=== PATIENT | female | born 1945 | race Caucasian/White ===

== ENCOUNTER 2021-08-07 09:48 | Outpatient (REF) | payer MEDICARE, OTHER, SELFPAY ==
--- NOTE | ~2021-08-07 | US_ITS ---
EXAMINATION: US EXTRACRANIAL CAROTID DUPLEX, BILATERAL CLINICAL INFORMATION: CVA. COMPARISON: None TECHNIQUE: Real-time ultrasound and Doppler techniques (integrating B-mode 2-D vascular images, Doppler spectral analysis and color-flow Doppler imaging) were utilized to interrogate the extracranial carotid arteries, the vertebral arteries and proximal subclavian arteries bilaterally. The degree of stenosis is determined by criteria similar to NASCET. FINDINGS: Right Side: 1. There is mild calcific atherosclerotic plaque seen in the bifurcation/proximal ICA region. 2. The common carotid artery PSV proximally is 93 cm/s and distally 70 cm/s. 3. The proximal internal carotid artery velocities are 46 cm/s systolic and 15 cm/s diastolic. 4. The proximal external carotid artery PSV is 99 cm/s. 5. The vertebral artery shows antegrade flow. 6. The subclavian artery waveforms are normal. Left Side: 1. There is mild calcific atherosclerotic plaque seen in the bifurcation/proximal ICA region. 2. The common carotid artery PSV proximally is 90 cm/s and distally 79 cm/s. 3. The proximal internal carotid artery velocities are 65 cm/s systolic and 19 cm/s diastolic. 4. The proximal external carotid artery PSV is 86 cm/s. 5. The vertebral artery shows antegrade flow. 6. The subclavian artery waveforms are normal. US/US carotid duplex BI IMPRESSION: 1. RIGHT: Minimal, non-hemodynamically significant stenosis of the proximal right internal carotid artery corresponding to a 0-49% stenosis by velocity criteria. 2. LEFT: Minimal, non-hemodynamically significant stenosis of the proximal left internal carotid artery corresponding to a 0-49% stenosis by velocity criteria.
== END 2021-08-07 09:49 | disposition home or self-care (01) ==
LOC: HO.US 09:48
PROVIDERS: Visit Provider Psychiatry & Neurology Neurology
DX: Z86.73 Personal history of transient ischemic attack (TIA), and cerebral infarction without residual deficits (principal)
CPT/HCPCS: 93880

== ENCOUNTER 2022-08-26 14:59 | Outpatient (REF) | payer MEDICARE, OTHER, SELFPAY ==
--- NOTE | ~2022-08-26 | XR_ITS ---
EXAMINATION: XR CHEST CLINICAL INFORMATION: Acute bronchitis COMPARISON: None TECHNIQUE: 2 views of the chest were obtained. FINDINGS: Cardiac silhouette is normal in size. The lungs are mildly hypoinflated. There is no lobar consolidation. No pleural effusion or pneumothorax. No acute osseous abnormality. XR/XR chest 2V IMPRESSION: No acute pulmonary pathology.
[2022-08-26 15:44] LABS: Binax Internal Control QC Valid; Binax Now Covid-19 Ag Positive (Negative)
== END 2022-08-26 15:00 | disposition home or self-care (01) ==
LOC: HO.HMGCX 14:59
PROVIDERS: PCP Internal Medicine; Visit Provider Internal Medicine
DX: Z20.822 Contact with and (suspected) exposure to COVID-19 (principal); J02.9 Acute pharyngitis, unspecified; J06.9 Acute upper respiratory infection, unspecified
CPT/HCPCS: 71046; 87811; C9803

== ENCOUNTER 2023-06-04 12:56 | Outpatient (AMB) | payer MEDICARE, OTHER, SELFPAY ==
--- NOTE | 2023-06-04 14:06 | MHC.OFFWIV ---
Intake Vital Signs 06/04/23 14:09 Height 5 ft 2 in BP 120/78 Blood Pressure Location Rt brachial Position Sitting Pulse 68 Pulse Source Pulse Oximeter Temp 97.9 F Pulse Oximetry (%) 98 Oxygen Delivery Method Room Air Intake Visit Reasons: EST/rash under arms Intake Note: pt is here for rash under arms for a few days Patient Tobacco Use Status: Never used Tobacco Allergies z pack Adverse Reaction (Mild, Uncoded 06/04/23 14:08) Nausea and Vomiting Do you need a note to return to daycare/school/sports/work: No HPI HPI Comments History of Present Illness Details This is a 77-year-old female who presents to the office today for sick visit. Patient states she developed a rash of her right axillary region yesterday. She denies any pruritus but states that the rash is ?burning?. She denies any purulent drainage. She states she applied some mupirocin ointment to the area last night and the rash did slightly improve. She then applied some baby powder this morning and the rash seems to be improved. Patient states she occasionally develops similar rash underneath her abdominal fold in her inguinal folds bilaterally. She denies any fevers or chills. She denies exposure to any new creams, soaps, lotions, detergents, etc. PFS Social History Patient Tobacco Use Status: Never used Tobacco Review of Systems Const All systems reviewed & are unremarkable except as noted in HPI and below Denies body aches and Denies fever(s) Eyes Reports no additional complaints ENT Reports no additional complaints Card Reports no additional complaints Resp Reports no additional complaints GI Reports no additional complaints Reports no additional complaints Musc Reports no additional complaints Skin/Breast Reports rash Neuro Reports no additional complaints Psych Reports no additional complaints Endo Reports no additional complaints Physical Exam Vital Signs: Last Vital Signs Temp 97.9 F 06/04/23 14:09 Pulse 68 06/04/23 14:09 BP 120/78 06/04/23 14:09 Pulse Ox 98 06/04/23 14:09 Oxygen Delivery Method Room Air 06/04/23 14:09 Const General: cooperative, healthy appearing and no acute distress Orientation/consciousness: patient oriented x3 HEENT Head: Yes normal to inspection Ears: hearing grossly normal bilaterally General nose exam: Normal external nose present Face and sinus: Yes normal facial exam Eyes General: appearance normal, both eyes and all related structures Resp Effort & Inspection: normal respiratory effort Auscultation: clear to auscultation bilaterally Cardio Rate: regular rate Rhythm: regular rhythm Heart sounds: no gallops, no murmurs and no rubs Skin Other: Circular area of beefy erythema in the right axillary region. Neuro General: patient oriented x3 Cranial nerves: Yes CN's II-XII intact bilaterally Cognition (Neuro): normal cognition Gait exam (Neuro): Normal gait present Motor exam (neuro): 5/5 motor strength present throughout Assessment & Plan Assessment & Plan (1) Intertriginous candidiasis: Code(s): B37.2 - Candidiasis of skin and nail Plan This is a 77-year-old female who presents to the office today for a rash of her right axillary region. History and physical most consistent with intertriginous candidiasis. Rash not consistent with cellulitis. Start nystatin powder twice daily. Patient advised to keep the area clean and dry. Patient advised to avoid rubbing the area. Patient advised to follow-up here with the emergency room for worsening/persistent symptoms. Patient verbalizes her understanding and she is agreeable with the plan. Medications: New nystatin 1 appl topical BID 15 grams 0RF Coding Level of Care Code Est Pt Level 3 (35364) Diagnoses Intertriginous candidiasis B37.2
[2023-06-04 14:09] VITALS: BP 120/78; PULSE 68; TEMP 36.6; O2SAT 98
== END 2023-06-04 14:32 | disposition home or self-care (01) ==
PROVIDERS: PCP Internal Medicine; Visit Provider Physician Assistant Medical
DX: B37.2 Candidiasis of skin and nail (principal)
CPT/HCPCS: 99213

== ENCOUNTER 2023-08-31 10:39 | Outpatient (AMB) | payer MEDICARE, OTHER, SELFPAY ==
--- NOTE | 2023-08-31 13:16 | MHC.OFFWIV ---
Intake Vital Signs 08/31/23 13:21 Height 5 ft 2 in Weight 178 lb BMI 32.6 BP 120/62 Blood Pressure Location Lt brachial Position Sitting Pulse 63 Pulse Source Pulse Oximeter Temp 97.9 F Temp Source Temporal Artery Scan Pulse Oximetry (%) 97 Intake Visit Reasons: EP, body itchiness Intake Note: pt is here for c/o body itchiness Patient Tobacco Use Status: Never used Tobacco Allergies z pack Adverse Reaction (Mild, Uncoded 08/31/23 13:23) Nausea and Vomiting Do you need a note to return to daycare/school/sports/work: Yes HPI HPI Comments History of Present Illness Details 70-year-old female presents for itching. Patient states that she had similar symptoms a few weeks ago developed itching after eating a strawberry. She saw her rn home health and thought she might have an allergy. Yesterday she a plum and a tomato from the guardian and develops further symptoms. Denies any fevers chills recent was exposure. has no symptoms of itching. [facility] Social History Patient Tobacco Use Status: Never used Tobacco Review of Systems Skin/Breast Reports pruritus, Reports lesions and Reports rash Physical Exam Vital Signs: Last Vital Signs Temp 97.9 F 08/31/23 13:21 Pulse 63 08/31/23 13:21 BP 120/62 08/31/23 13:21 Pulse Ox 97 08/31/23 13:21 BMI result Body Mass Index 32.6 Const General: healthy appearing, comfortable, no acute distress and alert Orientation/consciousness: patient oriented x3 Limitations: no limitations HEENT Head: Yes normal to inspection Ears: hearing grossly normal bilaterally Resp Effort & Inspection: normal respiratory effort and able to speak in complete sentences Cardio Rate: regular rate Skin Other: small lesions erythematous nonraised scaly the arms chest back head. Neuro General: patient oriented x3 Extrem General: Yes normal to inspection Assessment & Plan Assessment & Plan (1) Urticaria: Code(s): L50.9 - Urticaria, unspecified Plan: VSS. Exam patient's alert and oriented no acute distress. exam notable for urticaria on the arms and chest back unclear etiology likely for trich in nature. Recommend trialing cetirizine up to 40 mg daily will send note to primary care to refer for allergy testing Discharge instructions, follow up and treatment are discussed with patient in my usual fashion. Alternatives in treatment are also discussed. The patient will return for worsening symptoms or as needed. Advised that any labs/imaging ordered will be followed up on and contact made if further treatment needed. Counseled that patient's condition may require further evaluation and/or treatment. Symptoms of concern for worsening disorder discussed in detail in my customary manner. Patient does verbalize understanding of the plan, there are no apparent barriers to communication. The patient is given the opportunity to ask questions and have them answered to his/her satisfaction Medications: New cetirizine start with 10mg daily may increase to 40 mg daily 10 mg PO DAILY 30 tabs 0RF Coding Level of Care Code Est Pt Level 3 (00525) Diagnoses Urticaria L50.9
[2023-08-31 13:21] VITALS: BP 120/62; PULSE 63; TEMP 36.6; O2SAT 97; BMI 32.6
== END 2023-08-31 13:47 | disposition home or self-care (01) ==
PROVIDERS: PCP Internal Medicine; Visit Provider Physician Assistant
DX: L50.9 Urticaria, unspecified (principal)
CPT/HCPCS: 99213

== ENCOUNTER 2024-05-26 15:22 | Outpatient (AMB) | payer MEDICARE, OTHER, SELFPAY ==
[2024-05-26 15:24] VITALS: BP 120/80; PULSE 70; TEMP 36.7; O2SAT 94; BMI 31.3
--- NOTE | 2024-05-26 15:24 | AM.OFFWIN_ITS ---
Intake Vital Signs 3 05/26/24 15:24 Height 5 ft 2 in Weight 171 lb 2 oz BMI 31.3 BP 120/80 Blood Pressure Location Rt brachial Pulse 70 Pulse Source Pulse Oximeter Temp 98.0 F Temp Source Temporal Artery Scan Pulse Oximetry (%) 94 Oxygen Delivery Method Room Air Intake Visit Reasons: EP fell hurt lft side Intake Note: pt is here for left side pain due to fall Patient Tobacco Use Status: Never used Tobacco Allergies z pack Adverse Reaction (Mild, Uncoded 05/26/24 15:24) Nausea and Vomiting Do you need a note to return to daycare/school/sports/work: No HPI HPI Comments 2 History of Present Illness0 Details 78 y/o female patient who presents to [facility] in clinic with c/o left big toe infection. She believed injured her toe yesterday and now it's infected. She cleaned it and applied a bandage. She also c/o left sided Flank pain since yesterday, she was reaching at something and believes she might have pulled a muscle. PFSH Social History Patient Tobacco Use Status: Never used Tobacco Review of Systems Const All systems reviewed & are unremarkable except as noted in HPI and below Physical Exam Vital Signs: Last Vital Signs Temp 98.0 F 05/26/24 15:24 Pulse 70 05/26/24 15:24 BP 120/80 05/26/24 15:24 Pulse Ox 94 05/26/24 15:24 Oxygen Delivery Method Room Air 05/26/24 15:24 BMI result Body Mass Index 31.3 Const General: comfortable and no acute distress Nutritional Appearance: obese Orientation/consciousness: patient oriented x3 Chest Other: Tenderness with palpation Chest palpation & inspection: tenderness pectoral muscle and costochondral junction Resp Effort & Inspection: normal respiratory effort and able to speak in complete sentences Auscultation: clear to auscultation bilaterally, no crackles, no rales, no rhonchi and no wheezes Cardio Rate: regular rate Rhythm: regular rhythm Neuro General: patient oriented x3, gait normal and moves all extremities Extrem Ankle/foot/toe images: 2 1. Redness under nail, yellow drainage and tenderness Psych Speech and movement: Normal speech and movement present Assessment & Plan Assessment & Plan (1) Flank pain, acute: Code(s): R10.9 - Unspecified abdominal pain Plan: Wrapped with Jeremy bandage for compression Acetaminophen for pain relief (2) Infected nail bed of toe: Code(s): L03.039 - Cellulitis of unspecified toe Qualifiers: Laterality: left Qualified Code(s): L03.032 - Cellulitis of left toe Plan: Prescribed Abx for 7 days. Keep the skin clean and dry. Medications: New 2 cephalexin 250 mg PO BID PRN 14 caps 0RF infection 7 days L03.032 - Cellulitis of left toe Coding Level of Care Code Est Pt Level 3 (48677) Diagnoses Flank pain, acute R10.9 Infection of nail bed of toe of left foot L03.032 Laterality: left Time Spent (min) 15
== END 2024-05-26 16:18 | disposition home or self-care (01) ==
PROVIDERS: PCP Internal Medicine; Visit Provider Nurse Practitioner Family
DX: R10.9 Unspecified abdominal pain (principal); L03.032 Cellulitis of left toe
CPT/HCPCS: 99213

== ENCOUNTER 2024-08-07 14:00 | Emergency (ER) | payer MEDICARE, OTHER, SELFPAY ==
--- NOTE | ~2024-08-07 | CT_ITS ---
EXAMINATION: CT SOFT TISSUE NECK WITH CONTRAST CLINICAL INFORMATION: Lower jaw swelling. Parotitis. Dental abscess. COMPARISON: None available. TECHNIQUE: Multidetector helical imaging was performed in the axial plane following the administration of 60 mL of Omnipaque 350 intravenous contrast. Multiple axial reformats and coronal/sagittal reconstructions were created the technologist workstation for review. This CT examination was performed using dose optimization techniques as appropriate, variously including the following: *Automated exposure control. *Adjustment of mA and/or kV according to patient size (this includes techniques or standardized protocols for targeted exams where dose is matched to indication/reason for exam; i.e. extremities or head). *Use of iterative reconstruction technique. DLP: 473 mGy-cm FINDINGS: Moderate hyperemic enlargement of the right parotid gland. No demonstrated focal soft tissue mass or collection. No demonstrated sialoliths or salivary ductal dilatation. Moderate fat stranding surrounding the right parotid gland extending into the right anterior neck and smooth thickening of the right aspect of the platysma muscle. No significant cutaneous thickening. No discrete fluid collection within the deep tissues of the neck. Mild fat stranding within the right parapharyngeal adipose tissue. The premaxillary, retromaxillary, pterygopalatine fossa, orbital apical, left parapharyngeal, and prelaryngeal adipose tissue is maintained. Normal appearance of the left-sided parotid gland. Normal appearance of the submandibular and thyroid glands. Scattered subcentimeter lymph nodes bilaterally, none of which are pathologically enlarged or abnormally enhancing. No demonstrated focal lesion or abnormal enhancement within the intrinsic tissues of the tongue or floor of mouth Normal mucosal contours of the pharynx and larynx without abnormal enhancement. Normal appearance of the hyoid bone, thyroid cartilage, or cartilaginous trachea. The airways remains widely patent. No radiopaque foreign bodies. The atlantooccipital and atlantoaxial articulations remain well aligned. Straightening of the normal cervical lordosis. No evidence of acute fracture or subluxation of the cervical spine. The vertebral body heights are maintained. Advanced degenerative disc disease from C4-T1 and at T2-T3. Facet and uncovertebral joint arthropathy leads to osseous encroachment on the neural foramina from C3-C6. No evidence of epidural collection. There is no prevertebral soft tissue swelling. Normal opacification of the cervical arterial and venous structures. The visualized portion of the skull base is without significant abnormalities. The visualized paranasal sinuses are clear. The mastoid air cells and middle ear cavities are clear. Moderate left-sided and mild right-sided degenerative arthropathy of the temporomandibular joints. Multiple odontogenic enamel erosions, most notably involving the right-sided maxillary teeth. Bilateral lens extractions. CT Upper Chest: The visualized lung apices and upper mediastinum are within normal limits. CT/CT soft tissue neck w IV con IMPRESSION: 1. Moderate hyperemic enlargement of the right parotid gland with moderate surrounding fat stranding suggestive of nonspecific parotiditis. No demonstrated focal soft tissue mass, collection, or sialoliths or salivary ductal dilatation. 2. Moderate odontogenic disease. 3. No additional focal lesion, collection, lymphadenopathy, or abnormal enhancement within the soft tissues of the neck. Electronically signed by: Luis Fernando Pulliam DO 08/07/2024 08:16 PM EDT
[2024-08-07 14:04] VITALS: BP 151/83; PULSE 62; RESP 20; TEMP 37; O2SAT 100; BMI 31.0
--- NOTE | 2024-08-07 14:13 | ED_ITS ---
HPI - General Adult General Chief complaint: General Medical Stated complaint: Allergic Rx L Side of Face and Neck Time Seen by Provider: 08/07/24 16:09 Source: patient Mode of arrival: ambulatory Limitations: no limitations History of Present Illness ED Provider: Jaziel Echavarria PA-C HPI narrative: [age] year female history of AFib, bronchial asthma, high cholesterol, GERD, gout, and shadow on lung presents to the ED for intermittent episodes of right lower face jaw swelling with redness that has been crying since last night after eating grapes. Patient never had any itchiness from the redness. Patient denies any itchy sensation in throat, trouble breathing, chest pain, fever, or chills. Patient denies any recent dental work. Patient states face no longer red but feels like right lower side of face neck is swollen. Patient denies any ear pain or any recent trauma Related Data Home Medications ?Medication ?Instructions ?Recorded ?Confirmed acitretin 10 mg capsule 10 mg PO QAM 08/26/22 allopurinol 100 mg tablet 200 mg PO DAILY 08/26/22 montelukast 10 mg tablet 10 mg PO BEDTIME 08/26/22 omeprazole 20 mg capsule,delayed 20 mg PO DAILY 08/26/22 release potassium chloride 20 mEq oral 20 meq PO BID 08/26/22 packet apixaban 5 mg tablet (Eliquis) 5 mg PO BID 06/04/23 atorvastatin 80 mg tablet 80 mg PO DAILY 06/04/23 clopidogrel 75 mg tablet 75 mg PO DAILY 06/04/23 loratadine 10 mg tablet 10 mg PO DAILY 06/04/23 sacubitril 24 mg-valsartan 26 mg 1 tab PO BID 06/04/23 tablet (Entresto) albuterol sulfate 90 mcg/actuation inhalation 05/26/24 aerosol inhaler amiodarone 200 mg tablet 100 mg PO DAILY 05/26/24 carvedilol 3.125 mg tablet 3.125 mg PO BID 05/26/24 dicyclomine 10 mg capsule 10 mg PO BID PRN 05/26/24 furosemide 20 mg tablet 20 mg PO DAILY 05/26/24 mupirocin 2 % topical ointment 1 appl topical BID-TID 05/26/24 Previous Rx's ?Medication ?Instructions ?Recorded nystatin 100,000 unit/gram topical 1 appl topical BID #15 grams 06/04/23 powder cetirizine 10 mg tablet 10 mg PO DAILY #30 tabs 08/31/23 cephalexin 250 mg capsule 250 mg PO BID PRN infection 7 days 05/26/24 #14 caps amoxicillin 875 mg-potassium 1 tab PO Q12H 10 days #20 tabs 08/07/24 clavulanate 125 mg tablet Allergies Allergy/AdvReac Type Severity Reaction Status Date / Time z pack AdvReac Mild Nausea and Uncoded 08/07/24 14:08 Vomiting Review of Systems 2 Review of Systems: Right side of lower face swelling with intermittent redness Yes all other systems are reviewed and are negative [facility] Social History Social History Patient Tobacco Use Status: Never used Tobacco Advance Directives: No Advance Directives Information Provided: No Do you have a plan to hurt others: No Plan Physical Exam ED Vital Signs: Vital Signs - 24 hr 08/07/24 14:04 08/07/24 16:00 08/07/24 18:00 Temperature 98.6 F 97.8 F 98.1 F Pulse Rate 62 58 53 Respiratory Rate 20 18 16 Blood Pressure 151/83 H 146/81 H 161/77 H Pulse Oximetry 100 100 99 Oxygen Delivery Method Room Air Room Air Room Air 08/07/24 21:45 08/07/24 22:37 Temperature 97.0 F 97.0 F Pulse Rate 56 56 Respiratory Rate 16 16 Blood Pressure 157/69 H 157/69 H Pulse Oximetry 98 98 Oxygen Delivery Method Room Air Room Air BMI result Body Mass Index 31.0 Const General: cooperative, healthy appearing, comfortable, no acute distress, well developed, alert and awake Orientation/consciousness: patient oriented x3 [facility] Head: Yes normal to inspection, Yes No palpable skull fracture present, Yes normocephalic and Yes atraumatic Head images: 2 1. positive for mass/swelling sensation on palpation that is slightly tenderness. Negative for any erythema or fluctuance. Negative for pustules, shingles, uticaria, ecchymosis, or deformity. Oral exam ED for signs of obvious dental abscess. Negative for trismus. Tongue floor not not swollen. 2. positive for mass/swelling sensation on palpation that is slightly tenderness. Negative for any erythema or fluctuance. Negative for pustules, shingles, uticaria, ecchymosis, or deformity. Oral exam ED for signs of obvious dental abscess. Negative for trismus. Tongue floor not not swollen. Ears: hearing grossly normal bilaterally, external ears normal, TM's normal bilaterally, TM normal on the right, TM normal on the left, EAC's normal, mastoids normal and no periauricular adenopathy Teeth and gingiva: caries (Diffuse dental caries and poor dental hygiene) Throat: Yes posterior oropharynx normal, Yes tonsils normal and Yes uvula midline Eyes General: appearance normal, both eyes and all related structures Neck Neck: Yes normal visual inspection, Yes full ROM, Yes no lymphadenopathy, Yes no meningeal signs, Yes trachea midline, Yes supple, No anterior neck swelling and No tender Chest Chest palpation & inspection: normal inspection of the chest and normal palpation of entire chest wall Resp Effort & Inspection: normal respiratory effort and able to speak in complete sentences Auscultation: clear to auscultation bilaterally Cardio Jugular venous distension: no JVD Heart sounds: S1 normal heart sound present and S2 normal heart sound present GI Inspection: Yes normal to inspection Palpation (GI): Soft to palpation, not firm, nontender, no guarding and not rigid General: No CVA tenderness and Yes no CVA tenderness Back/Spine/Pelvis Back: no CVA tenderness, No CVA tenderness and No back tenderness Skin General skin exam: no rashes or lesions noted, elasticity normal and turgor normal Neuro General: patient oriented x3, gait normal, tone normal, moves all extremities, Normal light touch and pain sensation, no meningeal signs, no focal motor deficits, CN's II-XI intact bilaterally and normal sensation to monofilament Extrem General: Yes normal to inspection, Yes full ROM and Yes capillary refill normal Psych Appearance: grossly normal, well kempt and not disheveled Course Course Course Narrative: This is a Rapid Medical Examination (RME) performed by Shauna Atkinson PA-C in triage. Full HPI, ROS, assessment and treatment plan per primary provider in the Main ED. 79 yo female hx of skin cancer here for eval of right facial pain/ swelling since last night. reports pain every time she has eaten something since last night (grapes, corn beef). admits she has to have a tooth pulled to her right upper teeth. currently on amoxicillin for shadow on lung . + ttp of right lower jaw with noted swelling. multiple dental caries. air way patent. speaking in full complete sentences. no rashes. Plan: labs, will defer any imaging to primary provider Medications Administered Discontinued Medications Generic Name Dose Route Start Last Admin Trade Name [place] PRN Reason Stop Dose Admin Iohexol 100 ml 08/07/24 17:47 08/07/24 17:47 Iohexol 350 Mg/Ml 100 Ml Infus..Btl IV 08/07/24 17:48 60 ml ONCE ONE Administration Medical Decision Making Medical Decision Making MDM Narrative: 79-year-old female with right lower jaw facial swelling since last night without any trauma. Patient not in distress. Patient is speaking in clear sentences. Negative for drooling or change in voice. Labs are pending. We will send for soft tissue neck CT scan check for any dental abscesses, parotitis, or any other etiology. 9:38pm: Patient CT scan shows power tinnitus without any abscess, mass, or stone. Patient is sleeping comfortably in bed. Negative for any drooling or change in voice. Case discussed with Dr. Grubbs who recommends Augmentin. Patient already on augmenting and infomred to continue taking augmentin. Patient is educated on massaging right side of face. Patient informed to follow-up primary care provider. Patient explained worrisome signs. Patient given copy imaging for follow up. Not suspecting retropharyngeal abscess, peritonsillar abscess, abscess, or trismus Differential Diagnosis Differential Diagnoses: The differential diagnosis associated with the presentation includes (Retropharyngeal abscess, dental abscess, parotitis) Admission/Observation Consideration of admission/observation: Escalation of care including admission/observation considered Lab Data [facility] Lab Attestation statement: I reviewed the patient's lab results. 08/07/24 15:55 08/07/24 15:55 Labs: Lab Results 08/07/24 Range/Units 15:55 WBC 7.1 (4.8-10.8) X10*3/uL RBC 3.68 L (4.20-5.50) X10*6/uL Hgb 12.9 (12.0-16.0) g/dl Hct 38.0 (37.0-47.0) % MCV 103.3 H (80.0-98.0) fL MCH 35.1 H (27.0-33.0) pg MCHC 33.9 (31.0-35.0) g/dl RDW 13.4 (11.0-16.0) % Plt Count 159 L (160-400) X10*3/uL MPV 10.8 (9.4-12.3) fL Immature Gran % (Auto) 0.3 (0.0-0.4) % Neut % (Auto) 62.0 (45-73) % Lymph % (Auto) 28.1 (20-40) % [place] % (Auto) 8.6 (2-11) % Eos % (Auto) 0.4 (0-4) % Baso % (Auto) 0.6 (0-2) % Lymph # (Auto) 2.0 (1.2-4.9) X10*3/uL [place] # (Auto) 0.6 (0.1-1.2) X10*3/uL Eos # (Auto) 0.0 (0.0-0.4) X10*3/uL Baso # (Auto) 0.0 (0.0-0.2) X10*3/uL Abs Immat Gran (auto) 0.02 (0.00-0.03) X10*3/uL Absolute Neuts (auto) 4.4 (2.0-8.3) x10*3/uL Absolute Nucleated RBC 0.000 (0.0-0.012) X10*3/uL Nucleated RBC % (auto) 0.0 (0.0-0.2) /100WBC Sodium 142 (135-145) mmol/L Potassium 5.0 (3.3-5.1) mmol/L Chloride 114 H (96-108) mmol/L Carbon Dioxide 21 L (22-29) mmol/L Anion Gap 12 (12-20) BUN 13 (9-16) mg/dL Creatinine 0.96 (0.5-1.4) mg/dL Estim Creat Clear Calc 47.3 Estimated GFR 56 Random Glucose 81 (60-115) mg/dL Calcium 9.3 (8.4-10.2) mg/dL Magnesium 1.7 (1.6-2.6) mg/dL Total Bilirubin 0.5 (0.0-1.0) mg/dL AST 18 (5-31) U/L ALT 12 (0-31) U/L Alkaline Phosphatase 92 (39-117) U/L Total Protein 6.2 L (6.5-8.0) g/dL Albumin 3.7 (3.5-5.0) g/dL Independent Interpretation I performed an independent interpretation of an: CT Scan Radiology Impression Discussion of test interpretation with radiology: I have reviewed the radiologist's reading. Independent Historian Clinical information obtained from an independent historian. History obtained from or confirmed by: Other (Patient) External Record Review External record reviewed: Other (Prior visit) Discharge Plan Discharge Clinical Impression: Acute parotitis Patient Disposition: Home, Self-Care Instructions: Sialoadenitis (ED) Additional Instructions: CT scan shows peritonitis. Negative for signs of abscess, mass, or stone. . Continue taking the augentin you were prescribed.. Recommend massaging right side of face of these 4 times a day for 15 minutes. Return to the ED immediately for increased swelling, facial pain, fever, chills, chest pain, shortness of breath, drooling, or any other concerning symptoms. CT/CT soft tissue neck w IV con IMPRESSION: 1. Moderate hyperemic enlargement of the right parotid gland with moderate surrounding fat stranding suggestive of nonspecific parotiditis. No demonstrated focal soft tissue mass, collection, or sialoliths or salivary ductal dilatation. 2. Moderate odontogenic disease. 3. No additional focal lesion, collection, lymphadenopathy, or abnormal enhancement within the soft tissues of the neck. Electronically signed by: Luis Fernando Pulliam DO 08/07/2024 08:16 PM EDT Prescriptions: New amoxicillin-pot clavulanate 875-125 mg tablet 1 tab PO Q12H 10 Days Qty: 20 0RF No Action Eliquis 5 mg tablet 5 mg PO BID clopidogrel 75 mg tablet 75 mg PO DAILY loratadine 10 mg tablet 10 mg PO DAILY Entresto 24-26 mg tablet 1 tab PO BID atorvastatin 80 mg tablet 80 mg PO DAILY nystatin 100,000 unit/gram powder 1 appl topical BID Qty: 15 0RF amiodarone 200 mg tablet 100 mg PO DAILY dicyclomine 10 mg capsule 10 mg PO BID PRN mupirocin 2 % ointment 1 appl topical BID-TID carvedilol 3.125 mg tablet 3.125 mg PO BID furosemide 20 mg tablet 20 mg PO DAILY albuterol sulfate 90 mcg/actuation HFA aerosol inhaler inhalation cephalexin 250 mg capsule 250 mg PO BID PRN (Reason: infection) 7 Days Qty: 14 0RF montelukast 10 mg tablet 10 mg PO BEDTIME omeprazole 20 mg capsule,delayed release(DR/EC) 20 mg PO DAILY acitretin 10 mg capsule 10 mg PO QAM potassium chloride 20 mEq packet 20 meq PO BID allopurinol 100 mg tablet 200 mg PO DAILY cetirizine 10 mg tablet 10 mg PO DAILY Qty: 30 0RF Rx Instructions: start with 10mg daily may increase to 40 mg daily Interventions: ED Discharge Assessment Last Done: 08/07/24 22:37 Discharge Date/Time: 08/07/24 21:53 Print Language: Greek
[2024-08-07 16:00] VITALS: BP 146/81; PULSE 58; RESP 18; TEMP 36.6; O2SAT 100
[2024-08-07 16:03] LABS: MANUAL DIFF FLAG NO
[2024-08-07 16:13] LABS: Basophils Percent Auto 0.6 % (0-2); Eosinophils Percent Auto 0.4 % (0-4); Hemoglobin 12.9 g/dl (12.0-16.0); Imm Gran Abs Auto 0.02 X10*3/uL (0.00-0.03); Imm Gran Pct Auto 0.3 % (0.0-0.4); Lymphocytes Percent Auto 28.1 % (20-40); Mean Corpuscular HGB Conc 33.9 g/dl (31.0-35.0); Mean Corpuscular Hemoglobin 35.1 pg (27.0-33.0); Mean Corpuscular Volume 103.3 fL (80.0-98.0); Mean Platelet Volume 10.8 fL (9.4-12.3); Monocytes Absolute Auto 0.6 X10*3/uL (0.1-1.2); Monocytes Percent Auto 8.6 % (2-11); Neutrophils Absolute Auto 4.4 x10*3/uL (2.0-8.3); Platelet Count 159 X10*3/uL (160-400); Red Blood Count 3.68 X10*6/uL (4.20-5.50); Red Cell Distribution Width 13.4 % (11.0-16.0); White Blood Count 7.1 X10*3/uL (4.8-10.8)
[2024-08-07 16:23] LABS: Alanine Aminotransferase 12 U/L (0-31); Albumin Level 3.7 g/dL (3.5-5.0); Alkaline Phosphatase 92 U/L (39-117); Anion Gap 12 (12-20); Aspartate Amino Transferase 18 U/L (5-31); Bilirubin Total 0.5 mg/dL (0.0-1.0); Blood Urea Nitrogen 13 mg/dL (9-16); Calcium 9.3 mg/dL (8.4-10.2); Carbon Dioxide 21 mmol/L (22-29); Chloride 114 mmol/L (96-108); Creatinine Clr Calc Pharmacy 47.3; Estimated Glomerular Filt Rate 56; Glucose Random 81 mg/dL (60-115); Magnesium 1.7 mg/dL (1.6-2.6); Sodium 142 mmol/L (135-145); Total Protein 6.2 g/dL (6.5-8.0)
[2024-08-07] MEDS: iohexoL 350 MG/ML 100 ML INFUS..BTL IV (17:47)
[2024-08-07 18:00] VITALS: BP 161/77; PULSE 53; RESP 16; TEMP 36.7; O2SAT 99
[2024-08-07 21:45] VITALS: BP 157/69; PULSE 56; RESP 16; TEMP 36.1; O2SAT 98
[2024-08-07 22:37] VITALS: BP 157/69; PULSE 56; RESP 16; TEMP 36.1; O2SAT 98
== END 2024-08-07 21:53 | disposition home or self-care (01) ==
PROVIDERS: Physician Assistant Medical; Emergency Provider Internal Medicine; PCP Internal Medicine
DX: K11.21 Acute sialoadenitis (principal); R22.1 Localized swelling, mass and lump, neck; Z79.899 Other long term (current) drug therapy
CPT/HCPCS: 36415; 70491; 80053; 83735; 85025; 99283; Q9967

== ENCOUNTER → 2024-10-11 15:21 | Outpatient (BNVA) | payer MEDICARE, OTHER, SELFPAY | PROVIDERS: PCP Internal Medicine; Visit Provider Registered Nurse | DX: R10.11 Right upper quadrant pain (principal) | CPT/HCPCS: 99212 ==

== ENCOUNTER 2024-10-16 09:47 | Outpatient (AMB) | payer MEDICARE, OTHER, SELFPAY ==
[2024-10-16 10:14] VITALS: BP 110/68; PULSE 55; O2SAT 100; BMI 31.6
--- NOTE | 2024-10-16 10:14 | A.OFFVIS_ITS ---
Vital Signs 10/16/24 10:14 Height 5 ft 3 in Weight 178 lb 9.191 oz BMI 31.6 BP 110/68 Blood Pressure Location Lt brachial Position Sitting Pulse 55 Pulse Source Pulse Oximeter Pulse Oximetry (%) 100 Oxygen Delivery Method Room Air Intake Visit Reasons: dyspnea Allergies z pack Adverse Reaction (Mild, Uncoded 10/16/24 10:18) Nausea and Vomiting HPI HPI dyspnea: Details: Jessica is a pleasant 79 year old female, never smoker, with underlying asthma, severe GERMAN on CPAP, HTN, GERD, Atrial fibrillation/DVT on eliquis, STEMI s/p stent LAD 2021, diastolic dysfunction and h/o basal cell carcinoma/melanoma. She was referred by PCP for pulmonary evaluation for ongoing dyspnea. She reports dyspnea has been more noticeable over the last few years with occasional wheezing and dry cough. She denies orthopnea, reports occasional BLE edema. She was diagnosed with asthma as an adult, never requiring intubation. She reports mild seasonal allergies. She denies any occupational exposures. She uses an albuterol MDI infrequently. PFT performed 02/2024 Normal spirometry with no response to bronchodilators except in small to medium airways, increase lung volumes suggestive of air trapping and decreased DLCO 57%, suggestive of underlying parenchymal condition. She denies recent chest CT. She is under the care of [facility] for significant cardiac history, maintained on amiodarone, eliquis and entresto. She reports prior question of DVT, denies PE. She reports ongoing history of melanoma and basal cell skin cancers under the care of [place] [facility]. She also notes h/o severe GERMAN, in need of a new machine as hers is >5 years old. [employer] is her DME. She continues to report paroxsymal nocturnal dyspnea, daytime fatigue and nonrestorative sleep. [facility] Social History Patient Tobacco Use Status: Never used Tobacco Review of Systems Const Denies chills, Denies excessive sweating, Denies fever(s), Denies headache(s) and Denies night sweats Eyes Denies dry eyes, Denies irritation and Denies itchy eyes ENT Reports Normal hearing present, Denies headache(s), Denies nasal congestion, Denies nasal discharge, Denies post nasal drip and Denies sore throat Card Denies chest pain, Denies chest pain at rest, Denies chest pain with activity, Denies claudication, Denies leg edema and Denies orthopnea Resp Denies chest congestion, Denies excessive phlegm production, Denies pain on inspiration, Denies pain with cough and Denies stridor Musc Denies myalgias Neuro Reports Normal hearing present and Denies headache(s) Endo Denies excessive sweating Prashant/Lymph Denies lymphadenopathy Aller/Immun Denies itchy eyes and Denies seasonal rhinorrhea Physical Exam Vital Signs: Last Vital Signs Pulse 55 10/16/24 10:14 BP 110/68 10/16/24 10:14 Pulse Ox 100 10/16/24 10:14 Oxygen Delivery Method Room Air 10/16/24 10:14 BMI result Body Mass Index 31.6 Const General: cooperative, healthy appearing, comfortable, no acute distress, well developed and alert Nutritional Appearance: obese Orientation/consciousness: patient oriented x3 Limitations: no limitations HEENT Head: Yes normal to inspection, Yes normocephalic and Yes atraumatic Ears: hearing grossly normal bilaterally and external ears normal Eyes General: appearance normal, both eyes and all related structures Eyelids: Yes eyelids normal Sclerae: sclerae normal EOM: EOMs intact bilaterally Neck Neck: Yes normal visual inspection and Yes no lymphadenopathy Lymphatic: no lymphadenopathy noted Chest Chest palpation & inspection: normal inspection of the chest Resp Effort & Inspection: normal respiratory effort, able to speak in complete sentences, no audible wheezes, no cough, no stridor, not tachypneic, no tripod positioning and no use of accessory muscles Auscultation: clear to auscultation bilaterally Cardio Jugular venous distension: no JVD Rate: regular rate Rhythm: regular rhythm Skin Other: warm, dry General skin exam: no rashes or lesions noted Neuro General: patient oriented x3 Cranial nerves: Yes Normal hearing present Cognition (Neuro): normal cognition Gait exam (Neuro): Normal gait present Extrem General: Yes normal to inspection, Yes capillary refill normal, Yes no clubbing, cyanosis or edema and Yes no pedal edema Psych Appearance: grossly normal and well kempt Speech and movement: Normal speech and movement present and Clear speech present Affect: normal affect Attitude: cooperative Thought process: Normal thought process present Thought content: Normal thought content present Insight: Good insight present (Psych) Judgement: Good judgement present (Psych) Results Reviewed Results Reviewed: [facility] [address] [place], [place] [address] XRay Report Signed Patient: Jessica Tran MR#: [id number] : 1945 Acct:[id number] Age/Sex: 77 / F ADM Date: 08/26/22 Loc: HO.[email or web address] Attending Dr: Jamie House MD Ordering Physician: Jamie House MD Date of Service: 08/26/22 Procedure(s): XR chest 2V Accession Number(s): [id number] cc: Jamie House MD~ EXAMINATION: XR CHEST CLINICAL INFORMATION: Acute bronchitis COMPARISON: None TECHNIQUE: 2 views of the chest were obtained. FINDINGS: Cardiac silhouette is normal in size. The lungs are mildly hypoinflated. There is no lobar consolidation. No pleural effusion or pneumothorax. No acute osseous abnormality. XR/XR chest 2V IMPRESSION: No acute pulmonary pathology. 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 Will empirically trial Breo. Discussed importance of good oral hygiene to prevent thrush. PFT revealed normal spirometry, increased lung volumes suggestive of air trapping and moderately decreased DLCO suggestive of underlying parenchymal condition. Will send for chest CT to evaluate. She reports h/o severe GERMAN in need of new machine as her current is >5 years and malfunctioning. She continues with symptoms suggestive of GERMAN, will send for inlab PSG. All questions were answered and patient is in agreement of plan. Will follow up in 6-8 weeks or sooner if needed. Orders: Orders CT chest wo IV con Today R05.9 - Cough, unspecified, R94.2 - Abnormal results of pulmonary function studies RT PSG in-lab sleep study Today G47.33 - Obstructive sleep apnea (adult) (pediatric), R06.00 - Dyspnea, unspecified Medications: New fluticasone furoate-vilanterol 100-25 mcg/dose (Breo Ellipta) 1 inh inhalation DAILY 60 ea 6RF Coding Level of Care Code New Pt Level 4 (79406) Diagnoses Asthma J45.909 Decreased diffusion capacity R94.2 Paroxysmal nocturnal dyspnea R06.00 Severe obstructive sleep apnea G47.33 Cough R05.9
== END 2024-10-16 10:51 | disposition home or self-care (01) ==
PROVIDERS: PCP Internal Medicine; Visit Provider Nurse Practitioner Family
DX: J45.909 Unspecified asthma, uncomplicated (principal); R94.2 Abnormal results of pulmonary function studies; R06.00 Dyspnea, unspecified; G47.33 Obstructive sleep apnea (adult) (pediatric); R05.9 Cough, unspecified
CPT/HCPCS: 99204

== ENCOUNTER → 2024-10-16 09:47 | Outpatient (BNVA) | payer MEDICARE, OTHER, SELFPAY | PROVIDERS: PCP Internal Medicine; Visit Provider Nurse Practitioner Family | DX: J45.909 Unspecified asthma, uncomplicated (principal); R06.00 Dyspnea, unspecified; R05.9 Cough, unspecified; R94.2 Abnormal results of pulmonary function studies; G47.33 Obstructive sleep apnea (adult) (pediatric); Z99.89 Dependence on other enabling machines and devices | CPT/HCPCS: 99202 ==

== ENCOUNTER 2024-11-27 09:23 | Outpatient (AMB) | payer MEDICARE, OTHER, SELFPAY ==
--- NOTE | 2024-11-27 08:33 | A.OFFVIS_ITS ---
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 Required: No Retail Training Manager: Retail Training Manager offered & declined Accompanied by: Self / Same As Patient Allergies z pack Adverse Reaction (Mild, Uncoded 11/27/24 09:36) Nausea and Vomiting Medication List - Last Reconciled 11/27/24 by Haritha Baltazar LPN acitretin 10 mg PO QAM albuterol sulfate 90 mcg/actuation inhalation allopurinol 200 mg PO DAILY amiodarone 100 mg PO DAILY apixaban (Eliquis) 5 mg PO BID atorvastatin 80 mg PO DAILY carvedilol 3.125 mg PO BID cetirizine 10 mg PO DAILY cholecalciferol (vitamin D3) 50 mcg PO DAILY clopidogrel 75 mg PO DAILY dicyclomine 10 mg PO BID PRN fluticasone furoate-vilanterol 100-25 mcg/dose (Breo Ellipta) 1 inh inhalation DAILY furosemide 20 mg PO DAILY loratadine 10 mg PO DAILY montelukast 10 mg PO BEDTIME mupirocin 2% 1 appl topical BID-TID nystatin 1 appl topical BID omeprazole 20 mg PO DAILY potassium chloride 20 mEq PO BID sacubitril-valsartan 24-26 mg (Entresto) 1 tab PO BID HPI HPI Dyspnea: Details: Jessica is a pleasant 79 year old female, never smoker, with underlying asthma, severe GERMAN on CPAP, HTN, GERD, Atrial fibrillation/DVT on eliquis, STEMI s/p stent LAD 2021, diastolic dysfunction and h/o basal cell carcinoma/melanoma. She was initially referred by PCP for pulmonary evaluation for ongoing dyspnea with associated wheezing and dry cough. At the last visit, she was started on Breo however unable to assess effectiveness as she has developed a sinus infection three weeks ago, currently being treated by PCP. She believes she is on Augmentin, previously prescribed another abx and prednisone. She denies any chest congestion or changes in respiratory symptoms since developing sinus sx. Her PCP did refer her to ENT for further evaluation. PFT performed 02/2024 Normal spirometry with no response to bronchodilators except in small to medium air ways, increase lung volumes suggestive of air trapping and decreased DLCO 57%, suggestive of underlying parenchymal condition. She has chest CT scheduled later this week. She also noted h/o severe GERMAN, in need of a new machine as hers is >5 years old. [employer] is her DME. She continues to report paroxsymal nocturnal dyspnea, daytime fatigue and nonrestorative sleep. She was sent for in lab sleep study unfortunately had to reschedule. ON LICENSE OF [facility] Social History Patient Tobacco Use Status: Never used Tobacco Review of Systems Const Denies chills, Denies excessive sweating, Denies fever(s), Denies headache(s) and Denies night sweats Eyes Denies dry eyes, Denies irritation and Denies itchy eyes ENT Reports Normal hearing present, Denies headache(s), Reports nasal congestion, Reports post nasal drip and Denies sore throat Card Denies chest pain, Denies chest pain at rest, Denies chest pain with activity, Denies claudication, Denies leg edema, Reports dyspnea on exertion and Denies orthopnea Resp Denies chest congestion, Reports cough, Denies excessive phlegm production, Denies pain on inspiration, Denies pain with cough, Reports dyspnea on exertion, Denies stridor and Denies wheezing Musc Denies myalgias Neuro Reports Normal hearing present and Denies headache(s) Endo Denies excessive sweating Prashant/Lymph Denies lymphadenopathy Aller/Immun Denies itchy eyes, Denies seasonal rhinorrhea and Denies wheezing Physical Exam Vital Signs: Last Vital Signs Pulse 62 11/27/24 09:31 BP 118/64 11/27/24 09:31 Pulse Ox 100 11/27/24 09:31 Oxygen Delivery Method Room Air 11/27/24 09:31 BMI result Body Mass Index 31.6 Const General: cooperative, healthy appearing, comfortable, no acute distress, well developed and alert Nutritional Appearance: obese Orientation/consciousness: patient oriented x3 Limitations: no limitations HEENT Head: Yes normal to inspection, Yes normocephalic and Yes atraumatic Ears: hearing grossly normal bilaterally and external ears normal Eyes General: appearance normal, both eyes and all related structures Eyelids: Yes eyelids normal Sclerae: sclerae normal EOM: EOMs intact bilaterally Neck Neck: Yes normal visual inspection and Yes no lymphadenopathy Lymphatic: no lymphadenopathy noted Chest Chest palpation & inspection: normal inspection of the chest Resp Effort & Inspection: normal respiratory effort, able to speak in complete sentences, no audible wheezes, no cough, no stridor, not tachypneic, no tripod positioning and no use of accessory muscles Auscultation: clear to auscultation bilaterally Cardio Jugular venous distension: no JVD Rate: regular rate Rhythm: regular rhythm Skin Other: warm, dry General skin exam: no rashes or lesions noted Neuro General: patient oriented x3 Cranial nerves: Yes Normal hearing present Cognition (Neuro): normal cognition Gait exam (Neuro): Normal gait present Extrem General: Yes normal to inspection, Yes capillary refill normal, Yes no clubbing, cyanosis or edema and Yes no pedal edema Psych Appearance: grossly normal and well kempt Speech and movement: Normal speech and movement present and Clear speech present Affect: normal affect Attitude: cooperative Thought process: Normal thought process present Thought content: Normal thought content present Insight: Good insight present (Psych) Judgement: Good judgement present (Psych) Assessment & Plan Assessment & Plan (1) Asthma: Code(s): J45.909 - Unspecified asthma, uncomplicated Category: Medical (2) Decreased diffusion capacity: Code(s): R94.2 - Abnormal results of pulmonary function studies Category: Medical (3) Paroxysmal nocturnal dyspnea: Code(s): R06.00 - Dyspnea, unspecified Category: Medical (4) Severe obstructive sleep apnea: Code(s): G47.33 - Obstructive sleep apnea (adult) (pediatric) Category: Medical (5) Cough: Code(s): R05.9 - Cough, unspecified Category: Medical Plan At the last visit, Jessica was started on Breo however unable to assess effectiveness due to current sinus infection. She is aware if chest congestion or productive cough occur to call office for sooner appt. Advised to continue and will reassess at next visit. Will also send in ipratropium nasal spray for continued post nasal drip. Awaiting chest CT to assess for underlying parenchymal condition, as prior PFT revealed decreased DLCO. An order was placed at the last visit for in lab PSG and she was given the information to call to reschedule. All questions were answered and patient is in agreement of plan. Will follow up in 4-6 weeks to review results or sooner if needed. Medications: New ipratropium bromide administer into each nostril 2 sprays intranasal BID 30 mL 0RF Coding Level of Care Code Est Pt Level 4 (90296) Diagnoses Asthma J45.909 Decreased diffusion capacity R94.2 Paroxysmal nocturnal dyspnea R06.00 Severe obstructive sleep apnea G47.33 Cough R05.9
[2024-11-27 09:31] VITALS: BP 118/64; PULSE 62; O2SAT 100; BMI 31.6
--- OUTSIDE RECORDS SUMMARY | 2024-11-27 09:50 | XMS_ITS | Clinical Summary ---
Author Organization Unknown Care Team Providers Care Historical Site Guide Name Role Phone MORIS MARAVILLA, BRIJESH Unavailable Unavailable MAURIZIO CHART READER, LILIAN Unavailable Unavailable LYLA RN, MAUREEN Unavailable Unavailable VON COLE CHART READER, HAWA Unavailable Unavail able KALETINA CHART READER, AREN Unavailable Unavailab le Payers Payer Name Policy Type Policy Number Effective Date Expira tion Date MEDICARE - [facility] [facility] [id number] Problems Condition Name Condition Details Condition Category Status Onset Date Resolution Date Last Treatment Date Treating Clinician Comments ST ELEVATION (STEMI) MYOCARDIAL INFARCTION OF UNSP SITE Active 2021-11 00:00: 00 COVID-19 Active 2021-11 00:00: 00 ESSENTIAL (PRIMARY) HYPERTENSION Active 2021-11 00:00: 00 UNSPECIFIED ATRIAL FIBRILLATION Active 2021-11 00:00: 00 ATHSCL HEART DISEASE OF [place] CORONARY ARTERY W/O ANG PCTRS Active 2021-11 00:00: 00 UNSPECIFIED ASTHMA, UNCOMPLICATE D Active 2021-11 00:00: 00 UNSPECIFIED OSTEOARTHRIT IS, UNSPECIFIED SITE Active 2021-11 00:00: 00 OBSTRUCTIVE SLEEP APNEA (ADULT) (PEDIATRIC) Active 2021-11 00:00: 00 HYPOKALEMIA Active 2021-11 00:00: 00 PHLEBITIS AND THROMBOPHLEB ITIS OF UNSPECIFIED SITE Active 2021-11 00:00: 00 PSORIASIS, UNSPECIFIED Active 2021-11 00:00: 00 OBESITY, UNSPECIFIED Active 2021-11 00:00: 00 HYPERLIPIDEM IA, UNSPECIFIED Active 2021-11 00:00: 00 PRESENCE OF CORONARY ANGIOPLASTY IMPLANT AND GRAFT Active 2021-11 00:00: 00 [facility] (CURRENT) USE OF ANTICOAGULAN TS Active 2021-11 00:00: 00 [facility] (CURRENT) USE OF ANTITHROMBOT ICS/ANTIPLAT ELETS Active 2021-11 00:00: 00 Allergies, Adverse Reactions, Alerts Allergy Name Allergy Type Status Severity Reaction(s) Onset Date Inactive Date Treating Clinician Comments AZITHROMYCIN Propensity to adverse reactions Active 2021-11 17:21: 14 Medications Ordered Medication Name Filled Medication Name Start Date Stop Date Current Medication? Ordering Clinician Indication Dosage Frequency Signature (SIG) Comments Components allopurinol 100 mg tablet 2021-11 00:00: 00 Yes [id number] 2 tablet DAILY 2 tablet DAILY (route: oral) Med Classific ation: Gout and Hyperuric emia Therapy allopurinol 100 mg tablet 2021-11 00:00: 00 09-01 00:00 :00 No [id number] Per instruc tions Per instructio ns (route: oral) Med Classific ation: Gout and Hyperuric emia Therapy atorvastati n 80 mg tablet 2021-11 00:00: 00 Yes [id number] 1 tablet BEDTIME 1 tablet BEDTIME (route: oral) Med Classific ation: Cardiovas cular Therapy Agents atorvastati n 80 mg tablet 2021-11 00:00: 00 09-01 00:00 :00 No [id number] Per instruc tions Per instructio ns (route: oral) Med Classific ation: Cardiovas cular Therapy Agents clopidogrel 75 mg tablet 2021-11 00:00: 00 Yes [id number] 1 tablet DAILY 1 tablet DAILY (route: oral) Med Classific ation: Hematolog ical Agents clopidogrel 75 mg tablet 2021-11 00:00: 00 09-01 00:00 :00 No [id number] Per instruc tions Per instructio ns (route: oral) Med Classific ation: Hematolog ical Agents Eliquis 5 mg tablet 2021-11 00:00: 00 Yes [id number] 1 tablet 2 TIMES DAILY 1 tablet 2 TIMES DAILY (route: oral) Med Classific ation: Hematolog ical Agents Eliquis 5 mg tablet 2021-11 00:00: 09-01 00:00 :00 No [id number] Per instruc tions Per instructio ns (route: oral) Med Classific ation: Hematolog ical Agents lisinopril 5 mg tablet 2021-11 00:00: 00 09-01 00:00 :00 No [id number] Per instruc tions Per instructio ns (route: oral) Med Classific ation: Cardiovas cular Therapy Agents lisinopril 5 mg tablet 2021-11 00:00: 00 Yes [id number] 2.5 mg DAILY 2.5 mg DAILY (route: oral) Med Classific ation: Cardiovas cular Therapy Agents metoprolol succinate ER 50 mg tablet,exte nded release 24 hr 2021-11 00:00: 00 Yes [id number] 1 tablet DAILY 1 tablet DAILY (route: oral) Med Classific ation: Cardiovas cular Therapy Agents metoprolol succinate ER 50 mg tablet,exte nded release 24 hr 2021-11 00:00: 00 09-01 00:00 :00 No [id number] Per instruc tions Per instructio ns (route: oral) Med Classific ation: Cardiovas cular Therapy Agents azithromyci n 250 mg tablet 2021-11 00:00: 00 09-01 00:00 :00 No [id number] Per instruc tions DAILY FOR 4 DAYS Per instructio ns DAILY FOR 4 DAYS (route: oral) Med Classific ation: Anti-Infe ctive Agents montelukast 10 mg tablet 08-21 00:00: 00 Yes [id number] Per instruc tions AT BEDTIME Per instructio ns AT BEDTIME (route: oral) Med Classific ation: Respirato ry Therapy Agents mupirocin 2 % topical ointment 08-04 00:00: 00 09-01 00:00 :00 No [id number] Per instruc tions LOWER LEG TWICE A DAY Per instructio ns LOWER LEG TWICE A DAY (route: topical) Med Classific ation: Dermatolo gical Immunizations Ordered Immunization Name Filled Immunization Name Date Status Comments Refusal Reason INFLUENZA, TIV (INACTIVATED) 2021-08-26 00:00:00 Vital Signs Vital Name Observation Time Observation Value Commen ts Temperature 2022-09-15 15:08:00.000 97.5 [degF] Temperature 2022-09-14 09:35:00.000 96.9 [degF] Temperature 2022-09-12 13:05:00.000 97 [degF] Temperature 2022-09-09 10:37:00.000 98.2 [degF] Temperature 2022-09-08 11:18:00.000 97 [degF] Temperature 2022-09-04 11:14:00.000 97.1 [degF] Temperature 2022-09-04 11:07:00.000 97.1 [degF] Temperature 2022-09-01 17:19:00.000 97.2 [degF] BMI (%) 2022-09-01 17:19:00.000 0 kg/m2 Height 2022-09-01 17:19:00.000 60 [in_us] Pulse 2022-09-15 15:08:00.000 68 /min Pulse 2022-09-14 09:35:00.000 62 /min Pulse 2022-09-12 13:05:00.000 65 /min Pulse 2022-09-09 10:37:00.000 74 /min Pulse 2022-09-08 11:18:00.000 60 /min Pulse 2022-09-04 11:14:00.000 79 /min Pulse 2022-09-04 11:07:00.000 79 /min Pulse 2022-09-02 18:20:00.000 70 /min Pulse 2022-09-01 17:19:00.000 76 /min O2 Saturation (%) 2022-09-15 15:08:00.000 97 % O2 Saturation (%) 2022-09-14 09:35:00.000 99 % O2 Saturation (%) 2022-09-12 13:05:00.000 98 % O2 Saturation (%) 2022-09-09 10:37:00.000 99 % O2 Saturation (%) 2022-09-08 11:18:00.000 98 % O2 Saturation (%) 2022-09-04 11:14:00.000 99 % O2 Saturation (%) 2022-09-04 11:07:00.000 99 % O2 Saturation (%) 2022-09-02 18:20:00.000 96 % O2 Saturation (%) 2022-09-01 17:19:00.000 97 % Respirations 2022-09-15 15:08:00.000 18 /min Respirations 2022-09-14 09:35:00.000 18 /min Respirations 2022-09-12 13:05:00.000 18 /min Respirations 2022-09-09 10:37:00.000 18 /min Respirations 2022-09-08 11:18:00.000 18 /min Respirations 2022-09-04 11:14:00.000 18 /min Respirations 2022-09-04 11:07:00.000 18 /min Respirations 2022-09-01 17:19:00.000 18 /min Weight (lbs) 2022-09-01 17:19:00.000 0 [lb_av] Systolic Blood Pressure 2022-09-15 15:08:00.000 134 mm [Hg] Systolic Blood Pressure 2022-09-14 09:35:00.000 112 mm [Hg] Systolic Blood Pressure 2022-09-12 13:05:00.000 122 mm [Hg] Systolic Blood Pressure 2022-09-09 10:37:00.000 114 mm [Hg] Systolic Blood Pressure 2022-09-08 11:18:00.000 120 mm [Hg] Systolic Blood Pressure 2022-09-04 11:14:00.000 122 mm [Hg] Systolic Blood Pressure 2022-09-04 11:07:00.000 122 mm [Hg] Systolic Blood Pressure 2022-09-02 18:20:00.000 138 mm [Hg] Systolic Blood Pressure 2022-09-01 17:19:00.000 122 mm [Hg] Diastolic Blood Pressure 2022-09-15 15:08:00.000 74 mm [Hg] Diastolic Blood Pressure 2022-09-14 09:35:00.000 62 mm [Hg] Diastolic Blood Pressure 2022-09-12 13:05:00.000 62 mm [Hg] Diastolic Blood Pressure 2022-09-09 10:37:00.000 70 mm [Hg] Diastolic Blood Pressure 2022-09-08 11:18:00.000 68 mm [Hg] Diastolic Blood Pressure 2022-09-04 11:14:00.000 64 mm [Hg] Diastolic Blood Pressure 2022-09-04 11:07:00.000 64 mm [Hg] Diastolic Blood Pressure 2022-09-02 18:20:00.000 88 mm [Hg] Diastolic Blood Pressure 2022-09-01 17:19:00.000 76 mm [Hg] Plan of Treatment Planned Activity Planned Date Details Comments Future Scheduled Test SKILLED NU RSE TO EVALUATE PATIENT, IDENTIFY PRIMARY AND CO-MORBID CONDITIONS CODED PER CODING GUIDELINES, AND DEVELOP PATIENT SPECIFIC PLAN OF CARE THAT INCLUDES PATIENT GOAL FOR HOME HEALTH. CLINICAL SUMMARY (SOC) THE PATIENT IS RECEIVING HOMECARE DUE TO STEMI RECENT HOSPITALIZATION/INPATIENT ADMISSION RELATED TO: SOB STEMI NEW OR CHANGED MEDICATIONS: PLAVIX, ELIQUIS, METOPROLOL ATORVASTATIN PATIENT LIVING SITUATION/CAREGIVER STATUS: W SHE IS HIS PCG DAUGHTER NEXT DOOR RECENT FALLS: N SUMMARIZE SKILLED NEED: CARDIAC ASSESSMENT ADDITIONAL DISCIPLINES NEEDED OR DECLINED ORDERED SERVICES: PT OT TREE TRIMMING LINE TECHNICIAN [code = SKILLED NURSE TO EVALUATE PATIENT, IDENTIFY PRIMARY AND CO-MORBID CONDITIONS CODED PER CODING GUIDELINES, AND DEVELOP PATIENT SPECIFIC PLAN OF CARE THAT INCLUDES PATIENT GOAL FOR HOME HEALTH. CLINICAL SUMMARY (SOC) THE PATIENT IS RECEIVING HOMECARE DUE TO STEMI RECENT HOSPITALIZATION/INPATIENT ADMISSION RELATED TO: SOB STEMI NEW OR CHANGED MEDICATIONS: PLAVIX, ELIQUIS, METOPROLOL ATORVASTATIN PATIENT LIVING SITUATION/CAREGIVER STATUS: W SHE IS HIS PCG DAUGHTER NEXT DOOR RECENT FALLS: N SUMMARIZE SKILLED NEED: CARDIAC ASSESSMENT ADDITIONAL DISCIPLINES NEEDED OR DECLINED ORDERED SERVICES: PT OT TREE TRIMMING LINE TECHNICIAN] Future Scheduled Test SKILLED NU RSE TO REVIEW PATIENT MEDICATIONS. INSTRUCT PATIENT/CAREGIVER ON MONITORING OF EFFECTIVENESS, ADVERSE DRUG REACTIONS, SIDE EFFECTS OF ALL MEDICATIONS (PRESCRIPTION/-OTC), AND HOW AND WHEN TO REPORT PROBLEMS. [code = SKILLED NURSE TO REVIEW PATIENT MEDICATIONS. INSTRUCT PATIENT/CAREGIVER ON MONITORING OF EFFECTIVENESS, ADVERSE DRUG REACTIONS, SIDE EFFECTS OF ALL MEDICATIONS (PRESCRIPTION/-OTC), AND HOW AND WHEN TO REPORT PROBLEMS.] Future Scheduled Test SKILLED NU RSE TO PERFORM HOME SAFETY AND FALL ASSESSMENT AND PROVIDE INSTRUCTION TO IMPLEMENT HOME SAFETY AND FALL PREVENTION STRATEGIES. [code = SKILLED NURSE TO PERFORM HOME SAFETY AND FALL ASSESSMENT AND PROVIDE INSTRUCTION TO IMPLEMENT HOME SAFETY AND FALL PREVENTION STRATEGIES.] Future Scheduled Test SKILLED NU RSE TO OBTAIN PULSE OXIMETRY MEASUREMENT PRN FOR SIGNS AND SYMPTOMS OF SHORTNESS OF BREATH, ACTIVITY INTOLERANCE AND WHEN OXYGEN IS ORDERED. [code = SKILLED NURSE TO OBTAIN PULSE OXIMETRY MEASUREMENT PRN FOR SIGNS AND SYMPTOMS OF SHORTNESS OF BREATH, ACTIVITY INTOLERANCE AND WHEN OXYGEN IS ORDERED.] Future Scheduled Test PATIENT SANTIAGO S A RISK OF REHOSPITALIZATION. SKILLED NURSE TO ESTABLISH SUPPORT MEASURES TO MINIMIZE RISK OF REHOSPITALIZATION, AND INSTRUCT PATIENT/CAREGIVER ON METHODS TO REDUCE AVOIDABLE HOSPITALIZATION. [code = PATIENT HAS A RISK OF REHOSPITALIZATION. SKILLED NURSE TO ESTABLISH SUPPORT MEASURES TO MINIMIZE RISK OF REHOSPITALIZATION, AND INSTRUCT PATIENT/CAREGIVER ON METHODS TO REDUCE AVOIDABLE HOSPITALIZATION.] Future Scheduled Test SKILLED NU RSE TO PROVIDE INSTRUCTION TO PATIENT/CAREGIVER RELATED TO DISCHARGE PLANNING. [code = SKILLED NURSE TO PROVIDE INSTRUCTION TO PATIENT/CAREGIVER RELATED TO DISCHARGE PLANNING.] Future Scheduled Test SKILLED NU RSE FOR O/A, TEACHING, AND MANAGEMENT OF STEMI, ASHD, CABG [code = SKILLED NURSE FOR O/A, TEACHING, AND MANAGEMENT OF STEMI, ASHD, CABG] Future Scheduled Test SKILLED NU RSE FOR OBSERVATION AND ASSESSMENT OF PATIENTS PAIN LEVEL AND EFFECTIVENESS OF PAIN MANAGEMENT REGIMEN. SKILLED NURSE TO INSTRUCT PATIENT/CAREGIVER REGARDING PHARMACOLOGIC AND NON-PHARMACOLOGIC PAIN CONTROL MEASURES. SKILLED NURSE TO REPORT TO PHYSICIAN IF PAIN IS UNCONTROLLED WITH CURRENT PAIN MANAGEMENT REGIMEN. [code = SKILLED NURSE FOR OBSERVATION AND ASSESSMENT OF PATIENTS PAIN LEVEL AND EFFECTIVENESS OF PAIN MANAGEMENT REGIMEN. SKILLED NURSE TO INSTRUCT PATIENT/CAREGIVER REGARDING PHARMACOLOGIC AND NON-PHARMACOLOGIC PAIN CONTROL MEASURES. SKILLED NURSE TO REPORT TO PHYSICIAN IF PAIN IS UNCONTROLLED WITH CURRENT PAIN MANAGEMENT REGIMEN.] Future Scheduled Test OCCUPATION AL THERAPIST TO EVALUATE PATIENT FOR IADLS [code = OCCUPATIONAL THERAPIST TO EVALUATE PATIENT FOR IADLS ] Future Scheduled Test MEDICAL SO CIAL WORKER TO EVALUATE PATIENT FOR COMMUNITY RESOURCES YOUTH ADVOCATE [code = PROGRAM CLINICIAN TO EVALUATE PATIENT FOR COMMUNITY RESOURCES YOUTH ADVOCATE] Future Scheduled Test SKILLED NU RSE TO ASSESS PATIENT'S SKIN INTEGRITY AND INSTRUCT PATIENT/CAREGIVER ON MEASURES TO PREVENT PRESSURE ULCERS [code = SKILLED NURSE TO ASSESS PATIENT'S SKIN INTEGRITY AND INSTRUCT PATIENT/CAREGIVER ON MEASURES TO PREVENT PRESSURE ULCERS] Future Scheduled Test PHYSICAL T HERAPIST TO EVALUATE PATIENT FOR GAIT STABILITY AND STRENGTH [code = PHYSICAL THERAPIST TO EVALUATE PATIENT FOR GAIT STABILITY AND STRENGTH ] Future Scheduled Test INSTRUCTED PATIENT/CAREGIVER ON SIGNS AND SYMPTOMS, RISK FACTORS, COMPLICATIONS, AND MANAGEMENT OF ATRIAL FIBRILLATION. [code = INSTRUCTED PATIENT/CAREGIVER ON SIGNS AND SYMPTOMS, RISK FACTORS, COMPLICATIONS, AND MANAGEMENT OF ATRIAL FIBRILLATION.] Future Scheduled Test SKILLED NU RSE TO PROVIDE TEACHING ON SIGNS AND SYMPTOMS AND MANAGEMENT OF HYPERTENSION. [code = SKILLED NURSE TO PROVIDE TEACHING ON SIGNS AND SYMPTOMS AND MANAGEMENT OF HYPERTENSION.] Future Scheduled Test VIRTUAL SIT FREQUENCY: 1-5 PER WEEK X 4 WEEKS, AND 5 PRN VIRTUAL VISITS MAY BE PERFORMED UTILIZING TELECOMMUNICATIONS SYSTEM TO OPTIMIZE SKILLED SERVICES FURNISHED ON THE PLAN OF CARE. SKILLED NURSE TO ESTABLISH SUPPORT MEASURES TO MINIMIZE RISK OF REHOSPITALIZATION, AND INSTRUCT PATIENT/CAREGIVER ON METHODS TO REDUCE AVOIDABLE HOSPITALIZATION. [code = VIRTUAL VISIT FREQUENCY: 1-5 PER WEEK X 4 WEEKS, AND 5 PRN VIRTUAL VISITS MAY BE PERFORMED UTILIZING TELECOMMUNICATIONS SYSTEM TO OPTIMIZE SKILLED SERVICES FURNISHED ON THE PLAN OF CARE. SKILLED NURSE TO ESTABLISH SUPPORT MEASURES TO MINIMIZE RISK OF REHOSPITALIZATION, AND INSTRUCT PATIENT/CAREGIVER ON METHODS TO REDUCE AVOIDABLE HOSPITALIZATION.] Future Scheduled Test OCCUPATION AL THERAPY TO EVALUATE AND TREAT. OCCUPATIONAL THERAPY EVALUATION COMPLETED. NO ADDITIONAL VISITS RECOMMENDED AT THIS TIME. [code = OCCUPATIONAL THERAPY TO EVALUATE AND TREAT. OCCUPATIONAL THERAPY EVALUATION COMPLETED. NO ADDITIONAL VISITS RECOMMENDED AT THIS TIME.] Future Scheduled Test SKILLED NU RSE FOR O/A RELATED TO SIGNS AND SYMPTOMS OF INFECTION AND TO PROVIDE TEACHING REGARDING INFECTION CONTROL MEASURES DUE TO RECENT COVID INFECTION. [code = SKILLED NURSE FOR O/A RELATED TO SIGNS AND SYMPTOMS OF INFECTION AND TO PROVIDE TEACHING REGARDING INFECTION CONTROL MEASURES DUE TO RECENT COVID INFECTION.] Future Scheduled Test SKILLED NU RSE FOR O/A OF RESPIRATORY SYSTEM TO IDENTIFY CHANGES ASSOCIATED WITH EXACERBATION AND TO PROVIDE SKILLED TEACHING ON MANAGEMENT OF ASTHMA DISEASE PROCESS. [code = SKILLED NURSE FOR O/A OF RESPIRATORY SYSTEM TO IDENTIFY CHANGES ASSOCIATED WITH EXACERBATION AND TO PROVIDE SKILLED TEACHING ON MANAGEMENT OF ASTHMA DISEASE PROCESS.] Future Scheduled Test PHYSICAL T HERAPIST TO EVALUATE PATIENT SECONDARY TO FUNCTIONAL DEFICITS/SAFETY CONCERNS. PHYSICAL THERAPIST TO ASSESS BEST PRACTICE INTERVENTIONS TO ASSIST PATIENTS TO IMPROVE OR STABILIZE MEDICAL STATUS AND PREVENT RE-HOSPITALIZATION. MEASURES INCLUDING REVIEW AND IDENTIFICATION OF CONCERNS FOR THE FOLLOWING AREAS: DRUG REGIMEN, ENVIRONMENTAL SAFETY ISSUES AND FALLS, PRESSURE ULCERS, PAIN, AND DISEASE MANAGEMENT. PHYSICAL THERAPY TO ESTABLISH /UPGRADE/DOWNGRADE THERAPEUTIC EXERCISE PROGRAM AND INSTRUCT PATIENT/CAREGIVER ON EXERCISE PRECAUTIONS WITH WRITTEN HOME PROGRAM. MAY INCLUDE PROM, AAROM, AROM, RROM APPROPRIATE TO IMPROVE FUNCTIONAL STRENGTH AND RANGE OF MOTION. PHYSICAL THERAPY TO INSTRUCT PATIENT/CAREGIVER ON GAIT TRAINING TECHNIQUES USING APPROPRIATE ASSISTIVE DEVICE, PROPER BODY MECHANICS TO IMPROVE MOBILITY, AND PREVENT INJURY OF PATIENT AND/OR CAREGIVER. PHYSICAL THERAPY TO ASSESS AND RECOMMEND HOME SAFETY ADAPTATIONS AND EDUCATE PATIENT /CAREGIVER ON FALL PREVENTION STRATEGIES. PHYSICAL THERAPY TO OBTAIN O2 SATS PRN VIA PULSE OXIMETER INDICATED FOR SHORTNESS OF BREATH, FATIGUE, WEAKNESS, ACTIVITY INTOLERANCE, AND/OR BASELINE MEASUREMENT FOR THERAPY TREATMENT. PHYSICAL THERAPY TO INSTRUCT PATIENT/CAREGIVER ON BALANCE AND BALANCE STRATEGIES TO IMPROVE SAFE MOBILITY AND REDUCE RISK FOR FALL AND INJURY INCLUDING PARTICIPATION IN [facility] BALANCE SPECIALTY PROGRAM SUMMARY OF THERAPY EVAL/ASSESSMENT FINDINGS AND REASON(S) SKILLS OF A THERAPIST ARE INDICATED: PHYSICAL THERAPY EVALUATION 09/04/22 PATIENT IS A 77-YEAR-OLD FEMALE REFERRED FOR PHYSICAL THERAPY EVALUATION S/P HOSPITALIZATION SECONDARY TO GENERAL WEAKNESS FOLLOWING STEMI, DX COVID-19+ 08/17/22. PATIENT WAS EXPERIENCING SHORTNESS OF BREATH AND HER SON-IN-LAW CALLED EMS WITH PATIENT TRANSPORTED TO [facility]. PATIENT DIAGNOSED WITH STEMI UPON ED ARRIVAL AND WAS IMMEDIATELY BROUGHT TO CARDIAC CATHERTIZATION WITH STENT PLACEMENT. FOLLOWING STABILIZATION AT [facility], PATIENT DISCHARGED HOME ON 08/31/2022. PRIOR MEDICAL HISTORY SIGNIFICANT FOR: HYPERTENSION, HYPERLIPIDEMIA, PSORIASIS, OBESITY, PHLEBITIS. PATIENT REPORTS RIGHT FOOT SURGERY 3 MONTHS AGO (MD LEWIS). PLOF: PATIENT LIVES WITH SHAREE, ALSO ON HOME CARE SERVICES, IN A DUPLEX ON THE FIRST FLOOR, 1 STEP WITHOUT RAIL, 1 THRESHOLD STEP TO NEGOTIATE. SHAREE HAS DEMENTIA WITH PATIENT ASSISTED HIM WITH ADLS/IADLS, PATIENT DROVE AND WAS ACTIVE OUTSIDE HOME. FALL HISTORY: PATIENT REPORTS NO RECENT FALLS. CLOF: PATIENT REPORTED RECEIVING ASSISTANCE FROM DAUGHTER, WHO LIVES NEXT DOOR, WITH IADLS WELL FRIENDS WHO LIVE NEARBY AND ASSIST WHEN NEEDED. SAFETY RECOMMENDATIONS: NIGHT LIGHT FOR BEDROOM ACQUISITION, INSTALLATION OF ELEVATED TOILET SEAT WITH ARM SUPPORTS. JARROD REPORTS HAS SPOKEN WITH VA, VA TO PROVIDE DME AND RENOVATE BATHROOM, PROVIDE WALK IN SHOWER. BILAT ROM WFL, BILAT LE STRENGTH 3+ TO 4/5. TO INCREASE BILAT LE STRENGTH AND ENDURANCE, INSTRUCTED PATIENT IN BILATERAL LOWER EXTREMITIES THER EXER X 10 WITH VERBAL CUES FOR FORM: PLANTAR/DORSI FLEX, HIP FLEX, KNEE EXT. DISPENSED HEP SHEETS. PATIENT INDEP SIT-->STAND TRANSFERS, SUPERVISION OFF LOW HEIGHT TOILET. PATIENT AMB 30' IN HOME WITH ROLLATOR MOD I, AFTER AMB SPO2=95%. PATIENT DEMO SOB AFTER AMB WITH PATIENT EDUCATED ON THE BENEFITS AND USE OF PURSED LIP BREATHING AND VISUAL DEMO OF THIS BREATHING TECHNIQUE PROVIDED. TINETTI = 18/28, FALL RISK. ASSESSMENT/POC: PATIENT PRESENTS WITH THE FOLLOWING DEFICITS: DECREASED ENDURANCE, BILAT LE WEAKNESS, RESULTING IN DIFFICULTIES WITH AMBULATION AND STEP NEGOTIATION. SKILLED HOME CARE PHYSICAL THERAPY WITH FREQUENCY OF 1X1WK, 2X1WK, 1X2WKS TO ADDRESS DEFICITS, MAX SAFETY AND FUNCTIONAL LEVEL WITH THER EXER, ESTABLISH HEP, GAIT TRAINING, STEP NEGOTIATION, BALANCE ACTIVITIES. PATIENT INFORMED ABOUT PLAN OF CARE, INCLUDING FREQUENCY, VERBALIZED ACCEPTANCE. DISCUSSED BENEFIT OF CARDIAC REHAB RECOMMENDED BY CARDIAC MD WITH PATIENT INTERESTED IN PARTICIPATING ONCE NOT HOMEBOUND. MD NOTIFIED ABOUT PATIENT STATUS AND POC. [code = PHYSICAL THERAPIST TO EVALUATE PATIENT SECONDARY TO FUNCTIONAL DEFICITS/SAFETY CONCERNS. PHYSICAL THERAPIST TO ASSESS BEST PRACTICE INTERVENTIONS TO ASSIST PATIENTS TO IMPROVE OR STABILIZE MEDICAL STATUS AND PREVENT RE-HOSPITALIZATION. MEASURES INCLUDING REVIEW AND IDENTIFICATION OF CONCERNS FOR THE FOLLOWING AREAS: DRUG REGIMEN, ENVIRONMENTAL SAFETY ISSUES AND FALLS, PRESSURE ULCERS, PAIN, AND DISEASE MANAGEMENT. PHYSICAL THERAPY TO ESTABLISH /UPGRADE/DOWNGRADE THERAPEUTIC EXERCISE PROGRAM AND INSTRUCT PATIENT/CAREGIVER ON EXERCISE PRECAUTIONS WITH WRITTEN HOME PROGRAM. MAY INCLUDE PROM, AAROM, AROM, RROM APPROPRIATE TO IMPROVE FUNCTIONAL STRENGTH AND RANGE OF MOTION. PHYSICAL THERAPY TO INSTRUCT PATIENT/CAREGIVER ON GAIT TRAINING TECHNIQUES USING APPROPRIATE ASSISTIVE DEVICE, PROPER BODY MECHANICS TO IMPROVE MOBILITY, AND PREVENT INJURY OF PATIENT AND/OR CAREGIVER. PHYSICAL THERAPY TO ASSESS AND RECOMMEND HOME SAFETY ADAPTATIONS AND EDUCATE PATIENT /CAREGIVER ON FALL PREVENTION STRATEGIES. PHYSICAL THERAPY TO OBTAIN O2 SATS PRN VIA PULSE OXIMETER INDICATED FOR SHORTNESS OF BREATH, FATIGUE, WEAKNESS, ACTIVITY INTOLERANCE, AND/OR BASELINE MEASUREMENT FOR THERAPY TREATMENT. PHYSICAL THERAPY TO INSTRUCT PATIENT/CAREGIVER ON BALANCE AND BALANCE STRATEGIES TO IMPROVE SAFE MOBILITY AND REDUCE RISK FOR FALL AND INJURY INCLUDING PARTICIPATION IN [facility] BALANCE SPECIALTY PROGRAM SUMMARY OF THERAPY EVAL/ASSESSMENT FINDINGS AND REASON(S) SKILLS OF A THERAPIST ARE INDICATED: PHYSICAL THERAPY EVALUATION 09/04/22 PATIENT IS A 77-YEAR-OLD FEMALE REFERRED FOR PHYSICAL THERAPY EVALUATION S/P HOSPITALIZATION SECONDARY TO GENERAL WEAKNESS FOLLOWING STEMI, DX COVID-19+ 08/17/22. PATIENT WAS EXPERIENCING SHORTNESS OF BREATH AND HER SON-IN-LAW CALLED EMS WITH PATIENT TRANSPORTED TO [facility]. PATIENT DIAGNOSED WITH STEMI UPON ED ARRIVAL AND WAS IMMEDIATELY BROUGHT TO CARDIAC CATHERTIZATION WITH STENT PLACEMENT. FOLLOWING STABILIZATION AT [facility], PATIENT DISCHARGED HOME ON 08/31/2022. PRIOR MEDICAL HISTORY SIGNIFICANT FOR: HYPERTENSION, HYPERLIPIDEMIA, PSORIASIS, OBESITY, PHLEBITIS. PATIENT REPORTS RIGHT FOOT SURGERY 3 MONTHS AGO (MD LEWIS). PLOF: PATIENT LIVES WITH SHAREE, ALSO ON HOME CARE SERVICES, IN A DUPLEX ON THE FIRST FLOOR, 1 STEP WITHOUT RAIL, 1 THRESHOLD STEP TO NEGOTIATE. SHAREE HAS DEMENTIA WITH PATIENT ASSISTED HIM WITH ADLS/IADLS, PATIENT DROVE AND WAS ACTIVE OUTSIDE HOME. FALL HISTORY: PATIENT REPORTS NO RECENT FALLS. CLOF: PATIENT REPORTED RECEIVING ASSISTANCE FROM DAUGHTER, WHO LIVES NEXT DOOR, WITH IADLS WELL FRIENDS WHO LIVE NEARBY AND ASSIST WHEN NEEDED. SAFETY RECOMMENDATIONS: NIGHT LIGHT FOR BEDROOM ACQUISITION, INSTALLATION OF ELEVATED TOILET SEAT WITH ARM SUPPORTS. JARROD REPORTS HAS SPOKEN WITH VA, VA TO PROVIDE DME AND RENOVATE BATHROOM, PROVIDE WALK IN SHOWER. BILAT ROM WFL, BILAT LE STRENGTH 3+ TO 4/5. TO INCREASE BILAT LE STRENGTH AND ENDURANCE, INSTRUCTED PATIENT IN BILATERAL LOWER EXTREMITIES THER EXER X 10 WITH VERBAL CUES FOR FORM: PLANTAR/DORSI FLEX, HIP FLEX, KNEE EXT. DISPENSED HEP SHEETS. PATIENT INDEP SIT-->STAND TRANSFERS, SUPERVISION OFF LOW HEIGHT TOILET. PATIENT AMB 30' IN HOME WITH ROLLATOR MOD I, AFTER AMB SPO2=95%. PATIENT DEMO SOB AFTER AMB WITH PATIENT EDUCATED ON THE BENEFITS AND USE OF PURSED LIP BREATHING AND VISUAL DEMO OF THIS BREATHING TECHNIQUE PROVIDED. TINETTI = 18/28, FALL RISK. ASSESSMENT/POC: PATIENT PRESENTS WITH THE FOLLOWING DEFICITS: DECREASED ENDURANCE, BILAT LE WEAKNESS, RESULTING IN DIFFICULTIES WITH AMBULATION AND STEP NEGOTIATION. SKILLED HOME CARE PHYSICAL THERAPY WITH FREQUENCY OF 1X1WK, 2X1WK, 1X2WKS TO ADDRESS DEFICITS, MAX SAFETY AND FUNCTIONAL LEVEL WITH THER EXER, ESTABLISH HEP, GAIT TRAINING, STEP NEGOTIATION, BALANCE ACTIVITIES. PATIENT INFORMED ABOUT PLAN OF CARE, INCLUDING FREQUENCY, VERBALIZED ACCEPTANCE. DISCUSSED BENEFIT OF CARDIAC REHAB RECOMMENDED BY CARDIAC MD WITH PATIENT INTERESTED IN PARTICIPATING ONCE NOT HOMEBOUND. MD NOTIFIED ABOUT PATIENT STATUS AND POC.] Goal 2022-09-15 Patient Goal - GET STRONGER Goal Provider Goal - A PLAN OF CARE WILL BE ESTABLISHED THAT MEETS PATIENT'S NURSING HOME NEEDS AND INCLUDES PATIENT GOAL FOR HOME HEALTH. Goal Provider Goal - PATIENT/CAREGIVER WILL VERBALIZE UNDERSTANDING OF EDUCATION PROVIDED ON MEDICATIONS BY THE END OF THE CERTIFICATION PERIOD. Goal Provider Goal - PATIENT/CAREGIVER WILL VERBALIZE/DEMONSTRATE EFFECTIVE HOME SAFETY AND FALL PREVENTION STRATEGIES THROUGHOUT CERTIFICATION PERIOD. Goal Provider Goal - PULSE OXIMETER RESULTS OBTAINED NEEDED FOR RESPIRATORY COMPLICATIONS THROUGHOUT THE CERTIFICATION PERIOD. Goal Provider Goal - PATIENT WILL HAVE SUPPORT MEASURES ESTABLISHED TO PREVENT REHOSPITALIZATION AND PATIENT/CAREGIVER WILL VERBALIZE/DEMONSTRATE METHODS TO REDUCE AVOIDABLE HOSPITALIZATION BY END OF CERTIFICATION Goal Provider Goal - PATIENT/CAREGIVER WILL VERBALIZE UNDERSTANDING OF DISCHARGE PLANNING INSTRUCTIONS BY DATE OF DISCHARGE. Goal Provider Goal - PATIENT/CAREGIVER WILL VERBALIZE/DEMONSTRATE MANAGEMENT OF STEMI AND EXACERBATIONS WILL BE IDENTIFIED AND PROMPTLY REPORTED THROUGHOUT THE CERTIFICATION PERIOD. Goal Provider Goal - PATIENT/CAREGIVER WILL DEMONSTRATE UNDERSTANDING OF PHARMACOLOGIC AND NONPHARMACOLOGIC PAIN CONTROL MEASURES AND PATIENT WILL HAVE IMPROVEMENT IN PAIN INTERFERING WITH ACTIVITY EVIDENCED BY PAIN CONTROLLED AT LEVEL OF 7 OR LESS BY END OF CERTIFICATION PERIOD. Goal Provider Goal - OCCUPATIONAL THERAPY EVALUATION TO BE COMPLETED WITH RECOMMENDATIONS AND WRITTEN PLAN OF TREATMENT ESTABLISHED FOR THE PHYSICIANS SIGNATURE. Goal Provider Goal - PROGRAM CLINICIAN TO COMPLETE EVALUATION TO ADDRESS THE PATIENTS SOCIAL AND EMOTIONAL FACTORS AND/OR WRITTEN PLAN OF TREATMENT ESTABLISHED FOR THE PHYSICIAN'S SIGNATURE. Goal Provider Goal - PATIENT/CAREGIVER WILL VERBALIZE UNDERSTANDING OF PRESSURE ULCER PREVENTION BY END OF EPISODE Goal Provider Goal - A PHYSICAL THERAPY EVALUATION TO BE COMPLETED WITH RECOMMENDATIONS AND/OR WRITTEN PLAN OF TREATMENT ESTABLISHED FOR PHYSICIANS SIGNATURE. Goal Provider Goal - PATIENT/CAREGIVER WILL VERBALIZE UNDERSTANDING OF SIGNS AND SYMPTOMS, COMPLICATIONS, AND MANAGEMENT OF ATRIAL FIBRILLATION Goal Provider Goal - PATIENT/CAREGIVER WILL VERBALIZE SIGNS AND SYMPTOMS OF HYPERTENSION AND WILL BE ABLE TO DEMONSTRATE ABILITY TO MANAGE EXACERBATION BY END OF EPISODE Goal Provider Goal - PATIENT/CAREGIVER WILL UTILIZE VIRTUAL VISITS TO ACHIEVE GOALS OUTLINED ON THE PLAN OF CARE. PATIENT WILL HAVE SUPPORT MEASURES ESTABLISHED TO PREVENT REHOSPITALIZATION AND PATIENT/CAREGIVER WILL VERBALIZE/DEMONSTRATE METHODS TO REDUCE AVOIDABLE HOSPITALIZATION. Goal Provider Goal - OCCUPATIONAL THERAPY EVALUATION PATIENT IS A 77-YEAR-OLD FEMALE REFERRED FOR AN OCCUPATIONAL THERAPY EVALUATION SECONDARY TO GENERAL WEAKNESS FOLLOWING STEMI. PATIENT REPORTS GOGO COVID-19 ON 08/17/22. DURING THIS TIME, PATIENT WAS EXPERIENCING SHORTNESS OF BREATHE AND HER SON-IN-LAW CALLED EMS AND SHE WAS BROUGHT TO [facility]. PATIENT DIAGNOSED WITH STEMI UPON ED ARRIVAL AND WAS IMMEDIATELY BROUGHT TO CARDIAC CATHERTIZATION WITH STENT PLACEMENT. FOLLOWING STABILIZATION AT [facility], PATIENT DISCHARGED HOME ON 08/31/2022. PER PATIENT REPORT AND MEDICAL RECORD, PRIOR MEDICAL HISTORY SIGNIFICANT FOR: HYPERTENSION, HYPERLIPIDEMIA, PSORIASIS, OBESITY, PHLEBITIS, AND COVID-19. PATIENT REPORTS NO RECENT FALLS. PRIOR LEVEL OF FUNCTION: PATIENT REPORTS INDEPENDENT IN ALL I/ADLS INCLUDING DRIVING PRIOR TO COVID-19 AND STEMI. PATIENT EXPRESSED SHE LIVED AN ACTIVE LIFESTYLE PRIOR TO HOSPITALIZATION. CURRENT LEVEL OF FUNCTION: PATIENT LIVES IN A DUPLEX ON THE FIRST FLOOR WITH HER . PATIENT ALERT AND ORIENTEDX3 AND WAS COOPERATIVE AND ENGAGED DURING EVAL. HOME HAS NARROW ACCESS POINTS IN KITCHEN, BEDROOM, AND BATHROOM AREA. PATIENT EDUCATED TO ENHANCE LIGHTING IN BEDROOM AREA (NIGHT LIGHT) TO PREVENT FALLS AT NIGHT WHEN FUNCTIONALLY AMBULATING TO THE BATHROOM. PATIENT NOT RECEPTIVE AND REPORTED THERE WAS A NIGHTLIGHT IN THE KITCHEN THAT RADIATED INTO THE BEDROOM AND BATHROOM AREA THAT WAS SUFFICIENT ENOUGH. PATIENT REPORTED SHE RECEIVES ASSISTANCE FROM HER DAUGHTER WHO LIVES NEXT DOOR WELL FRIENDS WHO LIVE NEARBY. HER DAUGHTER HAS BEEN ASSISTING WITH LAUNDRY (LOCATED IN THE BASEMENT), SHOPPING, CLEANING, AND OCCASSIONALLY MEAL PREP. PATIENT REPORTED FEELING SHORT OF BREATHE DURING FUNCTIONAL MOBILITY TASKS AND WAS OBSERVED UTILIZING A ROLLATOR DURING EVAL. PATIENT EXPRESSED SHE WAS PLANNING ON ENGAGING IN MEAL PREP TASKS THIS EVENING. PATIENT INDEPENDENT IN SIT>STAND TRANSFERS WITH INCREASED TIME TO COMPLETE. PATIENT SUPERVISION IN TOILET TRANSFERS, TOILET IS LOW. PATIENT REPORTS NO DIFFICULY WITH TOILET TRANSFERS. TUB THRESHOLD IS SIGNIFICANTLY HIGH RESULTING IN PATIENT HAVING DIFFICULTY WITH TUB TRANSFER (CGA). PATIENT WOULD BENEFIT FROM TWO GRAB BARS IN TUB AREA AND REPORTS SHE IS PLANNING TO REMODEL THE SHOWER TO A WALK-IN. RECOMMENDATION FOR TWO GRAB BARS AND EDUCATION ON PROPER PLACEMENT WAS PROVIDED. HOWEVER, PATIENT REPORTED [facility]. RECOMMENDED ELEVATED TOILET SEAT WITH HANDRAILS TO ASSIST WITH TOILET TRANSFERS; HOWEVER, PATIENT REPORTED SHE WAS PLANNING ON OBTAINING A NEW TOILET AND DID NOT WANT THE ELEVATED TOILET SEAT TO BE ORDERED. PATIENT REPORTS NO DIFFICULTY WITH UB/LB DRESSING AT THIS TIME AND DEMONSTRATED INDEPENDENCE WITH USE OF ADAPTIVE TECHNIQUES AND INCREASED TIME TO COMPLETE. PATIENT HAS AN OLDER MODEL OF A TUB TRANSFER BENCH BUT REPORTS THAT IT WAS PASSED DOWN TO HER FROM A FAMILY MEMBER AND HAS NOT BEEN USED. PATIENT NOT RECEPTIVE TO SHOWER SAFETY RECOMMENDATIONS AT THIS TIME AND CONTINUED TO REPORT SHE WOULD BE REMODELING THE SHOWER WHEN RECOMMENDATIONS WERE MADE. PATIENT DOES HAVE A LONG HANDLED SPONGE, LONG HANDLED SHOE HORN, AND BOBBIN DUMPER IN HER HOME. PATIENT'S BILATERAL UE AROM AND STRENGTH ARE WFL. BILATEARL FM AND GM COORDINATION ALSO WFL. ASSESSMENT/POC: OCCUPATIONAL THERAPY EVALUATION COMPLETED THIS DATE WITH FURTHER SKILLED OT SERVICES RECOMMENDED TO MAXIMIZE STANDING ACTIVITY TOLERANCE AND TO PROVIDE EDUCATION ON ENERGY CONSERVATION TECHNIQUES WELL HOW TO COORDINATE BREATHE WITH MOVEMENT DURING ACTIVITIES; HOWEVER, PATIENT NOT INTERESTED AT THIS TIME IN ADDITIONAL EDUCATION AND STRATEGIES ([id number]). PATIENT WAS EDUCATED ON THE BENEFITS AND USE OF PURSED LIP BREATHING DURING EVAL AND VISUAL DEMO OF THIS BREATHING TECHNIQUE PROVIDED. RECOMMENDATIONS ON HOW TO MAINTAIN UB STRENGTH AT HOME WITH HOUSEHOLD MATERIALS ALSO PROVIDED. PATIENT VERBALIZED UNDERSTANDING OF EDUCATION PROVIDED. MD AWARE OF OT EVAL. Goal Provider Goal - PATIENT/CAREGIVER WILL VERBALIZE/DEMONSTRATE INFECTION CONTROL MEASURES. SIGNS AND SYMPTOMS OF INFECTION WILL BE IDENTIFIED AND PHYSICIAN NOTIFIED FOR PROMPT INTERVENTION. Goal Provider Goal - CHANGES IN RESPIRATORY STATUS WILL BE IDENTIFIED AND REPORTED TO PHYSICIAN FOR PROMPT INTERVENTION TO MINIMIZE ASSOCIATED RISKS THROUGHOUT THE CERTIFICATION PERIOD. Goal Provider Goal - PHYSICAL THERAPY EVALUATION TO BE COMPLETED WITH RECOMMENDATIONS AND/OR WRITTEN TREATMENT PLAN OF CARE ESTABLISHED FOR THE PHYSICIANS SIGNATURE PATIENT/CAREGIVER VERBALIZES UNDERSTANDING OF THE INITIAL BEST PRACTICE RECOMMENDATIONS. PHYSICIAN TO BE NOTIFIED APPROPRIATE FOR ANY CHANGES OR COMPLICATIONS. PATIENT/CAREGIVER WILL PERFORM THERAPEUTIC EXERCISE/S AND DEMONSTRATE PARTICIPATION IN A HOME PROGRAM WITH BILAT LE STRENGTH IMPROVED TO 4 TO 4+/5 TO IMPROVE FUNCTION OF AMBULATION. PATIENT/CAREGIVER WILL DEMONSTRATE IMPROVED GAIT TECHNIQUES TO MINIMIZE RISK OF INJURY AND DEMO ABILITY TO NEGOTIATE STEPS TO LEAVE HOME INDEP AND ABLE TO AMB 150' MOD I WITH LEAST RESTRICTIVE AD TO INCREASE FUNCTION OF ACCESSING COMMUNITY. PATIENT/CAREGIVER WILL DEMONSTRATE/VERBALIZE UNDERSTANDING OF RECOMMENDATIONS TO INCREASE SAFETY IN THE HOME AND FALL PREVENTION TO IMPROVE FUNCTION OF AMBULATION. PATIENT O2 SATURATION LEVEL WILL REMAIN WITHIN PARAMETERS TO IMPROVE FUNCTION OF AMBULATION. PATIENT/CAREGIVER WILL DEMONSTRATE IMPROVED BALANCE AND REDUCE THE RISK OF FALLS AND INJURY WITH TINETTI IMPROVED >=21/28 TO IMPROVE FUNCTION OF IADLS. Reason for Visit INDEPENDENT IN THE COMMUNITY Encounters Start Date/Time End Date/Time Encounter Type Admission Type Attending [facility] Care Facility Care Department Encounter ID Discharge Date Discharge Status Discharge Condition Discharge Reason Percent Goals Met 2022-09-01 00:00:00 2022-09-15 00:00:00 Outpatient NEW ADMISSION NATHANAEL [facility] [id number] 00:00:00 DISCHARGE TO HOME OR SELF CARE INDEPENDEN T IN THE COMMUNITY GOALS MET ( ONLY) 91.18
== END 2024-11-27 10:01 | disposition home or self-care (01) ==
PROVIDERS: PCP Internal Medicine; Visit Provider Nurse Practitioner Family
DX: J45.909 Unspecified asthma, uncomplicated (principal); R94.2 Abnormal results of pulmonary function studies; R06.00 Dyspnea, unspecified; G47.33 Obstructive sleep apnea (adult) (pediatric); R05.9 Cough, unspecified
CPT/HCPCS: 99214

== ENCOUNTER → 2024-11-27 09:23 | Outpatient (BNVA) | payer MEDICARE, OTHER, SELFPAY | PROVIDERS: PCP Internal Medicine; Visit Provider Nurse Practitioner Family | DX: J45.909 Unspecified asthma, uncomplicated (principal); R94.2 Abnormal results of pulmonary function studies; R06.00 Dyspnea, unspecified; R05.9 Cough, unspecified; G47.33 Obstructive sleep apnea (adult) (pediatric) | CPT/HCPCS: 99212 ==

== ENCOUNTER 2024-12-01 14:54 | Outpatient (REF) | payer MEDICARE, OTHER, SELFPAY ==
--- NOTE | ~2024-12-01 | CT_ITS ---
CLINICAL HISTORY: R94.2 - Abnormal results of pulmonary function studies CT chest without contrast Comparison: None Findings: The heart is normal size. Severe Atherosclerosis calcification of the coronary artery. The visualized thyroid and mediastinum are unremarkable. Small hiatal hernia. No consolidation or effusion. Mild emphysema. 2 mm pulmonary nodule of the left lower lobe series 4, image 17. 3.5 mm nodule of the left lower lobe image 33. The visualized upper abdomen is unremarkable. No acute fractures. IMPRESSION: Mild emphysema. Up to 3.5 mm small pulmonary nodules. CT chest follow-up in 1 year if the patient is high risk. This document has been electronically signed by: Mark Ladd MD on 12/04/2024 15:18:42
--- OUTSIDE RECORDS SUMMARY | 2024-12-01 14:58 | XMS_ITS | Clinical Summary ---
Author Organization Unknown Care Team Providers Care Buggyman Name Role Phone MORIS MARAVILLA, BRIJESH Unavailable Unavailable MAURIZIO MANAGER MARKETING COMMUNICATIONS, LILIAN Unavailable Unavailable LYLA RN, MAUREEN Unavailable Unavailable VON COLE MANAGER MARKETING COMMUNICATIONS, HAWA Unavailable Unavail able KALETINA MANAGER MARKETING COMMUNICATIONS, AREN Unavailable Unavailab le Payers Payer Name Policy Type Policy Number Effective Date Expira tion Date MEDICARE - [facility] [id number] Problems Condition Name Condition Details Condition Category Status Onset Date Resolution Date Last Treatment Date Treating Clinician Comments ST ELEVATION (STEMI) MYOCARDIAL INFARCTION OF UNSP SITE Active 2021-11 00:00: 00 COVID-19 Active 2021-11 00:00: 00 ESSENTIAL (PRIMARY) HYPERTENSION Active 2021-11 00:00: 00 UNSPECIFIED ATRIAL FIBRILLATION Active 2021-11 00:00: 00 ATHSCL HEART DISEASE OF [place] CORONARY ARTERY W/O ANG PCTRS Active 2021-11 [...] IMPLANT AND GRAFT Active 2021-11 00:00: 00 PENITENTIARY (CURRENT) USE OF ANTICOAGULAN TS Active 2021-11 00:00: 00 PLUMBER AND TINNER (CURRENT) USE OF ANTITHROMBOT ICS/ANTIPLAT ELETS Active [...] 100 mg tablet 2021-11 00:00: 00 Yes [id number] 2 tablet DAILY 2 tablet DAILY (route: oral) Med Classific ation: Gout and Hyperuric emia Therapy allopurinol 100 mg tablet 2021-11 00:00: 00 09-01 00:00 :00 No [id number] Per instruc tions Per instructio ns (route: oral) Med Classific ation: Gout and Hyperuric emia Therapy atorvastati n 80 mg tablet 2021-11 00:00: 00 Yes [id number] 1 tablet BEDTIME 1 tablet BEDTIME (route: oral) Med Classific ation: Cardiovas cular Therapy Agents atorvastati n 80 mg tablet 2021-11 00:00: 00 09-01 00:00 :00 No [id number] Per instruc tions Per instructio ns (route: oral) Med Classific ation: Cardiovas cular Therapy Agents clopidogrel 75 mg tablet 2021-11 00:00: 00 Yes [id number] 1 tablet DAILY 1 tablet DAILY (route: oral) Med Classific ation: Hematolog ical Agents clopidogrel 75 mg tablet 2021-11 00:00: 00 09-01 00:00 :00 No [id number] Per instruc tions Per instructio ns (route: oral) Med Classific ation: Hematolog ical Agents Eliquis 5 mg tablet 2021-11 00:00: 00 Yes [id number] 1 tablet 2 TIMES DAILY 1 tablet 2 TIMES DAILY (route: oral) Med Classific ation: Hematolog ical Agents Eliquis 5 mg tablet 2021-11 00:00: 09-01 00:00 :00 No [id number] Per instruc tions Per instructio ns (route: oral) Med Classific ation: Hematolog ical Agents lisinopril 5 mg tablet 2021-11 00:00: 00 09-01 00:00 :00 No [id number] Per instruc tions Per instructio ns (route: oral) Med Classific ation: Cardiovas cular Therapy Agents lisinopril 5 mg tablet 2021-11 00:00: 00 Yes [id number] 2.5 mg DAILY 2.5 mg DAILY (route: oral) Med Classific ation: Cardiovas cular Therapy Agents metoprolol succinate ER 50 mg tablet,exte nded release 24 hr 2021-11 00:00: 00 Yes [id number] 1 tablet DAILY 1 tablet DAILY (route: oral) Med Classific ation: Cardiovas cular Therapy Agents metoprolol succinate ER 50 mg tablet,exte nded release 24 hr 2021-11 00:00: 00 09-01 00:00 :00 No [id number] Per instruc tions Per instructio ns (route: oral) Med Classific ation: Cardiovas cular Therapy Agents azithromyci n 250 mg tablet 2021-11 00:00: 00 09-01 00:00 :00 No [id number] Per instruc tions DAILY FOR 4 DAYS Per instructio ns DAILY FOR 4 DAYS (route: oral) Med Classific ation: Anti-Infe ctive Agents montelukast 10 mg tablet 08-21 00:00: 00 Yes [id number] Per instruc tions AT BEDTIME Per instructio ns AT BEDTIME (route: oral) Med Classific ation: Respirato ry Therapy Agents mupirocin 2 % topical ointment 08-04 00:00: 00 09-01 00:00 :00 No [id number] Per instruc tions LOWER LEG TWICE A [...] NEEDED OR DECLINED ORDERED SERVICES: PT OT ORACLE DISTRIBUTION CONSULTANT [code = SKILLED NURSE TO EVALUATE PATIENT, [...] NEEDED OR DECLINED ORDERED SERVICES: PT OT ORACLE DISTRIBUTION CONSULTANT] Future Scheduled Test SKILLED NU RSE TO [...] WORKER TO EVALUATE PATIENT FOR COMMUNITY RESOURCES SHEET METAL SUPERVISOR [code = TRIAGE ASSISTANT TO EVALUATE PATIENT FOR COMMUNITY RESOURCES SHEET METAL SUPERVISOR] Future Scheduled Test SKILLED NU RSE TO [...] FOR FALL AND INJURY INCLUDING PARTICIPATION IN [facility] BALANCE SPECIALTY PROGRAM SUMMARY OF THERAPY EVAL/ASSESSMENT FINDINGS AND REASON(S) SKILLS OF A THERAPIST ARE INDICATED: PHYSICAL THERAPY EVALUATION 09/04/22 PATIENT IS A 77-YEAR-OLD FEMALE REFERRED FOR PHYSICAL THERAPY EVALUATION S/P HOSPITALIZATION SECONDARY TO GENERAL WEAKNESS FOLLOWING STEMI, DX COVID-19+ 08/17/22. PATIENT WAS EXPERIENCING SHORTNESS OF BREATH AND HER SON-IN-LAW CALLED EMS WITH PATIENT TRANSPORTED TO [facility]. PATIENT DIAGNOSED WITH STEMI UPON ED ARRIVAL AND WAS IMMEDIATELY BROUGHT TO CARDIAC CATHERTIZATION WITH STENT PLACEMENT. FOLLOWING STABILIZATION AT [facility], PATIENT DISCHARGED HOME ON 08/31/2022. PRIOR MEDICAL [...] FOR FALL AND INJURY INCLUDING PARTICIPATION IN [facility] BALANCE SPECIALTY PROGRAM SUMMARY OF THERAPY EVAL/ASSESSMENT FINDINGS AND REASON(S) SKILLS OF A THERAPIST ARE INDICATED: PHYSICAL THERAPY EVALUATION 09/04/22 PATIENT IS A 77-YEAR-OLD FEMALE REFERRED FOR PHYSICAL THERAPY EVALUATION S/P HOSPITALIZATION SECONDARY TO GENERAL WEAKNESS FOLLOWING STEMI, DX COVID-19+ 08/17/22. PATIENT WAS EXPERIENCING SHORTNESS OF BREATH AND HER SON-IN-LAW CALLED EMS WITH PATIENT TRANSPORTED TO [facility]. PATIENT DIAGNOSED WITH STEMI UPON ED ARRIVAL AND WAS IMMEDIATELY BROUGHT TO CARDIAC CATHERTIZATION WITH STENT PLACEMENT. FOLLOWING STABILIZATION AT [facility], PATIENT DISCHARGED HOME ON 08/31/2022. PRIOR MEDICAL [...] CARE WILL BE ESTABLISHED THAT MEETS PATIENT'S SHELTER NEEDS AND INCLUDES PATIENT GOAL FOR HOME [...] THE PHYSICIANS SIGNATURE. Goal Provider Goal - TRIAGE ASSISTANT TO COMPLETE EVALUATION TO ADDRESS THE PATIENTS [...] CALLED EMS AND SHE WAS BROUGHT TO [facility]. PATIENT DIAGNOSED WITH STEMI UPON ED ARRIVAL AND WAS IMMEDIATELY BROUGHT TO CARDIAC CATHERTIZATION WITH STENT PLACEMENT. FOLLOWING STABILIZATION AT [facility], PATIENT DISCHARGED HOME ON 08/31/2022. 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 PATIENT'S BILATERAL UE AROM [...] THIS TIME IN ADDITIONAL EDUCATION AND STRATEGIES ([id number]). PATIENT WAS EDUCATED ON THE BENEFITS AND [...] End Date/Time Encounter Type Admission Type Attending [facility] Care Facility Care Department Encounter ID Discharge Date Discharge Status Discharge Condition Discharge Reason Percent Goals Met 2022-09-01 00:00:00 2022-09-15 00:00:00 Outpatient NEW ADMISSION NATHANAEL [facility] [id number] 00:00:00 DISCHARGE TO HOME OR SELF CARE INDEPENDEN T IN THE COMMUNITY GOALS MET ( ONLY) 91.18
--- OUTSIDE RECORDS SUMMARY | 2024-12-01 14:58 | XMS_ITS | Clinical Summary ---
Author Organization Unknown Care Team Providers Care Fnps Name Role Phone MORIS MARAVILLA, BRIJESH Unavailable Unavailable MAURIZIO RN TELEPHONIC, LILIAN Unavailable Unavailable LYLA RN, MAUREEN Unavailable Unavailable VON COLE RN TELEPHONIC, HAWA Unavailable Unavail able KALETINA RN TELEPHONIC, AREN Unavailable Unavailab le Payers Payer Name Policy Type Policy Number Effective Date Expira tion Date MEDICARE - [facility] [id number] Problems Condition Name Condition Details Condition Category Status Onset Date Resolution Date Last Treatment Date Treating Clinician Comments ST ELEVATION (STEMI) MYOCARDIAL INFARCTION OF UNSP SITE Active 2021-11 00:00: 00 COVID-19 Active 2021-11 00:00: 00 ESSENTIAL (PRIMARY) HYPERTENSION Active 2021-11 00:00: 00 UNSPECIFIED ATRIAL FIBRILLATION Active 2021-11 00:00: 00 ATHSCL HEART DISEASE OF [place] CORONARY ARTERY W/O ANG PCTRS Active 2021-11 [...] IMPLANT AND GRAFT Active 2021-11 00:00: 00 INTERMEDIATE (CURRENT) USE OF ANTICOAGULAN TS Active 2021-11 00:00: 00 HEAD GRINDER (CURRENT) USE OF ANTITHROMBOT ICS/ANTIPLAT ELETS Active [...] 100 mg tablet 2021-11 00:00: 00 Yes [id number] 2 tablet DAILY 2 tablet DAILY (route: oral) Med Classific ation: Gout and Hyperuric emia Therapy allopurinol 100 mg tablet 2021-11 00:00: 00 09-01 00:00 :00 No [id number] Per instruc tions Per instructio ns (route: oral) Med Classific ation: Gout and Hyperuric emia Therapy atorvastati n 80 mg tablet 2021-11 00:00: 00 Yes [id number] 1 tablet BEDTIME 1 tablet BEDTIME (route: oral) Med Classific ation: Cardiovas cular Therapy Agents atorvastati n 80 mg tablet 2021-11 00:00: 00 09-01 00:00 :00 No [id number] Per instruc tions Per instructio ns (route: oral) Med Classific ation: Cardiovas cular Therapy Agents clopidogrel 75 mg tablet 2021-11 00:00: 00 Yes [id number] 1 tablet DAILY 1 tablet DAILY (route: oral) Med Classific ation: Hematolog ical Agents clopidogrel 75 mg tablet 2021-11 00:00: 00 09-01 00:00 :00 No [id number] Per instruc tions Per instructio ns (route: oral) Med Classific ation: Hematolog ical Agents Eliquis 5 mg tablet 2021-11 00:00: 00 Yes [id number] 1 tablet 2 TIMES DAILY 1 tablet 2 TIMES DAILY (route: oral) Med Classific ation: Hematolog ical Agents Eliquis 5 mg tablet 2021-11 00:00: 09-01 00:00 :00 No [id number] Per instruc tions Per instructio ns (route: oral) Med Classific ation: Hematolog ical Agents lisinopril 5 mg tablet 2021-11 00:00: 00 09-01 00:00 :00 No [id number] Per instruc tions Per instructio ns (route: oral) Med Classific ation: Cardiovas cular Therapy Agents lisinopril 5 mg tablet 2021-11 00:00: 00 Yes [id number] 2.5 mg DAILY 2.5 mg DAILY (route: oral) Med Classific ation: Cardiovas cular Therapy Agents metoprolol succinate ER 50 mg tablet,exte nded release 24 hr 2021-11 00:00: 00 Yes [id number] 1 tablet DAILY 1 tablet DAILY (route: oral) Med Classific ation: Cardiovas cular Therapy Agents metoprolol succinate ER 50 mg tablet,exte nded release 24 hr 2021-11 00:00: 00 09-01 00:00 :00 No [id number] Per instruc tions Per instructio ns (route: oral) Med Classific ation: Cardiovas cular Therapy Agents azithromyci n 250 mg tablet 2021-11 00:00: 00 09-01 00:00 :00 No [id number] Per instruc tions DAILY FOR 4 DAYS Per instructio ns DAILY FOR 4 DAYS (route: oral) Med Classific ation: Anti-Infe ctive Agents montelukast 10 mg tablet 08-21 00:00: 00 Yes [id number] Per instruc tions AT BEDTIME Per instructio ns AT BEDTIME (route: oral) Med Classific ation: Respirato ry Therapy Agents mupirocin 2 % topical ointment 08-04 00:00: 00 09-01 00:00 :00 No [id number] Per instruc tions LOWER LEG TWICE A [...] NEEDED OR DECLINED ORDERED SERVICES: PT OT SUPERVISOR YARD [code = SKILLED NURSE TO EVALUATE PATIENT, [...] NEEDED OR DECLINED ORDERED SERVICES: PT OT SUPERVISOR YARD] Future Scheduled Test SKILLED NU RSE TO [...] WORKER TO EVALUATE PATIENT FOR COMMUNITY RESOURCES OVERHEAD CLEANER MAINTAINER [code = BARGEMAN TO EVALUATE PATIENT FOR COMMUNITY RESOURCES OVERHEAD CLEANER MAINTAINER] Future Scheduled Test SKILLED NU RSE TO [...] FOR FALL AND INJURY INCLUDING PARTICIPATION IN [facility] BALANCE SPECIALTY PROGRAM SUMMARY OF THERAPY EVAL/ASSESSMENT FINDINGS AND REASON(S) SKILLS OF A THERAPIST ARE INDICATED: PHYSICAL THERAPY EVALUATION 09/04/22 PATIENT IS A 77-YEAR-OLD FEMALE REFERRED FOR PHYSICAL THERAPY EVALUATION S/P HOSPITALIZATION SECONDARY TO GENERAL WEAKNESS FOLLOWING STEMI, DX COVID-19+ 08/17/22. PATIENT WAS EXPERIENCING SHORTNESS OF BREATH AND HER SON-IN-LAW CALLED EMS WITH PATIENT TRANSPORTED TO [facility]. PATIENT DIAGNOSED WITH STEMI UPON ED ARRIVAL AND WAS IMMEDIATELY BROUGHT TO CARDIAC CATHERTIZATION WITH STENT PLACEMENT. FOLLOWING STABILIZATION AT [facility], PATIENT DISCHARGED HOME ON 08/31/2022. PRIOR [...] FOR FALL AND INJURY INCLUDING PARTICIPATION IN [facility] BALANCE SPECIALTY PROGRAM SUMMARY OF THERAPY EVAL/ASSESSMENT FINDINGS AND REASON(S) SKILLS OF A THERAPIST ARE INDICATED: PHYSICAL THERAPY EVALUATION 09/04/22 PATIENT IS A 77-YEAR-OLD FEMALE REFERRED FOR PHYSICAL THERAPY EVALUATION S/P HOSPITALIZATION SECONDARY TO GENERAL WEAKNESS FOLLOWING STEMI, DX COVID-19+ 08/17/22. PATIENT WAS EXPERIENCING SHORTNESS OF BREATH AND HER SON-IN-LAW CALLED EMS WITH PATIENT TRANSPORTED TO [facility]. PATIENT DIAGNOSED WITH STEMI UPON ED ARRIVAL AND WAS IMMEDIATELY BROUGHT TO CARDIAC CATHERTIZATION WITH STENT PLACEMENT. FOLLOWING STABILIZATION AT [facility], PATIENT DISCHARGED HOME ON 08/31/2022. PRIOR [...] CARE WILL BE ESTABLISHED THAT MEETS PATIENT'S LONGTERM NEEDS AND INCLUDES PATIENT GOAL FOR HOME [...] THE PHYSICIANS SIGNATURE. Goal Provider Goal - BARGEMAN TO COMPLETE EVALUATION TO ADDRESS THE PATIENTS [...] CALLED EMS AND SHE WAS BROUGHT TO [facility]. PATIENT DIAGNOSED WITH STEMI UPON ED ARRIVAL AND WAS IMMEDIATELY BROUGHT TO CARDIAC CATHERTIZATION WITH STENT PLACEMENT. FOLLOWING STABILIZATION AT [facility], PATIENT DISCHARGED HOME ON 08/31/2022. 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 PATIENT'S BILATERAL UE AROM [...] THIS TIME IN ADDITIONAL EDUCATION AND STRATEGIES ([id number]). PATIENT WAS EDUCATED ON THE BENEFITS AND [...] End Date/Time Encounter Type Admission Type Attending [facility] Care Facility Care Department Encounter ID Discharge Date Discharge Status Discharge Condition Discharge Reason Percent Goals Met 2022-09-01 00:00:00 2022-09-15 00:00:00 Outpatient NEW ADMISSION NATHANAEL [facility] [id number] 00:00:00 DISCHARGE TO HOME OR SELF CARE INDEPENDEN T IN THE COMMUNITY GOALS MET ( ONLY) 91.18
== END 2024-12-01 14:55 | disposition home or self-care (01) ==
LOC: HO.CT 14:54
PROVIDERS: PCP Internal Medicine; Visit Provider Nurse Practitioner Family
DX: R94.2 Abnormal results of pulmonary function studies (principal); R05.9 Cough, unspecified
CPT/HCPCS: 71250

== ENCOUNTER → 2024-12-01 14:56 | Outpatient (BNV) | payer MEDICARE, OTHER, SELFPAY | PROVIDERS: PCP Internal Medicine; Visit Provider Nuclear Medicine | DX: R94.2 Abnormal results of pulmonary function studies (principal) | CPT/HCPCS: 71250 ==

== ENCOUNTER → 2024-12-14 21:30 | Outpatient (REF) | payer MEDICARE, OTHER, SELFPAY | LOC: HO.SL 21:30 | PROVIDERS: PCP Internal Medicine; Visit Provider Nurse Practitioner Family | DX: G47.33 Obstructive sleep apnea (adult) (pediatric) (principal); R06.00 Dyspnea, unspecified | CPT/HCPCS: 95810 ==

== ENCOUNTER → 2024-12-14 21:36 | Outpatient (BNV) | payer MEDICARE, OTHER, SELFPAY | PROVIDERS: PCP Internal Medicine; Visit Provider Internal Medicine | DX: G47.33 Obstructive sleep apnea (adult) (pediatric) (principal) | CPT/HCPCS: 95810 ==

== ENCOUNTER 2025-02-05 13:04 | Outpatient (AMB) | payer MEDICARE, OTHER, SELFPAY ==
--- NOTE | 2025-02-05 12:47 | A.OFFVIS_ITS ---
Vital Signs 02/05/25 13:14 Height 5 ft 3 in Weight 180 lb 12.465 oz BMI 32.0 BP 110/70 Blood Pressure Location Lt brachial Position Sitting Pulse 67 Pulse Source Pulse Oximeter Pulse Oximetry (%) 97 Oxygen Delivery Method Room Air Intake Visit Reasons: Dyspnea Informatics Physician Liaison Required: No Mechanic Welder Truck Driver: Mechanic Welder Truck Driver offered & declined Accompanied by: Self / Same As Patient Allergies z pack Adverse Reaction (Mild, Uncoded 02/05/25 13:21) Nausea and Vomiting Medication List - Last Reconciled 02/05/25 by Haritha Baltazar LPN acitretin 10 mg PO QAM albuterol sulfate 90 mcg/actuation inhalation allopurinol 200 mg PO DAILY amiodarone 100 mg PO DAILY apixaban (Eliquis) 5 mg PO BID atorvastatin 80 mg PO DAILY carvedilol 3.125 mg PO BID cetirizine 10 mg PO DAILY cholecalciferol (vitamin D3) 50 mcg PO DAILY clopidogrel 75 mg PO DAILY dicyclomine 10 mg PO BID PRN fluticasone furoate-vilanterol 100-25 mcg/dose (Breo Ellipta) 1 inh inhalation DAILY furosemide 20 mg PO DAILY ipratropium bromide 2 sprays intranasal BID 90 days loratadine 10 mg PO DAILY montelukast 10 mg PO BEDTIME mupirocin 2% 1 appl topical BID-TID nystatin 1 appl topical BID omeprazole 20 mg PO DAILY potassium chloride 20 mEq PO BID sacubitril-valsartan 24-26 mg (Entresto) 1 tab PO BID tiotropium bromide 1.25 mcg/actuation (Spiriva Respimat) 2 puffs inhalation DAILY HPI HPI Dyspnea: Details: Jessica is a pleasant 79 year old female, never smoker, with underlying asthma, severe GERMAN on CPAP, HTN, GERD, Atrial fibrillation on amiodarone, h/o DVT on eliquis, STEMI s/p stent LAD 2021, diastolic dysfunction and h/o basal cell carcinoma/melanoma. She continues to report suboptimal effect with Breo 100 mcg, Spiriva and albuterol MDI. She notes improvements in cough however persistent dyspnea with moderate exertion and occasional wheezing. She also noted h/o severe GERMAN, in need of a new machine as hers is >5 years old and beyond repair. [employer] is her DME however she is interested in switching to a local company. Today she presents to review in lab sleep study and chest CT. She denies any visits to urgent care or hospitalizations related to respiratory distress since the last visit. [facility] Social History Patient Tobacco Use Status: Never used Tobacco Review of Systems Const Denies chills, Denies excessive sweating, Denies fever(s), Denies headache(s) and Denies night sweats Eyes Denies dry eyes, Denies irritation and Denies itchy eyes ENT Reports Normal hearing present, Denies headache(s), Reports nasal congestion, Reports post nasal drip and Denies sore throat Card Denies chest pain, Denies chest pain at rest, Denies chest pain with activity, Denies claudication, Denies leg edema, Reports dyspnea on exertion and Denies orthopnea Resp Denies chest congestion, Reports cough, Denies excessive phlegm production, Denies pain on inspiration, Denies pain with cough, Reports dyspnea on exertion, Denies stridor and Reports wheezing Musc Denies myalgias Neuro Reports Normal hearing present and Denies headache(s) Endo Denies excessive sweating Prashant/Lymph Denies lymphadenopathy Aller/Immun Denies itchy eyes, Denies seasonal rhinorrhea and Reports wheezing Physical Exam Vital Signs: Last Vital Signs Pulse 67 02/05/25 13:14 BP 110/70 02/05/25 13:14 Pulse Ox 97 02/05/25 13:14 Oxygen Delivery Method Room Air 02/05/25 13:14 BMI result Body Mass Index 32.0 Const General: cooperative, healthy appearing, comfortable, no acute distress, well developed and alert Nutritional Appearance: obese Orientation/consciousness: patient oriented x3 Limitations: no limitations HEENT Head: Yes normal to inspection, Yes normocephalic and Yes atraumatic Ears: hearing grossly normal bilaterally and external ears normal Eyes General: appearance normal, both eyes and all related structures Eyelids: Yes eyelids normal Sclerae: sclerae normal EOM: EOMs intact bilaterally Neck Neck: Yes normal visual inspection and Yes no lymphadenopathy Lymphatic: no lymphadenopathy noted Chest Chest palpation & inspection: normal inspection of the chest Resp Effort & Inspection: normal respiratory effort, able to speak in complete sentences, no audible wheezes, no cough, no stridor, not tachypneic, no tripod positioning and no use of accessory muscles Auscultation: clear to auscultation bilaterally Cardio Jugular venous distension: no JVD Rate: regular rate Rhythm: regular rhythm Skin Other: warm, dry General skin exam: no rashes or lesions noted Neuro General: patient oriented x3 Cranial nerves: Yes Normal hearing present Cognition (Neuro): normal cognition Gait exam (Neuro): Normal gait present Extrem General: Yes normal to inspection, Yes capillary refill normal, Yes no clubbing, cyanosis or edema and Yes no pedal edema Psych Appearance: grossly normal and well kempt Speech and movement: Normal speech and movement present and Clear speech present Affect: normal affect Attitude: cooperative Thought process: Normal thought process present Thought content: Normal thought content present Insight: Good insight present (Psych) Judgement: Good judgement present (Psych) Results Reviewed Results Reviewed: [address] [address] [address] Scan Report Signed Patient: Jessica Tran MR#: [id number] : 1945 Acct:[id number] Age/Sex: 79 / F ADM Date: 12/01/24 Loc: HO.CT Attending Dr: Giselle Brambila NP Ordering Physician: Giselle Brambila NP Date of Service: 12/01/24 Procedure(s): CT chest wo IV con Accession Number(s): [id number] cc: Eulalio Raines III, MD; Giselle Brambila NP~ Report Number: [id number]: Total DLP = 145.00 mGy-cm CLINICAL HISTORY: R94.2 - Abnormal results of pulmonary function studies CT chest without contrast Comparison: None Findings: The heart is normal size. Severe Atherosclerosis calcification of the coronary artery. The visualized thyroid and mediastinum are unremarkable. Small hiatal hernia. No consolidation or effusion. Mild emphysema. 2 mm pulmonary nodule of the left lower lobe series 4, image 17. 3.5 mm nodule of the left lower lobe image 33. The visualized upper abdomen is unremarkable. No acute fractures. IMPRESSION: Mild emphysema. Up to 3.5 mm small pulmonary nodules. CT chest follow-up in 1 year if the patient is high risk. This document has been electronically signed by: Mark Ladd MD on 12/04/2024 15:18:42 Dictated By: Mark Ladd MD Signed By: <Electronically signed by Mark Ladd MD in OV> 12/04/241518 DD/ 17 TD/TT: 12/04/241517 Cannery Tender Engineer: Assessment & Plan Assessment & Plan (1) Asthma: Code(s): J45.909 - Unspecified asthma, uncomplicated Category: Medical (2) Decreased diffusion capacity: Code(s): R94.2 - Abnormal results of pulmonary function studies Category: Medical (3) Paroxysmal nocturnal dyspnea: Code(s): R06.00 - Dyspnea, unspecified Category: Medical (4) Cough: Code(s): R05.9 - Cough, unspecified Category: Medical Plan Jessica reports suboptimal effect with Breo 100 mcg, will increase to 200 mcg, in addition to Spiriva and albuterol MDI. Reviewed in lab study which revealed mild GERMAN however likely underestimated due to poor sleep efficiency. Patient is interested in resuming CPAP therapy, with another DME as [facility] is no longer local. Will send prescription for CPAP therapy, APAP mode with pressures 6-20 cmH2O with close monitoring for compliance and benefits. Sleep hygiene education reviewed. She is aware if there are any issues with the mask or CPAP machine, she will call the DME company or office. Reviewed chest CT results which revealed emphysematous changes as well as scattered pulmonary nodules <3.5mm. Will repeat in one year to assess stability. There was also note of severe atherosclerosis calcification of the coronary artery noted on chest CT. Will forward to cardiology which she is under the care of and has an upcoming appt at [facility]. All questions were answered and patient is in agreement of plan. Will follow up in 6- 8 weeks or sooner if needed. Orders: Orders CT chest wo IV con 10 Months R91.8 - Other nonspecific abnormal finding of lung field Medications: New fluticasone furoate-vilanterol 200-25 mcg/dose (Breo Ellipta) 1 inh inhalation DAILY 60 ea 6RF Discontinued fluticasone furoate-vilanterol 100-25 mcg/dose (Breo Ellipta) Discontinued Reason: Patient Completed Course 1 inh inhalation DAILY 60 ea 6RF Coding Level of Care Code Est Pt Level 4 (82904) Diagnoses Asthma J45.909 Decreased diffusion capacity R94.2 Paroxysmal nocturnal dyspnea R06.00 Cough R05.9
[2025-02-05 13:14] VITALS: BP 110/70; PULSE 67; O2SAT 97; BMI 32.0
--- OUTSIDE RECORDS SUMMARY | 2025-02-05 15:12 | XMS_ITS | Encounter Summary ---
Author Organization [facility] Address [address] [place] [address] Care Team Providers Care Grey Tender Name Role Phone Eulalio Raines MD Primary Care Provider [phone] Adam Kern MD Unavailable Kat Koch CLIN APPLICATION SPECIALIST Unavailable Unavailab Roopa Quiñones PA-C Unavailable [phone] Elaine Anderson CLIN APPLICATION SPECIALIST Unavailable [phone] Reason for Visit * Reason Onset Date Comments Prior Authorization 10/21/2022 Encounter Details Date Type Department Care Team Description 10/21/2022 Telephone Adult Medicine [address] [phone] Eulalio Raines MD [address] [place] [address] [phone] Prior Authorization Social History Tobacco Use Types Packs/Day Years Used Date Smoking Tobacco: Never Smokeless Tobacco: Never Alcohol Use Standard Drinks/Week Comments Yes 0 (1 standard drink = 0.6 oz pur e alcohol) rare Sex Assigned at Date Recorded Not on file Job Start Date Occupation Industry Not on file Not on file Not on file COVID-19 Exposure Response Date Recorded In the last 10 days, have yo u been in contact with someone who was confirmed or suspected to have Coronavirus/COVID-19? No / Unsure 10/20/2022 9:26 AM EST documented as of this encounter Miscellaneous Notes * Telephone Encounter - Amy Kinsey M.A. - 10/22/2022 2:52 PM EST Auth approved and faxed to pharm Exp 10/22/23 [email or web address] * Telephone Encounter - Amy Kisney M.A. - 10/22/2022 9:01 AM EST AUTH SENT TODAY WITH COVER MY MEDS DX:L57.0 [email or web address] * Telephone Encounter - Alba Singleton - 10/21/2022 3:59 PM EST Prior Authorization for Medication-do not complete and send this encounter unless you have the fax from the pharmacy. Is this a Cover My Meds request: Yes -- Bailey Code [id number] Name of Medication acitretin (SORIATANE) Dose of Medication 10 MG capsule What is the RX # from the faxed refill? How does patient take this med? Route: Take 1 Capsule by mouth every morning (before breakfast). - Oral What Pharmacy did the fax come from: [facility] Pharmacy fax #: [phone] [employer] Information from fax: What Prescription Plan does the patient have? BIN/PCN if applicable: Cardholder ID: Person Code: Relationship Code: Help desk phone: documented in this encounter Plan of Treatment Not on file documented as of this encounter Visit Diagnoses Not on filedocumented in this encounter Care Teams Grey Tender Relationship Specialty Start Date End Date Eulalio Raines MD [address] [place] [address] PCP - General Internal Medicine 06/25/20 Adam Kern MD [address] [place] [address] Water Maintenance Supervisor Cardiovascular Disease 08/01/21 Kat Koch NP [address] [place] [address] Specialist Cardiology 09/05/21 05/25/23 Roopa Harris PA-C [address] [place] [address] Specialist Cardiology 05/26/23 Elaine Anderson NP [address] [place] [address] Cardiology 05/03/24 documented as of this encounter
--- OUTSIDE RECORDS SUMMARY | 2025-02-05 15:12 | XMS_ITS | Encounter Summary ---
Author Organization [facility] Address [address] [place] [address] Care Team Providers Care Concrete Bucket Hooker Name Role Phone Ren Bourne MD Primary Care Provider Unavail able Eulalio Raines MD Primary Care Provider [phone] Adam Kern MD Unavailable Kat Koch PRODUCT MARKETING DIRECTOR Unavailable Unavailab Roopa Quiñones PA-C Unavailable [phone] Elaine Anderson PRODUCT MARKETING DIRECTOR Unavailable [phone] Reason for Visit * Reason Comments E-prescribe Rx Request Encounter Details Date Type Department Care Team Description 03/04/2020 Refill Adult Medicine [address] [phone] Ren Bourne MD E-prescribe Rx Request Social History Tobacco Use Types Packs/Day Years Used Date Smoking Tobacco: Never Smokeless Tobacco: Never Alcohol Use Standard Drinks/Week Comments Yes 0 (1 standard drink = 0.6 oz pur e alcohol) rare Sex Assigned at Date Recorded Not on file Job Start Date Occupation Industry Not on file Not on file Not on file documented as of this encounter Miscellaneous Notes * Telephone Encounter - Shasha Butler - 03/04/2020 1:09 PM EDT Lab Results Component Value Date NA 143 12/20/2019 K 3.5 12/20/2019 CO2 26 12/20/2019 CL 109 12/20/2019 BUN 25 12/20/2019 CREAT 0.99 12/20/2019 GLU 98 12/20/2019 CA 9.3 12/20/2019 GFR 55 12/20/2019 * Telephone Encounter - Sekou Roldan - 03/04/2020 9:48 AM EDT Patient would like script to be: E-PRESCRIBED/FAXED TO PHARMACY WHEN WAS THE PATIENT'S LAST APPOINTMENT IN ADULT MEDICINE? 01/16/2020 WHEN WAS THE LAST TIME THE PATIENT SAW THEIR PCP? 02/17/19 Does patient have an upcoming appointment? (THE MEDICATION REQUESTED IS ON THE MED LIST ABOVE) All of the medications requested were on the CURRENT MEDS list Did you check the Pharmacy information above?: YES Patient wants: 90 -day supply Is this a mail order prescription request ? NO If the refill is from a FAXED refill request what is the RX # listed on the fax? N/A Patients current insurance carrier is: [place] / [place] / Product Type: MEDICARE [id number] documented in this encounter Plan of Treatment Not on file documented as of this encounter Visit Diagnoses Not on filedocumented in this encounter Care Teams Concrete Bucket Hooker Relationship Specialty Start Date End Date Ren Bourne MD PCP - General 07/18/04 06/24/20 Eulalio Raines MD [address] [place] [address] PCP - General Internal Medicine 06/25/20 Adam Kern MD [address] [place] [address] Axle Bearing Polisher Cardiovascular Disease 08/01/21 Kat Koch NP [address] [place] [address] Specialist Cardiology 09/05/21 05/25/23 Roopa Harris PA-C [address] [place] [address] Specialist Cardiology 05/26/23 Elaine Anderson NP [address] [place] [address] Cardiology 05/03/24 documented as of this encounter
--- OUTSIDE RECORDS SUMMARY | 2025-02-05 15:13 | XMS_ITS | Encounter Summary ---
Author Organization [facility] Address [address] [place] [address] Care Team Providers Care Guest Services Coordinator Name Role Phone Ren Bourne MD Primary Care Provider Unavail able Eulalio Raines MD Primary Care Provider [phone] Adam Kern MD Unavailable Kat Koch COMMUNICATIONS EXECUTIVE Unavailable Unavailab Roopa Quiñones PA-C Unavailable [phone] Elaine Anderson COMMUNICATIONS EXECUTIVE Unavailable [phone] Encounter Details Date Type Department Care Team Description 01/19/2012 Leg Man Report Medical Records [address] [place] [address] Heena Darden MD Social History Tobacco Use Types Packs/Day Years Used Date Smoking Tobacco: Never Smokeless Tobacco: Never Alcohol Use Standard Drinks/Week Comments Yes 0 (1 standard drink = 0.6 oz pur e alcohol) rare Sex Assigned at Date Recorded Not on file Job Start Date Occupation Industry Not on file Not on file Not on file documented as of this encounter Plan of Treatment Not on file documented as of this encounter Visit Diagnoses Not on filedocumented in this encounter Care Teams Guest Services Coordinator Relationship Specialty Start Date End Date Ren Bourne MD PCP - General 07/18/04 06/24/20 Eulalio Raines MD [address] [place] [address] PCP - General Internal Medicine 06/25/20 Adam Kern MD [address] [place] [address] Hand Heel Seat Fitter Cardiovascular Disease 08/01/21 Kat Koch NP [address] [place] [address] Specialist Cardiology 09/05/21 05/25/23 Roopa Harris PA-C [address] [place] [address] Specialist Cardiology 05/26/23 Elaine Anderson NP [address] [place] [address] Cardiology 05/03/24 documented as of this encounter
--- OUTSIDE RECORDS SUMMARY | 2025-02-05 15:13 | XMS_ITS | Encounter Summary ---
Author Organization [facility] Address [address] [place] [address] Care Team Providers Care Pelletizer Operator Name Role Phone Ren Bourne MD Primary Care Provider Unavail able Eulalio Raines MD Primary Care Provider [phone] Adam Kern MD Unavailable Kat Koch MARKETING DATABASE ANALYST Unavailable Unavailab Roopa Quiñones PA-C Unavailable [phone] Elaine Anderson MARKETING DATABASE ANALYST Unavailable [phone] Reason for Visit * Reason Comments E-prescribe Rx Request Encounter Details Date Type Department Care Team Description 11/26/2017 Refill Rheumatology - [address] [address] Ren Bourne MD E-prescribe Rx Request Social [...] encounter Miscellaneous Notes * Telephone Encounter - Lian Pinon M.A. - 11/26/2017 3:01 PM EST rx faxed * Telephone Encounter - Yola Reyes C.M.A. - 11/26/2017 3:01 PM EST Rx sent to pharmacy * Telephone Encounter - Lian Pinon M.A. - 11/26/2017 12:09 PM EST Lab Results Component Value Date NA 141 01/08/2017 K 4.0 01/29/2017 CO2 24.9 01/08/2017 CL 103 01/08/2017 BUN 22 01/08/2017 CREAT 1.1 07/27/2017 GLU 94 01/08/2017 CA 9.5 01/08/2017 GFR 52 07/27/2017 Pending appt with Ya 12/16/17 * Telephone Encounter - Kimberley Toney - 11/26/2017 10:17 AM EST .Patient would like script to be: E-PRESCRIBED/FAXED TO PHARMACY WHEN WAS THE PATIENT'S LAST APPOINTMENT IN ADULT MEDICINE? 11.11.17 WHEN WAS THE LAST TIME THE PATIENT SAW THEIR PCP? Same as above Does patient have an upcoming appointment? Yes 18 (THE MEDICATION REQUESTED IS ON THE MED LIST ABOVE) All of the medications requested were on the CURRENT MEDS list Did you check the Pharmacy information above?: NO Patient wants: 90 -day supply Is this a mail order prescription request ? 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 documented in this encounter Care Teams Pelletizer Operator Relationship Specialty Start Date End Date Ren Bourne MD PCP - General 07/18/04 06/24/20 Eulalio Raines MD [address] [place] [address] PCP - General Internal Medicine 06/25/20 Adam Kern MD [address] [place] [address] Mold Repairer Cardiovascular Disease 08/01/21 Kat Koch NP [address] [place], [place] [phone] Specialist Cardiology 09/05/21 05/25/23 Ropoa Harris PA-C [address] [place] [address] Specialist Cardiology 05/26/23 Elaine Anderson NP [address] [place] [address] Cardiology 05/03/24 documented as of this encounter
--- OUTSIDE RECORDS SUMMARY | 2025-02-05 15:13 | XMS_ITS | Encounter Summary ---
Author Organization [facility] Address [address] [place] [address] Care Team Providers Care Steel Wheel Engraver Name Role Phone Ren Bourne MD Primary Care Provider Unavail able Eulalio Raines MD Primary Care Provider [phone] Adam Kern MD Unavailable Kat Koch VACUUM DRUM DRIER OPERATOR Unavailable Unavailab Roopa Quiñones PA-C Unavailable [phone] Elaine Anderson VACUUM DRUM DRIER OPERATOR Unavailable [phone] Encounter Details Date Type Department Care Team Description 12/01/2012 Social Media Coordinator Report Medical Records [address] [place] [address] Siobhan Khan PA-C Social History Tobacco Use Types Packs/Day Years [...] on filedocumented in this encounter Care Teams Steel Wheel Engraver Relationship Specialty Start Date End Date Ren Bourne MD PCP - General 07/18/04 06/24/20 Eulalio Raines MD [address] [place] [address] [phone] PCP - General Internal Medicine 06/25/20 Adam Kern MD [address] [place] [address] Warehouse Clerk Cardiovascular Disease 08/01/21 Kat Koch NP [address] [place] [address] Specialist Cardiology 09/05/21 05/25/23 Roopa Harris PA-C [address] [place] [address] Specialist Cardiology 05/26/23 Elaine Anderson NP [address] [place] [address] Cardiology 05/03/24 documented as of this encounter
--- OUTSIDE RECORDS SUMMARY | 2025-02-05 15:13 | XMS_ITS | Data Portability ---
Author Organization [place] - [facility], Allergy Address [address] [address] Care Team Providers Care Materials Management Supervisor Name Role Phone BRAD ARENAS Referring Provider Assessment Encounter Date Assessment Date Assessment LastModified by Organization Details LastModified Time 12/27/2024 12/27/2024 Patient describes dysphagia likely related to her history of esophageal dysmotility. Occasionally in the evening if she has a snack before bed she will appreciate it in her throat with a sensation of choking. Recommend staying upright after her meal to allow gravity to help her swallow it down. Small bites with frequent sips of water is another strategy that may be helpful for her. 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 No specific intervention as she is able to easily communicate. [email or web address] Not available 12/27/2024 15:39:33 Plan of Treatment Reminders Order Date Submit Date Provider Last Modified By Organization Details Last Modified Time Details Appointments None record ed. Lab None record ed. Referral None record ed. Procedures None record ed. Surgeries None record ed. Imaging None record ed. Medication Orders None record ed. Patient TargetsNo targets recorded. Patient InstructionsNo instructions recorded. Reason for Referral None Reported. Problems Name Problem SNOMED Code Status Onset Date Resolution Date Notes Provider Name and Address Organization Details Recorded Time Sensorine ural hearing loss of bilateral ears 335919199 Active 2019 Sensorine ural hearing loss, bilateral ; Note: Date Diagnosed : 03/06/2020 9:48 AM (H90.3) Not Available [facility] 4 02:57:24 Bilateral tinnitus 52550431594 02 Active 2020 Tinnitus, bilateral ; Note: Date Diagnosed : 04/22/2021 10:19 AM (H93.13) Not Available [facility] 4 02:57:22 Dysphagia 96779620 Active 2024 KOFI KELLOGG MD 100 [facility],[place] [address], [place], [address] , [facility] 15:37:44 Chronic hoarsenes s 51941549858 05 Active 2024 KOFI KELLOGG MD 100 [facility],[place] [address], [place], [address] , [facility] 15:37:50 Problem Notes None recorded. Procedures Surgical History Date Name Laterality Status Provider Name and Address Organization Details Recorded Time 12/27/2024 FOL_DP completed KOFI KELLOGG MD 100 [facility],[place] [address], [place], [address], [facility] 12/27/2024 15:37:34 Imaging Results None recorded. Procedure Notes None recorded. Medical Equipment None Reported. Allergies Allergen ID Allergen Name Allergen Category Reaction Reaction Severity Criticality Documentation Date Start Date Code Code System Note Provider Name and Address Organization Details Recorded Time [id number] Zithromax medicatio n other Not available Not available 04/04/2024 4 RxNorm React ion: unkno wn, unspe cifie d;; Not Available [facility] 4 01:09:30 Medications Name Sig Start Date Stop Date Status Note LastModified by Organization Details LastModified Time atorvasta tin 80 mg tablet TAKE 1 TABLET BY MOUTH EVERY DAY AT BEDTIME active Not Available Not Available No t Available prednison e 10 mg tablet TAKE 3 TABS FOR 3 DAYS, TAKE 2 TABS FOR 3 DAYS, TAKE 1 TAB FOR 3 DAYS 12/27 completed Not Available Not Available Not Available acitretin 10 mg capsule TAKE 1 CAPSULE BY MOUTH EVERY DAY IN THE MORNING BEFORE BREAKFAS T active Not Available Not Available No t Available loperamid e 2 mg capsule TAKE 1 CAPSULE BY MOUTH 4 TIMES DAILY NEEDED FOR DIARRHEA . 12/27 completed Not Available Not Available Not Available cetirizin e 10 mg tablet TAKE 1 TABLET BY MOUTH EVERY DAY active Not Available Not Available No t Available amiodaron e 200 mg tablet TAKE 1/2 TABLET BY MOUTH DAILY FOR 180 DAYS active Not Available Not Available No t Available cephalexi n 250 mg capsule TAKE 1 CAP ORALLY 2 TIMES A DAY NEEDED FOR INFECTIO N FOR 7 DAYS 12/27 completed Not Available Not Available Not Available prednison e 20 mg tablet TAKE 3 TABS DAILY X 3 DAYS, THEN 2 TABS A DAY X 3 DAYS, THEN 1 TAB DAILY X 3 DAYS WITH FOOD 12/27 completed Not Available Not Available Not Available clopidogr el 75 mg tablet TAKE 1 TABLET DAILY active Not Available Not Available No t Available allopurin ol 100 mg tablet active Not Available Not Available Not Available carvedilo l 3.125 mg tablet TAKE 1 TABLET TWICE A DAY WITH MEALS FOR 180 DAYS active Not Available Not Available No t Available terbinafi ne HCl 250 mg tablet 12/27 completed Medicati on ID: [id number] D uration Value: 30 Brand Name: terbinaf ine HCl Send Method: E-Prescr ibed Sub s Allowed: subs OK Medic ationGen ericName : terbinaf ine HCl Not Available Not Available Not Available potassium chloride 20 mEq oral packet MIX 1 PACKET IN LIQUID AND DRINK DAILY active Not Available Not Available No t Available benzonata te 100 mg capsule TAKE 1 CAPSULE BY MOUTH 3 TIMES DAILY NEEDED FOR COUGH FOR UP TO 7 DAYS. 12/27 completed Not Available Not Available Not Available cephalexi n 500 mg capsule TAKE 1 CAPSULE BY MOUTH THREE TIMES A DAY FOR 10 DAYS 12/27 completed Not Available Not Available Not Available erythromy harpreet 5 mg/gram (0.5 %) eye ointment APPLY APPLICAT IONS APPLY TO TO LIDS AT BEDTIME 12/27 completed Not Available Not Available Not Available losartan 25 mg tablet 12/27 completed Medicati on ID: [id number] D uration Value: 90 Brand Name: losartan Send Method: E-Prescr ibed Sub s Allowed: subs OK Speci al Instruct ion: TAKE 1 TABLET BY MOUTH EVERY DAY Medi cationGe nericNam e: losartan Not Available Not Available Not Available hydrochlo rothiazid e 12.5 mg capsule 12/27 completed Medicati on ID: [id number] D uration Value: 90 Brand Name: hydrochl orothiaz denny Send Method: E-Prescr ibed Sub s Allowed: subs OK Speci al Instruct ion: TAKE 1 CAPSULE BY MOUTH EVERY DAY Medi cationGe nericNam e: hydrochl orothiaz denny Not Available Not Available Not Available Glucosami ne 500 mg tablet 12/27 completed Medicati on ID: [id number] B rand Name: Glucosam ine Send Method: E-Prescr ibed Sub s Allowed: subs OK Medic ationGen ericName : Glucosam ine Not Available Not Available Not Available omeprazol e 20 mg capsule,d elayed release TAKE 1 CAPSULE DAILY active Not Available Not Available No t Available monteluka st 10 mg tablet TAKE 1 TABLET AT BEDTIME active Not Available Not Available No t Available codeine 10 mg-guaife nesin 100 mg/5 mL oral liquid TAKE 5 ML BY MOUTH EVERY 6 HOURS NEEDED FOR COUGH FOR UP TO 5 DAYS. MAX DAILY AMOUNT: 20 ML 12/27 completed Not Available Not Available Not Available mupirocin 2 % topical ointment APPLY TO AFFECTED AREA TWICE A DAY FOR 10 DAYS 12/27 completed Not Available Not Available Not Available furosemid e 20 mg tablet TAKE 1 TABLET BY MOUTH EVERY DAY 12/27 completed Not Available Not Available Not Available nystatin 100,000 unit/gram topical powder APPLY TO AFFECTED AREA TWICE A DAY 12/27 completed Not Available Not Available Not Available albuterol sulfate HFA 90 mcg/actua tion aerosol inhaler INHALE 2 PUFFS BY MOUTH EVERY 4 (FOUR) HOURS IF NEEDED FOR WHEEZING . active Not Available Not Available No t Available dicyclomi ne 10 mg capsule TAKE 1 CAPSULE BY MOUTH 2 TIMES A DAY. active Not Available Not Available No t Available ipratropi um bromide 21 mcg (0.03 %) nasal spray 2 SPRAY INTRANAS ALLY 2 TIMES A DAY ADMINIST ER INTO EACH NOSTRIL 12/27 completed Not Available Not Available Not Available amoxicill in 875 mg-potass ium clavulana te 125 mg tablet TAKE 1 TABLET BY MOUTH TWICE A DAY FOR 10 DAYS 12/27 completed Not Available Not Available Not Available cholecalc iferol (vitamin D3) 50 mcg (2,000 unit) tablet TAKE 1 TABLET BY MOUTH ONCE DAILY active Not Available Not Available No t Available Fish Oil 360 mg-1,200 mg capsule 12/27 completed Medicati on ID: [id number] B rand Name: Fish Oil Send Method: E-Prescr ibed Sub s Allowed: subs OK Medic ationGen ericName : Fish Oil Not Available Not Available Not Available Calcium 600 + D(3) 600 mg-5 mcg (200 unit) capsule 2019 active Medicati on ID: [id number] B rand Name: Calcium 600 + D(3) Sen d Method: E-Prescr ibed Sub s Allowed: subs OK Medic ationGen ericName : Calcium 600 + D(3) Not Available Not Available Not Available Eliquis 5 mg tablet TAKE 1 TABLET BY MOUTH TWICE A DAY active Not Available Not Available No t Available melatonin 10 mg capsule 12/27 completed Medicati on ID: [id number] B rand Name: melatoni n Send Method: E-Prescr ibed Sub s Allowed: subs OK Medic ationGen ericName : melatoni n Not Available Not Available Not Available Breo Ellipta 100 mcg-25 mcg/dose powder for inhalatio n INHALE 1 PUFF DAILY active Not Available Not Available No t Available Entresto 49 mg-51 mg tablet TAKE 1 TABLET EVERY 12 HOURS active Not Available Not Available No t Available Spiriva Respimat 1.25 mcg/actua tion solution for inhalatio n INHALE TWO PUFFS ONCE DAILY BY MOUTH active Not Available Not Available No t Available turmeric 450 mg-turmer ic root extract 50 mg capsule 12/27 completed Medicati on ID: [id number] B rand Name: turmeric -turmeri c root extract Send Method: E-Prescr ibed Sub s Allowed: subs OK Medic ationGen ericName : turmeric -turmeri c root extract Not Available Not Available Not Available Vitals Date Recorded Body height Body mass index (BMI) Body weight Provider Name and Address Organization Details Last Updated DateTime 12/27/2024 160.02 cm 30.1 kg/m2 58549.7 g Niesha Mcgowan [facility] 12/27/2024 15:15:32 Social History None recorded. Functional Status None recorded. Mental Status None recorded. Family History Nothing Reported. Medical History No medical history recorded. Gynecological HistoryNo gynecological history recorded. Obstetrics History GPAL:G 0 P 0 0 0 0 Past Encounters Encounter ID Performer Location Encounter Start Date Encounter Closed Date Diagnosis/Indication Diagnosis SNOMED-CT Code Diagnosis ICD10 Code Diagnosis Note [id number] KOFI KELLOGG MD [facility] [address] [place] [address] 12/27/2024 15:00:07 12/27/2024 15:38:59 Dysphagia 94953527 R13.10 Chronic hoarseness 06023 56820 105 R49.0 Health Concerns Section Related Observation LastModified by Organization Detai ls LastModified Time None Recorded Concern Status LastModified by Organization Details LastModified Time None Recorded Advance Directives Directive None Recorded Payers Encounter Date Sequence Insurance Name Policy Number Policy Harper Covered Member ID Harper Member ID Guarantor Name 12/27/2024 2 [facility] - [employer] PLAN F (MEDICARE SUPPLEMENT) [id number] Jessica Tran [id number] Jessica Tran 12/27/2024 1 MEDICARE B-[place]: [facility] Jessica Tran [id number] Jessica Tran Notes Date Note Type Note Provider Name and Address Organization Details Recorded Time 12/27/2024 text/html throat clearing x 6 monthshoarse voicerx augmentin, flonase, prednisone - no reliefpulm consult dx bronchial asthmaomeprazole x 10 yrshx of ba swallow with esophageal dysmotility years ago PV 04/22/21 [facility] KOFI KELLOGG MD [address] [place] [address], [address], [place] - [facility] 12/27/2024 15:39:58 OBGyn Episode No OBEpisode recorded.
--- OUTSIDE RECORDS SUMMARY | 2025-02-05 15:13 | XMS_ITS | Encounter Summary ---
Author Organization [facility] Address [address] [place] [address] Care Team Providers Care Laborer Livestock Name Role Phone Ren Bourne MD Primary Care Provider Unavail able Eulalio Raines MD Primary Care Provider [phone] Adam Kern MD Unavailable Kat Koch LEGAL INVESTIGATOR Unavailable Unavailab Roopa QuiñonesC Unavailable [phone] Elaine Anderson LEGAL INVESTIGATOR Unavailable [phone] Encounter Details Date Type Department Care Team Description 03/20/2014 Orders Only Radiology - [address] [address] Ren Bourne MD HTN (hypertension) (Primary Dx) Social History Tobacco Use Types Packs/Day Years Used Date Smoking Tobacco: Never Smokeless Tobacco: Never Alcohol Use Standard Drinks/Week Comments Yes 0 (1 standard drink = 0.6 oz pur e alcohol) rare Sex Assigned at Date Recorded Not on file Job Start Date Occupation Industry Not on file Not on file Not on file documented as of this encounter Plan of Treatment Scheduled Orders Name Type Priority Associated Diagnoses Orde r Schedule CREATININE, BLOOD ASSAY Lab Routine HTN (hypertension) Expected: 03/20/2014, Expires: 03/20/2015 documented as of this encounter Visit Diagnoses Diagnosis HTN (hypertension)- Primary Unspecified essential hypertension documented in this encounter Care Teams Laborer Livestock Relationship Specialty Start Date End Date Ren Bourne MD PCP - General 07/18/04 06/24/20 Eulalio Raines MD [address] [place] [address] PCP - General Internal Medicine 06/25/20 Adam Kern MD [address] [place] [address] Bit Setter Cardiovascular Disease 08/01/21 Kat Koch NP [address] [place] [address] Specialist Cardiology 09/05/21 05/25/23 Roopa Harris PA-C [address] [place] [address] Specialist Cardiology 05/26/23 Elaine Anderson NP [address] [place] [address] Cardiology 05/03/24 documented as of this encounter
--- OUTSIDE RECORDS SUMMARY | 2025-02-05 15:13 | XMS_ITS | Encounter Summary ---
Author Organization [facility] Address [address] [place] [address] Care Team Providers Care Tray Casting Machine Operator Name Role Phone Eulalio Raines MD Primary Care Provider [phone] Adam Kern MD Unavailable Kat Koch BODY STRAIGHTENER Unavailable Unavailab Roopa Quiñones PA-C Unavailable [phone] Elaine Anderson BODY STRAIGHTENER Unavailable [phone] Reason for Visit * Reason Onset Date Comments Echocardiogram 12/16/2022 results Encounter Details Date Type Department Care Team Description 12/16/2022 Telephone Cardio PV[facility] Diag Testing [address] [facility] [address] [place] [address] [id number] Adam Kern MD [address] [place] [address] [phone] Echocardiogram (results) Social History Tobacco Use Types Packs/Day Years [...] suspected to have Coronavirus/COVID-19? No / Unsure 12/08/2022 9:46 AM EST documented as of this encounter Miscellaneous Notes * Telephone Encounter - Roopa Harris PA-C - 12/22/2022 10:11 AM EST Ok great. Thanks for the update * Telephone Encounter - Chelsea Orlando - 12/22/2022 9:05 AM EST Spoke w/ pt and she will stop the lisinopril starting tomorrow because she took it this morning andon Wednesday she will start the Entresto and go get her BMP done the following Wednesday. * Telephone Encounter - Roopa Harris PA-C - 12/21/2022 8:31 AM EST Ok thanks for checking. Have her call us or send a portal message to let us know she'll be startingit so her med list remains up to date and she will need a BMP done one week after starting the Entresto. I've placed the order. Thanks * Telephone Encounter - Chelsea Orlando - 12/21/2022 8:14 AM EST Spoke w/ pt and she stated No, she has notg picked up the Entresto from the pharmacy due to her ending up in the hospital. She has an appointment this morning and will be going to [facility] pharmacy to pick it up today and she is aware to stop her Lisinopril 36-48hrs before her first dose of the Entresto. Currently she has been continuing to take the Lisinopril until she has the Entresto at hand. * Telephone Encounter - Roopa Harris PA-C - 12/21/2022 7:49 AM EST Chelsea- can you please check in with patient to get a status update on her Entresto prescription I sent last week? Was she able to pick it up or does the pharmacy require a prior auth. She should still be on her lisinopril although I discontinued it in her chart. I just want to be sure she lets us know when she has the Entresto in hand and then she knows to stop the lisinopril for 36-48 hours before first dose of Entresto. Thanks * Telephone Encounter - Roopa Harris PA-C - 12/17/2022 12:30 PM EST Diagnostic testing- please schedule echo in 6 months. thanks * Telephone Encounter - Roopa Harris PA-C - 12/17/2022 12:19 PM EST Called patient and reviewed echo and that we would like to transition her from lisinopril to Entresto. She is agreeable. I told her we will send Entresto rx to pharmacy. When it is filled and knowingwhether or not a prior auth will be needed we will give her instructions on 36 hour washout of lisinopril before starting Entresto and will arrange for BMP to be done in 1 week. Also discussed repeating an echo in 6 months time which I will order * Telephone Encounter - Gladys Ovalle R.N. - 12/16/2022 3:22 PM EST Pt is returning your call. * Telephone Encounter - Elton Monroe - 12/16/2022 3:04 PM EST Patient spoke with access and wanted results of recent echo, access made patient aware of turn around time, patinet still wanting to speak to someone. documented in this encounter Plan of Treatment Not on file documented as of this encounter Results * IA ECHO TTHRC R-T 2D W/WOM-MODE COMPL SPEC&COLR D (06/07/2023) Roopa Harris PA-C CARDIOLOGY [facility] * (ABNORMAL) CHG BASIC METABOLIC PANEL CALCIUM TOTAL (03/16/2023 9:21 AM EDT) GLUCOSE 104(H) 70 - 100 mg/dL 03/16/2023 3:05 PM EDT [facility] Comment:Reference range appl icable to fasting specimens only Blood Urea Nitrogen 19 5 - 25 mg/dL 03/16/2023 3:05 PM EDT [facility] CREAT 1.07 0.5 - 1.1 mg/dL 03/16/2023 3:05 PM EDT [facility] GLOMERULAR FILTRATION RATE 54(L) >60 03/16/2023 3:05 PM EDT [facility] Comment: This eGFR result was calculated using the CKD-EPI 2020 Creatinine Equation NA 140 135 - 145 mEq/L 03/16/2023 3:05 PM EDT [facility] K 3.9 3.5 - 5.5 mmol/L 03/16/2023 3:05 PM EDT [facility] CL 113(H) 96 - 110 mmol/L 03/16/2023 3:05 PM EDT [facility] CARBON DIOXIDE (CO2) 21 21 - 32 mmol/L 03/16/2023 3:05 PM EDT [facility] ANION GAP 6 3 - 11 03/16/2023 3:05 PM EDT [facility] CALCIUM 9.1 8.5 - 10.5 mg/dL 03/16/2023 3:05 PM EDT [facility] 03/16/2023 9:21 AM EDT 03/16/2023 9:21 AM EDT Narrative [facility] - 03/16/2023 3:05 PM EDT Release to patient->Immediate Roopa Harris PA-C LAB [facility] documented in this encounter Visit Diagnoses Diagnosis STEMI involving left anterior descending coronary artery (HCC)- Primary Ischemic cardiomyopathy Other specified forms of chronic ischemic heart disease Ischemic cardiomyopathy Other specified forms of chronic ischemic heart disease Essential hypertension Unspecified essential hypertension JANA (acute kidney injury) (HCC) Acute kidney failure, unspecified documented in this encounter Care Teams Tray Casting Machine Operator Relationship Specialty Start Date End Date Eulaloi Raines MD [address] [place] [address] PCP - General Internal Medicine 06/25/20 Adam Kern MD [address] [place] [address] Scanning Supervisor Cardiovascular Disease 08/01/21 Kat Koch NP [address] [place], [place] [phone] Specialist Cardiology 09/05/21 05/25/23 Roopa Harris PA-C [address] [place] [address] Specialist Cardiology 05/26/23 Elaine Anderson NP [address] [place] [address] Cardiology 05/03/24 documented as of this encounter
--- OUTSIDE RECORDS SUMMARY | 2025-02-05 15:13 | XMS_ITS | Encounter Summary ---
Author Organization [facility] Address [address] [place] [address] Care Team Providers Care Back Line Cook Name Role Phone Eulalio Raines MD Primary Care Provider Adam Kern MD Unavailable Kat Koch DOOR OPENER Unavailable Unavailab Roopa Quiñones PA-C Unavailable Elaine Anderson DOOR OPENER Unavailable [phone] Reason for Visit * Reason Onset Date Comments Provider Call Back 05/14/2023 Encounter Details Date Type Department Care Team Description 05/14/2023 Telephone Gastroenterology - [place] [address] [address] Jimenez Reyes PA-C [address] [id number] Provider Call Back Social History Tobacco Use Types Packs/Day Years [...] suspected to have Coronavirus/COVID-19? No / Unsure 05/14/2023 10:15 AM EDT documented as of this encounter Miscellaneous Notes * Telephone Encounter - Lin Bee - 05/18/2023 11:36 AM EDT Spoke to patient and advised. She will got to the [facility] in [place] today. * Telephone Encounter - Lyla Bhatia - 05/18/2023 11:13 AM EDT Patient returning call, please call back. * Telephone Encounter - Lin Bee - 05/18/2023 10:08 AM EDT Left a vm for the patient to call our office back. * Telephone Encounter - Jimenez Reyes PA-C - 05/18/2023 8:05 AM EDT If patient is having constant diarrhea, it is not feasible for her to wait until September. She alsoneeds to have her stool tested regarding the diarrhea. Please let her know that I would like to order labs and stool studies before I order any other medications to help with the diarrhea * Telephone Encounter - Niesha Madrigal - 05/14/2023 2:00 PM EDT Patient has a scheduled appointment, 10/19/2023, constant diarrhea, pcp has her on dicyclomine (BENTYL) 10 MG capsule, taking 4 capsules daily, please advise documented in this encounter Plan of Treatment Not on file documented as of this encounter Visit Diagnoses Not on filedocumented in this encounter Care Teams Back Line Cook Relationship Specialty Start Date End Date Eulalio Raines MD [address] [phone] PCP - General Internal Medicine 06/25/20 Adam Kern MD [address] [place] [address] Sushi Chef Cardiovascular Disease 08/01/21 Kat Koch NP [address] [place] [address] Specialist Cardiology 09/05/21 05/25/23 Roopa Harris PA-C [address] [place] [address] Specialist Cardiology 05/26/23 Elaine Anderson NP [address] [place] [address] Cardiology 05/03/24 documented as of this encounter
--- OUTSIDE RECORDS SUMMARY | 2025-02-05 15:13 | XMS_ITS | Encounter Summary ---
Author Organization Formerly [facility] Address [address] [place] [address] Care Team Providers Care Music Adapter Name Role Phone Ren Bourne MD Primary Care Provider Unavail able Eulalio Raines MD Primary Care Provider [phone] Adam Kern MD Unavailable Kat Koch PHOTOVOLTAIC TESTING TECHNICIAN Unavailable Unavailab Roopa Quiñones PA-C Unavailable [phone] Elaine Anderson PHOTOVOLTAIC TESTING TECHNICIAN Unavailable [phone] Reason for Visit * Reason Onset Date Comments injection 05/11/2018 Provider Call Back 05/11/2018 Encounter Details Date Type Department Care Team Description 05/11/2018 Telephone Physiatry - [address] [id number] William Greene DO injection; Provider Call Back Social History Tobacco Use [...] encounter Miscellaneous Notes * Telephone Encounter - Jackie Layne L.P.N. - 05/11/2018 2:44 PM EDT Spoke to patient and she states that This am when the nurse called her to check on her she felt fine After doing errands and doing some work around the house she has noticed that her face is flushed no fever no swelling No SOB She is drinking plenty of fluids Explained that this can be from the steroid injection that she had yesterday. ,she can use cool compresses to her face for comfort The flushing should go away with time She can also use benadryl if she needs to If any SOB , difficulty with Breathing she will need to go to the er to be seen Today take it easy today and call to let us know how she is feeling tomorrow am She does understand this Message to Dr Greene for FYI * Telephone Encounter - Jacquelynjose Luis - 05/11/2018 2:01 PM EDT Patient had an injection on 05/10/2018. Called asking to talk with the nurse regarding an injection.Please advise. documented in this encounter Plan of Treatment Not on file documented as of this encounter Visit Diagnoses Not on filedocumented in this encounter Care Teams Music Adapter Relationship Specialty Start Date End Date Ren Bourne MD PCP - General 07/18/04 06/24/20 Eulalio Raines MD [address] [place] [address] PCP - General Internal Medicine 06/25/20 Adam Kern MD [address] [place] [address] Hog Killer Cardiovascular Disease 08/01/21 Kat Koch NP [address] [place] [address] Specialist Cardiology 09/05/21 05/25/23 Roopa Harris PA-C [address] [place] [address] Specialist Cardiology 05/26/23 Elaine Anderson NP [address] [place] [address] Cardiology 05/03/24 documented as of this encounter
--- OUTSIDE RECORDS SUMMARY | 2025-02-05 15:13 | XMS_ITS | Encounter Summary ---
Author Organization [facility] Address [address] [place] [address] Care Team Providers Care Embroidery Assistant Name Role Phone Ren Bourne MD Primary Care Provider Unavail able Eulalio Raines MD Primary Care Provider [phone] Adam Kern MD Unavailable Kat Koch PREASSEMBLER AND INSPECTOR Unavailable Unavailab Roopa Quiñones PA-C Unavailable [phone] Elaine Anderson PREASSEMBLER AND INSPECTOR Unavailable [phone] Reason for Visit * Reason Onset Date Comments Prior Authorization 03/09/2017 Encounter Details Date Type Department Care Team Description 03/09/2017 Telephone Podiatry - [address] [address] Elaine Ceja DPM Prior Authorization Social History Tobacco Use Types [...] encounter Miscellaneous Notes * Telephone Encounter - Jessica Moreno C.M.A. - 03/09/2017 10:07 AM EDT Form completed and faxed to Insurance company. Awaiting response. * Telephone Encounter - Nohemy Garza - 03/09/2017 10:05 AM EDT Pre Authorization for Medication Does the patient already have this medication?NO Name of Medication Diclofenac Sodium Dose of Medication 1% gel How does patient take this med? Place 1 gram topically on the skin twice a day as needed for pain from gout flare. What Pharmacy does the patient use? [facility], [address] [place] [address], [place] [address], phone [phone], fax [phone] Payor: MEDICARE-Video Passports / Plan: MEDICARE-Video Passports / Product Type: MEDICARE [id number] documented in this encounter Plan of Treatment Not on file documented as of this encounter Visit Diagnoses Not on filedocumented in this encounter Care Teams Embroidery Assistant Relationship Specialty Start Date End Date Ren Bourne MD PCP - General 07/18/04 06/24/20 Eulalio Raines MD [address] [place] [address] PCP - General Internal Medicine 06/25/20 Adam Kern MD [address] [place] [address] Shoe Stock Associate Cardiovascular Disease 08/01/21 Kat Koch NP [address] [place] [address] Specialist Cardiology 09/05/21 05/25/23 Roopa Harris PA-C [address] [place] [address] Specialist Cardiology 05/26/23 Elaine Anderson NP [address] [place] [address] Cardiology 05/03/24 documented as of this encounter
--- OUTSIDE RECORDS SUMMARY | 2025-02-05 15:13 | XMS_ITS | Encounter Summary ---
Author Organization [facility] Address [address] [place] [address] Care Team Providers Care Financial Services Representative Name Role Phone Eulalio Raines MD Primary Care Provider [phone] Adam Kern MD Unavailable Kat Koch GRAPE PRUNER Unavailable Unavailab Roopa Quiñones PA-C Unavailable [phone] Elaine Anderson GRAPE PRUNER Unavailable [phone] Encounter Details Date Type Department Care Team Description 01/01/2023 [facility] Medical Records [address] [place] [address] Social History Tobacco Use Types Packs/Day Years [...] Recorded In the last 10 days, have calire u been in contact with someone who was confirmed or suspected to have Coronavirus/COVID-19? No / Unsure 12/21/2022 9:54 AM EST documented as of this encounter Plan of Treatment Not on file documented as of this encounter Procedures Procedure Name Priority Date/Time Associated Diagnosis Comments OUTSIDE EKG Routine 01/01/2023 OUTSIDE LAB Routine 01/01/2023 OUTSIDE PLAIN FILM Routine 12/31/2022 documented in this encounter Results * OUTSIDE LAB (01/01/2023) Provider Abstract LAB * OUTSIDE EKG (01/01/2023) Provider Abstract CARDIOLOGY * OUTSIDE PLAIN FILM (12/31/2022) Provider Abstract RADIOLOGY documented in this encounter Visit Diagnoses Not on filedocumented in this encounter Care Teams Financial Services Representative Relationship Specialty Start Date End Date Eulalio Raines MD [address] [place] [address] PCP - General Internal Medicine 06/25/20 Adam Kern MD [address] [place] [address] Social Security Benefits Interviewer Cardiovascular Disease 08/01/21 Kat Koch NP [address] [place] [address] Specialist Cardiology 09/05/21 05/25/23 Roopa Harris PA-C [address] [place] [address] Specialist Cardiology 05/26/23 Elaine Anderson NP [address] [place] [address] Cardiology 05/03/24 documented as of this encounter
--- OUTSIDE RECORDS SUMMARY | 2025-02-05 15:13 | XMS_ITS | Encounter Summary ---
Author Organization [facility] Address [address] [place] [address] Care Team Providers Care Mortgage Loan Assistant Name Role Phone Ren Bourne MD Primary Care Provider Unavail able Eulalio Raines MD Primary Care Provider [phone] Adam Kern MD Unavailable Kat Koch MANAGER DATABASE ADMINISTRATION Unavailable Unavailab Roopa Quiñones PA-C Unavailable [phone] Elaine Anderson MANAGER DATABASE ADMINISTRATION Unavailable [phone] Encounter Details Date Type Department Care Team Description 01/02/2014 [facility] Medical Records [address] [place] [address] Abstract, Provider Social History Tobacco Use Types Packs/Day Years [...] on filedocumented in this encounter Care Teams Mortgage Loan Assistant Relationship Specialty Start Date End Date Ren Bourne MD PCP - General 07/18/04 06/24/20 Eulalio Raines MD [address] [place] [address] [id number] PCP - General Internal Medicine 06/25/20 Adam Kern MD [address] [place] [address] Hr Receptionist Cardiovascular Disease 08/01/21 Kat Koch NP [address] [place] [address] Specialist Cardiology 09/05/21 05/25/23 Roopa Harris PA-C [address] [place] [address] Specialist Cardiology 05/26/23 Elaine Anderson NP [address] [place] [address] Cardiology 05/03/24 documented as of this encounter
--- OUTSIDE RECORDS SUMMARY | 2025-02-05 15:13 | XMS_ITS | Encounter Summary ---
Author Organization [facility] Address [address] [place] [address] Care Team Providers Care Director Of Extension Work Name Role Phone Eulalio Raines MD Primary Care Provider [phone] Adam Kern MD Unavailable Kat Koch DISPLAY CARVER Unavailable Unavailab Roopa Quiñones PA-C Unavailable [phone] Elaine Anderson DISPLAY CARVER Unavailable [phone] Encounter Details Date Type Department Care Team Description 12/25/2020 [facility] Medical Records [address] [place] [address] Abstract, Provider Social History Tobacco Use Types [...] on filedocumented in this encounter Care Teams Director Of Extension Work Relationship Specialty Start Date End Date Eulalio Raines MD [address] [place] [address] PCP - General Internal Medicine 06/25/20 Adam Kern MD [address] [place] [address] Slip Cover Operator Cardiovascular Disease 08/01/21 Kat Koch, LOUISE [address] [place] [address] Specialist Cardiology 09/05/21 05/25/23 Roopa Harris PA-C [address] [place] [address] Specialist Cardiology 05/26/23 Elaine Anderson NP [address] [place] [address] Cardiology 05/03/24 documented as of this encounter
--- OUTSIDE RECORDS SUMMARY | 2025-02-05 15:13 | XMS_ITS | Encounter Summary ---
Author Organization [facility] Address [address] [place] [address] Care Team Providers Care Cat Scanner Operator Name Role Phone Ren Bourne MD Primary Care Provider Unavail able Eulalio Raines MD Primary Care Provider [phone] Adam Kern MD Unavailable Kat Koch KENO WRITER / RUNNER Unavailable Unavailab Roopa Quiñones PA-C Unavailable [phone] Elaine Anderson KENO WRITER / RUNNER Unavailable [phone] Encounter Details Date Type Department Care Team Description 01/07/2018 [facility] Medical Records [address] [place] [address] Abstract, Provider Social History Tobacco Use Types [...] on filedocumented in this encounter Care Teams Cat Scanner Operator Relationship Specialty Start Date End Date Ren Bourne MD PCP - General 07/18/04 06/24/20 Eulalio Raines MD [address] [place] [address] [id number] PCP - General Internal Medicine 06/25/20 Adam Kern MD [address] [place] [address] Client Administrator Cardiovascular Disease 08/01/21 Kat Koch NP [address] [place] [address] Specialist Cardiology 09/05/21 05/25/23 Roopa Harris PA-C [address] [place] [address] Specialist Cardiology 05/26/23 Elaine Anderson NP [address] [place] [address] Cardiology 05/03/24 documented as of this encounter
--- OUTSIDE RECORDS SUMMARY | 2025-02-05 15:13 | XMS_ITS | Encounter Summary ---
Author Organization [facility] Address [address] [place] [address] Care Team Providers Care Auto Accessories Installer Name Role Phone Ren Bourne MD Primary Care Provider Unavail able Eulalio Raines MD Primary Care Provider [phone] Adam Kern MD Unavailable Kat Koch PHARMACY STOCK CLERK Unavailable Unavailab Roopa Quiñones PA-C Unavailable [phone] Elaine Anderson PHARMACY STOCK CLERK Unavailable [phone] Encounter Details Date Type Department Care Team Description 04/21/2017 Orders Only Medical Records [address] [place] [address] Abdias Laguerre MD Social History Tobacco Use Types Packs/Day [...] Name Priority Date/Time Associated Diagnosis Comments OUTSIDE MRI/MRA Routine 04/13/2017 documented in this encounter Results * OUTSIDE MRI/MRA (04/13/2017) Abdias Laguerre MD RADIOLOGY documented in this encounter Visit Diagnoses Not on filedocumented in this encounter Care Teams Auto Accessories Installer Relationship Specialty Start Date End Date Ren Bourne MD PCP - General 07/18/04 06/24/20 Eulalio Raines MD [address] [place] [address] PCP - General Internal Medicine 06/25/20 Adam Kern MD [address] [place] [address] Structural Biologist Cardiovascular Disease 08/01/21 Kat Koch NP [address] [place] [address] Specialist Cardiology 09/05/21 05/25/23 Roopa Harris PA-C [address] [place] [address] Specialist Cardiology 05/26/23 Elaine Anderson NP [address] [place] [address] Cardiology 05/03/24 documented as of this encounter
--- OUTSIDE RECORDS SUMMARY | 2025-02-05 15:13 | XMS_ITS | Encounter Summary ---
Author Organization [facility] [employer] [facility] Address [address] [place] [address] Care Team Providers Care Epic Specialist Name Role Phone Eulalio Raines MD Primary Care Provider [phone] Adam Kern MD Unavailable Kat Koch LOW ALTITUDE AIR DEFENSE OFFICER Unavailable Unavailab Roopa Quiñones PA-C Unavailable [phone] Elaine Anderson LOW ALTITUDE AIR DEFENSE OFFICER Unavailable [phone] Encounter Details Date Type Department Care Team Description 03/11/2023 Wiener Packer Report Medical Records [address] [place] [address] William Greene DO Social History Tobacco Use Types Packs/Day Years [...] suspected to have Coronavirus/COVID-19? No / Unsure 02/25/2023 1:21 PM EDT documented as of this encounter Plan of Treatment Not on file documented as of this encounter Visit Diagnoses Not on filedocumented in this encounter Care Teams Epic Specialist Relationship Specialty Start Date End Date Eulalio Raines MD [address] [place] [address] PCP - General Internal Medicine 06/25/20 Adam Kern MD [address] [place] [address] Principal Accounts Clerk Cardiovascular Disease 08/01/21 Kat Koch NP [address] [place] [address] Specialist Cardiology 09/05/21 05/25/23 Roopa Harris PA-C [address] [place] [address] Specialist Cardiology 05/26/23 Elaine Anderson NP [address] [place] [address] Cardiology 05/03/24 documented as of this encounter
--- OUTSIDE RECORDS SUMMARY | 2025-02-05 15:13 | XMS_ITS | Encounter Summary ---
Author Organization [facility] Address [address] [place] [address] Care Team Providers Care Histology Assistant Name Role Phone Ren Bourne MD Primary Care Provider Unavail able Eulalio Raines MD Primary Care Provider [phone] Adam Kern MD Unavailable Kat Koch PATIENT SERVICE COORDINATOR Unavailable Unavailab Roopa Quiñones PA-C Unavailable [phone] Elaine Anderson PATIENT SERVICE COORDINATOR Unavailable [phone] Encounter Details Date Type Department Care Team Description 03/15/2018 Business Doc Medical Records [address] [place] [address] Abstract, Provider Social History Tobacco Use Types [...] on filedocumented in this encounter Care Teams Histology Assistant Relationship Specialty Start Date End Date Ren Bourne MD PCP - General 07/18/04 06/24/20 Eulalio Raines MD [address] [place] [address] [id number] PCP - General Internal Medicine 06/25/20 Adam Kern MD [address] [place] [address] Traffic Maintenance Officer Cardiovascular Disease 08/01/21 Kat Koch NP [address] [place] [address] Specialist Cardiology 09/05/21 05/25/23 Roopa Harris PA-C [address] [place] [address] Specialist Cardiology 05/26/23 Elaine Anderson NP [address] [place] [address] Cardiology 05/03/24 documented as of this encounter
--- OUTSIDE RECORDS SUMMARY | 2025-02-05 15:13 | XMS_ITS | Encounter Summary ---
Author Organization [facility] Address [address] [place] [address] Care Team Providers Care Refrigeration Systems Installer Name Role Phone Ren Bourne MD Primary Care Provider Unavail able Eulalio Raines MD Primary Care Provider Adam Kern MD Unavailable Kat Koch CHEESE BLENDER Unavailable Unavailab Roopa Quiñones PA-C Unavailable [phone] Elaine Anderson CHEESE BLENDER Unavailable [phone] Reason for Visit * Reason Onset Date Comments refill request 06/27/2018 needs to pickler helper today please put in ppu Encounter Details Date Type Department Care Team Description 06/27/2018 Refill Adult Medicine [address] [address] Ren Bourne MD refill request (needs to pickler helper today please put in ppu) Social History Tobacco Use Types Packs/Day Years [...] encounter Miscellaneous Notes * Telephone Encounter - Polly oJyce C.M.A. - 06/27/2018 4:51 PM EDT Pt called, and RX placed in [facility] * Telephone Encounter - Dunia Castrejon - 06/27/2018 3:54 PM EDT Pt is leaving [place] today * Telephone Encounter - Bridgette Luna C.M.A. - 06/27/2018 1:58 PM EDT TO BE PLACED IN [facility] * Telephone Encounter - Dunia Castrejon - 06/27/2018 12:56 PM EDT Patient would like script to be: PLACED IN PATIENT CERTIFIED HYPERBARIC TECHNICIAN TO BE PICKED UP BY pt needs to pickler helper script today please put in ppu she is going on a flight tom and needs her inhalers in boxes withscripts on them WHEN WAS THE PATIENT'S LAST APPOINTMENT IN ADULT MEDICINE? 05/31/2018 WHEN WAS THE LAST TIME THE PATIENT SAW THEIR PCP? 06/15/2017 Does patient have an upcoming appointment? Yes 07/16/2018 (THE MEDICATION REQUESTED IS ON THE MED LIST ABOVE) All of the medications requested were on the CURRENT MEDS list Did you check the Pharmacy information above?: YES Patient wants: 30 -day supply Is this a mail order prescription request ? NO If the refill is from a FAXED refill request what is the RX # listed on the fax? Patients current insurance carrier is: [place] / [place] / Product Type: MEDICARE [id number] documented in this encounter Plan of Treatment Not on file documented as of this encounter Visit Diagnoses Diagnosis Asthmatic bronchitis without complication, unspecified asthma severity, unspecified whether persistent documented in this encounter Care Teams Refrigeration Systems Installer Relationship Specialty Start Date End Date Ren Bourne MD PCP - General 07/18/04 06/24/20 Eulalio Raines MD [address] [place] [address] PCP - General Internal Medicine 06/25/20 Adam Kern MD [address] [place] [address] Instrument Lens Generator Cardiovascular Disease 08/01/21 Kat Koch NP [address] [place] [id number] Specialist Cardiology 09/05/21 05/25/23 Roopa Harris PA-C [address] [place] [address] Specialist Cardiology 05/26/23 Elaine Anderson NP [address] [place] [address] Cardiology 05/03/24 documented as of this encounter
--- OUTSIDE RECORDS SUMMARY | 2025-02-05 15:13 | XMS_ITS | Encounter Summary ---
Author Organization [facility] Address [address] [place] [address] Care Team Providers Care Pharmacy Clerk Name Role Phone Ren Bourne MD Primary Care Provider Unavail able Eulalio Raines MD Primary Care Provider [phone] Adam Kern MD Unavailable Kat Koch ECDIS N NAVIGATION OPERATOR Unavailable Unavailab Roopa Quiñones PA-C Unavailable [phone] Elaine Anderson ECDIS N NAVIGATION OPERATOR Unavailable [phone] Encounter Details Date Type Department Care Team Description 12/14/2011 Auto Brake Technician Report Medical Records [address] [place] [address] Siobhan Khan PA-C Social History Tobacco Use [...] on filedocumented in this encounter Care Teams Pharmacy Clerk Relationship Specialty Start Date End Date Ren Bourne MD PCP - General 07/18/04 06/24/20 Eulalio Raines MD [address] [place] [address] PCP - General Internal Medicine 06/25/20 Adam Kern MD [address] [place] [address] Exceptional Children'S Teacher Cardiovascular Disease 08/01/21 Kat Koch NP [address] [place] [address] Specialist Cardiology 09/05/21 05/25/23 Roopa Harris PA-C [address] [place] [address] Specialist Cardiology 05/26/23 Elaine Anderson NP [address] [place] [address] Cardiology 05/03/24 documented as of this encounter
--- OUTSIDE RECORDS SUMMARY | 2025-02-05 15:13 | XMS_ITS | Encounter Summary ---
Author Organization [facility] Address [address] [place] [address] Care Team Providers Care Quality Assurance Clerk Name Role Phone Ren Bourne MD Primary Care Provider Unavail able Eulalio Raines MD Primary Care Provider [phone] Adam Kern MD Unavailable Kat Koch SHOER Unavailable Unavailab Roopa Quiñones PA-C Unavailable [phone] Elaine Anderson SHOER Unavailable [phone] Reason for Visit * Reason Comments E-prescribe Rx Request Encounter Details Date Type Department Care Team Description 07/09/2018 Refill Dermatology - [address] [phone] Siobhan Khan PA-C E-prescribe Rx Request Social History Tobacco Use [...] encounter Miscellaneous Notes * Telephone Encounter - Stefania Chin MA - 07/11/2018 8:25 AM EDT AYESHA 07/06 f/u 10/06 last refilled 06/11 documented in this encounter Plan of Treatment Not on file documented as of this encounter Visit Diagnoses Not on filedocumented in this encounter Care Teams Quality Assurance Clerk Relationship Specialty Start Date End Date Ren Bourne MD PCP - General 07/18/04 06/24/20 Eulalio Raines MD [address] [place] [address] PCP - General Internal Medicine 06/25/20 Adam Kern MD [address] [place] [address] Quality Assurance Clerk Cardiovascular Disease 08/01/21 Kat Koch NP [address] [place] [address] Specialist Cardiology 09/05/21 05/25/23 Roopa Harris PA-C [address] [place] [address] Specialist Cardiology 05/26/23 Elaine Anderson NP [address] [place] [address] Cardiology 05/03/24 documented as of this encounter
--- OUTSIDE RECORDS SUMMARY | 2025-02-05 15:14 | XMS_ITS | Encounter Summary ---
Author Organization [facility] Address [address] [place] [address] Care Team Providers Care Falafel Cart Cook Name Role Phone Ren Bourne MD Primary Care Provider Unavail able Eulalio Raines MD Primary Care Provider [phone] Adam Kern MD Unavailable Kat Koch PUBLIC HEALTH SPECIALIST Unavailable Unavailab Roopa Quiñones PA-C Unavailable Elaine Anderson PUBLIC HEALTH SPECIALIST Unavailable [phone] Reason for Visit * Reason Comments E-prescribe Rx Request Encounter Details Date Type Department Care Team Description 03/09/2019 Refill Rheumatology - [address] [address] Ren Bourne MD E-prescribe Rx Request Social [...] encounter Miscellaneous Notes * Telephone Encounter - Mica Peck - 03/09/2019 8:39 AM EDT Patient would like script to be: E-PRESCRIBED/FAXED TO PHARMACY WHEN WAS THE PATIENT'S LAST APPOINTMENT IN ADULT MEDICINE? 03/06/19 WHEN WAS THE LAST TIME THE PATIENT SAW THEIR PCP? 02/17/19 Does patient have an upcoming appointment? 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
--- OUTSIDE RECORDS SUMMARY | 2025-02-05 15:14 | XMS_ITS | Encounter Summary ---
Author Organization [facility] Address [address] [place] [address] Care Team Providers Care Rn Hematology Name Role Phone Ren Bourne MD Primary Care Provider Unavail able Eulalio Raines MD Primary Care Provider [phone] Adam Kern MD Unavailable Kat Koch QUARTZ MINER BLASTING Unavailable Unavailab Roopa Quiñones PA-C Unavailable [phone] Elaine Anderson QUARTZ MINER BLASTING Unavailable [phone] Encounter Details Date Type Department Care Team Description 04/06/2019 Business Doc Medical Records [address] [place] [id number] Abstract, Provider Social History Tobacco Use Types [...] on filedocumented in this encounter Care Teams Rn Hematology Relationship Specialty Start Date End Date Ren Bourne MD PCP - General 07/18/04 06/24/20 Eulalio Raines MD [address] [place] [address] [id number] PCP - General Internal Medicine 06/25/20 Adam Kern MD [address] [place] [address] Turkey Boner Cardiovascular Disease 08/01/21 Kat Koch NP [address] [place] [address] Specialist Cardiology 09/05/21 05/25/23 Roopa Harris PA-C [address] [place] [address] Specialist Cardiology 05/26/23 Elaine Anderson NP [address] [place] [address] Cardiology 05/03/24 documented as of this encounter
--- OUTSIDE RECORDS SUMMARY | 2025-02-05 15:14 | XMS_ITS | Encounter Summary ---
Author Organization [facility] Address [address] [place] [address] Care Team Providers Care Manager Inventory Control Name Role Phone Ren Bourne MD Primary Care Provider Unavail able Eulalio Raines MD Primary Care Provider [phone] Adam Kern MD Unavailable Kat Koch PNEUMATIC TUBE REPAIRER Unavailable Unavailab Roopa Quiñones PA-C Unavailable [phone] Elaine Anderson PNEUMATIC TUBE REPAIRER Unavailable [phone] Encounter Details Date Type Department Care Team Description 06/23/2019 Release of Information Medical Records [address] [place] [id number] Abstract, Provider Social History Tobacco Use Types [...] on filedocumented in this encounter Care Teams Manager Inventory Control Relationship Specialty Start Date End Date Ren Bourne MD PCP - General 07/18/04 06/24/20 Eulalio Raines MD [address] [place] [address] PCP - General Internal Medicine 06/25/20 Adam Kern MD [address] [place] [address] Cow Puncher Cardiovascular Disease 08/01/21 Kat Koch NP [address] [place] [address] Specialist Cardiology 09/05/21 05/25/23 Roopa Harris PA-C [address] [place] [address] Specialist Cardiology 05/26/23 Elaine Anderson NP [address] [place] [address] Cardiology 05/03/24 documented as of this encounter
--- OUTSIDE RECORDS SUMMARY | 2025-02-05 15:14 | XMS_ITS | Encounter Summary ---
Author Organization [facility] Address [address] [place] [address] Care Team Providers Care Bearing Press Machine Operator Name Role Phone Ren Bourne MD Primary Care Provider Unavail able Eulalio Raines MD Primary Care Provider [phone] Adam Kern MD Unavailable Kat Koch VERIFICATION SPECIALIST Unavailable Unavailab Roopa Quiñones PA-C Unavailable [phone] Elaine Anderson VERIFICATION SPECIALIST Unavailable [phone] Encounter Details Date Type Department Care Team Description 01/04/2015 Business Doc Medical Records [address] [place] [id number] Abstract, Provider Social History Tobacco Use Types [...] on filedocumented in this encounter Care Teams Bearing Press Machine Operator Relationship Specialty Start Date End Date Ren Bourne MD PCP - General 07/18/04 06/24/20 Eulalio Raines MD [address] [place] [address] [id number] PCP - General Internal Medicine 06/25/20 Adam Kern MD [address] [place] [address] Superintendent Cardiovascular Disease 08/01/21 Kat Koch NP [address] [place] [address] Specialist Cardiology 09/05/21 05/25/23 Roopa Harris PA-C [address] [place] [address] Specialist Cardiology 05/26/23 Elaine Anderson NP [address] [place] [address] Cardiology 05/03/24 documented as of this encounter
--- OUTSIDE RECORDS SUMMARY | 2025-02-05 15:14 | XMS_ITS | Encounter Summary ---
Author Organization [facility] Address [address] [place] [address] Care Team Providers Care Flame Burner Name Role Phone Eulalio Raines MD Primary Care Provider [phone] Adam Kern MD Unavailable Kat Koch AUTOMATIC DIE CUTTING MACHINE OPERATOR Unavailable Unavailab Roopa Quiñones PA-C Unavailable Elaine Anderson AUTOMATIC DIE CUTTING MACHINE OPERATOR Unavailable [phone] Reason for Visit * Reason Onset Date Comments Prior Authorization 09/05/2021 Acitretin 10 mg Capsules Encounter Details Date Type Department Care Team Description 09/05/2021 Telephone Dermatology - [address] [id number] Siobhan Khan PA-C Prior Authorization (Acitretin 10mg Capsules) Social History Tobacco Use Types Packs/Day Years [...] encounter Miscellaneous Notes * Telephone Encounter - Rylie Andrade M.A. - 09/09/2021 1:50 PM EDT Approval for Acitretin 10mg capsules. Approved from 06/11/2021-09/09/2022. [facility] notified by fax. * Telephone Encounter - Rylie Andrade M.A. - 09/08/2021 2:05 PM EDT Called to do an appeal and spoke with Kat. Should have an answer for appeal within 7 days, Case # [id number]. * Telephone Encounter - Siobhan Khan - 09/08/2021 11:50 AM EDT It is used for C - prevention of nonmelanoma skin cancers * Telephone Encounter - Rylie Andrade M.A. - 09/08/2021 9:02 AM EDT Acitretin capsules have been denied by patients insurance. Your plan does not allow coverage of this medication based on your prescriber answering No to the following question(s): Is the requested drug being prescribed for any of the following A) Lichen Planus, B) Keratosis follicularis (Darier Disease), C) prevention on non- menanoma skin cancers in a high risk indiviual? Is the requested drug being prescribed for the treatment of severe psoriasis? Please advise, Rylie Clarke Prior Authorization Dept Ext [phone] Fax [phone] * Telephone Encounter - Rylie Andrade M.A. - 09/05/2021 11:50 AM EDT Dx :Actinic keratosis Prior authorization renewed on CMM to CM for Acitretin 10mg capsules. * Telephone Encounter - Faith Quach - 09/05/2021 8:53 AM EDT Prior Authorization for Medication-do not complete and send this encounter unless you have the fax from the pharmacy. Is this a Cover My Meds request: Yes -- Bailey Code [id number] Name of Medication Acitretin 10mg Capsules Dose of Medication What is the RX # from the faxed refill? How does patient take this med? What Pharmacy did the fax come from: [facility] fax #: [phone] [employer] Democrat Information from fax: What Prescription Plan does the patient have? BIN/PCN if applicable: Cardholder ID: Person Code: Relationship Code: Help desk phone: documented in this encounter Plan of Treatment Not on file documented as of this encounter Visit Diagnoses Not on filedocumented in this encounter Care Teams Flame Burner Relationship Specialty Start Date End Date Eulalio Raines MD [address] [place] [address] PCP - General Internal Medicine 06/25/20 Adam Kern MD [address] [place] [address] Pneumatic Jack Operator Cardiovascular Disease 08/01/21 Kat Koch NP [address] [place] [address] Specialist Cardiology 09/05/21 05/25/23 Roopa Harris PA-C [address] [place] [address] Specialist Cardiology 05/26/23 Elaine Anderson NP [address] [place] [address] Cardiology 05/03/24 documented as of this encounter
--- OUTSIDE RECORDS SUMMARY | 2025-02-05 15:14 | XMS_ITS | Encounter Summary ---
Author Organization [facility] Address [address] [place] [address] Care Team Providers Care Asphalt Distributor Tender Name Role Phone Eulalio Raines MD Primary Care Provider [phone] Adam Kern MD Unavailable Roopa Harris PA-C Unavailable [phone] Elaine Anderson NP Unavailable [phone] Encounter Details Date Type Department Care Team Description 05/16/2024 Orders Only Cardio PVC POC [address] [facility] [address] [place] [address] Default, Provider Social History Tobacco Use Types Packs/Day [...] Date/Time Associated Diagnosis Comments OUTSIDE MRI/MRA Routine 05/05/2024 OUTSIDE PFT Routine 03/14/2024 documented in this encounter Results * OUTSIDE MRI/MRA (05/05/2024) Provider Default RADIOLOGY * OUTSIDE PFT (03/14/2024) Provider Default PULMONOLOGY documented in this encounter Visit Diagnoses Not on filedocumented in this encounter Care Teams Asphalt Distributor Tender Relationship Specialty Start Date End Date Eulalio Raines MD [address] [place] [address] PCP - General Internal Medicine 06/25/20 Adam Kern MD [address] [place] [address] Ladle Pourer Cardiovascular Disease 08/01/21 Roopa Harris PA-C [address] [place] [address] Specialist Cardiology 05/26/23 Elaine Anderson NP [address] [place], [place] [phone] Cardiology 05/03/24 documented as of this encounter
--- OUTSIDE RECORDS SUMMARY | 2025-02-05 15:14 | XMS_ITS | Encounter Summary ---
Author Organization [facility] Address [address] [place] [address] Care Team Providers Care Church Supervisor Name Role Phone Ren Bourne MD Primary Care Provider Unavail able Eulalio Raines MD Primary Care Provider [phone] Adam Kern MD Unavailable Kat Koch CHRONIC DISEASE EPIDEMIOLOGIST Unavailable Unavailab Roopa QuiñonesC Unavailable [phone] Elaine Anderson CHRONIC DISEASE EPIDEMIOLOGIST Unavailable Reason for Visit * Reason Onset Date Comments Urinary Frequency/Urgency/Burning 2016 Encounter Details Date Type Department Care Team Description 2016 Telephone Adult Medicine [address] [phone] Ren Bourne MD Urinary Frequency/Urgency/Burnin g Social History Tobacco Use Types Packs/Day Years [...] encounter Miscellaneous Notes * Telephone Encounter - Mauricio Mcfarlane L.P.N. - 2016 1:56 PM EDT Patient C/O of UTI symptoms Frequency urgency voiding in small amt's with mild burning No strong odor Denies temp Mild bloating No back pain No abd pain No chest pain no SOB Appetite and hydration good VQS Bowels normal Appt today at 3:45 with [place] Patietn will increase fluids Nurse triage protocols By Lamar Lorenzo 5 edition Page :[phone] Triage problem:UTI Reinforced phone consultation and advice Reviewed with the patient S/S to watch for that would require immediate attention If symptoms worsen patient can call the triage nurse immediately or go to the ER if needed can call 911 Patient states he/she is satisfied with information and homecare instructions he is able to verbalize the instructions given * Telephone Encounter - Portillo Lambert - 2016 1:32 PM EDT Symptoms patient is presenting: patient states she has all there symptoms of a UTI, tried cranberryand pomegranates nothing is helping If pain or injury related was it due to an accident at work or from a motor vehicle accident? NO If yes, gather 3rd constitution party insurance information Date of accident/Injury: an/a How long has patient had these symptoms?: couple days PCP: Ren Bourne Payor: MEDICARE-[employer] / Plan[place] / Product Type: MEDICARE [id number] documented in this encounter Plan of Treatment Not on file documented as of this encounter Visit Diagnoses Not on filedocumented in this encounter Care Teams Church Supervisor Relationship Specialty Start Date End Date Ren Bourne MD PCP - General 07/18/04 06/24/20 Eulalio Raines MD [address] [place] [address] PCP - General Internal Medicine 06/25/20 Adam Kern MD [address] [place] [address] Leather Leveler Cardiovascular Disease 08/01/21 Kat Koch NP [address] [place] [address] Specialist Cardiology 09/05/21 05/25/23 Roopa Harris PA-C [address] [place] [address] Specialist Cardiology 05/26/23 Elaine Anderson NP [address] [place] [address] Cardiology 05/03/24 documented as of this encounter
--- OUTSIDE RECORDS SUMMARY | 2025-02-05 15:14 | XMS_ITS | Encounter Summary ---
Author Organization [facility] Address [address] [place] [address] Care Team Providers Care Oracle Application Consultant Name Role Phone Eulalio Raines MD Primary Care Provider Aadm Kern MD Unavailable Kat Koch NP Unavailable Unavailab Roopa Quiñones PA-C Unavailable Elaine Anderson NP Unavailable [phone] Reason for Visit * Reason Onset Date Comments APPOINTMENT 03/04/2022 Encounter Details Date Type Department Care Team Description 03/04/2022 Telephone Cardio PVC POC [address] [facility] [address] [place], [place] [phone] Kat Koch TABLE INSPECTOR APPOINTMENT Social History Tobacco Use Types Packs/Day Years [...] suspected to have Coronavirus/COVID-19? No / Unsure 03/05/2022 1:48 PM EDT documented as of this encounter Miscellaneous Notes * Telephone Encounter - Leslie Moon - 03/04/2022 5:02 PM EDT 03/04/22 - called and LMOM - appt reminder mess - tb documented in this encounter Plan of Treatment Not on file documented as of this encounter Visit Diagnoses Not on filedocumented in this encounter Care Teams Oracle Application Consultant Relationship Specialty Start Date End Date Eulalio Raines MD [address] [place] [address] PCP - General Internal Medicine 06/25/20 Adam Kern MD [address] [place] [address] Field Administrator Cardiovascular Disease 08/01/21 Kat Koch NP [address] [place] [address] Specialist Cardiology 09/05/21 05/25/23 Roopa Harris PA-C [address] [place] [address] Specialist Cardiology 05/26/23 Elaine Anderson NP [address] [place] [address] Cardiology 05/03/24 documented as of this encounter
--- OUTSIDE RECORDS SUMMARY | 2025-02-05 15:14 | XMS_ITS | Clinical Summary ---
Author Organization [facility] [address] [place] [address] [place] [phone] Phone Care Team Providers Care Logistics Lead Name Role Phone Eulalio Raines MD Primary Care Provider [phone] Allergies Active Allergy Reactions Criticality Noted Date Comments Azithromycin Hallucinations,Nausea And Vomiting 11/18/2005 Medications nystatin (MYCOSTATIN) 100,000 unit/gram powder Apply 1 Application topically 2 (two) times a day. APPLY TO AFFECTED AREA Active carvediloL (COREG) 3.125 mg tablet Take 1 tablet (3.125 mg total) by mouth 2 (two) times a day with meals. Active LORazepam (ATIVAN) 0.5 mg tablet Take 1 tablet (0.5 mg total) by mouth every 6 (six) hours if needed. 01/01/20 23 Active Eliquis 5 mg tablet Take 1 tablet (5 mg total) by mouth 2 (two) times a day. Active allopurinoL (ZYLOPRIM) 100 mg tablet Take 2 tablets (200 mg total) by mouth 1 (one) time each day. 08/27/20 22 Active cetirizine (ZyrTEC) 10 mg tablet Take 1 tablet (10 mg total) by mouth 1 (one) time each day. Active clopidogreL (PLAVIX) 75 mg tablet Take 1 tablet (75 mg total) by mouth 1 (one) time each day. Active acitretin (SORIATANE) 10 mg capsule TAKE 1 CAPSULE BY MOUTH EVERY DAY IN THE MORNING BEFORE BREAKFAST 90 capsule 1 10/25/20 24 Active umeclidinium brm/vilantero l tr (ANORO ELLIPTA INHL) Inhale by mouth. Active amiodarone (PACERONE) 100 mg tablet Take 1 tablet (100 mg total) by mouth 1 (one) time each day. Active Breo Ellipta 100-25 mcg/dose inhaler Inhale 1 puff by mouth 1 (one) time each day. 11/12/20 24 Active albuterol HFA (PROAIR HFA ; PROVENTIL HFA ; VENTOLIN HFA) 90 mcg/actuation inhaler Inhale 2 puffs by mouth every 4 (four) hours if needed for wheezing. 18 g 1 11/20/20 24 Active cholecalcifer ol (VITAMIN D-3) 50 mcg (2,000 unit) tablet TAKE 1 TABLET BY MOUTH ONCE DAILY 90 tablet 1 01/04/20 25 Active sacubitriL-va lsartan (Entresto) 49-51 mg per tablet Take 1 tablet by mouth 2 (two) times a day. Active tiotropium (SPIRIVA) 18 mcg per inhalation capsule Place 1 capsule (18 mcg total) into inhaler and inhale 1 (one) time each day. Active potassium chloride (KLOR-CON) 20 mEq packet MIX 1 PACKET IN LIQUID AND DRINK DAILY 90 packet 1 01/24/20 25 Active montelukast (SINGULAIR) 10 mg tablet TAKE 1 TABLET AT BEDTIME 90 tablet 1 01/24/20 25 Active omeprazole (PriLOSEC) [address] capsule TAKE 1 CAPSULE DAILY 90 capsule 1 02/01/20 25 Active atorvastatin (LIPITOR) 80 mg tablet TAKE 1 TABLET AT BEDTIME 90 tablet 1 02/01/20 25 Active atorvastatin (LIPITOR) 80 mg tablet Take 1 tablet (80 mg total) by mouth at bedtime. at bedtime. 025 Discontinued montelukast (SINGULAIR) 10 mg tablet Take 1 tablet (10 mg total) by mouth at bedtime. 08/21/20 22 025 Discontinued potassium chloride (KLOR-CON) 20 mEq packet Take 20 mEq by mouth 1 (one) time each day. 09/21/20 24 025 Discontinued omeprazole (PriLOSEC) [address] capsule Take 1 capsule (20 mg total) by mouth 1 (one) time each day. Do not crush or chew. 025 Discontinued dicyclomine (BENTYL) 10 mg capsule Take 1 capsule (10 mg total) by mouth 2 (two) times a day. 60 capsule 1 10/27/20 24 025 fluticasone (VERAMYST) 27.5 mcg/actuation nasal spray Administer 1-2 sprays into each nostril 1 (one) time each day. 10 g 5 11/20/20 24 025 Discontinued(Di scontinued by another clinician) amiodarone (PACERONE) 200 mg tablet Take 1 tablet (200 mg total) by mouth 1 (one) time each day. 025 Discontinued(Do se adjustment) carvedilol CR (COREG CR) 10 mg 24 hr capsule Take 1 capsule (10 mg total) by mouth 2 (two) times a day. Do not crush or chew. 025 Discontinued(Du plicate order) Active Problems Problem Noted Date Diagnosed Date Phlebitis 09/25/2024 Squamous cell skin cancer 09/25/2024 Overview (09/25/2024): right nose, right distal LE, right dorsal foot, right anterior tibia, left distal tibia, left lateral leg, left nose, left neck - mohs, right lateral foot - ED&C, left distal tibia - ED&C Ascending aorta dilatation 08/29/2024 Overview (09/25/2024): Echo 3.9 cm Diastolic dysfunction 08/14/2024 HFrEF (heart failure with reduced ejection fract ion) 05/04/2024 Assessment & Plan (01/11/2025 8:59 PM EST): Secondary hypercoagulable state 05/04/2024 Assessment & Plan (01/11/2025 8:59 PM EST): Elevated brain natriuretic peptide (BNP) level 0 02/08/2024 ECG abnormal 02/02/2024 Ischemic dilated cardiomyopathy 09/24/2022 Overview (09/25/2024): Last Assessment & Plan: As above, the patient has an ischemic cardiomyopathy with a history of EF as low as 30 to 40%; more recently recovered to 46% on cardiac MRI dated 04/2024. She has also had evidence of diastolic dysfunction with increased left atrial size on echocardiogram most recently from 01/07/2024. This improvement in EF; she no longer necessitates the implantation of an AICD for severely and persistently reduced EF. She appears relatively euvolemic on exam today and does not appear to be in any acute heart failure. She continues to struggle with shortness of breath with exertion as well as fatigue, aggravated by recent COVID infection. She is aware that as she recovers from her COVID infection, should this persist, we will need to reevaluate her cardiac function and she will return to care as indicated. She will continue guideline directed medical therapies for heart failure including beta-blockad and Entresto; most recent metabolic panel from 11/2023 shows stable renal function and electrolytes. GDMT has been somewhat limited by CKD; we will continue to readdress this as needed. I've asked the patient to call if they develop worsening symptoms of heart failure such as increased shortness of breath, new or worsening cough, increased swelling in the legs or ankles, or weight gain of more than 2 pounds in one day or 4 pounds in one week. Assessment & Plan (01/11/2025 8:59 PM EST): The patient has an ischemic cardiomyopathy with a history of EF as low as 30 to 40%; more recently recovered to 46% on cardiac MRI dated 04/2024. She appears euvolemic on exam today and does not appear to be in overt heart failure. She continues to struggle with shortness of breath with exertion as well as fatigue, aggravated by recent viral respiratory infections. She is aware that as she recovers, should this persist, we will need to reevaluate her cardiac function and she will return to care as indicated. She will continue guideline directed medical therapies for heart failure including beta-blockade and Entresto; We will update a metabolic panel today. GDMT has historically been somewhat limited by CKD; we will continue to readdress this as needed. I've asked the patient to call if they develop worsening symptoms of heart failure such as increased shortness of breath, new or worsening cough, increased swelling in the legs or ankles, or weight gain of more than 2 pounds in one day or 4 pounds in one week. CAD (coronary artery disease) 09/23/2022 Overview (09/25/2024): Last Assessment & Plan: The patient has a history of coronary artery disease, having previously reported increase in fatigue and shortness of breath since her infarct in August 2022. Cardiac MRI from 04/2024 reveals an ischemic cardiomyopathy with mildly reduced LV systolic function due to a large nonviable infarct in the LAD territory. Given her recent COVID infection and subsequent apparent pneumonia which she continues to recover from, she continues to fatigue and shortness of breath with exertion. She denies any anginal symptoms reminiscent of those she had with her previous STEMI; as such, we will defer any further ischeic workup at this time. We will not make any changes to her cardioprotective medical therapy; continue beta-blockade, atorvastatin, and Plavix. She is not on daily ASA given that she is on concurrent anticoagulation with Eliquis for cardioembolic prophylaxis related to atrial fibrillation. I have reviewed with the patient the importance of a heart healthy lifestyle which includes eating a low-fat low-salt diet, getting regular exercise, maintaining a healthy weight, not smoking, and following up with routine medical care. Patient advised to seek emergency medical attention by calling 911 if they were to develop severe dyspnea, chest pain that did not resolve with rest, or if they were to faint. Assessment & Plan (01/11/2025 8:59 PM EST): The patient has a history of coronary artery disease, having previously reported increase in fatigue and shortness of breath since her infarct in August 2022. Cardiac MRI from 04/2024 revealed an ischemic cardiomyopathy with mildly reduced LV systolic function due to a large nonviable infarct in the LAD territory. Over the last 3 to 4 months, she has struggled with recurrent viral respiratory infections that have caused her to have increased shortness of breath with exertion that appears to be improving with time as well as ongoing fatigue/lack of energy. Prior to falling ill, she reports that her shortness of breath with this at baseline and she was doing fairly well. She remains active at home on a daily basis and denies any other symptoms to raise concern for underlying ischemia. Should her shortness of breath fail to improve to her previous baseline, we may consider a repeat ischemic workup in the future; however, we discussed this today and she does wish to defer this at the present time. We will not make any changes to her cardioprotective medical therapy; continue carvedilol, atorvastatin, and Plavix. She is not on daily ASA given that she is on concurrent anticoagulation with Eliquis for cardioembolic prophylaxis related to atrial fibrillation. I have reviewed with the patient the importance of a heart healthy lifestyle which includes eating a low-fat low-salt diet, getting regular exercise, maintaining a healthy weight, not smoking, and following up with routine medical care. The patient was advised to seek emergency medical attention by calling 911 if they were to develop severe dyspnea, chest pain that did not resolve with rest, or if they were to faint. Orders: Lipid panel with reflex to direct LDL; Future STEMI involving left anterior descending coronar y artery 09/18/2022 Overview (09/25/2024): Last Assessment & Plan: Jessica is doing well approximately 3 weeks status post anterior STEMI and LAD stenting. She is not describing any anginal type symptoms. There is no evidence of heart failure\volume overload on exam today. There is no evidence of arrhythmia. She is tolerating her current medication regimen. This is including metoprolol succinate, clopidogrel and statin therapy. Aspirin was discontinued as she is also on Eliquis for paroxysmal atrial fibrillation. There is no evidence of bleeding or excessive bruising. Paroxysmal atrial fibrillation 09/18/2022 Overview (09/25/2024): Last Assessment & Plan: Rate is well-controlled on beta-blockade; on amiodarone for rhythm control. The patient's most recent LFTs 04/2024 WNL; TSH due to be rechecked. The patient believes that she had labs completed more recently through her PCP at [facility] and we will attempt obtain these. TSH has been ordered in the event that it was not completed. PFTs last completed in 02/2024 were unchanged from previous and we will readdress this as needed once her COVID symptoms have resolved. She will continue with Eliquis 5 mg twice daily for anticoagulation given her age of less than 80 years, weight greater than 60 kg, and creatinine of less than 1.5. We discussed the risks and benefits of continuing with anticoagulation for cardioembolic prophylaxis and she wishes to continue with the current plan. She is aware to seek emergent medical attention for any uncontrolled bleeding, signs or symptoms of GI or other internal bleeding, or for any head injury. Assessment & Plan (01/11/2025 8:59 PM EST): Rate is well-controlled on beta-blockade; on amiodarone for rhythm control and has not had any recent symptoms to suggest recurrence. Due to significant bradycardia with a heart rate in the 40s, amiodarone was previously decreased to 100 mg daily with subsequent improvement in heart rate. ECG today shows sinus bradycardia with a heart rate in the 50s to 60s. The patient's most recent LFTs 04/2024 WNL; TSH 09/2024 was very slightly elevated. We will update both today. We will update PFTs as outlined below. She will continue with Eliquis 5 mg twice daily for anticoagulation given her age of less than 80 years, weight greater than 60 kg, and creatinine of less than 1.5. We discussed the risks and benefits of continuing with anticoagulation for cardioembolic prophylaxis and she wishes to continue with the current plan. She is aware to seek emergent medical attention for any uncontrolled bleeding, signs or symptoms of GI or other internal bleeding, or for any head injury. Orders: ECG [address] elevation myocardial infarction (S TRINI) 09/01/2022 Assessment & Plan (01/11/2025 8:59 PM EST): COVID-19 08/19/2022 ISLAS (dyspnea on exertion) 08/01/2021 Overview (09/25/2024): Last Assessment & Plan: The patient continues to have shortness of breath that she feels has been stable over the last year. It is unclear if pulmonary function testing ordered 01/2024 has yet been completed; I am unable to find results of this in the computer today and the patient is not sure if she had this done given everything that is going on with her . We will look into this further as these PFTs will be valuable in evaluating possible underlying cause for her dyspnea. Assessment & Plan (01/11/2025 8:59 PM EST): Likely multifactorial at baseline secondary to underlying cardiac disease, pulmonary disease, obesity, and deconditioning however, more recently likely significantly contributed to by recent viral infections. We will continue to readdress this as discussed above. Orders: Pulmonary function testing: Carbon Monoxide Diffusing Capacity, Nitrogen Wash Out, Spirometry with Bronchodilator; Future Complete blood count; Future Peripheral polyneuropathy 01/02/2020 Microscopic hematuria 12/23/2018 Overview (09/25/2024): Last Assessment & Plan: Will perform urine micro today and if still has blood, will refer to Urology. No concerning Hepatology Physician findings and sx have resolved, thus no intervention necessary. Obstructive sleep apnea 08/10/2018 Overview (09/25/2024): [facility] Home Polysomnogram: Date 08/05/2018; AHI 50, Unclassified apneas 54; Obstructive apneas 310; Central apneas 12; Mixed apneas 1; hypopneas 152; average oxygen saturation 94% (lowest 78% without saturations <88% for 5% or more of study) [facility] [place]ysom[place] treatment study. Date 01/09/2019. SE 58 % SM 65 %; spent 25 % of the study in REM. On CPAP @ 11; RDI 2.1 (AHI 0), Central apneas 0; Obstructive apneas 0; Mixed apneas 0; hypopneas 0; RERAs 3; and, average oxygen saturation was 97%. For the entire study, PLMs ~59. - Obstructive Sleep Apnea - severe; mostly obstructive apneas and hypopneas; without sleep related hypoventilation by 2018 home polysomnogram. - 01/09/2019 Pre-study ESS 1. 4/4 RLS symptoms. - CPAP 11 corrective. Last Assessment & Plan: The patient admits that she has not been compliant with her CPAP since her recent OCVID diagnosis; she was strongly encouraged to resume CPAP use and we discussed the connection between untreated GERMAN and atrial fibrillation. She verbalizes understanding of this and plans to start using her CPAP again in the very near future. Assessment & Plan (01/11/2025 8:59 PM EST): Due to issues with her CPAP machine, she has not worn CPAP in almost 1 year; she has had a retitration study done and will continue to follow-up with pulmonology regarding this. Despite having simply suffered from significant respiratory viral illness, we discussed that her fatigue may in part be due to her untreated GERMAN. She is looking forward to obtaining a new CPAP machine and is hopeful that it will be in the very near future. Obesity (BMI 30.0-34.9) 07/09/2017 Overview (09/25/2024): Last Assessment & Plan: Patient is obese. Approaches towards weight loss are discussed, including burning more calories than one takes in by portion control and regular exercise with an emphasis on duration rather than intensity . Assessment & Plan (01/11/2025 8:59 PM EST): The patient is obese. Approaches towards weight loss are discussed, including burning more calories than one takes in by portion control and regular exercise with an emphasis on duration rather than intensity. Subclinical hypothyroidism 01/28/2017 Overview (09/25/2024): Component Value Date TSH 6.40 01/08/2017 TSH 4.41 11/27/2010 Basal cell carcinoma of skin 12/16/2016 Overview (09/25/2024): right yazidi - ulcerated - Mohs; left anterior shoulder; left nasal alar - Mohs; right 3rd metatarsal; right forearm; right upper back - infiltrative; Right forearm - superficial type - ED&C; Right upper back - nodular type - ED&C 11/2019 Right medial knee - ED&C 02/2020 Left medial calf - ED&C Right forehead - Mohs 10/2020 Mixed hyperlipidemia 05/27/2016 Overview (09/25/2024): Last Assessment & Plan: Most recent lipid panel completed 03/16/2023 revealed an LDL of 82; LDL goal is less than 70. Her lipid panel is typically monitored by her PCP and she believes that she had this checked more recently at [facility]; we will attempt to obtain these results. She will continue with high-dose atorvastatin but this may need to be readdressed if her LDL remains elevated above 70 on most recent check. Assessment & Plan (01/11/2025 8:59 PM EST): LDL goal for this patient who has a history of coronary artery disease is less than 70; we will update a lipid panel today and readdress this as needed. Continue atorvastatin 80 mg daily. Orders: Lipid panel with reflex to direct LDL; Future Anxiety disorder 05/08/2015 CKD (chronic kidney disease) stage 3, GFR 30-59 ml/min 03/27/2014 Overview (09/25/2024): GFR 52 on 03/21/14 DVT of lower extremity (deep venous thrombosis) 08/11/2011 Gout 12/09/2010 Overview (09/25/2024): Recurrent atacks; hyperuricemia Degenerative arthritis of lumbar spine 0 Essential hypertension 11/18/2005 Overview (09/25/2024): Last Assessment & Plan: Blood pressure is well-controlled on current medical therapy; continue Entresto and carvedilol. Assessment & Plan (01/11/2025 8:59 PM EST): Blood pressure is well-controlled on current medical therapy; continue Entresto and carvedilol. She will continue to follow with nephrology, Dr. Winter, given her history of CKD. Orders: Comprehensive metabolic panel; Future Complete blood count; Future Irritable bowel syndrome 11/18/2005 Diverticulitis of colon without hemorrhage 11/18 Migraine 11/18/2005 Overview (09/25/2024): IMO update Asthma 11/18/2005 Encounters Date Type Department Care Team Description 02/01/2025 Telephone [facility] [address] [facility] [address] [place] [address] Elaine Anderson NP Appointment (PFT) 01/26/[address] [phone] Eulalio Raines MD Prior Authorization 01/17/2025 Telephone Adult [address] [phone] Eulalio Raines MD Medication Problem 01/11/2025 2:40 PM EST Office Visit [facility] [address] [phone] Elaine Anderson NP Ischemic dilated cardiomyopathy (CMS/HCC) (Primary Dx); Chronic combined systolic and diastolic heart failure (CMS/HCC); Coronary artery disease involving [place] coronary artery of [place] heart without angina pectoris; History of ST elevation myocardial infarction (STEMI); Essential hypertension; Mixed hyperlipidemia; Paroxysmal atrial fibrillation (CMS/HCC); Secondary hypercoagulable state (CMS/HCC); On amiodarone therapy; Obesity (BMI 30.0-34.9); ISLAS (dyspnea on exertion); Obstructive sleep apnea 01/11/2025 Telephone Adult [address] [phone] Elaine Anderson NP Medication 11/27/2024 11:15 AM EST Office Visit Bariatric [address] [phone] Saira Acevedo MD Hx of squamous cell carcinoma of skin (Primary Dx) 11/20/2024 1:15 PM EST Office Visit Adult [address] [phone] Rocky Siddiqui MD Recurrent sinusitis (Primary Dx); Moderate persistent asthma without complication; Hoarseness or changing voice; Chronic cough 11/17/2024 Nurse Triage Adult [address] [phone] Eulalio Raines MD Cough 11/13/2024 11:15 AM EST Office Visit Bariatric Surgery [facility] [address] [phone] Saira Acevedo MD Squamous cell skin cancer (Primary Dx) from Last 3 Months Immunizations Name Administration Dates Next Due Influenza Quadravalent, MDCK , 0.5ml, with preservative (Flucelvax) 6mo and older 11/11/2017 Influenza trivalent, 0.5mL ( Fluad) 65yo and older 09/10/2023 Influenza trivalent, with pr eservative (Fluzone; Afluria) 6mo and older 07/29/2022,09/13/2021,08/29/2020,09/10,01/08/2017,09/07/2015,08/19/2012 ,08/31/2010,09/06/2008,10/07/2006,08/22 Influenza, Unspecified 09/09/2019 Pneumococcal conjugate 13 va lent (Prevnar 13, PCV13) 2mo and older 01/01/2016 Pneumococcal conjugate 20 va lent (Prevnar 20, PCV 20) 2mo and older 09/10/2023 Pneumococcal polysaccharide 23 valent (Pneumovax 23) 2yo and older 12/08/2010 Td Tetanus diptheria (Tdvax) 7yo and older 01/04/2018 Tdap Tetanus diptheria acell ular pertussis (Boostrix; Adacel) 7yo and older 10/18/2007 Zoster Live 11/10/2011 Zoster recombinant (Shingrix ) 19yo and older 10/14/2020,08/13/2020 Surgical History Surgery Date Site/Laterality Comments HYSTERECTOMY 1979 PROCEDURE: HISTORICAL HYSTERECTOMY; COMMENT: [facility] BSO- fibroid uterus and heavy bleeding, in 50's SECTION PROCEDURE: HISTORICAL ESOPHAGOGASTRODUODENOSCOPY 11/26 PROCEDURE: [place] ESOPHAGOGASTRODUODENOSCOPY TRANSORAL DIAGNOSTIC; COMMENT: rx: ppi MAMMOGRAM MARKUS 10/25 PROCEDURE: MAMMOGRAM, SCREENING, BOTH BREASTS; COMMENT: abnormal - lt breast OTHER SURGICAL HISTORY 06/24 PROCEDURE: PAP SMEAR (1 SLIDE) OTHER SURGICAL HISTORY 01/22 PROCEDURE: DXA, BONE DENSITY STUDY, 1+ SITES; VERTEBRAL FX ASSESS OTHER SURGICAL HISTORY 06/08/00 PROCEDURE: [place] NASAL/SINUS NDSC W/TOTAL ETHOIDECTOMY; COMMENT: Dr. Simpson OTHER SURGICAL HISTORY PROCEDURE: HISTORICAL MELANOMA; COMMENT: L FOOT COLONOSCOPY 02/26/1999 PROCEDURE: [place] COLONOSCOPY FLX DX W/COLLJ SPEC WHEN PFRMD; COMMENT: diverticulosis COLONOSCOPY 10/2008 PROCEDURE: [place] COLONOSCOPY FLX DX W/COLLJ SPEC WHEN PFRMD; COMMENT: diverticulosis OTHER SURGICAL HISTORY 11/26 PROCEDURE: FNA INTERPRETATON; COMMENT: benign Medical History Medical History Date Comments Essential hypertension, benign 1998 D X:Essential hypertension, benign Irritable bowel syndrome 1999 DX:Irri table bowel syndrome Diverticulosis of colon (wit hout mention of hemorrhage) 2000 DX:Diverticulosis of colon ( without mention of hemorrhage) Esophageal reflux 1999 DX:Esophageal reflux Intestinal infection due to Clostridium difficile 1999 DX:Intestinal infection due to Clostridium difficile Sprain of lumbar region 2001 DX:Sprai n of lumbar region Unspecified asthma(493.90) 2000 DX:Un specified asthma(493.90) Migraine, unspecified, witho ut mention of intractable migraine without mention of status migrainosus 1998 DX:Migraine, uns pecified, without mention of intractable migraine without mention of status migrainosus Cellulitis and abscess of fo ot, except toes 2001 DX:Cellulitis and abscess of foot, except toes Diverticulitis of colon (wit hout mention of hemorrhage)(562.11) 11/20/2005 DX:Diverticulitis of co judy (without mention of hemorrhage)(562.11) Hemorrhage of gastrointestin al tract, unspecified 11/12/2006 DX:Hemorrhage of gastrointes tinal tract, unspecified; COMMENT: Chronic minor rectal bleeding. Negative colonoscopy 4.7.99. Next colonoscopy indicated 2008. Special screening for malign ant neoplasms, colon 11/12/2006 DX:Special screening for mal ignant neoplasms, colon; COMMENT: average risk factors. Negative colonoscopy 4.7.99. No colon cancer screening necessary until 2009. Historical Medical DX DX:Other a nd unspecified malignant neoplasm of skin of other and unspecified parts of face Diverticulitis 10/10/2008 DX:Diverticuliti s; COMMENT: 2000. Other specified personal his tory presenting hazards to health(V15.89) DX:Other specifie d personal history presenting hazards to health(V15.89); COMMENT: skin ca Squamous cell skin cancer DX:Squ amous cell skin cancer; COMMENT: right nose, right distal LE, right dorsal foot, right anterior tibia, left distal tibia, left lateral leg, left nose Anxiety state DX:Anxiety state Cervical spondylosis without myelopathy DX:Cervical spondylosis with out myelopathy Depressive disorder DX:Depressiv e disorder Hyperlipidemia DX:Hyperlipidemi a Coronary artery disease invo lving [place] coronary artery of [place] heart without angina pectoris 09/23/2022 DX:Coronary artery disea se involving [place] coronary artery of [place] heart without angina pectoris Family History Medical History Relation Name Comments Ovarian cancer Aunt Other: brain tumor Father Diabetes Maternal Grandmother Other: in childbirth Mother Breast cancer Paternal Grandmother ? age Relation Name Status Comments Aunt Father Brain tumor Maternal Grandmother Mother Childbirth Paternal Grandmother ? age Social History Tobacco Use Types Packs/Day Years Used Date Smoking Tobacco: Never Smokeless Tobacco: Never Tobacco Cessation:Counseling Given: Not Answered Alcohol Use Standard Drinks/Week Comments Yes 0 (1 standard drink = 0.6 oz pur e alcohol) Comments No Sex and Gender Information Value Date Recorded Sex Assigned at Not on file Legal Sex Female 8:17 PM EST Gender Identity Not on file Sexual Orientation Not on file Obstetrics History Last Filed Vital Signs Vital Sign Reading Time Taken Comments Blood Pressure 120/78 01/11/2025 2:47 PM EST Pulse 66 01/11/2025 2:47 PM EST Temperature 36.6 ??C (97.8 ??F) 11/27/2024 11:[address] Respiratory Rate 14 11/20/2024 1:38 PM EST Oxygen Saturation 99% 01/11/2025 2:47 PM EST Inhaled Oxygen Concentration - - Weight 81.6 kg (180 lb) 01/11/2025 2:47 PM EST Height 160 cm (5' 3 ) 01/11/2025 2:47 PM EST Body Mass Index 31.89 01/11/2025 2:47 PM EST Plan of Treatment Upcoming Encounters Date Type Department Care Team (Late st Contact Info) Description 02/07/2025 10:00 AM EDT Office Visit Adult Medicine [address] [phone] Eulalio Raines MD [address] [place] [address] 02/26/2025 11:[address] [facility] [address] [place] [phone] 08/08/2025 9:50 AM EDT Office Visit [facility] [address] [phone] Adam Montenegro MD [address] [address] 09/13/2025 11:00 AM EDT Appointment Radiology Department - [address] [phone] 09/20/2025 3:30 PM EDT Office Visit Nephrology - [address] [phone] Lenny Winter MD [address] [phone] Health Maintenance Due Date Last Done Comments RSV Immunization Patients 60+ Years Old (1 - 1-dose 75+ series) 2020 Colorectal Cancer Screening: Colonoscopy 10/31/2022 Depression Screening 10/31/2022 Falls Risk Assessment 10/31/2022 Hepatitis C Screening 10/31/2022 Medicare Annual Wellness Visit 10/31/2022 Social Influencers of Health Screening 10/31/2022 COVID-19 Vaccine ( season) 2024 08/16/2021, 01/21/2021, 12/31/2020 Influenza Vaccine (#1) 2024 3, 07/29/2022, 09/13/2021, Additional history exists Hypertension/CHF/CAD Annual BMP Blood Test 01/15/2026 01/15/2025, 09/25/2024, 06/06/2024, Additional history exists DTaP,Tdap,and Td Vaccines (3 - Td or Tdap) 01/04/2028 01/04/2018, 10/18/2007 Cholesterol Screening (Lipid Panel) 01/15/2030 01/15/2025 Osteoporosis Screening (Bone Density Screening) 04/07/2031 04/07/2021, 01/20/2018 Zoster Vaccines Completed 10/14/2020, 07/24, 11/10/2011 Pneumococcal Vaccine: 50+ Years Completed 09/10/2023, 01/01/2016, 12/08/2010 HIB Vaccines Aged Out No longer eligi ble based on patient's age to complete this topic HPV Vaccines Aged Out No longer eligi ble based on patient's age to complete this topic Hepatitis A Vaccines Aged Out No long er eligible based on patient's age to complete this topic Hepatitis B Vaccines Aged Out No long er eligible based on patient's age to complete this topic IPV Vaccines Aged Out No longer eligi ble based on patient's age to complete this topic MMR Vaccines Aged Out No longer eligi ble based on patient's age to complete this topic Meningococcal ACWY Vaccine Aged Out N o longer eligible based on patient's age to complete this topic Meningococcal B Vacine Aged Out No lo nger eligible based on patient's age to complete this topic RSV Immunization Patients Under 20 months Aged Out No longer eligible based on patient's age to complete this topic Varicella Vaccines Aged Out No longer eligible based on patient's age to complete this topic Procedures Procedure Name Priority Date/Time Associated Diagnosis Comments TRIIODOTHYRONINE FREE Routine 01/15/2025 9:46 AM EST On amiodarone therapy FREE THYROXINE WITH REFLEX TO FREE TRIIODOTHYRONINE Routine 01/15/2025 9:46 AM EST On amiodarone therapy COMPREHENSIVE METABOLIC PANEL Routine 01/15/2025 9:46 AM EST Essential hypertension On amiodarone therapy THYROID STIMULATING HORMONE WITH REFLEX TO FREE T4 AND FREE T3 Routine 01/15/2025 9:46 AM EST On amiodarone therapy LIPID PANEL WITH REFLEX TO DIRECT LDL Routine 01/15/2025 9:46 AM EST Coronary artery disease involving [place] ir[place] coronary artery of [place] heart without angina pectoris Mixed hyperlipidemia COMPLETE BLOOD COUNT Routine 01/15/2025 9:46 AM EST Essential hypertension ISLAS (dyspnea on exertion) ECG 12-LEAD Routine 01/11/2025 8:59 PM EST Paroxysmal atrial fibrillation (CMS/HCC) TISSUE EXAM Routine 11/13/2024 12:42 PM EST Squamous cell skin cancer DXA BONE DENSITY STUDY 1+ SITS AXIAL SKEL Routine 04/07/2021 2:59 PM EDT Other specified disorders of bone density and structure, unspecified site from Last 3 Months or Most Recently Relevant to Health Maintenance Results * (ABNORMAL) Thyroid stimulating hormone with reflex to free t4 and free t3 (01/15/2025 9:46 AM EST) Pathologist [facility] TSH 6.16(H) 0.40 - 4.00 mcIU/mL LAB CHEMISTRY METHOD 01/15/2025 12:30 PM EST [facility] Blood Venous blood specimen / Unknown Venipuncture / Unknown 01/15/2025 9:46 AM EST 01/15/2025 9:49 AM EST Elaine Anderson NP LAB BLOOD ORDERABLES Final Result Performing Organization Address [facility]/ZIP Co de Phone Number [facility] [address] [place] [address], * Free thyroxine with reflex to free triiodothyronine (01/15/2025 9:46 AM EST) Pathologist [facility] Free T4 1.30 0.70 - 1.80 ng/dL LAB CHEMISTRY METHOD 01/15/2025 12:56 PM EST [facility] Blood Venous blood specimen / Unknown Venipuncture / Unknown 01/15/2025 9:46 AM EST 01/15/2025 9:49 AM EST Elaine Anderson NP LAB BLOOD ORDERABLES Final Result [facility] [address] [place] [address], * Lipid panel with reflex to direct LDL (01/15/2025 9:46 AM EST) Pathologist [facility] Cholesterol 135 0 - 200 mg/dL LAB CHEMISTRY METHOD 01/15/2025 12:49 PM EST [facility] Triglycerides 109 0 - 150 mg/dL LAB CHEMISTRY METHOD 01/15/2025 12:49 PM EST [facility] HDL 68 >=40 mg/dL LAB CHEMISTRY METHOD 01/15/2025 12:49 PM EST [facility] LDL Calculated 45 0 - 100 mg/dL LAB CHEMISTRY METHOD 01/15/2025 12:49 PM EST [facility] VLDL Cholesterol Christopher 21.8 mg/dL LAB CHEMISTRY METHOD 01/15/2025 12:49 PM EST [facility] Non HDL Chol. (LDL+VLDL) 67 <145 mg/dL LAB CHEMISTRY METHOD 01/15/2025 12:49 PM EST [facility] Chol/HDL Ratio 2.0 0.0 - 4.4 LAB CHEMISTRY METHOD 01/15/2025 12:49 PM [facility] Blood Venous blood specimen / Unknown Venipuncture / Unknown 01/15/2025 9:46 AM EST 01/15/2025 9:49 AM EST Elaine Anderson NP LAB BLOOD ORDERABLES Final Result [facility] [address] [place] [address], [place] [phone] * (ABNORMAL) Complete blood count (01/15/2025 9:46 AM EST) Pathologist [facility] WBC 7.3 4.8 - 10.8 K/mcL LAB HEMETOLOGY METHOD 01/15/2025 2:00 PM EST [facility] RBC 3.80 3.80 - 4.80 M/mcL LAB HEMETOLOGY METHOD 01/15/2025 2:00 PM [facility] Hemoglobin 12.8 11.5 - 16.0 g/dL LAB HEMETOLOGY METHOD 01/15/2025 2:00 PM [facility] Hematocrit 40.7 35.0 - 47.0 % LAB HEMETOLOGY METHOD 01/15/2025 2:00 PM [facility] MCV 107.1(H) 79.0 - 98.0 FL LAB HEMETOLOGY METHOD 01/15/2025 2:00 PM [facility] MCH 33.7(H) 27.0 - 32.0 pcg LAB HEMETOLOGY METHOD 01/15/2025 2:00 PM [facility] MCHC 31.4(L) 32.0 - 37.0 g/dL LAB HEMETOLOGY METHOD 01/15/2025 2:00 PM [facility] RDW 14.3 11.0 - 15.0 % LAB HEMETOLOGY METHOD 01/15/2025 2:00 PM [facility] Platelets 208 130 - 400 K/mcL LAB HEMETOLOGY METHOD 01/15/2025 2:00 PM [facility] MPV 11.8(H) 7.0 - 11.0 FL LAB HEMETOLOGY METHOD 01/15/2025 2:00 PM [facility] NRBC 0.0 <1.0 % LAB HEMETOLOGY METHOD 01/15/2025 2:00 PM [facility] NRBC Absolute 0.00 <0.10 K/mcL LAB HEMETOLOGY METHOD 01/15/2025 2:00 PM [facility] Blood Venous blood specimen / Unknown Venipuncture / Unknown 01/15/2025 9:46 AM EST 01/15/2025 9:49 AM EST Elaine Anderson SEARCH ENGINE OPTIMIZATION SPECIALIST LAB BLOOD ORDERABLES Final Result [facility] [address] [place] [address], [place] [phone] * Triiodothyronine free (01/15/2025 9:46 AM EST) T3, Free 251 230 - 420 pcg/dL LAB CHEMISTRY METHOD 01/15/2025 1:21 PM [facility] Blood Venous blood specimen / Unknown Venipuncture / Unknown 01/15/2025 9:46 AM EST 01/15/2025 9:49 AM EST Elaine Anderson SEARCH ENGINE OPTIMIZATION SPECIALIST LAB BLOOD ORDERABLES Final Result Performing Organization Address City/[facility]/ZIP Co de Phone Number [facility] [address] [place] [address], [place] [phone] * (ABNORMAL) Comprehensive metabolic panel (01/15/2025 9:46 AM EST) Pathologist [facility] Sodium 145 133 - 145 mmol/L LAB CHEMISTRY METHOD 01/15/2025 12:49 PM [facility] Potassium 4.2 3.5 - 5.5 mmol/L LAB CHEMISTRY METHOD 01/15/2025 12:49 PM [facility] Chloride 115(H) 96 - 110 mmol/L LAB CHEMISTRY METHOD 01/15/2025 12:49 PM [facility] CO2 19(L) 21 - 32 mmol/L LAB CHEMISTRY METHOD 01/15/2025 12:49 PM [facility] Anion Gap 11 3 - 11 LAB CHEMISTRY METHOD 01/15/2025 12:49 PM [facility] Glucose 99 70 - 100 mg/dL LAB CHEMISTRY METHOD 01/15/2025 12:49 PM [facility] BUN 21 5 - 25 mg/dL LAB CHEMISTRY METHOD 01/15/2025 12:49 PM [facility] Creatinine 1.06 0.50 - 1.10 mg/dL LAB CHEMISTRY METHOD 01/15/2025 12:49 PM [facility] eGFR 54(L) >=60 mL/min/1. 73m2 LAB CHEMISTRY METHOD 01/15/2025 12:49 PM [facility] Comment:Calculation based on the??Chronic Kidney Disease Epidemiology Collaboration (CKD-EPI) equation refit??without adjustment for race. BUN/Creatinine Ratio 19.8 LAB CHEMISTRY METHOD 01/15/2025 12:49 PM [facility] Calcium 9.2 8.5 - 10.5 mg/dL LAB CHEMISTRY METHOD 01/15/2025 12:49 PM [facility] AST (SGOT) 19 10 - 42 unit/L LAB CHEMISTRY METHOD 01/15/2025 12:49 PM [facility] ALT (SGPT) 20 10 - 60 unit/L LAB CHEMISTRY METHOD 01/15/2025 12:49 PM [facility] Alkaline Phosphatase 106 42 - 121 unit/L LAB CHEMISTRY METHOD 01/15/2025 12:49 PM [facility] Total Protein 6.6 6.0 - 8.0 g/dL LAB CHEMISTRY METHOD 01/15/2025 12:49 PM [facility] Albumin 3.6 3.2 - 5.0 g/dL LAB CHEMISTRY METHOD 01/15/2025 12:49 PM [facility] Total Bilirubin 0.4 0.0 - 1.4 mg/dL LAB CHEMISTRY METHOD 01/15/2025 12:49 PM [facility] Blood Venous blood specimen / Unknown Venipuncture / Unknown 01/15/2025 9:46 AM EST 01/15/2025 9:49 AM EST Elaine Anderson NP LAB BLOOD ORDERABLES Final Result [facility]YANT [place] ([facility]) [facility] [address] [place] [address], * ECG 12 lead (01/11/2025 8:59 PM EST) Ventricular Rate ECG 56 BPM GEMUSE Atrial Rate 56 BPM GEMUSE P-R Interval 186 ms GEMUSE QRS Duration 66 ms GEMUSE Q-T Interval 444 ms GEMUSE QTc 428 ms GEMUSE P Wave [place] 77 degrees GEMUSE R [place] -20 degrees GEMUSE T [place] 67 degrees GEMUSE ECG Interpretation Sinus bradycardia Low voltage QRS Inferior infarct (cited on or before 11-JAN-2025) Cannot rule out Anterior infarct (cited on or before 11-JAN-2025) Abnormal ECG When compared with ECG of 11-JAN-2025 15:08, (unconfirmed) Fusion complexes are no longer Present Premature ventricular complexes are no longer Present voltage decreased Confirmed by Liu MONTENEGRO, ADAM ([id number]) on 01/12/2025 8:54:34 AM GEMUSE 01/11/2025 3:09 PM EST 01/12/2025 8:54 AM EST Elaine Anderson SEARCH ENGINE OPTIMIZATION SPECIALIST ECG ORDERABLES Edite d Result - Final GEMUSE * Tissue Exam (11/13/2024 12:42 PM EST) Final Diagnosis Skin, right proximal dorsal forearm-excision : -SQUAMOUS CELL CARCINOMA, WELL DIFFERENTIATED, INVASIVE -Deep and peripheral margins negative 11/16/2024 11:23 AM EST ZAK BRYANT [place] ([facility]) [facility] Gross Description A. Forearm, Right, Scc right proximal dorsal forearm, Short stitch superior, Long stitch lateral: Labeled forearm U . Received in formalin is a 5.8 x 2.2 x 0.8 cm white skin ellipse [place] subcutis with orienting sutures per the requisition short stitch superior (at one peripheral edge) and long stitch lateral (at one tip) . For ease of orientation the short stitch at one peripheral edges assigned 12 o'clock and the long stitch at one tip is assigned 9 o'clock by the prosector. The epidermis shows a central [place]-red 2.2 x 1.5 cm ovoid in shape ulcer which is 0.1 cm from the nearest peripheral edge (11-12 o'clock) and approximately 1.5 cm from the nearest tip (9 o'clock). The 9-12-3 o'clock aspect is inked blue, the 3-6-9 o'clock aspect is inked black and the epidermis that 3 o'clock is inked green. The specimen is serially sectioned sequentially from 3-9 o'clock. The cut surfaces of the lesion are firm and d[place]-white with a maximal thickness of 0.45 cm, coming to 0.15 cm of the nearest deep margin. Cylinder Press Operator Helper cruciate sections are submitted in seven cassettes. 1-3 and 9 o'clock cruciate tips, with green ink at 3 o'clock, two pieces 2-7 centers specimen, blocked out, in entirety from 3 to 9 o'clock TS 11/16/2024 11:23 AM EST [facility] Disclaimer Unless otherwise specified, all tissue is 10% NB formalin fixed and paraffin embedded. 11/16/2024 11:23 AM EST [facility] Tissue Structure of right forearm / Unknown Non-blood Collection / Unknown 11/13/2024 12:42 PM EST 11/13/2024 12:45 PM EST us Saira Acevedo MD LAB PATHOLOGY ORDERABLE S Final Result [facility]) [facility] [address] [place] [address], * DXA BONE DENSITY STUDY 1+ SITS AXIAL SKEL (04/07/2021 2:59 PM EDT) Anatomical Region Laterality Modality Bone Densitometr y 03/06/2021 11:5 5 AM EDT Narrative 04/07/2021 3:15 PM EDT BONE DENSITY SCAN (DEXA): FINDINGS: Lumbar Spine T-score is -1.8. ?? (SD relative to 20-29 y/o adult) Z-score is 0.7. ??(SD relative to age matched peers) This is considered osteopenia by WHO criteria. Left Hip T-score is -2.4. Z-score is -0.3. This is considered osteopenia by WHO criteria. Comparison exam(s): As recent as 01/20/2018 and as far back as 02/07/2003. ??No statistically significant change in bone mineral density compared with previous and baseline exams. Lateral survey view of the thoracolumbar spine shows no significant compression deformities. IMPRESSION: IMPRESSION: Osteopenia by WHO criteria. This patient has a 15% risk of major osteoporotic fracture and a 4.2% risk of hip fracture over the next 10 years. (World Health Organization Fracture Risk Assessment) The [facility] Department of Internal Medicine recommends using National Osteoporosis Foundation (NOF) guidelines in treatment decisions related to osteoporosis. NOF guidelines suggest considering treatment for postmenopausal women and men aged 50 or older presenting with the following: History of hip or vertebral fracture. T-score = -2.5 (DXA) at the femoral neck, total hip, or spine, after appropriate evaluation to exclude secondary causes. Low bone mass (T-score between -1.0 and -2.5 at the femoral neck or spine) AND a 10-year probability of a hip fracture = 3% OR a 10-year probability of a major osteoporosis-related fracture = 20% based on the [place]-adapted WHO algorithm Please note that all treatment decisions require clinical judgment and consideration of individual patient factors, including patient preferences, co-morbidities, previous drug use, risk factors not captured in the FRAX model (e.g., frailty, falls, vitamin D deficiency, increased bone turnover, interval significant decline in bone density) and possible under- or over-estimation of fracture risk by FRAX. Optional alternative screening schedule based on marly Diaz., [facility] December 10, 2011 for patients with osteopenia (based on hip BMD T-score) is as follows: * ??advanced osteopenia (T scores -2.00 to -2.49), BMD testing every year * ??moderate osteopenia (T scores -1.50 to -1.99), BMD testing every 5 years mild osteopenia or normal BMD (T scores -1.50 and higher), BMD testing every 15 years Procedure Note Jemma Ray MD - 11/10/2022 BONE DENSITY SCAN (DEXA): FINDINGS: Lumbar Spine T-score is -1.8. (SD relative to 20-29 y/o adult) Z-score is 0.7. (SD relative to age matched peers) This is considered osteopenia by WHO criteria. Left Hip T-score is -2.4. Z-score is -0.3. This is considered osteopenia by WHO criteria. Comparison exam(s): As recent as 01/20/2018 and as far back as 02/07/2003.No statistically significant change in bone mineral density compared with previous andbaseline exams. Lateral survey view of the thoracolumbar spine shows no significantcompression deformities. IMPRESSION: IMPRESSION: Osteopenia by WHO criteria. This patient has a 15% risk of majorosteoporotic fracture and a 4.2% risk of hip fracture over the next 10 years. (World HealthOrganization Fracture Risk Assessment) [facility] Department of Internal Medicine recommendsusing National Osteoporosis Foundation (NOF) guidelines in treatment decisions related toosteoporosis. NOF guidelines suggest considering treatment for postmenopausal women and menaged 50 or older presenting with the following: History of hip or vertebral fracture. T-score = -2.5 (DXA) at the femoral neck, total hip, or spine, afterappropriate evaluation to exclude secondary causes. Low bone mass (T-score between -1.0 and -2.5 at the femoral neck or spine)AND a 10-year probability of a hip fracture = 3% OR a 10-year probability of a majorosteoporosis-related fracture = 20% based on the [place]-adapted WHO algorithm Please note that all treatment decisions require clinical judgment andconsideration of individual patient factors, including patient preferences, co- morbidities,previous drug use, risk factors not captured in the FRAX model (e.g., frailty, falls, vitaminD deficiency, increased bone turnover, interval significant decline in bone density) andpossible under- or over-estimation of fracture risk by FRAX. Optional alternative screening schedule based on marly Diaz., NEJMJanuary 2011 for patients with osteopenia (based on hip BMD T-score) is as follows: * advanced osteopenia (T scores -2.00 to -2.49), BMD testing every year * moderate osteopenia (T scores -1.50 to -1.99), BMD testing every 5years mild osteopenia or normal BMD (T scores -1.50 and higher), BMD testingevery 15 years Lillie [facility] IMG DXA PROCEDURES Final Resu lt from Last 3 Months or Most Recently Relevant to Health Maintenance Insurance MEDICARE [facility] Care Teams Logistics Lead Relationship Specialty Start Date End Date Eulalio Raines MD [address] [place] [address] PCP - General Internal Medicine 06/25/20
--- OUTSIDE RECORDS SUMMARY | 2025-02-05 15:14 | XMS_ITS | Encounter Summary ---
Author Organization [employer] [facility] Address [address] [place] [address] Care Team Providers Care Educator Senior Clinical Name Role Phone Ren Bourne MD Primary Care Provider Unavail able Eulalio Raines MD Primary Care Provider Adam Kern MD Unavailable Kat Koch SECURITY SYSTEM SALES CONSULTANT Unavailable Unavailab Roopa Quiñones PA-C Unavailable [phone] Elaine Anderson SECURITY SYSTEM SALES CONSULTANT Unavailable Encounter Details Date Type Department Care Team Description 08/01/2018 Orders Only Adult Medicine [address] [phone] Ren Bourne MD Social History Tobacco Use Types Packs/Day [...] on filedocumented in this encounter Care Teams Educator Senior Clinical Relationship Specialty Start Date End Date Ren Bourne MD PCP - General 07/18/04 06/24/20 Eulalio Raines MD [address] [place] [address] PCP - General Internal Medicine 06/25/20 Adam Kern MD [address] [place] [address] Corporate Securities Research Analyst Cardiovascular Disease 08/01/21 Kat Koch NP [address] [place] [address] Specialist Cardiology 09/05/21 05/25/23 Roopa Harris PA-C [address] [place] [address] Specialist Cardiology 05/26/23 Elaine Anderson NP [address] [place] [address] Cardiology 05/03/24 documented as of this encounter
--- OUTSIDE RECORDS SUMMARY | 2025-02-05 15:14 | XMS_ITS | Encounter Summary ---
Author Organization [employer] [facility] Address [address] [place] [address] Care Team Providers Care Hide And Skin Classer Name Role Phone Ren Bourne MD Primary Care Provider Unavail able Eulalio Raines MD Primary Care Provider [phone] Adam Kern MD Unavailable Kat Koch STOCK PREPARER Unavailable Unavailab Roopa Quiñones PA-C Unavailable [phone] Elaine Anderson STOCK PREPARER Unavailable [phone] Encounter Details Date Type Department Care Team Description 08/10/2018 Orders Only Medical Records [address] [place] [address] Ren Bourne MD Social History Tobacco Use [...] Name Priority Date/Time Associated Diagnosis Comments OUTSIDE SLEEP STUDY Routine 08/05/2018 documented in this encounter Results * OUTSIDE SLEEP STUDY (08/05/2018) Ren Bourne MD PULMONOLOGY documented in this encounter Visit Diagnoses Not on filedocumented in this encounter Care Teams Hide And Skin Classer Relationship Specialty Start Date End Date Ren Bourne MD PCP - General 07/18/04 06/24/20 Eulalio Raines MD [address] [place] [address] PCP - General Internal Medicine 06/25/20 Adam Kern MD [address] [place] [address] Video Game Technician Cardiovascular Disease 08/01/21 Kat Koch NP [address] [place], [place] [phone] Specialist Cardiology 09/05/21 05/25/23 Roopa Harris PA-C [address] [place] [address] Specialist Cardiology 05/26/23 Elaine Anderson NP [address] [place] [address] Cardiology 05/03/24 documented as of this encounter
--- OUTSIDE RECORDS SUMMARY | 2025-02-05 15:14 | XMS_ITS | Encounter Summary ---
Author Organization [facility] Address [address] [place] [address] Care Team Providers Care Stationary Engineer Refrigeration Name Role Phone Ren Bourne MD Primary Care Provider Unavail able Eulalio Raines MD Primary Care Provider [phone] Adam Kern MD Unavailable Kat Koch SOFTWARE SPECIALIST Unavailable Unavailab Roopa Quiñones PA-C Unavailable Elaine Anderson SOFTWARE SPECIALIST Unavailable [phone] Reason for Visit * Reason Onset Date Comments Post ER Outreach 03/14/2019 [facility] ER follow u p 03/13/2019 Encounter Details Date Type Department Care Team Description 03/14/2019 Telephone Adult Medicine [address] [address] Ren Bourne MD Post ER Outreach ([facility] ER follow up 03/13/2019) Social History Tobacco Use Types Packs/Day Years [...] encounter Miscellaneous Notes * Telephone Encounter - Ren Bourne MD - 03/14/2019 1:08 PM EDT I have spoken to the patient, she will take potassium chloride 20 meq twice a day and have repeat labs on 03/19 prior to her visit on 03/20. * Telephone Encounter - Geena Aggarwal M.A. - 03/14/2019 12:[address] Bourne, I spoke with Jessica who mentioned that at the ER she was told her potassium was low and they gave her two tabs of potassium to take. She states you have her taking one packet a day. She doesn't knowif she should increase the Potassium back up to two packets a day? Thank you. Geena Mullen C.M.A. Publicity Expert * Telephone Encounter - Geena Aggarwal M.A. - 03/14/2019 12:31 PM EDT EMERGENCY DEPARTMENT/HOSPITAL DISCHARGE FOLLOW-UP CONTACT: Did they go to the ER? : Yes Which ER did they go to? : [facility] Why did the patient go to the ER? diarrhea Was the patient admitted? : No. ER/Hospital discharge plan reviewed: Yes reviewed with patient How is the patient feeling? : no change in health status Any concerns or information needed? no Disposition? : Patient booked appt with Emy Mcdermott for 03/20/19, she states she feels comfortable waiting. Comments: I spoke with Jessica regarding her ER visit for her diarrhea. 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 She did report diarrhea this morning. She reports she is comfortable to wait [facility] 03/20/19 to see Emy in follow up. I let her know to call with any changes to her condition. Geena Aggarwal M.A. documented in this encounter Plan of Treatment Not on file documented as of this encounter Results * (ABNORMAL) BASIC METABOLIC PANEL (03/17/2019 4:04 PM EDT) GLUCOSE 98 70 - 100 mg/dL 03/17/2019 6:46 PM EDT [facility] Comment:Reference range appl icable to fasting specimens only Blood Urea Nitrogen 12 5 - 25 mg/dL 03/17/2019 6:46 PM EDT [facility] CREAT 0.96 0.5 - 1.1 mg/dL 03/17/2019 6:46 PM EDT [facility] GLOMERULAR FILTRATION RATE 57 03/17/2019 6:46 PM EDT [facility] Comment: If patient is -Djibout[place], multiply result by 1.21 Chronic Kidney Disease: < 60 ml/min/1.73 square meters Kidney Failure: < 15 ml/min/1.73 square meters NA 140 133 - 145 mmol/L 03/17/2019 6:46 PM EDT [facility] K 3.3(L) 3.5 - 5.5 mmol/L 03/17/2019 6:46 PM EDT [facility] CL 108 96 - 110 mmol/L 03/17/2019 6:46 PM EDT [facility] CARBON DIOXIDE (CO2) 26 21 - 32 mmol/L 03/17/2019 6:46 PM EDT [facility] ANION GAP 6 3 - 11 03/17/2019 6:46 PM EDT [facility] CALCIUM 8.8 8.5 - 10.5 mg/dL 03/17/2019 6:46 PM EDT [facility] 03/17/2019 4:04 PM EDT 03/17/2019 4:04 PM EDT Ren Bourne MD LAB [facility] documented in this encounter Visit Diagnoses Diagnosis HYPERTENSION- Primary Essential hypertension, benign documented in this encounter Care Teams Stationary Engineer Refrigeration Relationship Specialty Start Date End Date Ren Bourne MD PCP - General 07/18/04 06/24/20 Eulalio Raines MD [address] [place] [address] PCP - General Internal Medicine 06/25/20 Adam Kern MD [address] [place] [address] Baking Factory Worker Cardiovascular Disease 08/01/21 Kat Koch NP [address] [place] [address] Specialist Cardiology 09/05/21 05/25/23 Roopa Harris PA-C [address] [place] [address] Specialist Cardiology 05/26/23 Elaine Anderson NP [address] [place] [address] Cardiology 05/03/24 documented as of this encounter
--- OUTSIDE RECORDS SUMMARY | 2025-02-05 15:14 | XMS_ITS | Encounter Summary ---
Author Organization [facility] Address [address] [place] [address] Care Team Providers Care Crop Roller Name Role Phone Ren Bourne MD Primary Care Provider Unavail able Eulalio Raines MD Primary Care Provider [phone] Adam Kern MD Unavailable Kat Koch DRIVER GUARD Unavailable Unavailab Roopa Quiñones PA-C Unavailable [phone] Elaine Anderson DRIVER GUARD Unavailable [phone] Encounter Details Date Type Department Care Team Description 06/12/2016 Orders Only Adult Medicine [address] [address] Keely Delgado MD Cystitis (Primary Dx) Social History Tobacco Use Types [...] as of this encounter Visit Diagnoses Diagnosis Cystitis- Primary Cystitis, unspecified documented in this encounter Care Teams Crop Roller Relationship Specialty Start Date End Date Ren Bourne MD PCP - General 07/18/04 06/24/20 Eulalio Raines MD [address] [place] [address] PCP - General Internal Medicine 06/25/20 Adam Kern MD [address] [place] [address] Rag Grader Cardiovascular Disease 08/01/21 Kat Koch NP [address] [place] [address] Specialist Cardiology 09/05/21 05/25/23 Roopa Harris PA-C [address] [place] [address] Specialist Cardiology 05/26/23 Elaine Anderson NP [address] [place] [address] Cardiology 05/03/24 documented as of this encounter
--- OUTSIDE RECORDS SUMMARY | 2025-02-05 15:14 | XMS_ITS | Encounter Summary ---
Author Organization [facility] Address [address] [place] [address] Care Team Providers Care Deep Submergence Vehicle Crewmember Name Role Phone Ren Bourne MD Primary Care Provider Unavail able Eulalio Raines MD Primary Care Provider [phone] Adam Kern MD Unavailable Kat Koch ROTARY SURFACE GRINDER Unavailable Unavailab Roopa Quiñones PA-C Unavailable [phone] Elaine Anderson ROTARY SURFACE GRINDER Unavailable [phone] Reason for Visit * Reason Onset Date Comments Echocardiogram 08/11/2011 Encounter Details Date Type Department Care Team Description 08/11/2011 Telephone Adult Medicine [address] [address] Ren Bourne MD Echocardiogram Social History Tobacco Use Types Packs/Day Years [...] encounter Miscellaneous Notes * Telephone Encounter - Vivi King - 08/11/2011 9:47 AM EDT Due to the type of test you are requesting the order has been faxed to [facility] to be done documented in this encounter Plan of Treatment Not on file documented as of this encounter Visit Diagnoses Not on filedocumented in this encounter Care Teams Deep Submergence Vehicle Crewmember Relationship Specialty Start Date End Date Ren Bourne MD PCP - General 07/18/04 06/24/20 Eulalio Raines MD [address] [place] [address] PCP - General Internal Medicine 06/25/20 Adam Kern MD [address] [place] [address] Drafter Electrical Cardiovascular Disease 08/01/21 Kat Koch NP [address] [place] [id number] Specialist Cardiology 09/05/21 05/25/23 Roopa Harris PA-C [address] [place] [address] Specialist Cardiology 05/26/23 Elaine Anderson NP [address] [place] [address] Cardiology 05/03/24 documented as of this encounter
--- OUTSIDE RECORDS SUMMARY | 2025-02-05 15:14 | XMS_ITS | Encounter Summary ---
Author Organization [facility] Address [address] [place] [address] Care Team Providers Care Supply Requirements Officer Name Role Phone Ren Bourne MD Primary Care Provider Unavail able uElalio Raines MD Primary Care Provider [phone] Adam Kern MD Unavailable Kat Koch GUITAR INSTRUCTOR Unavailable Unavailab Roopa Quiñones PA-C Unavailable [phone] Elaine Anderson GUITAR INSTRUCTOR Unavailable [phone] Encounter Details Date Type Department Care Team Description 11/01/2018 Telephone Dermatology - [address] [phone] Siobhan Khan PA-C Social History Tobacco Use [...] encounter Miscellaneous Notes * Telephone Encounter - Emy Mitchell MA. - 11/01/2018 3:57 PM EST Patient stop by today to have her site check on left thigh documented in this encounter Plan of Treatment Not on file documented as of this encounter Visit Diagnoses Not on filedocumented in this encounter Care Teams Supply Requirements Officer Relationship Specialty Start Date End Date Ren Bourne MD PCP - General 07/18/04 06/24/20 Eulalio Raines MD [address] [place] [address] PCP - General Internal Medicine 06/25/20 Adam Kern MD [address] [place] [address] Cook Enchilada Cardiovascular Disease 08/01/21 Kat Koch NP [address] [place] [address] Specialist Cardiology 09/05/21 05/25/23 Roopa Harris PA-C [address] [place] [address] Specialist Cardiology 05/26/23 Elaine Anderson NP [address] [place] [address] Cardiology 05/03/24 documented as of this encounter
--- OUTSIDE RECORDS SUMMARY | 2025-02-05 15:14 | XMS_ITS | Encounter Summary ---
Author Organization [facility] Address [address] [place] [address] Care Team Providers Care Service Dispatcher Name Role Phone Ren Bourne MD Primary Care Provider Unavail able Eulalio Raines MD Primary Care Provider [phone] Adam Kern MD Unavailable Kat Koch GANG INVESTIGATOR Unavailable Unavailab Roopa Quiñones PA-C Unavailable [phone] Elaine Anderson GANG INVESTIGATOR Unavailable [phone] Reason for Visit * Reason Onset Date Comments TEST RESULTS 10/06/2018 Encounter Details Date Type Department Care Team Description 10/06/2018 Telephone Adult Medicine [address] [id number] Ren Bourne MD TEST RESULTS Social History Tobacco Use Types Packs/Day Years [...] Telephone Encounter - Ren Bourne MD - 10/08/2018 11:00 AM EST This is fine, thank you. * Telephone Encounter - Yola Reyes C.M.A. - 10/07/2018 1:36 PM EST Pt has apt 10/18 with danni, is this ok? * Telephone Encounter - Ren Bourne MD - 10/06/2018 2:00 PM EST Letter received from Dr. Reese. Has branch retinal vein occlusion. Will benefit from checking glucose and lipids. Please schedule in adult medicine [facility] next week. documented in this encounter Plan of Treatment Not on file documented as of this encounter Visit Diagnoses Not on filedocumented in this encounter Care Teams Service Dispatcher Relationship Specialty Start Date End Date Ren Bourne MD PCP - General 07/18/04 06/24/20 Eulalio Raines MD [address] [place] [address] PCP - General Internal Medicine 06/25/20 Adam Kern MD [address] [place] [address] Paleontological Helper Cardiovascular Disease 08/01/21 Kat Koch NP [address] [place] [address] Specialist Cardiology 09/05/21 05/25/23 Roopa Harris PA-C [address] [place] [address] Specialist Cardiology 05/26/23 Elaine Anderson NP [address] [place] [address] Cardiology 05/03/24 documented as of this encounter
--- OUTSIDE RECORDS SUMMARY | 2025-02-05 15:14 | XMS_ITS | Encounter Summary ---
Author Organization [facility] Address [address] [place] [address] Care Team Providers Care Pie Crust Mixer Name Role Phone Eulalio Raines MD Primary Care Provider [phone] Adam Kern MD Unavailable Roopa Harris PA-C Unavailable [phone] Elaine Anderson NP Unavailable [phone] Encounter Details Date Type Department Care Team Description 05/26/2023 Millinery Blocker Report Medical Records [address] [place] [address] William Greene DO Social History Tobacco Use [...] Recorded In the last 10 days, have claire u been in contact with someone who was confirmed or suspected to have Coronavirus/COVID-19? No / Unsure 05/14/2023 10:15 AM EDT documented as of this encounter Plan of Treatment Not on file documented as of this encounter Visit Diagnoses Not on filedocumented in this encounter Care Teams Pie Crust Mixer Relationship Specialty Start Date End Date Eulalio Raines MD [address] [place] [address] PCP - General Internal Medicine 06/25/20 Adam Kern MD [address] [place] [address] Collar Runner Cardiovascular Disease 08/01/21 Roopa Harris PA-C [address] [place] [address] Specialist Cardiology 05/26/23 Elaine Anderson NP [address] [place] [address] Cardiology 05/03/24 documented as of this encounter
--- OUTSIDE RECORDS SUMMARY | 2025-02-05 15:14 | XMS_ITS | Encounter Summary ---
Author Organization [facility] Address [address] [place] [address] Care Team Providers Care Curriculum Coach Name Role Phone Eulalio Raines MD Primary Care Provider [phone] Adam Kern MD Unavailable Kat Koch CRATE MAKER Unavailable Unavailab Roopa Quiñones PA-C Unavailable [phone] Elaine Anderson CRATE MAKER Unavailable [phone] Encounter Details Date Type Department Care Team Description 05/10/2023 [facility] Medical Records [address] [place] [address] William Greene DO Social History Tobacco Use [...] on filedocumented in this encounter Care Teams Curriculum Coach Relationship Specialty Start Date End Date Eulalio Raines MD [address] [place] [address] PCP - General Internal Medicine 06/25/20 Adam Kern MD [address] [place] [address] Chief Service Observer Cardiovascular Disease 08/01/21 Kat Koch, LOUISE [address] [place] [address] Specialist Cardiology 09/05/21 05/25/23 Roopa Harris PA-C [address] [place] [address] Specialist Cardiology 05/26/23 Elaine Anderson NP [address] [place] [address] Cardiology 05/03/24 documented as of this encounter
--- OUTSIDE RECORDS SUMMARY | 2025-02-05 15:14 | XMS_ITS | Encounter Summary ---
Author Organization [facility] Address [address] [place] [address] Care Team Providers Care Quickbooks Bookkeeper Name Role Phone Eulalio Raines MD Primary Care Provider [phone] Adam Kern MD Unavailable Roopa Harris PA-C Unavailable [phone] Elaine Anderson NP Unavailable [phone] Encounter Details Date Type Department Care Team Description 08/31/2023 Walk In Clinic Visit Medical Records [address] [place] [address] Abstract, Provider Social History Tobacco Use Types [...] suspected to have Coronavirus/COVID-19? No / Unsure 08/26/2023 1:01 PM EDT documented as of this encounter Plan of Treatment Not on file documented as of this encounter Visit Diagnoses Not on filedocumented in this encounter Care Teams Quickbooks Bookkeeper Relationship Specialty Start Date End Date Eulalio Raines MD [address] [place] [address] PCP - General Internal Medicine 06/25/20 Adam Kern MD [address] [place] [address] Millinery Worker Cardiovascular Disease 08/01/21 Roopa Harris PA-C [address] [place] [address] Specialist Cardiology 05/26/23 Elaine Anderson NP [address] [place] [address] Cardiology 05/03/24 documented as of this encounter
--- OUTSIDE RECORDS SUMMARY | 2025-02-05 15:14 | XMS_ITS | Encounter Summary ---
Author Organization [facility] Address [address] [place] [address] Care Team Providers Care Labels Molder Name Role Phone Eulalio Raines MD Primary Care Provider Adam Kern MD Unavailable Roopa Harris PA-C Unavailable [phone] Elaine Anderson NP Unavailable [phone] Encounter Details Date Type Department Care Team Description 06/24/2023 [facility] Medical Records [address] [place] [address] Abstract, Provider Social History Tobacco Use Types [...] suspected to have Coronavirus/COVID-19? No / Unsure 06/07/2023 11:24 AM EDT documented as of this encounter Plan of Treatment Not on file documented as of this encounter Procedures Procedure Name Priority Date/Time Associated Diagnosis Comments OUTSIDE PFT Routine 06/24/2023 documented in this encounter Results * OUTSIDE PFT (06/24/2023) Provider Default PULMONOLOGY documented in this encounter Visit Diagnoses Not on filedocumented in this encounter Care Teams Labels Molder Relationship Specialty Start Date End Date Eulalio Raines MD [address] [place] [address] PCP - General Internal Medicine 06/25/20 Adam Kern MD [address] [place] [address] Pig Machine Supervisor Cardiovascular Disease 08/01/21 Roopa Harris PA-C [address] [place] [address] Specialist Cardiology 05/26/23 Elaine Anderson NP [address] [place] [address] Cardiology 05/03/24 documented as of this encounter
--- OUTSIDE RECORDS SUMMARY | 2025-02-05 15:14 | XMS_ITS | Encounter Summary ---
Author Organization [facility] Address [address] [place] [address] Care Team Providers Care Music Publicist Name Role Phone Eulalio Raines MD Primary Care Provider [phone] Reason for Visit * Reason Onset Date Comments Appointment 02/01/2025 PFT Encounter Details Date Type Department Care Team (Late st Contact Info) Description 02/01/2025 Telephone [facility] [address] [facility] 102 [phone] Elaine Anderson, LOUISE [address] [facility] 102 [place], [place] [phone] Appointment (PFT) Social History Tobacco Use Types Packs/Day Years Used Date Smoking Tobacco: Never Smokeless Tobacco: Never Alcohol Use Standard Drinks/Week Comments Yes 0 (1 standard drink = 0.6 oz pur e alcohol) Comments No Sex and Gender Information Value Date Recorded Sex Assigned at Not on file Legal Sex Female 8:17 PM EST Gender Identity Not on file Sexual Orientation Not on file documented as of this encounter Progress Notes * Erika Matthew - 02/01/2025 8:10 AM EDT Pt is scheduled for a PFT on 02/26/25 at 11:00am, @[facility] Pulmonology documented in this encounter Plan of Treatment Upcoming Encounters Date Type Department Care Team (Late st Contact Info) Description 02/07/2025 10:00 AM EDT Office Visit Adult Medicine South - [address] [phone] Eulalio Raines MD [address] [place] [address] 02/26/2025 11:[address] [facility]monary [address] [place] [address] 08/08/2025 9:50 AM EDT Office Visit [facility] [place] [address] [phone] Adam Kern MD [address] [address] 09/13/2025 11:00 AM EDT Appointment Radiology Department - [address] [phone] 09/20/2025 3:30 PM EDT Office Visit Nephrology - [address] [phone] Lenny Winter MD [address] [phone] documented as of this encounter Visit Diagnoses Not on filedocumented in this encounter Care Teams Music Publicist Relationship Specialty Start Date End Date Eulalio Raines MD [address] [place] [address] PCP - General Internal Medicine 06/25/20 documented as of this encounter
--- OUTSIDE RECORDS SUMMARY | 2025-02-05 15:14 | XMS_ITS | Encounter Summary ---
Author Organization [facility] Address [address] [place] [address] Care Team Providers Care Circulation Supervisor Name Role Phone Ren Bourne MD Primary Care Provider Unavail able Eulalio Raines MD Primary Care Provider [phone] Adam Kern MD Unavailable Kat Koch SAND CONDITIONER MACHINE Unavailable Unavailab Roopa Quiñones PA-C Unavailable [phone] Ealine Anderson SAND CONDITIONER MACHINE Unavailable [phone] Encounter Details Date Type Department Care Team Description 01/12/2011 Installer Molding And Trim Report Medical Records [address] [place] [address] Siobhan Khan PA-C Social History Tobacco Use Types Packs/Day Years Used Date Smoking Tobacco: Never Alcohol Use Standard Drinks/Week Comments [...] on filedocumented in this encounter Care Teams Circulation Supervisor Relationship Specialty Start Date End Date Ren Bourne MD PCP - General 07/18/04 06/24/20 Eulalio Raines MD [address] [place] [address] PCP - General Internal Medicine 06/25/20 Adam Kern MD [address] [place] [address] Inspector Coated Fabrics Cardiovascular Disease 08/01/21 Kat Koch NP [address] [place] [address] Specialist Cardiology 09/05/21 05/25/23 Roopa Harris PA-C [address] [place] [address] Specialist Cardiology 05/26/23 Elaine Anderson NP [address] [place] [address] Cardiology 05/03/24 documented as of this encounter
--- OUTSIDE RECORDS SUMMARY | 2025-02-05 15:14 | XMS_ITS | Encounter Summary ---
Author Organization [facility] Address [address] [place] [address] Care Team Providers Care Bridge Ironworker Name Role Phone Ren Bourne MD Primary Care Provider Unavail able Eulalio Raines MD Primary Care Provider [phone] Adam Kern MD Unavailable Kat Koch FUEL MANAGER Unavailable Unavailab Roopa Quiñones PA-C Unavailable [phone] Elaine Anderson FUEL MANAGER Unavailable [phone] Encounter Details Date Type Department Care Team Description 01/03/2016 Business Doc Medical Records [address] [place] [address] Abstract, Provider Social History Tobacco Use Types [...] on filedocumented in this encounter Care Teams Bridge Ironworker Relationship Specialty Start Date End Date Ren Bourne MD PCP - General 07/18/04 06/24/20 Eulalio Raines MD [address] [place] [phone] PCP - General Internal Medicine 06/25/20 Adam Kern MD [address] [place] [address] Supervisor Pipeline Cardiovascular Disease 08/01/21 Kat Koch NP [address] [place] [address] Specialist Cardiology 09/05/21 05/25/23 Roopa Harris PA-C [address] [place] [address] Specialist Cardiology 05/26/23 Elaine Anderson NP [address] [place] [address] Cardiology 05/03/24 documented as of this encounter
--- OUTSIDE RECORDS SUMMARY | 2025-02-05 15:14 | XMS_ITS | Encounter Summary ---
Author Organization [facility] Address [address] [place] [address] Care Team Providers Care Wreath Machine Tender Name Role Phone Eulalio Raines MD Primary Care Provider [phone] Reason for Visit * Reason Onset Date Comments Medication Problem 01/17/2025 Encounter Details Date Type Department Care Team (Late st Contact Info) Description 01/17/2025 Telephone Adult Medicine [address] [address] Eulalio Raines MD [address] [place] [address] Medication Problem Social History Tobacco Use Types Packs/Day Years [...] as of this encounter Progress Notes * Eulalio Raines MD - 01/25/2025 5:43 PM EST Seen this late would be ok for the patient to hold the eliquis for 3 days not sure if she already had the procedure but again would be ok for the patient to hold this for 3 days * Ekaterina Colon MA - 01/19/2025 11:[address] Raines This patient has a question regarding her Eliquis. Pt message can be located in the message below. * Niesha Matamoros - 01/17/2025 3:31 PM EST Patient will be having cortisone injection with Dr Greene on Monday 01/22. States she was told to call her PCP regarding Eloquis. She needs to know if she should continue to take this medication the same way or stop and restart? Can covering Dr help with this or will it have to wait for Dr Raines until 01/19??? documented in this encounter Plan of Treatment Upcoming Encounters Date Type Department Care Team (Late st Contact Info) Description 02/07/2025 10:00 AM EDT Office Visit Adult Medicine [facility] - [address] [phone] Eulalio Raines MD [address] [place] [address] 02/26/2025 11:00 AM EDT Appointment [facility] [address] [place] [address] 08/08/2025 9:50 AM EDT Office Visit [facility] [address] [phone] Adam Kern MD [address] [address] 09/13/2025 11:00 AM EDT Appointment Radiology Department - [address] [phone] 09/20/2025 3:30 PM EDT Office Visit Nephrology - [address] [phone] Lenny Winter MD [address] [place] [address], [place] [address] documented as of this encounter Visit Diagnoses Not on filedocumented in this encounter Care Teams Wreath Machine Tender Relationship Specialty Start Date End Date Eulalio Raines MD [address] [place] [address] PCP - General Internal Medicine 06/25/20 documented as of this encounter
--- OUTSIDE RECORDS SUMMARY | 2025-02-05 15:14 | XMS_ITS | Encounter Summary ---
Author Organization [facility] Address [address] [place] [address] Care Team Providers Care Equipment Service Technician Name Role Phone Eulalio Raines MD Primary Care Provider [phone] Reason for Visit * Reason Onset Date Comments Prior Authorization 01/26/2025 Encounter Details Date Type Department Care Team (Late st Contact Info) Description 01/26/2025 Telephone Adult Medicine [facility] [address] [place] [phone] Eulalio Raines MD [address] [place] [address] Prior Authorization Social History Tobacco Use Types [...] as of this encounter Progress Notes * Shahbaz Rodriguez - 01/30/2025 1:37 PM EDT Prior Authorization for Medication-do not complete and send this encounter unless you have the fax from the pharmacy. Is this a Cover My Meds request: Yes -- Bailey Code [id number] Name of Medication acitretin (SORIATANE) 10 mg capsule Sig: TAKE 1 CAPSULE BY MOUTH EVERY DAY IN THE MORNING BEFORE BREAKFAST Sent to pharmacy as: acitretin 10 mg capsule (SORIATANE) What Pharmacy did the fax come from: [facility] Pharm[facility] fax #: [phone] * Emma Darnell - 01/26/2025 3:44 PM EST The patient is calling in regards to acitretin 10 mg capsule. She stated that the pharmacy has not received the refill request and she is currently out of this medication. She was wondering if possible to send a script to [facility] [place]. Please Advise. documented in this encounter Plan of Treatment Upcoming Encounters Date Type Department Care Team (Late st Contact Info) Description 02/07/2025 10:00 AM EDT Office Visit Adult Medicine [facility] - [address] [address] Eulalio Raines MD [address] [place] [address] 02/26/2025 11:00 AM EDT Appointment [facility] Pulmonary [address] [place] [phone] 08/08/2025 9:50 AM EDT Office Visit [facility] [address] [phone] Adam Kern MD [address] [address] 09/13/2025 11:00 AM EDT Appointment Radiology Department - [address] [address] 09/20/2025 3:30 PM EDT Office Visit Nephrology - [address] [phone] Lenny Winter MD [facility] [address] [phone] documented as of this encounter Visit Diagnoses Not on filedocumented in this encounter Care Teams Equipment Service Technician Relationship Specialty Start Date End Date Eulalio Raines MD [address] [place] [address] PCP - General Internal Medicine 06/25/20 documented as of this encounter
--- OUTSIDE RECORDS SUMMARY | 2025-02-05 15:14 | XMS_ITS | Encounter Summary ---
Author Organization [facility] Address [address] [place] [address] Care Team Providers Care Sight Mounter Name Role Phone Ren Bourne MD Primary Care Provider Unavail able Eulalio Raines MD Primary Care Provider [phone] Adam Kern MD Unavailable Kat Koch TSA SCREENER Unavailable Unavailab Roopa Quiñones PA-C Unavailable [phone] Elaine Anderson TSA SCREENER Unavailable [phone] Encounter Details Date Type Department Care Team Description 01/29/2017 Business Doc Medical Records [address] [place] [address] Abstract, Provider Social History Tobacco Use Types [...] on filedocumented in this encounter Care Teams Sight Mounter Relationship Specialty Start Date End Date Ren Bourne MD PCP - General 07/18/04 06/24/20 Eulalio Raines MD [address] [place] [address] [phone] PCP - General Internal Medicine 06/25/20 Adam Kern MD [address] [place] [address] Medical Records Technician Cardiovascular Disease 08/01/21 Kat Koch NP [address] [place] [address] Specialist Cardiology 09/05/21 05/25/23 Roopa Harris PA-C [address] [place] [address] Specialist Cardiology 05/26/23 Elaine Anderson NP [address] [place] [address] Cardiology 05/03/24 documented as of this encounter
--- OUTSIDE RECORDS SUMMARY | 2025-02-05 15:14 | XMS_ITS | Encounter Summary ---
Author Organization [employer] [facility] Address [address] [place] [address] Care Team Providers Care Night Time Nanny Name Role Phone Eulalio Raines MD Primary Care Provider [phone] Adam Kern MD Unavailable Roopa Harris PA-C Unavailable [phone] Elaine Anderson NP Unavailable [phone] Encounter Details Date Type Department Care Team Description 06/16/2023 Telephone Gastroenterology - [place] [address] [address] Jimenez Reyes PA-C [address] [address] Social History Tobacco Use Types Packs/Day Years [...] * Telephone Encounter - Lin Bee - 06/16/2023 3:32 PM EDT Left a vm for the patient to call our office back. 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 We will prescribe antibiotics and then she can also use Imodium to see if that will help with her bowel movements. We can prescribe Cipro for her to take for 10 days as well to treatthe bacteria. When she completes the treatment and have her contact the office if she still having any issues. documented in this encounter Plan of Treatment Not on file documented as of this encounter Visit Diagnoses Not on filedocumented in this encounter Care Teams Night Time Nanny Relationship Specialty Start Date End Date Eulalio Raines MD [address] [place] [address] PCP - General Internal Medicine 06/25/20 Adam Kern MD [address] [place] [address] Production Lead Cardiovascular Disease 08/01/21 Roopa Harris PA-C [address] [place] [address] Specialist Cardiology 05/26/23 Elaine Anderson NP [address] [place] [address] Cardiology 05/03/24 documented as of this encounter
--- OUTSIDE RECORDS SUMMARY | 2025-02-05 15:14 | XMS_ITS | Encounter Summary ---
Author Organization [facility] Address [address] [place] [address] Care Team Providers Care Legend Maker Name Role Phone Ren Bourne MD Primary Care Provider Unavail able Eulalio Raines MD Primary Care Provider [phone] Adam Kern MD Unavailable Kat Koch NURSERY SCHOOL TEACHER Unavailable Unavailab Roopa Quiñones PA-C Unavailable [phone] Elaine Anderson NURSERY SCHOOL TEACHER Unavailable [phone] Reason for Visit * Reason Onset Date Comments E-prescribe Rx Request 09/13/2011 Encounter Details Date Type Department Care Team Description 09/13/2011 Refill Adult Medicine [address] [phone] Ren Bourne MD E-prescribe Rx Request Social [...] encounter Miscellaneous Notes * Telephone Encounter - Janine Foster M.A. - 09/14/2011 8:15 AM EDT Refused script, can not close enocunter * Telephone Encounter - Fior Wilkerson - 09/13/2011 3:58 PM EDT WHEN WAS THE PATIENT'S LAST APPOINTMENT IN ADULT MEDICINE? 08/13/2011 WHEN WAS THE LAST TIME THE PATIENT SAW THEIR PCP? Same as above Does patient have an upcoming appointment? Yes 09/14/2011 (THE MEDICATION REQUESTED IS ON THE MED LIST ABOVE) All of the medications requested were on the CURRENT MEDS list Did you check the Pharmacy information above?: YES Is this a mail order prescription request? NO Indicate how soon the patient needs the script: BY THE END OF THE DAY Patient would like script to be: FAXED TO PHARMACY Is the doctor here today?: YES Can the message wait until the doctor returns?: NO Patients current insurance carrier is: Payor: MEDICARE-[place] Plan: MEDICARE-[employer] Product Type: MEDICARE [id number] documented in this encounter Plan of Treatment Not on file documented as of this encounter Visit Diagnoses Not on filedocumented in this encounter Care Teams Legend Maker Relationship Specialty Start Date End Date Ren Bourne MD PCP - General 07/18/04 06/24/20 Eulalio Raines MD [address] [place] [address] PCP - General Internal Medicine 06/25/20 Adam Kern MD [address] [place] [address] Printing Supplies Sales Representative Cardiovascular Disease 08/01/21 Kta Koch NP [address] [place] [address] Specialist Cardiology 09/05/21 05/25/23 Roopa Harris PA-C [address] [place] [address] Specialist Cardiology 05/26/23 Elaine Anderson NP [address] [place] [address] Cardiology 05/03/24 documented as of this encounter
--- OUTSIDE RECORDS SUMMARY | 2025-02-05 15:14 | XMS_ITS | Encounter Summary ---
Author Organization [facility] Address [address] [place] [address] Care Team Providers Care Medical Library Assistant Name Role Phone Eulalio Raines MD Primary Care Provider [phone] Adam Kern MD Unavailable Kat Koch BARGAIN TABLE CLERK Unavailable Unavailab Roopa Quiñones PA-C Unavailable [phone] Elaine Anderson BARGAIN TABLE CLERK Unavailable [phone] Encounter Details Date Type Department Care Team Description 08/14/2021 Animal Eviscerator Report Medical Records [address] [place] [address] Cheryle Robles MD Social History Tobacco Use Types Packs/Day Years Used Date Smoking Tobacco: Never Smokeless Tobacco: Never Alcohol Use Standard Drinks/Week Comments Yes 0 (1 standard drink = 0.6 oz pur e alcohol) rare Sex Assigned at Date Recorded Not on file Job Start Date Occupation Industry Not on file Not on file Not on file COVID-19 Exposure Response Date Recorded In the last month, have you been in contact with someone who was confirmed or suspected to have Coronavirus / COVID-19? No / Unsure 08/04/2021 1:06 PM EDT documented as of this encounter Plan of Treatment Not on file documented as of this encounter Visit Diagnoses Not on filedocumented in this encounter Care Teams Medical Library Assistant Relationship Specialty Start Date End Date Eulalio Raines MD [address] [place] [address] PCP - General Internal Medicine 06/25/20 Adam Kern MD [address] [place] [address] Theatre Manager Cardiovascular Disease 08/01/21 Kat Koch NP [address] [place] [address] Specialist Cardiology 09/05/21 05/25/23 Roopa Harris PA-C [address] [place] [address] Specialist Cardiology 05/26/23 Elaine Anderson NP [address] [place] [address] Cardiology 05/03/24 documented as of this encounter
--- OUTSIDE RECORDS SUMMARY | 2025-02-05 15:14 | XMS_ITS | Encounter Summary ---
Author Organization [facility] Address [address] [place] [address] Care Team Providers Care Welding Machine Operator Helper Arc Name Role Phone Eulalio Raines MD Primary Care Provider [phone] Reason for Visit * Reason Onset Date Comments Medication 01/11/2025 Encounter Details Date Type Department Care Team ([facility] st Contact Info) Description 01/11/2025 Telephone Adult Medicine [address] [address] Elaine Anderson, LOUISE [address] [address] Medication Social History Tobacco Use Types Packs/Day Years [...] as of this encounter Progress Notes * Arnulfo Warner, RN - 01/12/2025 8:20 AM EST Called pt back this AM. Made aware of Loretta Anderson response below. Is requesting to be put on the cancellation list as she is supposed to be seen in 3 months (March 2025) but has apt booked for soonest in July with Dr. Kern. I have sent a teams message to access requesting to have pt be put onthe cancellation list, pt aware. * Elaine Anderson NP - 01/11/2025 5:52 PM EST Yes, she should continue to take it just as she is. Please tell her I said thank you for checking on it once she got home! * Alba Sherwood - 01/11/2025 4:40 PM EST Patient is calling after her office visit with Dr. Elaine Anderson today. She states she wrote her medication twice, and is taking Carvedilol 3.125 mg 2 tablets a day. She is under the impression she should have been taking it for 180 days but has been consistently taking it for a year. She would like to know if she should keep taking it. documented in this encounter Plan of Treatment Upcoming Encounters Date Type Department Care Team (Late st Contact Info) Description 02/07/2025 10:00 AM EDT Office Visit Adult Medicine [facility] - [address] [phone] Eulalio Raines MD [address] [place] [address] 02/26/2025 11:00 AM EDT Appointment [facility] Pulmonary [address] [place] [phone] 08/08/2025 9:50 AM EDT Office Visit [facility] - [facility] [address] [phone] Adam Kern MD [address] [address] 09/13/2025 11:00 AM EDT Appointment Radiology Department - [address] [phone] 09/20/2025 3:30 PM EDT Office Visit Nephrology - [place] [address] [place], [place] [phone] Lenny Winter MD [address] [address] documented as of this encounter Visit Diagnoses Not on filedocumented in this encounter Care Teams Welding Machine Operator Helper Arc Relationship Specialty Start Date End Date Eulalio Raines MD [address] [place] [address] PCP - General Internal Medicine 06/25/20 documented as of this encounter
--- OUTSIDE RECORDS SUMMARY | 2025-02-05 15:14 | XMS_ITS | Encounter Summary ---
Author Organization [facility] Address [address] [place] [address] Care Team Providers Care Comparison Shopper Name Role Phone Ren Buorne MD Primary Care Provider Unavail able Eulalio Raines MD Primary Care Provider [phone] Adam Kern MD Unavailable Kat Koch HELIX COIL WINDER Unavailable Unavailab Roopa Quiñones PA-C Unavailable [phone] Elaine Anderson HELIX COIL WINDER Unavailable [phone] Reason for Visit * Reason Onset Date Comments TEST RESULTS 06/11/2016 Encounter Details Date Type Department Care Team Description 06/11/2016 Telephone Adult Medicine [address] [phone] Herberth Myers PA-C [address] [place] [address] [phone] TEST RESULTS Social History Tobacco Use Types [...] encounter Miscellaneous Notes * Telephone Encounter - Samantha Willoughby R.N. - 06/12/2016 8:51 AM EDT Pt awaiting sensitivities, she understands this will not be complete until later today, she is anxious because she still has symptoms and will be leaving for a vacation on Wednesday * Telephone Encounter - Isabel Casey M.A. - 06/11/2016 4:53 PM EDT Pt going on vacation x 2 weeks. Still having same sx. Ok for tomorrow * Telephone Encounter - Portillo Lambert - 06/11/2016 4:25 PM EDT Inform patient: ANY URGENT OR ABNORMAL RESULTS WIILL RESULT IN A CALL BACK TO THE PATIENT CHIOMA. Patient wants to talk to anybody that can tell her the results. Type of test: :UTI test Date test was performed: 06.10.16 Where was the test performed: [facility] Who ordered this test?: Herberth Myers Is the doctor here today?: NO Can the message wait until the doctor returns?: NO IF PATIENT'S PCP IS NOT IN INSTRUCT PATIENT THAT THEY WILL RECEIVE A CALL BACK WHEN THE PCP IS IN THE OFFICE NEXT. documented in this encounter Plan of Treatment Not on file documented as of this encounter Visit Diagnoses Not on filedocumented in this encounter Care Teams Comparison Shopper Relationship Specialty Start Date End Date Ren Bourne MD PCP - General 07/18/04 06/24/20 Eulalio Raines MD [address] [place] [address] PCP - General Internal Medicine 06/25/20 Adam Kern MD [address] [place] [address] Grader Marker Cardiovascular Disease 08/01/21 Kat Koch NP [address] [place] [address] Specialist Cardiology 09/05/21 05/25/23 Roopa Harris PA-C [address] [place] [address] Specialist Cardiology 05/26/23 Elaine Anderson NP 4 [place] [address] Cardiology 05/03/24 documented as of this encounter
--- OUTSIDE RECORDS SUMMARY | 2025-02-05 15:14 | XMS_ITS | Encounter Summary ---
Author Organization [facility] Address [address] [place] [address] Care Team Providers Care Adoption Manager Name Role Phone Eulalio Raines MD Primary Care Provider [phone] Adam Kern MD Unavailable Roopa Harris PA-C Unavailable [phone] Elaine Anderson NP Unavailable [phone] Reason for Visit * Reason Comments E-prescribe Rx Request Encounter Details Date Type Department Care Team Description 08/21/2023 Refill Adult Medicine [address] [phone] Eulalio Raines MD [address] [place] [address] [phone] E-prescribe Rx Request Social History Tobacco Use [...] In the last 10 days, have yo benji been in contact with someone who was confirmed or suspected to have Coronavirus/COVID-19? No / Unsure 08/16/2023 10:31 AM EDT documented as of this encounter Miscellaneous Notes * Telephone Encounter - Becky Avina - 08/25/2023 4:24 PM EDT Patient would like script to be: E-PRESCRIBED/FAXED TO PHARMACY WHEN WAS THE PATIENT'S LAST APPOINTMENT IN ADULT MEDICINE? 08/04/23 WHEN WAS THE LAST TIME THE PATIENT SAW THEIR PCP? 03/16/22 Does patient have an upcoming appointment? Yes 02/07/[address] Raines (THE MEDICATION REQUESTED IS ON THE MED [...] / Plan: [place] / Product Type: MEDICARE [id number] documented in this encounter Plan of Treatment Not on file documented as of this encounter Visit Diagnoses Not on filedocumented in this encounter Care Teams Adoption Manager Relationship Specialty Start Date End Date Eulalio Raines MD [address] [place], [place] [phone] PCP - General Internal Medicine 06/25/20 Adam Kern MD [address] [place] [address] Lending Consultant Cardiovascular Disease 08/01/21 Roopa Harris PA-C 4 [place] [address] Specialist Cardiology 05/26/23 Elaine Anderson NP [address] [place] [address] Cardiology 05/03/24 documented as of this encounter
--- OUTSIDE RECORDS SUMMARY | 2025-02-05 15:14 | XMS_ITS | Encounter Summary ---
Author Organization [facility] Address [address] [place] [address] Care Team Providers Care Senior Restaurant Manager Name Role Phone Ren Bourne MD Primary Care Provider Unavail able Eulalio Raines MD Primary Care Provider [phone] Adam Kern MD Unavailable Kat Koch NP Unavailable Unavailab Roopa Quiñones PA-C Unavailable Elaine Anderson NP Unavailable [phone] Encounter Details Date Type Department Care Team Description 03/06/2019 Orders Only Adult Medicine [address] [address] Rosalba Church NP Social History Tobacco Use Types Packs/Day Years Used Date Smoking Tobacco: Never Smokeless Tobacco: Never Alcohol Use Standard Drinks/Week Comments Yes 0 (1 standard drink = 0.6 oz pur e alcohol) rare Sex Assigned at Date Recorded Not on file Job Start Date Occupation Industry Not on file Not on file Not on file documented as of this encounter Patient Instructions * Patient Instructions* Rosalba Church NP - 03/06/2019 2:53 PM EDT Images from the original note were not included. Diverticulitis: Care Instructions Your Care Instructions Diverticulitis occurs when pouches form in the wall of the colon and become inflamed or infected. It can be very painful. Doctors aren't sure what causes diverticulitis. There is no proof that foods such as nuts, seeds, or berries cause it or make it worse. A low-fiber diet may cause the colon to work harder to push stool forward. Pouches may form because of this extra work. It may be hard to think about healthy eating while you're in pain. But as you recover, you might think about how you can use healthy eating for overall better health. Healthy eating may help you avoid future attacks. Follow-up care is a valdez part of your treatment and safety. Be sure to make and go to all appointments, and call your doctor if you are having problems. It's also a good idea to know your test resultsand keep a list of the medicines you take. How can you care for yourself at home? ?? Drink plenty of fluids, enough so that your urine is light yellow or clear like water. If you have kidney, heart, or liver disease and have to limit fluids, talk with your doctor before you increase the amount of fluids you drink. ?? Stick to liquids or a bland diet (plain rice, bananas, dry toast or crackers, applesauce) until you are feeling better. Then you can return to regular foods and gradually increase the amount of fiber in your diet. ?? Use a heating pad set on low on your belly to relieve mild cramps and pain. ?? Get extra rest until you are feeling better. ?? Be safe with medicines. Read and follow all instructions on the label. ?? If the doctor gave you a prescription medicine for pain, take it as prescribed. ?? If you are not taking a prescription pain medicine, ask your doctor if you can take an [id number] medicine. ?? If your doctor prescribed antibiotics, take them as directed. Do not stop taking them just because you feel better. You need to take the full course of antibiotics. To prevent future attacks of diverticulitis ?? Avoid constipation: ?? Include fruits, vegetables, beans, and whole grains in your diet each day. These foods are high in fiber. ?? Drink plenty of fluids, enough so that your urine is light yellow or clear like water. If you have kidney, heart, or liver disease and have to limit fluids, talk with your doctor before you increase the amount of fluids you drink. ?? Get some exercise every day. Build up slowly to 30 to 60 minutes a day on 5 or more days of the week. ?? Take a fiber supplement, such as Citrucel or Metamucil, every day if needed. Read and follow allinstructions on the label. ?? Schedule time each day for a bowel movement. Having a daily routine may help. Take your time anddo not strain when having a bowel movement. When should you call for help? Call your doctor now or seek immediate medical care if: ? You have a fever. ? You are vomiting. ? You have new or worse belly pain. ? You cannot pass stools or gas. ??Watch closely for changes in your health, and be sure to contact your doctor if you have any problems. Where can you learn more? Go to http://[email or web address] and enter H901 in the Search box to learn more about Diverticulitis: Care Instructions. Not on [employer] yet? Visit [email or web address] to request access. Current as of: February 15, 2018 Content Version: 11.9 ?? [id number] [employer]. Care instructions adapted under license by [employer]. If you have questions about a medical condition or this instruction, always ask your healthcare professional. [employer] disclaims any warranty or liability for your use of this i nformation. documented in this encounter Plan of Treatment Not on file documented as of this encounter Visit Diagnoses Not on filedocumented in this encounter Care Teams Senior Restaurant Manager Relationship Specialty Start Date End Date Ren Bourne MD PCP - General 07/18/04 06/24/20 Eulalio Raines MD [address] [place] [phone] PCP - General Internal Medicine 06/25/20 Adam Kern MD [address] [place] [address] Wood Carving Machine Operator Cardiovascular Disease 08/01/21 Kat Koch NP [address] [place] [address] Specialist Cardiology 09/05/21 05/25/23 Roopa Harris PA-C [address] [place] [address] Specialist Cardiology 05/26/23 Elaine Anderson NP [address] [place] [address] Cardiology 05/03/24 documented as of this encounter
--- OUTSIDE RECORDS SUMMARY | 2025-02-05 15:14 | XMS_ITS | Encounter Summary ---
Author Organization [facility] Address [address] [place] [address] Care Team Providers Care Asphalt Coater Name Role Phone Eulalio Raines MD Primary Care Provider Adam Kern MD Unavailable Kat Koch TREE FRUIT AND NUT CROPS FARMER Unavailable Unavailab Roopa Quiñones PA-C Unavailable [phone] Elaine Anderson TREE FRUIT AND NUT CROPS FARMER Unavailable [phone] Reason for Visit * Reason Comments E-prescribe Rx Request Encounter Details Date Type Department Care Team Description 02/07/2022 Refill Dermatology [address] [phone] Siobhan Khan PA-C E-prescribe Rx Request Social [...] have Coronavirus / COVID-19? No / Unsure 01/21/2022 8:14 AM EST documented as of this encounter Plan of Treatment Not on file documented as of this encounter Visit Diagnoses Not on filedocumented in this encounter Care Teams Asphalt Coater Relationship Specialty Start Date End Date Eulalio Raines MD [address] [place] [address] PCP - General Internal Medicine 06/25/20 Adam Kern MD [address] [place] [address] Scout Executive Cardiovascular Disease 08/01/21 Kat Koch NP [address] [place] [address] Specialist Cardiology 09/05/21 05/25/23 Roopa Harris PA-C [address] [place] [address] Specialist Cardiology 05/26/23 Elaine Anderson NP [address] [place] [address] Cardiology 05/03/24 documented as of this encounter
--- OUTSIDE RECORDS SUMMARY | 2025-02-05 15:14 | XMS_ITS | Encounter Summary ---
Author Organization [employer] [facility] Address [address] [place] [address] Care Team Providers Care Oil Operator Name Role Phone Eulalio Raines MD Primary Care Provider [phone] Adam Kern MD Unavailable Kat Koch UTILIZATION MANAGER Unavailable Unavailab Roopa Quiñones PA-C Unavailable [phone] Elaine Anderson UTILIZATION MANAGER Unavailable [phone] Encounter Details Date Type Department Care Team Description 06/13/2021 SCAN Medical Records [address] [place] [address] Abstract, Provider Social History Tobacco Use Types [...] have Coronavirus / COVID-19? No / Unsure 06/05/2021 1:11 PM EDT documented as of this encounter Plan of Treatment Not on file documented as of this encounter Visit Diagnoses Not on filedocumented in this encounter Care Teams Oil Operator Relationship Specialty Start Date End Date Eulalio Raines MD [address] [place] [address] PCP - General Internal Medicine 06/25/20 Adam Kern MD [address] [place] [address] Felt Strip Finisher Cardiovascular Disease 08/01/21 Kat Koch NP [address] [place] [address] Specialist Cardiology 09/05/21 05/25/23 Roopa Harris PA-C [address] [place] [address] Specialist Cardiology 05/26/23 Elaine Anderson NP [address] [place] [address] Cardiology 05/03/24 documented as of this encounter
--- OUTSIDE RECORDS SUMMARY | 2025-02-05 15:14 | XMS_ITS | Encounter Summary ---
Author Organization [facility] Address [address] [place] [address] Care Team Providers Care Milk Bottling Machine Operator Name Role Phone Eulalio Raines MD Primary Care Provider [phone] Adam Kern MD Unavailable Roopa Harris PA-C Unavailable [phone] Elaine Anderson NP Unavailable [phone] Encounter Details Date Type Department Care Team Description 02/07/2024 Terrazzo Worker Helper Report Medical Records [address] [place] [phone] William Greene DO Social History Tobacco Use [...] on filedocumented in this encounter Care Teams Milk Bottling Machine Operator Relationship Specialty Start Date End Date Eulalio Raines MD [address] [place] [address] PCP - General Internal Medicine 06/25/20 Adam Kern MD [address] [place] [address] Holter Scanning Technician Cardiovascular Disease 08/01/21 Roopa Harris PA-C [address] [place] [address] Specialist Cardiology 05/26/23 Elaine Anderson NP [address] [place] [address] Cardiology 05/03/24 documented as of this encounter
--- OUTSIDE RECORDS SUMMARY | 2025-02-05 15:14 | XMS_ITS | Encounter Summary ---
Author Organization [facility] Address [address] [place] [address] Care Team Providers Care Cardiovascular Surgeon Name Role Phone Eulalio Raines MD Primary Care Provider [phone] Reason for Referral * Therapy (Routine) - Closed Specialty Diagnoses / Procedures Referred By Elina pierce Referred To Contact Pulmonology Diagnoses On amiodarone therapy ISLAS (dyspnea on exertion) Procedures Pulmonary function testing: Carbon Monoxide Diffusing Capacity, Nitrogen Wash Out, Spirometry with Bronchodilator Elaine Anderson NP [address] [address] Phone: tel: fax: [address] [address] Phone: tel: fax: Referral ID Status Reason Start Date Expiration Date Visits Re quested Visits Authorized [id number] Closed 01/11/2025 01/11/2026 1 1 Reason for Visit * Reason Comments Follow-up Encounter Details Date Type Department Care Team (Late st Contact Info) Description 01/11/2025 2:40 PM EST Office Visit [facility] [address] [phone] Elaine Anderson NP [address] [address] Ischemic dilated cardiomyopathy (CMS/HCC) (Primary Dx); Chronic combined systolic and diastolic heart failure (CMS/HCC); Coronary artery disease involving chicken ranch coronary artery of chicken ranch heart without angina pectoris; History of ST elevation myocardial infarction (STEMI); Essential hypertension; Mixed hyperlipidemia; Paroxysmal atrial fibrillation (CMS/HCC); Secondary hypercoagulable state (CMS/HCC); On amiodarone therapy; Obesity (BMI 30.0-34.9); ISLAS (dyspnea on exertion); Obstructive sleep apnea Social History Tobacco Use Types Packs/Day Years [...] on file documented as of this encounter Last Filed Vital Signs Vital Sign Reading Time Taken Comments Blood Pressure 120/78 01/11/2025 2:47 PM EST Pulse 66 01/11/2025 2:47 PM EST Temperature - - Respiratory Rate - - Oxygen Saturation 99% 01/11/2025 2:47 PM EST Inhaled Oxygen Concentration - - Weight 81.6 kg (180 lb) 01/11/2025 2:47 PM EST Height 160 cm (5' 3 ) 01/11/2025 2:47 PM EST Body Mass Index 31.89 01/11/2025 2:47 PM EST documented in this encounter Progress Notes * Elaine Anderson, LOUISE - 01/11/2025 2:40 PM ESTAssociated Problem(s): CAD (coronary artery disease) The patient has a history of coronary artery disease, having previously reported increase in fatigue and shortness of breath since her infarct in August 2022. Cardiac MRI from 04/2024 revealed an ischemic cardiomyopathy with mildly reduced LV systolic function due to a large nonviable infarct in the LAD territory. Over the last 3 to 4 months, she has struggled with recurrent viral respiratory infe ctions that have caused her to have increased shortness of breath with exertion that appears to be improving with time as well as ongoing fatigue/lack of energy. Prior to falling ill, she reports that her shortness of breath with this at baseline and she was doing fairly well. She remains active athome on a daily basis and denies any [...] panel with reflex to direct LDL; Future * Elaine Anderson NP - 01/11/2025 2:40 PM ESTAssociated Problem(s): Essential hypertension Blood pressure is well-controlled on current medical therapy; continue Entresto and carvedilol. Davidson continue to follow with nephrology, Dr. Winter, given her history of CKD. Orders: Comprehensive metabolic panel; Future Complete blood count; Future * Elaine Anderson NP - 01/11/2025 2:40 PM ESTAssociated Problem(s): HFrEF (heart failure with reduced ejection fraction) (CMS/HCC) * Elaine Anderson NP - 01/11/2025 2:40 PM ESTAssociated Problem(s): Ischemic dilated cardiomyopathy (CMS/HCC) The patient has an ischemic cardiomyopathy with [...] metabolic panel today. GDMT has historically been somewhatlimited by CKD; we will continue to readdress this as needed. I've asked the patient to call if they develop worsening symptoms of heart failure such as increased shortness of breath, new or worsening cough, increased swelling in the legs or ankles, or weight gain of more than 2 pounds in one day or 4 pounds in one week. * Elaine Anderson NP - 01/11/2025 2:40 PM ESTAssociated Problem(s): Paroxysmal atrial fibrillation (CMS/HCC) Rate is well-controlled on beta-blockade; on amiodarone for rhythm control and has not had any recent symptoms to suggest recurrence. Due to significant bradycardia with a heart rate in the 40s, amiodarone was previously decreased to 100 mg daily with subsequent improvement in heart rate. ECG todayshows sinus bradycardia with a heart rate in [...] any head injury. Orders: ECG 12 lead * Elaine Anderson NP - 01/11/2025 2:40 PM ESTAssociated Problem(s): Mixed hyperlipidemia LDL goal for this patient who has a history of coronary artery disease is less than 70; we will update a lipid panel today and readdress this as needed. Continue atorvastatin 80 mg daily. Orders: Lipid panel with reflex to direct LDL; Future * Elaine Anderson NP - 01/11/2025 2:40 PM ESTAssociated Problem(s): Secondary hypercoagulable state (CMS/HCC) * Elaine Anderson NP - 01/11/2025 2:40 PM ESTAssociated Problem(s): History of ST elevation myocardial infarction (STEMI) * Elaine Anderson NP - 01/11/2025 2:40 PM ESTAssociated Problem(s): Obesity (BMI 30.0-34.9) The patient is obese. Approaches towards weight loss are discussed, including burning more caloriesthan one takes in by portion control and regular exercise with an emphasis on duration rather than intensity. * Elaine Anderson NP - 01/11/2025 2:40 PM ESTAssociated Problem(s): ISLAS (dyspnea on exertion) Likely multifactorial at baseline secondary to underlying cardiac disease, pulmonary disease, obesity, and deconditioning however, more recently likely significantly contributed to by recent viral infections. We will continue to readdress this as discussed above. Orders: Pulmonary function testing: Carbon Monoxide Diffusing Capacity, Nitrogen Wash Out, Spirometry with Bronchodilator; Future Complete blood count; Future * Elaine Anderson NP - 01/11/2025 2:40 PM ESTAssociated Problem(s): Obstructive sleep apnea Due to issues with her CPAP machine, she has not worn CPAP in almost 1 year; she has had a retitration study done and will continue to follow-up with pulmonology regarding this. Despite having simplysuffered from significant respiratory viral illness, we discussed that her fatigue may in part be due to her untreated GERMAN. She is looking forward to obtaining a new CPAP machine and is hopeful that it will be in the very near future. * Elaine Anderson NP - 01/11/2025 2:40 PM EST Images from the original note were not included. [facility] PRIMARY RECOVERY RN: Adam Montenegro MD PCP: Eulalio Raines MD HPI: Jessica Tran is a 79 y.o. old female with a past medical history significant for ischemic cardiomyopathy, coronary artery disease, paroxysmal atrial fibrillation anticoagulated with Eliquis and on amiodarone for rate control, hypertension, and hyperlipidemia. She also has a history of GERMAN on CPAP. Of note, she lost her of 55 years to pneumonia in February 2024. This patient has a history of STEMI in August 2022 cardiac cath revealed a 50% stenosis in the midsegment of the LAD with 100% thrombotic occlusion of the mid LAD distal to D2. First diagonal was small to moderate-sized with mild diffuse disease. Second diagonal was small sized with 70 to 80% stenosis. 50% proximal stenosis to OM1, 50% stenosis of OM 2. The RCA was a large vessel with 30 to 40% mid stenosis. Moderate RPDA. Large RPL S with 40% stenosis. She received a SAMY to the LAD. She was also in atrial fibrillation with RVR. She presented with severe dyspnea but no chest pain. Echo showed apical and mid anteroseptal wall akinesis. She was small apical thrombus, EF 35 to 40%. She did convert back to sinus rhythm but continued to have intermittent bursts of atrial fibrillation. She wasstarted on amiodarone at the time of her echocardiogram where she was found to be in atrial fibrillation with RVR. 24-hour Holter for reports of ongoing fatigue completed in 07/2023 revealed sinus rhythm with intermittent rate related first-degree AV block with episodes of sinus arrhythmia. Frequent PACs with occasional atrial pairs and atrial runs versus atrial tach with a variable block lasting up to 10 beats.Rates up to 188. Rare PVCs. Her most recent echocardiogram completed 01/07/2024 revealed evidence of large anterior apical infarct - the base of the anterior septum contracted but from that point on down towards apex, the septumappeared akinetic. The base of the inferior wall was hypokinetic. The apex was dyskinetic. The lateral wall near the apex was also akinetic but the rest of the lateral wall contracted well. The inferior wall at the apex was akinetic. EF was estimated in the range of 30 to 40%, there was evidence ofdiastolic dysfunction with increased left atrial size. Normal a right atrium and right ventricle. 1+ MR, 1+ TR with normal estimated PA pressures. Mildly dilated ascending aorta 3.9 cm. There was no obvious thrombus in the left ventricle. The patient subsequently underwent PYP scan on 02/18/2024 which revealed findings that were equivocal for TTR amyloidosis. Given the patient's advanced age and likely ischemic nature of her cardiomyopathy, AL amyloid labs were deferred. Cardiac MRI completed 05/05/2024 revealed normal LV size with mildly reduced systolic function, quantitative LVEF 46%. Delayed contrast imaging revealed a large area of severe transmural enhancement involving the apex, all apical segments, mid anteroseptum, mid inferoseptum consistent with nonviablemyocardial infarction in the LAD territory; there was no evidence of LV thrombus. The patient presents today for follow-up of ischemic cardiomyopathy, coronary artery disease, atrial fibrillation, hypertension, and hyperlipidemia History of Present Illness She reports a persistent illness since July or August, initially diagnosed as influenza and is now what she call the 100 day flu. Despite treatment with antibiotics, oral steroids, and changes in her inhalers, she has not fully recovered, still experiencing chills and shaking as well as some shortness of breath with exertion that does appear to be improving over time. She continues to follow with pulmonology, with next visit scheduled for 02/16/2025. She estimates her recovery at approximately 50 percent, citing persistent fatigue and lack of energy as the worst of what is remaining. She has largely been homebound for the last 3 months but does stay active at home, ambulating up and down the stairs daily. At the beginning of her illness, this caused her a significant amount of shortness of breath but this is getting easier for her over time and she no longer has to stop intermediate up the stairs; some days are still better than others. She denies any chest pain or pressure at rest or with exertion. No palpitations, peripheral edema, lightheadedness or dizziness, syncope or presyncope, orthopnea or PND. 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 ACTIVE MEDICATIONS: Current Outpatient Medications Medication Instructions acitretin (SORIATANE) 10 mg capsule TAKE 1 CAPSULE BY MOUTH EVERY DAY IN THE MORNING BEFORE BREAKFAST albuterol HFA (PROAIR HFA ; PROVENTIL HFA ; VENTOLIN HFA) 90 mcg/actuation inhaler 2 puffs, inhalation, Every 4 hours PRN allopurinoL (ZYLOPRIM) 100 mg tablet 2 tablets, Daily amiodarone (PACERONE) 100 mg, Daily amiodarone (PACERONE) 200 mg, Daily atorvastatin (LIPITOR) 80 mg, Nightly Breo Ellipta 100-25 mcg/dose inhaler 1 puff, Daily carvediloL (COREG) 3.125 mg, 2 times daily with meals cetirizine (ZYRTEC) 10 mg, Daily cholecalciferol (VITAMIN D-3) 2,000 Units, oral, Daily clopidogreL (PLAVIX) 75 mg tablet 1 tablet, Daily dicyclomine (BENTYL) 10 mg, oral, 2 times daily Eliquis 5 mg, 2 times daily LORazepam (ATIVAN) 0.5 mg tablet 1 tablet, Every 6 hours PRN montelukast (SINGULAIR) 10 mg, Nightly nystatin (MYCOSTATIN) 100,000 unit/gram powder 1 Application, 2 times daily omeprazole (PriLOSEC) [address] capsule 1 capsule, Daily potassium chloride (KLOR-CON) 20 mEq packet 20 mEq, Daily sacubitriL-valsartan (Entresto) 49-51 mg per tablet 1 tablet, 2 times daily tiotropium (SPIRIVA) 18 mcg per inhalation capsule 1 capsule, Daily umeclidinium brm/vilanterol tr (ANORO ELLIPTA INHL) Inhale by mouth. PAST MEDICAL HISTORY: Patient Active Problem List Diagnosis Essential hypertension DVT of lower extremity (deep venous thrombosis) ([facility]/HCC) STEMI involving left anterior descending coronary artery ([facility]/HCC) Paroxysmal atrial fibrillation ([facility]) CAD (coronary artery disease) Ischemic dilated cardiomyopathy ([facility]/HCC) History of ST elevation myocardial infarction (STEMI) HFrEF (heart failure with reduced ejection fraction) ([facility]) Diastolic dysfunction Ascending aorta dilatation ([facility]/HCC) Gout Mixed hyperlipidemia Subclinical hypothyroidism Obesity (BMI 30.0-34.9) Irritable bowel syndrome Diverticulitis of colon without hemorrhage Basal cell carcinoma of skin Secondary hypercoagulable state ([facility]/HCC) CKD (chronic kidney disease) stage 3, GFR 30-59 ml/min ([facility]) Microscopic hematuria Migraine Obstructive sleep apnea Peripheral polyneuropathy Anxiety disorder ISLAS (dyspnea on exertion) Asthma COVID-19 ECG abnormal Phlebitis Elevated brain natriuretic peptide (BNP) level Degenerative arthritis of lumbar spine Squamous cell skin cancer ALLERGIES: Allergies Allergen Reactions Azithromycin Hallucinations and Nausea And Vomiting SOCIAL HISTORY: Social History Tobacco Use Smoking status: Never Smokeless tobacco: Never Substance Use Topics Alcohol use: Yes PHYSICAL EXAM: Vitals: 01/11/25 1447 BP: 120/78 BP Location: Left arm Patient Position: Sitting BP Cuff Size: Large adult Pulse: 66 SpO2: 99% Weight: 81.6 kg (180 lb) Height: 1.6 m (63 ) Body mass index is 31.89 kg/m??. Physical Exam Vitals reviewed. Constitutional: General: She is not in acute distress. Appearance: Normal appearance. She is obese. She is not ill-appearing. HENT: Head: Normocephalic and atraumatic. Mouth/Throat: Mouth: Mucous membranes are moist. Eyes: General: No scleral icterus. Extraocular Movements: Extraocular movements intact. Pupils: Pupils are equal, round, and reactive to light. Neck: Vascular: Normal carotid pulses. No carotid bruit, hepatojugular reflux or JVD. Cardiovascular: Rate and Rhythm: Normal rate and regular rhythm. Pulses: Normal pulses. Heart sounds: Normal heart sounds. No murmur heard. No friction rub. No gallop. Pulmonary: Effort: Pulmonary effort is normal. No respiratory distress. Breath sounds: Normal breath sounds. No wheezing, rhonchi or rales. Abdominal: General: There is no distension. Palpations: Abdomen is soft. Tenderness: There is no abdominal tenderness. Musculoskeletal: General: No swelling. Cervical back: Neck supple. Right lower leg: No edema. Left lower leg: No edema. Skin: General: Skin is warm and dry. Neurological: General: No focal deficit present. Mental Status: She is alert and oriented to person, place, and time. Cranial Nerves: No cranial nerve deficit. Gait: Gait abnormal (antalgic). Psychiatric: Attention and Perception: Attention normal. Mood and Affect: Mood and affect normal. Behavior: Behavior normal. Thought Content: Thought content normal. EKG: Encounter Date: 01/11/25 ECG 12 lead Result Value Ventricular Rate ECG 56 Atrial Rate 56 P-R Interval 186 QRS Duration 66 Q-T Interval 444 QTc 428 P Wave Lincoln 77 R Lincoln -20 T Lincoln 67 ECG Interpretation Sinus bradycardia Low voltage QRS Inferior infarct (cited on or before 11-JAN-2025) Cannot rule out Anterior infarct (cited on or before 11-JAN-2025) Abnormal ECG When compared with ECG of 11-JAN-2025 15:08, (unconfirmed) Fusion complexes are no longer Present Premature ventricular complexes are no longer Present *Note: Due to a large number of results and/or encounters for the requested time period, some results have not been displayed. A complete set of results can be found in Results Review. TESTING: Pulmonary function testing completed 02/2024 was normal except for mild impairment in diffusion capacity, similar to June 2023. Lab Results Component Value Date WBC 7.3 10/27/2024 HGB 13.5 10/27/2024 HCT 41.0 10/27/2024 MCV 103.0 (H) 10/27/2024 PLT 176 10/27/2024 Lab Results Component Value Date GLUCOSE 99 09/25/2024 CALCIUM 9.5 09/25/2024 NA 141 09/25/2024 K 5.0 09/25/2024 CO2 25 09/25/2024 CL 113 (H) 09/25/2024 BUN 21 09/25/2024 CREATININE 1.09 09/25/2024 Lab Results Component Value Date TSH 4.99 (H) 09/25/2024 Last LFTs completed 05/18/2024 within normal limits. ASSESSMENT/PLAN: Assessment & Plan Ischemic dilated cardiomyopathy (CMS/HCC) The patient has an ischemic cardiomyopathy with [...] metabolic panel today. GDMT has historically been somewhatlimited by CKD; we will continue to readdress this as needed. I've asked the patient to call if they develop worsening symptoms of heart failure such as increased shortness of breath, new or worsening cough, increased swelling in the legs or ankles, or weight gain of more than 2 pounds in one day or 4 pounds in one week. Chronic combined systolic and diastolic heart failure (CMS/HCC) Coronary artery disease involving chicken ranch coronary artery of chicken ranch heart without angina pectoris The patient has a history of coronary artery disease, having previously reported increase in fatigue and shortness of breath since her infarct in August 2022. Cardiac MRI from 04/2024 revealed an ischemic cardiomyopathy with mildly reduced LV systolic function due to a large nonviable infarct in the LAD territory. Over the last 3 to 4 months, she has struggled with recurrent viral respiratory infe ctions that have caused her to have increased shortness of breath with exertion that appears to be improving with time as well as ongoing fatigue/lack of energy. Prior to falling ill, she reports that her shortness of breath with this at baseline and she was doing fairly well. She remains active athome on a daily basis and denies any [...] panel with reflex to direct LDL; Future History of ST elevation myocardial infarction (STEMI) Essential hypertension Blood pressure is well-controlled on current medical therapy; continue Entresto and carvedilol. Gregll continue to follow with nephrology, Dr. Winter, given her history of CKD. Orders: Comprehensive metabolic panel; Future Complete blood count; Future Mixed hyperlipidemia LDL goal for this patient who has a history of coronary artery disease is less than 70; we will update a lipid panel today and readdress this as needed. Continue atorvastatin 80 mg daily. Orders: Lipid panel with reflex to direct LDL; Future Paroxysmal atrial fibrillation (CMS/HCC) Rate is well-controlled on beta-blockade; on amiodarone for rhythm control and has not had any recent symptoms to suggest recurrence. Due to significant bradycardia with a heart rate in the 40s, amiodarone was previously decreased to 100 mg daily with subsequent improvement in heart rate. ECG todayshows sinus bradycardia with a heart rate in [...] any head injury. Orders: ECG 12 lead Secondary hypercoagulable state (CMS/HCC) On amiodarone therapy Given the patient's reports of ongoing shortness of breath with exertion, likely secondary to her recent viral infections, we will update pulmonary function testing in an attempt to help differentiate between possible amiodarone toxicity as contributory. As above, we will update LFTs and TSH as well. Orders: Pulmonary function testing: Carbon Monoxide Diffusing Capacity, Nitrogen Wash Out, Spirometry with Bronchodilator; Future Comprehensive metabolic panel; Future Thyroid stimulating hormone with reflex to free t4 and free t3; Future Obesity (BMI 30.0-34.9) The patient is obese. Approaches towards weight loss are discussed, including burning more caloriesthan one takes in by portion control and regular exercise with an emphasis on duration rather than intensity. ISLAS (dyspnea on exertion) Likely multifactorial at baseline secondary to underlying cardiac disease, pulmonary disease, obesity, and deconditioning however, more recently likely significantly contributed to by recent viral infections. We will continue to readdress this as discussed above. Orders: Pulmonary function testing: Carbon Monoxide Diffusing Capacity, Nitrogen Wash Out, Spirometry with Bronchodilator; Future Complete blood count; Future Obstructive sleep apnea Due to issues with her CPAP machine, she has not worn CPAP in almost 1 year; she has had a retitration study done and will continue to follow-up with pulmonology regarding this. Despite having simplysuffered from significant respiratory viral illness, we discussed that her fatigue may in part be due to her untreated GERMAN. She is looking forward to obtaining a new CPAP machine and is hopeful that it will be in the very near future. I have obtained verbal consent from Jessica Tran prior to the recording. I have advised Chase that she may refuse the recording and require the recording to be turned off at any time during this encounter. I personally spent a total of 40 minutes, including both [id number] and [id number]-[id number]-face time on the date of the encounter, addressing the above diagnoses. Activities performed in this time include chart review, obtaining / reviewing history, performing amedically necessary evaluation, documentation and counseling including medical decision making of ischemic cardiomyopathy, combined systolic and diastolic heart failure, coronary artery disease, hyper tension, hyperlipidemia, paroxysmal atrial fibrillation on amiodarone therapy, obesity, ISLAS, GERMAN. Thank you for allowing us to participate in the care of this patient. The patient will follow up in3 months, sooner PRN. As per AHA guidelines and previously established plan of care by Dr. Adam Montenegro MD, we discussed the following today: 1. Ischemic dilated cardiomyopathy (CMS/HCC) 2. Chronic combined systolic and diastolic heart failure (CMS/HCC) 3. Coronary artery disease involving chicken ranch coronary artery of chicken ranch heart without angina pectoris 4. History of ST elevation myocardial infarction (STEMI) 5. Essential hypertension 6. Mixed hyperlipidemia 7. Paroxysmal atrial fibrillation (CMS/HCC) 8. Secondary hypercoagulable state (CMS/HCC) 9. On amiodarone therapy 10. Obesity (BMI 30.0-34.9) 11. ISLAS (dyspnea on exertion) 12. Obstructive sleep apnea [facility] Cosigned by Adam Montenegro MD at 01/12/2025 1:08 PM EST documented in this encounter Plan of Treatment Upcoming Encounters Date Type Department Care Team (Late st Contact Info) Description 02/07/2025 10:00 AM EDT Office Visit Adult Medicine [address] [phone] Eulalio Raines MD [address] [place] [id number] 02/26/2025 11:00 AM EDT Appointment [facility] Pulmonary [address] [place] [id number] 08/08/2025 9:50 AM EDT Office Visit [facility] [address] [facility] [address] [place] [phone] Adam Montenegro MD 300 [facility] [address] [place] [address] 09/13/2025 11:00 AM EDT Appointment Radiology Department - [address] [phone] 09/20/2025 3:30 PM EDT Office Visit Nephrology - [address] [phone] Lenny Winter MD [address] [phone] Scheduled Orders Name Type Priority Associated Diagnoses Orde r Schedule Pulmonary function testing: Carbon Monoxide Diffusing Capacity, Nitrogen Wash Out, Spirometry with Bronchodilator PFT Routine On amiodarone therapy ISLAS (dyspnea on exertion) 1 Occurrences starting 01/11/2025 until 01/11/2026 documented as of this encounter Procedures Procedure Name Priority Date/Time Associated Diagnosis Comments ECG 12-LEAD Routine 01/11/2025 8:59 PM EST Paroxysmal atrial fibrillation (CMS/HCC) documented in this encounter Results * (ABNORMAL) Complete blood count (01/15/2025 9:46 AM EST) [facility] Signature WBC 7.3 4.8 - 10.8 K/mcL LAB HEMETOLOGY METHOD 01/15/2025 2:00 PM [facility] RBC 3.80 3.80 - 4.80 M/mcL LAB HEMETOLOGY METHOD 01/15/2025 2:00 PM [facility] Hemoglobin 12.8 11.5 - 16.0 g/dL LAB HEMETOLOGY METHOD 01/15/2025 2:00 PM [facility] Hematocrit 40.7 35.0 - 47.0 % LAB HEMETOLOGY METHOD 01/15/2025 2:00 PM EST [facility] MCV 107.1(H) 79.0 - 98.0 FL LAB HEMETOLOGY METHOD 01/15/2025 2:00 PM [facility] MCH 33.7(H) 27.0 - 32.0 pcg LAB HEMETOLOGY METHOD 01/15/2025 2:00 PM [facility] MCHC 31.4(L) 32.0 - 37.0 g/dL LAB HEMETOLOGY METHOD 01/15/2025 2:00 PM [facility] RDW 14.3 11.0 - 15.0 % LAB HEMETOLOGY METHOD 01/15/2025 2:00 PM [facility] Platelets 208 130 - 400 K/mcL LAB HEMETOLOGY METHOD 01/15/2025 2:00 PM [facility] MPV 11.8(H) 7.0 - 11.0 FL LAB HEMETOLOGY METHOD 01/15/2025 2:00 PM [facility] NRBC 0.0 <1.0 % LAB HEMETOLOGY METHOD 01/15/2025 2:00 PM [facility] NRBC Absolute 0.00 <0.10 K/mcL LAB HEMETOLOGY METHOD 01/15/2025 2:00 PM [facility] Blood Venous blood specimen / Unknown Venipuncture / Unknown 01/15/2025 9:46 AM EST 01/15/2025 9:49 AM EST Elaine Anderson NP LAB BLOOD ORDERABLES Final Result [facility] [address] [place] [address], * Lipid panel with reflex to direct LDL (01/15/2025 9:46 AM EST) Cholesterol 135 0 - 200 mg/dL LAB CHEMISTRY METHOD 01/15/2025 12:49 PM EST [facility] Triglycerides 109 0 - 150 mg/dL LAB CHEMISTRY METHOD 01/15/2025 12:49 PM [facility] HDL 68 >=40 mg/dL LAB CHEMISTRY METHOD 01/15/2025 12:49 PM [facility] LDL Calculated 45 0 - 100 mg/dL LAB CHEMISTRY METHOD 01/15/2025 12:49 PM EST [facility] VLDL Cholesterol Christopher 21.8 mg/dL LAB CHEMISTRY METHOD 01/15/2025 12:49 PM [facility] Non HDL Chol. (LDL+VLDL) 67 <145 mg/dL LAB CHEMISTRY METHOD 01/15/2025 12:49 PM [facility] Chol/HDL Ratio 2.0 0.0 - 4.4 LAB CHEMISTRY METHOD 01/15/2025 12:49 PM [facility] Blood Venous blood specimen / Unknown Venipuncture / Unknown 01/15/2025 9:46 AM EST 01/15/2025 9:49 AM EST Elaine Anderson NP LAB BLOOD ORDERABLES Final Result [facility] [address] [place] [address], * (ABNORMAL) Thyroid stimulating hormone with reflex to free t4 and free t3 (01/15/2025 9:46 AM EST) [facility] TSH 6.16(H) 0.40 - 4.00 mcIU/mL LAB CHEMISTRY METHOD 01/15/2025 12:30 PM [facility] Blood Venous blood specimen / Unknown Venipuncture / Unknown 01/15/2025 9:46 AM EST 01/15/2025 9:49 AM EST Elaine Anderson NP LAB BLOOD ORDERABLES Final Result [facility] [address] [place] [address], * (ABNORMAL) Comprehensive metabolic panel (01/15/2025 9:46 AM EST) Sodium 145 133 - 145 mmol/L LAB CHEMISTRY METHOD 01/15/2025 12:49 PM [facility] Potassium 4.2 3.5 - 5.5 mmol/L LAB CHEMISTRY METHOD 01/15/2025 12:49 PM [facility] Chloride 115(H) 96 - 110 mmol/L LAB CHEMISTRY METHOD 01/15/2025 12:49 PM [facility] CO2 19(L) 21 - 32 mmol/L LAB CHEMISTRY METHOD 01/15/2025 12:49 PM [facility] Anion Gap 11 3 - 11 LAB CHEMISTRY METHOD 01/15/2025 12:49 PM [facility] Glucose 99 70 - 100 mg/dL LAB CHEMISTRY METHOD 01/15/2025 12:49 PM [facility] BUN 21 5 - 25 mg/dL LAB CHEMISTRY METHOD 01/15/2025 12:49 PM [facility] Creatinine 1.06 0.50 - 1.10 mg/dL LAB CHEMISTRY METHOD 01/15/2025 12:49 PM [facility] eGFR 54(L) >=60 mL/min/1. 73m2 LAB CHEMISTRY METHOD 01/15/2025 12:49 PM [facility] Comment:Calculation based on the??Chronic Kidney Disease Epidemiology Collaboration (CKD-EPI) equation refit??without adjustment for race. BUN/Creatinine Ratio 19.8 LAB CHEMISTRY METHOD 01/15/2025 12:49 PM [facility] Calcium 9.2 8.5 - 10.5 mg/dL LAB CHEMISTRY METHOD 01/15/2025 12:49 PM [facility] AST (SGOT) 19 10 - 42 unit/L LAB CHEMISTRY METHOD 01/15/2025 12:49 PM [facility] ALT (SGPT) 20 10 - 60 unit/L LAB CHEMISTRY METHOD 01/15/2025 12:49 PM [facility] Alkaline Phosphatase 106 42 - 121 unit/L LAB CHEMISTRY METHOD 01/15/2025 12:49 PM [facility] Total Protein 6.6 6.0 - 8.0 g/dL LAB CHEMISTRY METHOD 01/15/2025 12:49 PM [facility] Albumin 3.6 3.2 - 5.0 g/dL LAB CHEMISTRY METHOD 01/15/2025 12:49 PM [facility] Total Bilirubin 0.4 0.0 - 1.4 mg/dL LAB CHEMISTRY METHOD 01/15/2025 12:49 PM [facility] Blood Venous blood specimen / Unknown Venipuncture / Unknown 01/15/2025 9:46 AM EST 01/15/2025 9:49 AM EST Elaine Anderson RING MAKER LAB BLOOD ORDERABLES Final Result [facility] [address] [place] [address], * ECG 12 lead (01/11/2025 8:59 PM EST) Ventricular Rate ECG 56 BPM GEMUSE Atrial Rate 56 BPM GEMUSE P-R Interval 186 ms GEMUSE QRS Duration 66 ms GEMUSE Q-T Interval 444 ms GEMUSE QTc 428 ms GEMUSE P Wave [place] 77 degrees GEMUSE R [place] -20 degrees GEMUSE T [place] 67 degrees GEMUSE ECG Interpretation Sinus bradycardia Low voltage QRS Inferior infarct (cited on or before 11-JAN-2025) Cannot rule out Anterior infarct (cited on or before 11-JAN-2025) Abnormal ECG When compared with ECG of 11-JAN-2025 15:08, (unconfirmed) Fusion complexes are no longer Present Premature ventricular complexes are no longer Present voltage decreased Confirmed by Liu MONTENEGRO, ADAM ([id number]) on 01/12/2025 8:54:34 AM GEMUSE 01/11/2025 3:09 PM EST 01/12/2025 8:54 AM EST Elaine Anderson NP ECG ORDERABLES Edite d Result - Final GEMUSE documented in this encounter Visit Diagnoses Diagnosis 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 (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 History of ST elevation myocardial infarction (STEMI) Essential hypertension Unspecified essential hypertension Mixed hyperlipidemia Paroxysmal atrial fibrillation (CMS/HCC) Atrial fibrillation Secondary hypercoagulable state (CMS/HCC) Secondary hypercoagulable state On amiodarone therapy Obesity (BMI 30.0-34.9) ISLAS (dyspnea on exertion) Other dyspnea and respiratory abnormality Obstructive sleep apnea Obstructive sleep apnea (adult) (pediatric) Encounter for screening mammogram for breast cancer documented in this encounter Discontinued Medications Medication Sig Discontinue Reason Start Date End Da te fluticasone (VERAMYST) 27.5 mcg/actuation nasal spray Administer 1-2 sprays into each nostril 1 (one) time each day. Discontinued by another clinician 11/20/2024 01/11/2025 carvedilol CR (COREG CR) 10 mg 24 hr capsule Take 1 capsule (10 mg total) by mouth 2 (two) times a day. Do not crush or chew. Duplicate order 01/11/2025 documented as of this encounter Historical Medications * This list may reflect changes made after this encounter. tiotropium (SPIRIVA) 18 mcg per inhalation capsule Place 1 capsule (18 mcg total) into inhaler and inhale 1 (one) time each day. sacubitriL-valsar dallsa (Entresto) 49-51 mg per tablet Take 1 tablet by mouth 2 (two) times a day. carvedilol CR (COREG CR) 10 mg 24 hr capsule Take 1 capsule (10 mg total) by mouth 2 (two) times a day. Do not crush or chew. 01/11/2025 amiodarone (PACERONE) 200 mg tablet Take 1 tablet (200 mg total) by mouth 1 (one) time each day. 01/15/2025 added in this encounter Care Teams Cardiovascular Surgeon Relationship Specialty Start Date End Date Eulalio Raines MD [address] [place] [address] PCP - General Internal Medicine 06/25/20 documented as of this encounter
--- OUTSIDE RECORDS SUMMARY | 2025-02-05 15:15 | XMS_ITS | Encounter Summary ---
[facility] Organization [facility] Address [address] [place] [address] Care Team Providers Care Senior Net Software Developer Name Role Phone Eulalio Raines MD Primary Care Provider [phone] Adam Kern MD Unavailable Kat Koch MARKET EDITOR Unavailable Unavailab Roopa Quiñones PA-C Unavailable Elaine Anderson MARKET EDITOR Unavailable [phone] Encounter Details Date Type Department Care Team Description 08/27/2022 SCAN Medical Records [address] [place] [address] Abstract, Provider Social History Tobacco Use Types [...] suspected to have Coronavirus/COVID-19? No / Unsure 07/29/2022 9:20 AM EDT documented as of this encounter Plan of Treatment Not on file documented as of this encounter Procedures Procedure Name Priority Date/Time Associated Diagnosis Comments OUTSIDE CARDIAC CATH Routine 08/27/2022 documented in this encounter Results * OUTSIDE CARDIAC CATH (08/27/2022) Provider Default CARDIOLOGY documented in this encounter Visit Diagnoses Not on filedocumented in this encounter Care Teams Senior Net Software Developer Relationship Specialty Start Date End Date Eulalio Raines MD [address] [place] [address] PCP - General Internal Medicine 06/25/20 Adam Kern MD [address] [place] [address] Finish Rolls Operator Cardiovascular Disease 08/01/21 Kat Koch NP [address] [place], [place] [phone] Specialist Cardiology 09/05/21 05/25/23 Roopa Harris PA-C [address] [place] [address] Specialist Cardiology 05/26/23 Elaine Anderson NP [address] [place] [address] Cardiology 05/03/24 documented as of this encounter
--- OUTSIDE RECORDS SUMMARY | 2025-02-05 15:15 | XMS_ITS | Encounter Summary ---
Author Organization [facility] Address [address] [place] [address] Care Team Providers Care Geothermal Electrical Engineer Name Role Phone Eulalio Raines MD Primary Care Provider [phone] Adam Kern MD Unavailable Kat Koch REWARDS CONSULTANT Unavailable Unavailab Roopa Quiñones PA-C Unavailable [phone] Elaine Anderson REWARDS CONSULTANT Unavailable [phone] Reason for Visit * Reason Onset Date Comments Faxed Order 09/16/2022 Order #[id number] Encounter Details Date Type Department Care Team Description 09/16/2022 Telephone Adult Medicine [address] [phone] Eulalio Raines MD [address] [place] [address] [phone] Faxed Order (Order #[id number]) Social History Tobacco Use Types Packs/Day Years [...] suspected to have Coronavirus/COVID-19? No / Unsure 09/18/2022 10:26 AM EDT documented as of this encounter Miscellaneous Notes * Telephone Encounter - Alba Singleton - 09/16/2022 1:35 PM EDT Faxed order from Tavares Soto,??Order #[id number]. Please sign, date, and fax back. documented in this encounter Plan of Treatment Not on file documented as of this encounter Visit Diagnoses Not on filedocumented in this encounter Care Teams Geothermal Electrical Engineer Relationship Specialty Start Date End Date Eulalio Raines MD [address] [place] [address] PCP - General Internal Medicine 06/25/20 Adam Kern MD [address] [place] [address] Batter Scaler Cardiovascular Disease 08/01/21 Kat Koch NP [address] [place] [address] Specialist Cardiology 09/05/21 05/25/23 Roopa Harris PA-C [address] [place] [address] Specialist Cardiology 05/26/23 Elaine Anderson NP [address] [place] [address] Cardiology 05/03/24 documented as of this encounter
--- OUTSIDE RECORDS SUMMARY | 2025-02-05 15:15 | XMS_ITS | Encounter Summary ---
Author Organization [facility] Address [address] [place] [address] Care Team Providers Care Mail Reader Name Role Phone Eulalio Raines MD Primary Care Provider [phone] Adam Kern MD Unavailable Roopa Harris PA-C Unavailable [phone] Elaine Anderson NP Unavailable [phone] Encounter Details Date Type Department Care Team Description 08/18/2024 Orders Only Cardio PVC POC [address] [facility] [address] [place] [address] Default, Provider Social History Tobacco Use Types [...] Name Priority Date/Time Associated Diagnosis Comments OUTSIDE LAB Routine 05/18/2024 documented in this encounter Results * OUTSIDE LAB (05/18/2024) Provider Default LAB documented in this encounter Visit Diagnoses Not on filedocumented in this encounter Care Teams Mail Reader Relationship Specialty Start Date End Date Eulalio Raines MD [address] [place] [address] [phone] PCP - General Internal Medicine 06/25/20 Adam Kern MD [address] [place] [address] Production Line Operator Cardiovascular Disease 08/01/21 Roopa Harris PA-C [address] [place] [address] [phone] Specialist Cardiology 05/26/23 Elaine Anderson NP [address] [place] [address] Cardiology 05/03/24 documented as of this encounter
--- OUTSIDE RECORDS SUMMARY | 2025-02-05 15:15 | XMS_ITS | Encounter Summary ---
Author Organization [facility] Address [address] [place] [address] Care Team Providers Care Cocoa Bean Roaster Name Role Phone Eulalio Raines MD Primary Care Provider [phone] Adam Kern MD Unavailable Kat Koch ELECTRICAL DEVELOPMENT ENGINEER Unavailable Unavailab Roopa Quiñones PA-C Unavailable [phone] Elaine Anderson ELECTRICAL DEVELOPMENT ENGINEER Unavailable [phone] Encounter Details Date Type Department Care Team Description 07/17/2022 Business Doc Medical Records [address] [place] [address] Abstract, Provider Social History Tobacco Use Types [...] suspected to have Coronavirus/COVID-19? No / Unsure 07/16/2022 10:42 AM EDT documented as of this encounter Plan of Treatment Not on file documented as of this encounter Visit Diagnoses Not on filedocumented in this encounter Care Teams Cocoa Bean Roaster Relationship Specialty Start Date End Date Eulalio Raines MD [address] [place] [address] PCP - General Internal Medicine 06/25/20 Adam Kern MD [address] [place] [address] Body Piercer Cardiovascular Disease 08/01/21 Kat Koch NP [address] [place] [address] Specialist Cardiology 09/05/21 05/25/23 Roopa Harris PA-C [address] [place] [address] Specialist Cardiology 05/26/23 Elaine Anderson NP [address] [place] [address] Cardiology 05/03/24 documented as of this encounter
--- OUTSIDE RECORDS SUMMARY | 2025-02-05 15:15 | XMS_ITS | Encounter Summary ---
Author Organization [facility] Address [address] [place] [address] Care Team Providers Care Planning Technician Name Role Phone Eulalio Raines MD Primary Care Provider Adam Kern MD Unavailable Kat Koch CYCLE CONSULTANT Unavailable Unavailab Roopa Quiñones PA-C Unavailable Elaine Anderson CYCLE CONSULTANT Unavailable [phone] Encounter Details Date Type Department Care Team Description 05/07/2022 SCAN [facility] [address] [address] Sekou Rey DPM [address] [phone] Social History Tobacco Use Types Packs/Day Years [...] suspected to have Coronavirus/COVID-19? No / Unsure 04/27/2022 9:26 AM EDT documented as of this encounter Plan of Treatment Not on file documented as of this encounter Visit Diagnoses Not on filedocumented in this encounter Care Teams Planning Technician Relationship Specialty Start Date End Date Eulalio Raines MD [address] [place] [address] PCP - General Internal Medicine 06/25/20 Adam Kern MD [address] [place] [address] Retail Consultant Cardiovascular Disease 08/01/21 Kat Koch NP [address] [place] [address] Specialist Cardiology 09/05/21 05/25/23 Roopa Harris PA-C [address] [place] [address] Specialist Cardiology 05/26/23 Elaine Anderson NP [address] [place] [address] Cardiology 05/03/24 documented as of this encounter
--- OUTSIDE RECORDS SUMMARY | 2025-02-05 15:15 | XMS_ITS | Encounter Summary ---
Author Organization [facility] Address [address] [place] [address] Care Team Providers Care Semiautomatic Stitcher Operator Name Role Phone Ren Bourne MD Primary Care Provider Unavail able Eulalio Raines MD Primary Care Provider [phone] Adam Kern MD Unavailable Kat Koch NECK BAND OPERATOR Unavailable Unavailab Roopa Quiñones PA-C Unavailable Elaine Anderson NECK BAND OPERATOR Unavailable [phone] Reason for Visit * Reason Comments E-prescribe Rx Request Encounter Details Date Type Department Care Team Description 11/02/2019 Refill Gastroenterology - [place] 175 [facility] [address] [place] [address] De Lujan MD 175 [facility] [address] [place], [place] [phone] E-prescribe Rx Request Social History Tobacco Use [...] on filedocumented in this encounter Care Teams Semiautomatic Stitcher Operator Relationship Specialty Start Date End Date Ren Bouren MD PCP - General 07/18/04 06/24/20 Eulalio Raines MD [address] [place] [address] PCP - General Internal Medicine 06/25/20 Adam Kern MD [address] [place] [address] Tractor Distributor Cardiovascular Disease 08/01/21 Kat Koch NP [address] [place] [address] Specialist Cardiology 09/05/21 05/25/23 Roopa Harris PA-C [address] [place] [address] Specialist Cardiology 05/26/23 Elaine Anderson NP [address] [place] [address] Cardiology 05/03/24 documented as of this encounter
--- OUTSIDE RECORDS SUMMARY | 2025-02-05 15:15 | XMS_ITS | Encounter Summary ---
Author Organization [facility] Address [address] [place] [address] Care Team Providers Care Forklift Operator Name Role Phone Eulalio Raines MD Primary Care Provider [phone] Adam Kern MD Unavailable Kat Koch PATTERN CLERK Unavailable Unavailab Roopa Quiñones PA-C Unavailable [phone] Elaine Anderson PATTERN CLERK Unavailable [phone] Reason for Visit * Reason Comments E-prescribe Rx Request Encounter Details Date Type Department Care Team Description 04/26/2022 Refill Adult Medicine [address] [phone] Eulalio Raines MD [address] [place] [address] [phone] E-prescribe Rx Request Social History Tobacco Use [...] * Telephone Encounter - Shasha Butler - 04/27/2022 1:16 PM EDT Ashley 03/16/22 Ov 07/17/22 Lab Results Component Value Date NA 140 01/21/2022 K 3.7 01/21/2022 CO2 26 01/21/2022 CL 108 01/21/2022 BUN 18 01/21/2022 CREAT 1.08 01/21/2022 GLU 92 01/21/2022 CA 9.2 01/21/2022 GFR 49 01/21/2022 * Telephone Encounter - Mica Peck - 04/27/2022 10:52 AM EDT Patient would like script to be: E-PRESCRIBED/FAXED TO PHARMACY WHEN WAS THE PATIENT'S LAST APPOINTMENT IN ADULT MEDICINE? 03/16/22 WHEN WAS THE LAST TIME THE PATIENT SAW THEIR PCP? Same as above Does patient have an upcoming appointment? Yes 07/17/22 (THE MEDICATION REQUESTED IS ON THE MED [...] / Plan: [place] / Product Type: MEDICARE [id number] documented in this encounter Plan of Treatment Not on file documented as of this encounter Visit Diagnoses Not on filedocumented in this encounter Care Teams Forklift Operator Relationship Specialty Start Date End Date Eulalio Raines MD [address] [place] [address] PCP - General Internal Medicine 06/25/20 Adam Kern MD [address] [place] [address] Chief Lock Tender Operator Cardiovascular Disease 08/01/21 Kat Koch NP [address] [place] [address] Specialist Cardiology 09/05/21 05/25/23 Roopa Harris PA-C [address] [place] [address] Specialist Cardiology 05/26/23 Elaine Anderson NP [address] [place] [address] Cardiology 05/03/24 documented as of this encounter
--- OUTSIDE RECORDS SUMMARY | 2025-02-05 15:15 | XMS_ITS | Encounter Summary ---
Author Organization [facility] Address [address] [place] [address] Care Team Providers Care Ferryboat Helper Name Role Phone Eulalio Raines MD Primary Care Provider [phone] Adam Kern MD Unavailable Kat Koch SANITATION SUPERINTENDENT Unavailable Unavailab Roopa Quiñones PA-C Unavailable [phone] Elaine Anderson SANITATION SUPERINTENDENT Unavailable [phone] Encounter Details Date Type Department Care Team Description 04/03/2022 [facility] Medical Records [address] [place] [address] Sekou Rey DPM 175 [facility] [address] [place] [address] Social History Tobacco Use Types Packs/Day Years [...] suspected to have Coronavirus/COVID-19? No / Unsure 04/06/2022 8:01 AM EDT documented as of this encounter Plan of Treatment Not on file documented as of this encounter Visit Diagnoses Not on filedocumented in this encounter Care Teams Ferryboat Helper Relationship Specialty Start Date End Date Eulalio Raines MD [address] [place] [address] PCP - General Internal Medicine 06/25/20 Adam Kern MD [address] [place] [address] Railcar Foreman Cardiovascular Disease 08/01/21 Kat Koch NP [address] [place] [address] Specialist Cardiology 09/05/21 05/25/23 Roopa Harris PA-C [address] [place] [address] Specialist Cardiology 05/26/23 Elaine Anderson NP [address] [place] [address] Cardiology 05/03/24 documented as of this encounter
--- OUTSIDE RECORDS SUMMARY | 2025-02-05 15:15 | XMS_ITS | Encounter Summary ---
Author Organization [facility] Address [address] [place] [address] Care Team Providers Care Newspaper Distributor Supervisor Name Role Phone Eulalio Raines MD Primary Care Provider [phone] Adam Kern MD Unavailable Roopa Harris PA-C Unavailable [phone] Elaine Anderson NP Unavailable [phone] Encounter Details Date Type Department Care Team Description 05/12/2024 Telephone Cardio PVC [facility] [address] [place] [address] Adam Kern MD [address] [place] [address] [phone] Social History Tobacco Use Types Packs/Day Years [...] encounter Miscellaneous Notes * Telephone Encounter - Adam Kern MD - 05/12/2024 1:12 PM EDT 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 By echo result her EF was more in the 30 to 40% range. 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 With a calculated EF of 46%. Holter without ventricular arrhythmias in the past. Last echo in December recently EF was 30 to 40%. Which she still qualify for an ICD. No symptoms to suggest dysrhythmia at this time. documented in this encounter Plan of Treatment Not on file documented as of this encounter Visit Diagnoses Not on filedocumented in this encounter Care Teams Newspaper Distributor Supervisor Relationship Specialty Start Date End Date Eulalio Raines MD [address] [place] [address] PCP - General Internal Medicine 06/25/20 Adam Kern MD [address] [place] [address] Events And Promotions Assistant Cardiovascular Disease 08/01/21 Roopa Harris PA-C [address] [place] [address] Specialist Cardiology 05/26/23 Elaine Anderson NP [address] [place] [address] Cardiology 05/03/24 documented as of this encounter
--- OUTSIDE RECORDS SUMMARY | 2025-02-05 15:15 | XMS_ITS | Encounter Summary ---
Author Organization [facility] Address [address] [place] [address] Care Team Providers Care Tablet Technician Name Role Phone Eulalio Raines MD Primary Care Provider [phone] Adam Kern MD Unavailable Kat Koch FAMILY SERVICES ASSISTANT Unavailable Unavailab Roopa Quiñones PA-C Unavailable Elaine Anderson FAMILY SERVICES ASSISTANT Unavailable [phone] Encounter Details Date Type Department Care Team Description 04/09/2022 Orders Only Medical Records [address] [place] [address] Sekou Rey DPM [facility] [address] [place] [address] Social History Tobacco Use Types Packs/Day Years [...] Name Priority Date/Time Associated Diagnosis Comments OUTSIDE PATHOLOGY Routine 04/03/2022 documented in this encounter Results * OUTSIDE PATHOLOGY (04/03/2022) Sekou Rey DPM OUTSIDE LAB documented in this encounter Visit Diagnoses Not on filedocumented in this encounter Care Teams Tablet Technician Relationship Specialty Start Date End Date Eulalio Raines MD [address] [place] [id number] PCP - General Internal Medicine 06/25/20 Adam Kern MD [address] [place] [address] Air Conditioning Specialist Cardiovascular Disease 08/01/21 Kat Koch NP [address] [place] [address] Specialist Cardiology 09/05/21 05/25/23 Roopa Harris PA-C [address] [place] [address] Specialist Cardiology 05/26/23 Elaine Anderson NP [address] [place] [id number] Cardiology 05/03/24 documented as of this encounter
--- OUTSIDE RECORDS SUMMARY | 2025-02-05 15:15 | XMS_ITS | Clinical Summary ---
Author Organization [facility] Address [address] [place] [address] Care Team Providers Care Nozzle Cement Sprayer Helper Name Role Phone Eulalio Raines MD Primary Care Provider [phone] Adam Kern MD Unavailable Roopa Harris PA-C Unavailable [phone] Elaine Anderson NP Unavailable [phone] Allergies Active Allergy Reactions Severity Noted Date Comments Azithromycin Nausea and Vomiting,hallucinations 11/18/2005 Medications Medication Sig Dispensed Refills Start Date End Date Status Melatonin 5 MG Tab Take by mouth daily. 0 Active ALBUTEROL SULFATE (Ventolin HFA) 108 (90 Base) MCG/ACT Aero Soln Take 2 Puffs by mouth every 4 hours as needed for Cough or Wheezing. 8.5 g 2 02/07/2024 Active acitretin (SORIATANE) 10 MG capsule Take 1 Capsule by mouth every morning (before breakfast). 90 Capsule 1 03/05/2024 Active nystatin (MYCOSTATIN) powder APPLY TO AREA TWICE A DAY 30 g 3 04/19/2024 Active lorazepam (ATIVAN) 0.5 MG tablet Take 1 Tablet by mouth every 6 hours as needed. 0 Active Sacubitril-Valsartan 49-51 MG TabIndications:Essenti al hypertension,STEMI involving left anterior descending coronary artery (HCC),Paroxysmal atrial fibrillation (HCC),Ischemic cardiomyopathy Take 49-51 mg by mouth every 12 hours. 180 Tablet 1 08/09/2024 Active Eliquis 5 MG Tab Take 1 Tablet by mouth 2 Times Daily. 180 Tablet 1 08/09/2024 Active allopurinol (ZYLOPRIM) 100 MG tablet Take 2 Tablets by mouth daily. 180 Tablet 1 08/09/2024 Active atorvastatin (LIPITOR) 80 MG tablet Take 1 Tablet by mouth at bedtime. 90 Tablet 1 08/09/2024 Active montelukast (SINGULAIR) 10 MG tablet Take 1 Tablet by mouth at bedtime. 90 Tablet 1 08/09/2024 Active carvedilol (COREG) 3.125 MG tablet Take 1 Tablet by mouth 2 times daily (with meals). 0 Active dicyclomine (BENTYL) 10 MG capsule Take 1 Capsule by mouth 2 Times Daily. 0 Active amiodarone (PACERONE) 200 MG tablet TAKE 1/2 TABLET BY MOUTH DAILY FOR 180 DAYS 45 Tablet 1 08/18/2024 Active cetirizine (ZYRTEC) 10 MG tablet TAKE 1 TABLET BY MOUTH EVERY DAY 90 Tablet 1 09/11/2024 Active clopidogrel (PLAVIX) 75 MG tablet TAKE 1 TABLET DAILY 90 Tablet 1 09/20/2024 Active omeprazole (PRILOSEC) 20 MG capsule TAKE 1 CAPSULE DAILY 90 Capsule 1 09/20/2024 Active potassium chloride (KLOR-CON) 20 MEQ packet DISSOLVE THE CONTENTS OF 1 PACKET (20 MEQ) IN BEVERAGE OF CHOICE AND DRINK BY MOUTH ONCE DAILY. 90 Each 1 09/21/2024 Active Active Problems Problem Noted Date Ascending aorta dilatation 08/29/2024 Overview: Echo 3.9 cm Diastolic dysfunction 08/14/[address] elevation myocardial infar ction (STEMI) 05/04/2024 HFrEF (heart failure with reduced ejecti on fraction) 05/04/2024 Secondary hypercoagulable state 05/04/20 24 Elevated brain natriuretic peptide (BNP) level 02/08/2024 ECG abnormal 02/02/2024 Hx of amiodarone therapy 06/07/2023 Last Assessment & Plan: We reviewed the potential toxicity related to ongoing amiodarone use. We are looking into repeat PFTs ordered 01/2024 as noted above. We will repeat metabolic panel given that her most recent LFTs completed on 02/07/2024 were elevated. TSH completed 02/07/2024 was very mildly elevated at 5.31; we will continue to monitor this as well. Ischemic dilated cardiomyopathy 09/24/20 Last Assessment & Plan: As above, the [...] one week. CAD (coronary artery disease) 09/23/2022 Last Assessment & Plan: The patient has [...] rest, or if they were to faint. STEMI involving left anterior descending coronary artery 09/18/2022 Last Assessment & Plan: Jessica is doing [...] bleeding or excessive bruising. Paroxysmal atrial fibrillation Last Assessment & Plan: Rate is well-controlled on beta-blockade; on amiodarone for rhythm control. The patient's most recent LFTs 04/2024 WNL; TSH due to be rechecked. The patient believes that she had labs completed more recently through her PCP at [facility] and we will attempt obtain these. TSH [...] internal bleeding, or for any head injury. COVID-19 08/19/2022 ISLAS (dyspnea on exertion) 08/01/2021 Last Assessment & Plan: The patient continues [...] evaluating possible underlying cause for her dyspnea. Peripheral polyneuropathy 01/02/2020 Microscopic hematuria 12/23/2018 Last Assessment & Plan: Will perform urine micro today and if still has blood, will refer to Urology. No concerning Home Health Care Social Worker findings and sx have resolved, thus no intervention necessary. Obstructive sleep apnea severe AHI 50 Overview: [facility] Home Polysomnogram: Date 08/05/2018; AHI 50, Unclassified apneas 54; Obstructive apneas 310; Central apneas 12; Mixed apneas 1; hypopneas 152; average oxygen saturation 94% (lowest 78% without saturations <88% for 5% or more of study) [facility] Polysomnogram treatment study. Date 01/09/2019. SE 58 [...] CPAP again in the very near future. Obesity (BMI 30.0-34.9) 07/09/2017 Last Assessment & Plan: Patient is obese. Approaches towards weight loss are discussed, including burning more calories than one takes in by portion control and regular exercise with an emphasis on duration rather than intensity . Subclinical hypothyroidism 01/28/2017 Overview: Component Value Date TSH 6.40 01/08/2017 TSH 4.41 11/27/2010 Basal cell carcinoma of skin 12/16/2016 Overview: right buddhist - ulcerated - Mohs; left anterior shoulder; left nasal alar - Mohs; right 3rd metatarsal; right forearm; right upper back - infiltrative; Right forearm - superficial type - ED&C; Right upper back - nodular type - ED&C 11/2019 Right medial knee - ED&C 02/2020 Left medial calf - ED&C Right forehead - Mohs 10/2020 Mixed hyperlipidemia 05/27/2016 Last Assessment & Plan: Most recent lipid panel completed 03/16/2023 revealed an LDL of 82; LDL goal is less than 70. Her lipid panel is typically monitored by her PCP and she believes that she had this checked more recently at [facility]; we will attempt to obtain these results. She will continue with high-dose atorvastatin but this may need to be readdressed if her LDL remains elevated above 70 on most recent check. Anxiety disorder 05/08/2015 Dyskinesia of esophagus 06/20/2014 Overview: Barium esophagram 2013. Solid food dysphagia. CKD (chronic kidney disease) stage 3, GF R 30-59 ml/min 03/27/2014 Overview: GFR 52 on 03/21/14 DVT of lower extremity (deep venous thro mbosis) 08/11/2011 Gout 12/09/2010 Overview: Recurrent atacks; hyperuricemia Degenerative arthritis of lumbar spine 0 01/13/2010 Essential hypertension 11/18/2005 Last Assessment & Plan: Blood pressure is well-controlled on current medical therapy; continue Entresto and carvedilol. Irritable bowel syndrome 11/18/2005 DIVERTICULOSIS OF COLON 11/18/2005 Esophageal reflux 11/18/2005 Overview: EGD 2004 for heartburn and dysphagia. Asthma 11/18/2005 MIGRAINE, 11/18/2005 Overview: IMO update Squamous cell skin cancer Overview: right nose, right distal LE, right dorsal foot, right anterior tibia, left distal tibia, left lateral leg, left nose, left neck - mohs, right lateral foot - ED&C, left distal tibia - ED&C Resolved Problems Problem Noted Date Resolved Date Premature atrial contractions 08/04/2021 Atrial tachycardia 08/04/2021 05/18/2023 Premature ventricular contractions 08/04/2021 05/18/2023 Palpitations 08/01/2021 05/18/2023 Last Assessment & Plan: Feeling well, no bothersome palpitations noted. Leg edema 08/01/2021 05/18/2023 Squamous cell carcinoma in situ 05/18/2017 05/18/2023 Overview: right wrist - ED&C Left neck - 09/2017 - referred for Mohs Right lateral LE - ED&C 01/2021 Right medial knee - ED&C 04/2021 Left medial distal tibia - ED&C 04/2021 Right frontal scalp - in situ - ED&C 07/12 Left forehead - in situ - ED&C 07/12 Left tibia - in situ - ED&C 07/12 Right ankle - in situ - ED&C 07/12 Sleep disorder 05/08/2015 05/18/2023 Spinal stenosis, lumbar 05/15/2011 05/15/20 11 Sacroiliac joint pain 05/15/2011 05/18/2023 Dysplastic nevus 01/23/2009 05/18/2023 Overview: Dysplastic nevus 01/22 left hand (mild atypia) Diverticulitis 10/10/2008 12/13/2019 Overview: 2001. SCC 02/08/2007 05/18/2023 Overview: SCC 01/22 left foot (in-situ) Actinic keratosis 02/08/2007 05/18/2023 Overview: Actinic keratosis 12/30 left forearm (hypertrophic) 02/22 right index finger (mild papillary squamous hyperplasia/actinic damage) Hemorrhage of gastrointestinal tract, unspecifie d 11/12/2006 05/18/2023 Overview: Chronic minor rectal bleeding. Negative colonoscopy 4.7.99. Negative colonoscopy 11/05/2008, no colon cancer screening needed for 10 years. IMO update Special screening for malignant neoplasms, colon 11/12/2006 05/18/2023 Overview: average risk factors. Negative colonoscopy 4.7.99. No colon cancer screening needed for 10 years. Sprain of lumbar region 11/18/2005 05/18/20 23 Immunizations Name Administration Dates Next Due COVID-19 (Pfizer) Pt Reported 08/16/2021, 021,12/31/2020 Influenza (> 6 Months) 08/29/2020,2016,08/19/2012,08/31,09/06/2008,10/07/2006,09/07/2005 Influenza Flu (PT Reported) 09/09/2019 Influenza Vaccine-quadrivale nt 4 Years Plus 11/11/2017 Influenza vaccine high dose age 65 and over 09/10/2023,07/29/2022,09/13/2021,08/29,09/10/2018,01/08/2017,09/07/2015 ,08/19/2012,08/31/2010,09/06/2008,09/22,09/07/2005 PREVNAR 20 09/10/2023 Pneumoccoccal(Adult) Polysac charide PPSV23 12/08/2010 Pneumococcal Conjugate PCV-13 01/01/2016 Shingrix (Recombinant zoster vaccine) 10/14/2020 ,08/13/2020 TD (STATE SUPPLIED FOR ADULT S AND CHILDREN) 01/04/2018 Tdap 10/18/2007 Zostavax 11/10/2011 Family History Medical History Relation Name Comments CA Ovarian Aunt brain tumor Father Diabetes Maternal Grandmother in childbirth Mother CA Breast Paternal Grandmother ? age Relation Name Status [...] file Not on file Not on file Last Filed Vital Signs Vital Sign Reading Time Taken Comments Blood Pressure 119/65 09/07/2024 1:20 PM EDT Pulse 57 09/07/2024 1:20 PM EDT Temperature 36.7 ??C (98 ??F) 08/09/2024 11:27 AM EDT Respiratory Rate 12 08/09/2024 11:27 AM EDT Oxygen Saturation 96% 08/14/2024 11:01 AM EDT Inhaled Oxygen Concentration - - Weight 79.4 kg (175 lb) 09/07/2024 1:20 PM EDT Height 160 cm (5' 3 ) 08/14/2024 11:01 AM EDT Body Mass Index 31 08/14/2024 11:01 AM EDT Plan of Treatment Health Maintenance Due Date Last Done Comments BONE DENSITY SCREENING 04/07/2023 , 01/20/2018, 09/14/2013 (Exception), Additional history exists DIABETES/HEART DISEASE: ANNUAL CHOLESTEROL (LDL) 03/16/2024 03/16/2023, 09/21/2022, 01/21/2022, Additional history exists Covid-19 Vaccine ( season) 2024 08/16/2021, 01/21/2021, 12/31/2020 INFLUENZA (#1) 2024 09/10/2023, 0905/2022, 09/13/2021, Additional history exists DEPRESSION SCREEN 08/04/2024 08/04/2023, , 01/21/2022, Additional history exists BMI CHECK/ADVISE 11/22/2024 09/10/2023, , 06/05/2021, Additional history exists FALL RISK ASSESSMENT 08/09/2025 08/09/2024, 08/04/2023, 07/29/2022, Additional history exists MAMMOGRAM 08/22/2025 08/22/2024, 08/07/2023, 07/16/2022, Additional history exists DTAP/TDAP/TD (3 - Td or Tdap) 01/04/2028 01/04/2018, 01/04/2018, 10/18/2007 HEPATITIS C SCREENING Addressed 09/14/2013 (Refused ) Overridden with the intention of not completing the topic SHINGLES VACCINE Completed 10/14/2020, , 11/10/2011 PNEUMOCOCCAL VACCINE Completed 09/10/2023, 01/01/2016, 12/08/2010 Care Teams Nozzle Cement Sprayer Helper Relationship Specialty Start Date End Date Eulalio Raines MD [address] [place] [address] PCP - General Internal Medicine 06/25/20 Adam Kern MD [address] [place], [place] Eyeglass Inspector Cardiovascular Disease 08/01/21 Roopa Harris PA-C [address] [place], [place] Specialist Cardiology 05/26/23 Elaine Anderson NP [address] [place] [address] Cardiology 05/03/24
--- OUTSIDE RECORDS SUMMARY | 2025-02-05 15:15 | XMS_ITS | Encounter Summary ---
Author Organization [facility] Address [address] [place] [address] Care Team Providers Care Tipple Worker Name Role Phone Eulalio Raines MD Primary Care Provider [phone] Adam Kern MD Unavailable Kat Koch FILE MACHINE OPERATOR Unavailable Unavailab Roopa Quiñones PA-C Unavailable [phone] Elaine Anderson FILE MACHINE OPERATOR Unavailable [phone] Encounter Details Date Type Department Care Team Description 09/01/2022 Home Health Certification Medical Records [address] [place] [id number] Tavares Soto Social History Tobacco Use Types Packs/Day Years [...] on filedocumented in this encounter Care Teams Tipple Worker Relationship Specialty Start Date End Date Eulalio Raines MD [address] [place] [address] PCP - General Internal Medicine 06/25/20 Adam Kern MD [address] [place] [address] [id number] Mixer Operator Vacuum Pan Salt Cardiovascular Disease 08/01/21 Kat Koch, LOUISE [address] [place] [address] Specialist Cardiology 09/05/21 05/25/23 Roopa Harrsi PA-C [address] [place] [address] Specialist Cardiology 05/26/23 Elaine Anderson NP [address] [place] [address] Cardiology 05/03/24 documented as of this encounter
== END 2025-02-05 13:54 | disposition home or self-care (01) ==
LOC: HO.HPS 13:04
PROVIDERS: PCP Internal Medicine; Visit Provider Nurse Practitioner Family
DX: J45.909 Unspecified asthma, uncomplicated (principal); R94.2 Abnormal results of pulmonary function studies; R06.00 Dyspnea, unspecified; R05.9 Cough, unspecified
CPT/HCPCS: 99214

== ENCOUNTER → 2025-02-05 13:04 | Outpatient (BNVA) | payer MEDICARE, OTHER, SELFPAY | PROVIDERS: PCP Internal Medicine; Visit Provider Nurse Practitioner Family | DX: J45.909 Unspecified asthma, uncomplicated (principal); R05.9 Cough, unspecified; R94.2 Abnormal results of pulmonary function studies; R06.00 Dyspnea, unspecified | CPT/HCPCS: 99212 ==

== ENCOUNTER 2025-03-19 15:54 | Outpatient (AMB) | payer MEDICARE, OTHER, SELFPAY ==
--- NOTE | 2025-03-19 12:36 | A.OFFVIS_ITS ---
Vital Signs 03/19/25 16:01 Height 5 ft 3 in Weight 181 lb 14.102 oz BMI 32.2 BP 118/60 Blood Pressure Location Lt brachial Position Sitting Pulse 82 Pulse Source Pulse Oximeter Pulse Oximetry (%) 98 Oxygen Delivery Method Room Air Intake Visit Reasons: Dyspnea Electrical Installation Supervisor: Electrical Installation Supervisor offered & declined Accompanied by: Self / Same As Patient Allergies z pack Adverse Reaction (Mild, Uncoded 03/19/25 16:05) Nausea and Vomiting Medication List - Last Reconciled 03/19/25 by Haritha Baltazar LPN acitretin 10 mg PO QAM albuterol sulfate 90 mcg/actuation inhalation allopurinol 200 mg PO DAILY amiodarone 100 mg PO DAILY apixaban (Eliquis) 5 mg PO BID atorvastatin 80 mg PO DAILY carvedilol 3.125 mg PO BID cetirizine 10 mg PO DAILY cholecalciferol (vitamin D3) 50 mcg PO DAILY clopidogrel 75 mg PO DAILY dicyclomine 10 mg PO BID PRN fluticasone furoate-vilanterol 200-25 mcg/dose (Breo Ellipta) 1 inh inhalation DAILY furosemide 20 mg PO DAILY ipratropium bromide 2 sprays intranasal BID 90 days loratadine 10 mg PO DAILY montelukast 10 mg PO BEDTIME mupirocin 2% 1 appl topical BID-TID nystatin 1 appl topical BID omeprazole 20 mg PO DAILY potassium chloride 20 mEq PO BID sacubitril-valsartan 24-26 mg (Entresto) 1 tab PO BID tiotropium bromide 1.25 mcg/actuation (Spiriva Respimat) 2 puffs inhalation DAILY HPI HPI Dyspnea: Details: Jessica is a pleasant 79 year old female, never smoker, with underlying asthma, severe GERMAN on CPAP, HTN, GERD, Atrial fibrillation on amiodarone, h/o DVT on eliquis, STEMI s/p stent LAD 2021, diastolic dysfunction and h/o basal cell carcinoma/melanoma. The last visit Breo was increased to 200 mcg in addition to Spiriva and albuterol MDI. She has also been using Zara and Singulair noting overall improvement in symptoms. She continues to report dyspnea on a with moderate exertion such as stairs, no issues walking on flat ground. She denies wheezing. She reports dry cough at nighttime possibly related to postnasal drip. She denies any symptoms suggestive of reflux. She has upcoming appointment with cardiology, Dr. Brand. She also noted h/o severe GERMAN, in need of a new machine as hers is >5 years old and beyond repair. [employer] is her DME however she is interested in switching to a local company. At the last visit an order was placed to [facility] and is awaiting new equipment. She denies any visits to urgent care or hospitalizations related to respiratory distress since the last visit. [facility] Social History Patient Tobacco Use Status: Never used Tobacco Review of Systems Const Denies chills, Denies excessive sweating, Denies fever(s), Denies headache(s) and Denies night sweats Eyes Denies dry eyes, Denies irritation and Denies itchy eyes ENT Reports Normal hearing present, Denies headache(s), Reports nasal congestion, Reports post nasal drip and Denies sore throat Card Denies chest pain, Denies chest pain at rest, Denies chest pain with activity, Denies claudication, Denies leg edema, Reports dyspnea on exertion and Denies orthopnea Resp Denies chest congestion, Reports cough, Denies excessive phlegm production, Denies pain on inspiration, Denies pain with cough, Reports dyspnea on exertion and Denies stridor Musc Denies myalgias Neuro Reports Normal hearing present and Denies headache(s) Endo Denies excessive sweating Prashant/Lymph Denies lymphadenopathy Aller/Immun Denies itchy eyes and Denies seasonal rhinorrhea Physical Exam Vital Signs: Last Vital Signs Pulse 82 03/19/25 16:01 BP 118/60 03/19/25 16:01 Pulse Ox 98 03/19/25 16:01 Oxygen Delivery Method Room Air 03/19/25 16:01 BMI result Body Mass Index 32.2 Const General: cooperative, healthy appearing, comfortable, no acute distress, well developed and alert Nutritional Appearance: obese Orientation/consciousness: patient oriented x3 Limitations: no limitations HEENT Head: Yes normal to inspection, Yes normocephalic and Yes atraumatic Ears: hearing grossly normal bilaterally and external ears normal Eyes General: appearance normal, both eyes and all related structures Eyelids: Yes eyelids normal Sclerae: sclerae normal EOM: EOMs intact bilaterally Neck Neck: Yes normal visual inspection and Yes no lymphadenopathy Lymphatic: no lymphadenopathy noted Chest Chest palpation & inspection: normal inspection of the chest Resp Effort & Inspection: normal respiratory effort, able to speak in complete sentences, no audible wheezes, no cough, no stridor, not tachypneic, no tripod positioning and no use of accessory muscles Auscultation: clear to auscultation bilaterally Cardio Jugular venous distension: no JVD Rate: regular rate Rhythm: regular rhythm Skin Other: warm, dry General skin exam: no rashes or lesions noted Neuro General: patient oriented x3 Cranial nerves: Yes Normal hearing present Cognition (Neuro): normal cognition Gait exam (Neuro): Normal gait present Extrem General: Yes normal to inspection, Yes capillary refill normal, Yes no clubbing, cyanosis or edema and Yes no pedal edema Psych Appearance: grossly normal and well kempt Speech and movement: Normal speech and movement present and Clear speech present Affect: normal affect Attitude: cooperative Thought process: Normal thought process present Thought content: Normal thought content present Insight: Good insight present (Psych) Judgement: Good judgement present (Psych) Assessment & Plan Assessment & Plan (1) Asthma: Code(s): J45.909 - Unspecified asthma, uncomplicated Category: Medical (2) Decreased diffusion capacity: Code(s): R94.2 - Abnormal results of pulmonary function studies Category: Medical (3) Paroxysmal nocturnal dyspnea: Code(s): R06.00 - Dyspnea, unspecified Category: Medical (4) Cough: Code(s): R05.9 - Cough, unspecified Category: Medical Plan At this time surely reports good effect with Breo 200 mcg, Spiriva and albuterol MDI, advised to continue. She is awaiting arrangement of CPAP therapy through [facility], recently received phone call to set up delivery. Prior chest CT revealed severe atherosclerotic changes and has upcoming appointment with cardiology to further discuss. Discuss trialing Flonase for likely postnasal drip. All questions were answered and patient is in agreement of plan. Will follow up in 8-10 weeks or sooner if needed. Coding Level of Care Code Est Pt Level 4 (57189) Diagnoses Asthma J45.909 Decreased diffusion capacity R94.2 Paroxysmal nocturnal dyspnea R06.00 Cough R05.9
[2025-03-19 16:01] VITALS: BP 118/60; PULSE 82; O2SAT 98; BMI 32.2
--- OUTSIDE RECORDS SUMMARY | 2025-03-19 18:39 | XMS_ITS | Data Portability ---
Author Organization [place] - [facility], Allergy Address [address] [address] Care Team Providers Care Ben Day Artist Name Role Phone BRAD ARENAS Referring Provider [...] Sensorine ural hearing loss of bilateral ears [id number] Active 2019 Sensorine ural hearing loss, bilateral ; Note: Date Diagnosed : 03/06/2020 9:48 AM (H90.3) Not Available [facility] 4 02:57:24 Bilateral tinnitus [id number] 02 Active 2020 Tinnitus, bilateral ; Note: Date Diagnosed : 04/22/2021 10:19 AM (H93.13) Not Available [facility] 4 02:57:22 Dysphagia [id number] Active 2024 KOFI KELLOGG MD [address] [facility],[place] [address], [place], [address] , [facility] 15:37:44 Chronic hoarsenes s [id number] 05 Active 2024 KOFI KELLOGG MD [address] [facility],[place] [address], [place], [address] , [facility] 15:37:50 Problem Notes None recorded. Procedures Surgical History Date Name Laterality Status Provider Name and Address Organization Details Recorded Time 12/27/2024 FOL_DP completed KOFI KELLOGG MD [address] [facility],[place] [address], [place], [address], [facility] 12/27/2024 15:37:34 Imaging Results None recorded. Procedure Notes None recorded. Medical Equipment None Reported. Allergies Allergen ID Allergen Name Allergen Category Reaction Reaction Severity Criticality Documentation Date Start Date Code Code System Note Provider Name and Address Organization Details Recorded Time 908403 Zithromax medicatio n other Not available Not available 04/04/2024 4 RxNorm React ion: unkno wn, unspe cifie d;; Not Available [facility] 4 01:09:30 Medications Name Sig Start Date [...] mg tablet 12/27 completed Medicati on ID: [id number] D uration Value: 30 Brand Name: terbinaf [...] mg tablet 12/27 completed Medicati on ID: [id number] D uration Value: 90 Brand Name: losartan Send Method: E-Prescr ibed Sub s Allowed: subs OK Speci al Instruct ion: TAKE 1 TABLET BY MOUTH EVERY DAY Medi cationGe nericNam e: losartan Not Available Not Available Not Available hydrochlo rothiazid e 12.5 mg capsule 12/27 completed Medicati on ID: [id number] D uration Value: 90 Brand Name: hydrochl orothiaz denny Send Method: E-Prescr ibed Sub s Allowed: subs OK Speci al Instruct ion: TAKE 1 CAPSULE BY MOUTH EVERY DAY Medi cationGe nericNam e: hydrochl orothiaz denny Not Available Not Available Not Available Glucosami ne 500 mg tablet 12/27 completed Medicati on ID: [id number] B rand Name: Glucosam ine Send Method: [...] mg capsule 12/27 completed Medicati on ID: [id number] B rand Name: Fish Oil Send Method: E-Prescr ibed Sub s Allowed: subs OK Medic ationGen ericName : Fish Oil Not Available Not Available Not Available Calcium 600 + D(3) 600 mg-5 mcg (200 unit) capsule 2019 active Medicati on ID: [id number] B rand Name: Calcium 600 + D(3) Sen d Method: E-Prescr ibed Sub s Allowed: subs OK Medic ationGen ericName : Calcium 600 + D(3) Not Available Not Available Not Available Eliquis 5 mg tablet TAKE 1 TABLET BY MOUTH TWICE A DAY active Not Available Not Available No t Available melatonin 10 mg capsule 12/27 completed Medicati on ID: [id number] B rand Name: melatoni n Send Method: [...] mg capsule 12/27 completed Medicati on ID: [id number] B rand Name: turmeric -turmeri c root extract Send Method: E-Prescr ibed Sub s Allowed: subs OK Medic ationGen ericName : turmeric -turmeri c root extract Not Available Not Available Not Available Vitals Date Recorded Body height Body mass index (BMI) Body weight Provider Name and Address Organization Details Last Updated DateTime 12/27/2024 160.02 cm 30.1 kg/m2 76344.7 g Niesha Mcgowan [facility] 12/27/2024 15:15:32 Social History None recorded. Functional Status None recorded. Mental Status None recorded. Family History Nothing Reported. Medical History No medical history recorded. Gynecological HistoryNo gynecological history recorded. Obstetrics History GPAL:G 0 P 0 0 0 0 Past Encounters Encounter ID Performer Location Encounter Start Date Encounter Closed Date Diagnosis/Indication Diagnosis SNOMED-CT Code Diagnosis ICD10 Code Diagnosis Note [id number] KOFI KELLOGG MD [facility] [address] [place] [address] 12/27/2024 15:00:07 12/27/2024 15:38:59 Dysphagia 39341943 R13.10 Chronic hoarseness 71553 30365 105 R49.0 Health Concerns Section Related Observation LastModified by Organization Detai ls LastModified Time None Recorded Concern Status LastModified by Organization Details LastModified Time None Recorded Advance Directives Directive None Recorded Payers Encounter Date Sequence Insurance Name Policy Number Policy Harper Covered Member ID Harper Member ID Guarantor Name 12/27/2024 2 [facility] - [employer] PLAN F (MEDICARE SUPPLEMENT) [id number] Jessica Tran [id number] Jessica Tran 12/27/2024 1 MEDICARE [place]: [facility] Jessica Tran [id number] Jessica Tran Notes Date Note Type Note Provider Name and Address Organization Details Recorded Time 12/27/2024 text/html throat clearing x 6 monthshoarse voicerx augmentin, flonase, prednisone - no reliefpulm consult dx bronchial asthmaomeprazole x 10 yrshx of ba swallow with esophageal dysmotility years ago PV 04/22/21 [facility] KOFI KELLOGG MD [address] [place] [address], [address], [place] - [facility] 12/27/2024 15:39:58 OBGyn Episode No OBEpisode recorded.
--- OUTSIDE RECORDS SUMMARY | 2025-03-19 18:39 | XMS_ITS ---
Author Organization [address] Address [address] [place] [phone] Phone Care Team Providers Care Unix Administrator Name Role Phone Eulalio Raines MD Primary Care Provider [phone] Transitional Care Management Status:Ongoing (Active) Start date:02/22/2025 Enrollment date:02/22/2025 Enrollment reason:Identified using hospital discharge data Case Team Name Relationship Phone Galina Jennings LPN Care Manager(Responsible Staff) Continued Care and Services Coordination
--- OUTSIDE RECORDS SUMMARY | 2025-03-19 18:39 | XMS_ITS | Clinical Summary ---
Author Organization [facility] [address] [place] [address] [place] [phone] Phone Care Team Providers Care Personal Financial Planner Name Role Phone Eulalio Raines MD Primary Care Provider [phone] Allergies Active Allergy Reactions Criticality Noted Date [...] mouth every 6 (six) hours if needed. 3 Active Eliquis 5 mg tablet Take 1 tablet (5 mg total) by mouth 2 (two) times a day. Active allopurinoL (ZYLOPRIM) 100 mg tablet Take 2 tablets (200 mg total) by mouth 1 (one) time each day. 2 Active clopidogreL (PLAVIX) 75 mg tablet Take 1 tablet (75 mg total) by mouth 1 (one) time each day. Active acitretin (SORIATANE) 10 mg capsule TAKE 1 CAPSULE BY MOUTH EVERY DAY IN THE MORNING BEFORE BREAKFAST 90 capsule 1 4 Active umeclidinium brm/vilanterol tr (ANORO ELLIPTA INHL) Inhale by mouth. Active Breo Ellipta 100-25 mcg/dose inhaler Inhale 1 puff by mouth 1 (one) time each day. 4 Active albuterol HFA (PROAIR HFA ; PROVENTIL HFA ; VENTOLIN HFA) 90 mcg/actuation inhaler Inhale 2 puffs by mouth every 4 (four) hours if needed for wheezing. 18 g 1 4 Active cholecalciferol (VITAMIN D-3) 50 mcg (2,000 unit) tablet TAKE 1 TABLET BY MOUTH ONCE DAILY 90 tablet 1 5 Active sacubitriL-vals rolly (Entresto) 49-51 mg per tablet Take 1 tablet by mouth 2 (two) times a day. Active tiotropium (SPIRIVA) 18 mcg per inhalation capsule Place 1 capsule (18 mcg total) into inhaler and inhale 1 (one) time each day. Active potassium chloride (KLOR-CON) 20 mEq packet MIX 1 PACKET IN LIQUID AND DRINK DAILY 90 packet 1 5 Active montelukast (SINGULAIR) 10 mg tablet TAKE 1 TABLET AT BEDTIME 90 tablet 1 5 Active omeprazole (PriLOSEC) [address] capsule TAKE 1 CAPSULE DAILY 90 capsule 1 5 Active cetirizine (ZyrTEC) 10 mg tablet Take 1 tablet (10 mg total) by mouth 1 (one) time each day. 90 tablet 1 5 Active dicyclomine (BENTYL) 10 mg capsule Take 1 capsule (10 mg total) by mouth 2 (two) times a day. 180 capsule 1 5 Active amiodarone (PACERONE) 200 mg tablet TAKE 1/2 TABLET BY MOUTH DAILY FOR 180 DAYS 45 tablet 1 5 Active atorvastatin (LIPITOR) 80 mg tablet TAKE 1 TABLET BY MOUTH EVERY DAY AT BEDTIME 90 tablet 1 5 Active Active Problems Problem Noted Date Diagnosed Date Phlebitis 09/25/2024 Squamous cell skin cancer 09/25/2024 Overview (09/25/2024): right nose, right distal LE, right dorsal foot, right anterior tibia, left distal tibia, left lateral leg, left nose, left neck - mohs, right lateral foot - ED&C, left distal tibia - ED&C Ascending aorta dilatation (CMS/HCC V24) 10/08/2 024 Overview (09/25/2024): Echo 3.9 cm Diastolic dysfunction 08/14/2024 HFrEF (heart failure with re duced ejection fraction) ([facility] V24, CMS/HCC V28) 05/04/2024 Assessment & Plan (01/11/2025 8:59 PM EST): Secondary hypercoagulable state ([facility] V24) Assessment & Plan (01/11/2025 8:59 PM EST): Elevated brain natriuretic peptide (BNP) level 0 02/08/2024 ECG abnormal 02/02/2024 Ischemic dilated cardiomyopathy (CMS/[facility] V24, CM S/HCC V28) 09/24/2022 Overview (09/25/2024): Last Assessment & Plan: [...] to direct LDL; Future STEMI involving left anterio r descending coronary artery ([facility] V24, [facility] V28) 09/18/2022 Overview (09/25/2024): Last Assessment & Plan: [...] bleeding or excessive bruising. Paroxysmal atrial fibrillation (CMS/HCC V24, CMS /HCC V28) 09/18/2022 Overview (09/25/2024): Last Assessment & Plan: Rate is well-controlled on beta-blockade; on amiodarone for rhythm control. The patient's most recent LFTs 04/2024 WNL; TSH due to be rechecked. The patient believes that she had labs completed more recently through her PCP at [facility] and we will attempt obtain these. TSH [...] blood, will refer to Urology. No concerning Step Down Specialist findings and sx have resolved, thus no intervention necessary. Obstructive sleep apnea 08/10/2018 Overview (09/25/2024): [facility] Home Polysomnogram: Date 08/05/2018; AHI 50, Unclassified apneas 54; Obstructive apneas 310; Central apneas 12; Mixed apneas 1; hypopneas 152; average oxygen saturation 94% (lowest 78% without saturations <88% for 5% or more of study) [facility] Polysomnogram treatment study. Date 01/09/2019. SE 58 [...] carcinoma of skin 12/16/2016 Overview (09/25/2024): right zoroastrianism - ulcerated - Mohs; left anterior shoulder; [...] she had this checked more recently at [facility]; we will attempt to obtain these results. [...] kidney disease) stage 3, GFR 30-59 ml/min ([facility] V24, CMS/[facility] V28) 03/27/2014 Overview (09/25/2024): GFR 52 on 03/21/14 DVT of lower extremity (deep venous thrombosis) ([facility] V24, [facility] V28) 08/11/2011 Gout 12/09/2010 Overview (09/25/2024): Recurrent atacks; [...] Encounters Date Type Department Care Team Description 02/26/2025 10:50 AM EDT - 02/26/2025 11:59 PM EDT Hospital Encounter [facility] Pulmonary [address] [place] [phone] On amiodarone therapy; ISLAS (dyspnea on exertion) Discharge Disposition: Home or Self Care 02/22/2025 Telephone [facility] Cardiology [address] [place] [phone] Dorian Washington NP 02/07/2025 10:00 AM EDT Office Visit Adult Medicine [address] [phone] Eulalio Raines MD HFrEF (heart failure with reduced ejection fraction) (CMS/HCC V24, CMS/HCC V28) (Primary Dx); Weight gain; Skin lesion; Essential hypertension; Coronary artery disease involving [place] coronary artery of [place] heart without angina pectoris; Pure hypercholesterolemia 02/01/2025 Telephone [facility] Cardiology [facility] [address] [facility] [address] [place] [phone] Elaine Anderson NP Appointment (PFT) 01/26/2025 Telephone Adult Medicine [address] [phone] Eulalio Raines MD Prior Authorization 01/17/2025 Telephone Adult Medicine [address] [phone] Eulalio Raines MD Medication Problem 01/11/2025 2:40 PM EST Office Visit [facility] [address] [phone] Elaine Anderson NP Ischemic dilated cardiomyopathy (CMS/HCC V24, CMS/HCC V28) (Primary Dx); Chronic combined systolic and diastolic heart failure (CMS/HCC V24, CMS/HCC V28); Coronary artery disease involving [place] coronary artery of [place] heart without angina pectoris; History of ST elevation myocardial infarction (STEMI); Essential hypertension; Mixed hyperlipidemia; Paroxysmal atrial fibrillation (CMS/HCC V24, CMS/HCC V28); Secondary hypercoagulable state (CMS/HCC V24); On amiodarone therapy; Obesity (BMI 30.0-34.9); ISLAS (dyspnea on exertion); Obstructive sleep apnea 01/11/2025 Telephone Adult Medicine [address] [phone] Elaine Anderson NP Medication from Last 3 Months Immunizations Name Administration [...] Comments HYSTERECTOMY 1979 PROCEDURE: HISTORICAL HYSTERECTOMY; COMMENT: [facility] BSO- fibroid uterus and heavy bleeding, in 50's SECTION PROCEDURE: HISTORICAL ESOPHAGOGASTRODUODENOSCOPY 11/26 PROCEDURE: MN ESOPHAGOGASTRODUODENOSCOPY TRANSORAL DIAGNOSTIC; COMMENT: rx: ppi MAMMOGRAM MARKUS 10/25 PROCEDURE: MAMMOGRAM, SCREENING, BOTH BREASTS; COMMENT: abnormal - lt breast OTHER SURGICAL HISTORY 06/24 PROCEDURE: PAP SMEAR (1 SLIDE) OTHER SURGICAL HISTORY 01/22 PROCEDURE: DXA, BONE DENSITY STUDY, 1+ SITES; VERTEBRAL FX ASSESS OTHER SURGICAL HISTORY 06/08/00 PROCEDURE: MN NASAL/SINUS NDSC W/TOTAL ETHOIDECTOMY; COMMENT: Dr. Simpson OTHER SURGICAL HISTORY PROCEDURE: HISTORICAL MELANOMA; COMMENT: L FOOT COLONOSCOPY 02/26/1999 PROCEDURE: MN COLONOSCOPY FLX DX W/COLLJ SPEC WHEN PFRMD; COMMENT: diverticulosis COLONOSCOPY 10/2008 PROCEDURE: MN COLONOSCOPY FLX DX W/COLLJ SPEC WHEN PFRMD; [...] COMMENT: Chronic minor rectal bleeding. Negative colonoscopy 4.. Next colonoscopy indicated 2008. Special screening for malign ant neoplasms, colon 11/12/2006 DX:Special screening for mal ignant neoplasms, colon; COMMENT: average risk factors. Negative colonoscopy .. No colon cancer screening necessary until 2008. Historical Medical DX DX:Other a nd unspecified [...] DX:Hyperlipidemi a Coronary artery disease invo lving [place] coronary artery of [place] heart without angina pectoris 09/23/2022 DX:Coronary artery disea se involving [place] coronary artery of [place] heart without angina pectoris Family History Medical [...] drink = 0.6 oz pur e alcohol) Housing Instability Answer Date Recorde d Are you worried that in the next 2 months you may not have stable housing? No 02/07/2025 Food Access & Nutrition Answer Date Rec orded Do you have access to a vari ety of food including fruits and vegetables? Yes 02/07/2025 Health Literacy Answer Date Recorded How often do you need to hav e someone help you when you read instructions, pamphlets, or other written material from your doctor or pharmacy? Never 02/07/2025 Caregiver: How often do you need to have someone help you when you read instructions, pamphlets, or other written material from your doctor or pharmacy? Not on file 02/07/2025 Financial Risk Answer Date Recorded How hard is it for you to pa y for the very basics like food, housing, medical care, and air conditioning / heating? Not very hard 02/07/2025 Transportation Answer Date Recorded Has the lack of transportati on kept you from meetings, work, or from getting things needed for daily living? No Has the lack of transportati on kept you from medical appointments or from getting medications? No 02/07/2025 Social Isolation Answer Date Recorded How often do you feel lonely or isolated from th ose around you? Never 02/07/2025 Food Risk Answer Date Recorded Within the past 12 months we worried whether our food would run out before we got money to buy more. Never true 02/07/2025 Within the past 12 months th e food we bought just didn't last and we didn't have money to get more. Never true 02/07/2025 Dependent Care Answer Date Recorded Do you need help finding or paying for care for your loved ones. For example, infant childcare provider or elderly care for an older adult? No 02/07/2025 Education Answer Date Recorded Do you think completing more education or training, like finishing a GED, going to college, or learning a trade, would be helpful for you? No 02/07/2025 Employment and Income Answer Date Recor ded During the last four weeks, have you been actively looking for work? No 02/07/2025 Living Situation Answer Date Recorded What is your living situation? 0 02/07/2025 Comments No Sex and Gender Information Value Date Recorded Sex Assigned at Female 02/22/2025 10:43 AM EDT Legal Sex Female 8:17 PM EST Gender Identity Female 02/22/2025 10:43 AM EDT Sexual Orientation Straight 02/22/2025 10 :43 AM EDT Obstetrics History Last Filed Vital Signs Vital Sign Reading Time Taken Comments Blood Pressure 92/58 02/07/2025 9:56 AM EDT Pulse 59 02/07/2025 9:56 AM EDT Temperature 35.7 ??C (96.3 ??F) 02/07/2025 9:56 AM ED T Respiratory Rate 13 02/07/2025 9:56 AM EDT Oxygen Saturation 99% 01/11/2025 2:47 PM EST Inhaled Oxygen Concentration - - Weight 81.4 kg (179 lb 8 oz) 02/07/2025 9:56 AM EDT Height 160 cm (5' 3 ) 02/07/2025 9:56 AM EDT Body Mass Index 31.8 02/07/2025 9:56 AM EDT Plan of Treatment Upcoming Encounters Date Type Department Care Team (Late st Contact Info) Description 03/20/2025 10:30 AM EDT Office Visit [address] [phone] Eulalio Raines MD [address] [place] [phone] 03/23/2025 1:40 PM EDT Office Visit [facility] Cardiology [facility] [address] [phone] Elaine Anderson NP [address] [address] 08/08/2025 9:50 AM EDT Office Visit [facility] Cardiology [facility] [address] [phone] Adam Montenegro MD [address] [address] 08/16/2025 1:15 PM EDT Office Visit [facility] - [address] [phone] Eulalio Raines MD [address] [place] [address] 09/13/2025 11:00 AM EDT Appointment Radiology Department - [address] [phone] 09/20/2025 3:30 PM EDT Office Visit Nephrology - [address] [phone] Lenny Winter MD [address] [place] [phone] Health Maintenance Due Date Last Done Comments RSV Immunization Adult Patients (1 - 1-dose 75+ series) 2020 Colorectal Cancer Screening: Colonoscopy 10/31/2022 Hepatitis C Screening 10/31/2022 Medicare Annual Wellness Visit 10/31/2022 COVID-19 Vaccine ( season) 2024 08/16/2021, 01/21/2021, 12/31/2020 Hypertension/CHF/CAD Annual BMP Blood Test 01/15/2026 01/15/2025, 09/25/2024, 06/06/2024, Additional history exists Depression Screening 02/07/2026 02/07/2025 Falls Risk Assessment 02/07/2026 02/07/2025 Social Influencers of Health Screening 02/07/2026 02/07/2025 DTaP,Tdap,and Td Vaccines (3 - Td or Tdap) 01/04/2028 01/04/2018, 10/18/2007 Cholesterol Screening (Lipid Panel) 01/15/2030 01/15/2025 Osteoporosis Screening (Bone Density Screening) 04/07/2031 04/07/2021, 01/20/2018 Zoster Vaccines Completed 10/14/2020, 07/24, 11/10/2011 Influenza Vaccine Discontinued 09/10/2023, , 09/13/2021, Additional history exists Pneumococcal Vaccine: 50+ Years Completed 09/10/2023, 01/01/2016, [...] age to complete this topic Meningococcal B Vaccine Aged Out No l onger eligible based on patient's age to complete this topic RSV Immunization Patients Under 20 months Aged Out No longer eligible based on patient's age to complete this topic Varicella Vaccines Aged Out No longer eligible based on patient's age to complete this topic Procedures Procedure Name Priority Date/Time Associated Diagnosis Comments HC SPIROMETRY BRONCHODILATION RESPONSIVENESS PRE/POST BRONCHODILATOR ADMINISTRATION Routine 02/26/2025 11:45 AM EDT On amiodarone therapy ISLAS (dyspnea on exertion) B-TYPE NATRIURETIC PEPTIDE Routine 02/07/2025 10:28 AM EDT HFrEF (heart failure with reduced ejection fraction) (CMS/HCC V24, CMS/HCC V28) Weight gain TRIIODOTHYRONINE FREE Routine 01/15/2025 9:46 AM EST [...] 9:46 AM EST Coronary artery disease involving [place] coronary artery of [place] heart without angina pectoris Mixed hyperlipidemia COMPLETE BLOOD COUNT Routine 01/15/2025 9:46 AM EST Essential hypertension ISLAS (dyspnea on exertion) ECG 12-LEAD Routine 01/11/2025 8:59 PM EST Paroxysmal atrial fibrillation (CMS/HCC V24, CMS/HCC V28) DXA BONE DENSITY STUDY 1+ SITS AXIAL SKEL Routine 04/07/2021 2:59 PM EDT Other specified disorders of bone density and structure, unspecified site from Last 3 Months or Most Recently Relevant to Health Maintenance Results * Pulmonary function testing: Carbon Monoxide Diffusing Capacity, Nitrogen Wash Out, Spirometry with Bronchodilator (02/26/2025 11:45 AM EDT) Narrative Belia Castillo MD - 02/28/2025 7:08 PM EDT DATE OF SERVICE: 02/26/25 SPIROMETRY: FEV1 is 106 % predicted and an FVC ??is 88 % predicted. The FEV1/FVC ratio is 119% of normal, no response to bronchodilators noted. LUNG VOLUMES: Total lung capacity (TLC): 138% predicted. Residual volume (RV): 202% predicted RV/TLC ratio is 147% of normal DIFFUSION CAPACITY: DLCO 63% predicted. DlCO/VA 71% of predicted COMPARISONS: INTERPRETATION: This pulmonary function test shows normal spirometry with a slight diffusion impairment. ??The etiology of the diffusion impairment is unclear. ??Amidarone induced cannot be excluded. ??Parenchymal lung disease or CHF can give similar picture. ??Please consider repeat for follow-up at a later date ??Belia Castillo MD ?? Elaine Anderson MANAGER OF [employer] PFT ORDERABLES Final Result * (ABNORMAL) B-type natriuretic peptide (02/07/2025 10:28 AM EDT) BNP 207(H) <=100 pcg/mL LAB CHEMISTRY METHOD 02/07/2025 12:53 PM EDT [facility] Blood Venous blood specimen / Unknown Venipuncture / Unknown 02/07/2025 10:28 AM EDT 02/07/2025 10:28 AM EDT Eulalio Raines MD LAB BLOOD ORDERABLES Final Resu lt [facility] [address] [place] [address], [place] [phone] * (ABNORMAL) Thyroid stimulating hormone with reflex to free t4 and free t3 (01/15/2025 9:46 AM EST) TSH 6.16(H) 0.40 - 4.00 mcIU/mL LAB CHEMISTRY METHOD 01/15/2025 12:30 PM EST [facility] Blood Venous blood specimen / Unknown Venipuncture / Unknown 01/15/2025 9:46 AM EST 01/15/2025 9:49 AM EST Elaine Anderson NP LAB BLOOD ORDERABLES Final Result Performing Organization Address [facility]/ZIP Co de Phone Number [facility] [address] [place] [address], [place] [phone] * Free thyroxine with reflex to free triiodothyronine (01/15/2025 9:46 AM EST) Free T4 1.30 0.70 - 1.80 ng/dL LAB CHEMISTRY METHOD 01/15/2025 12:56 PM EST [facility] Blood Venous blood specimen / Unknown Venipuncture / Unknown 01/15/2025 9:46 AM EST 01/15/2025 9:49 AM EST Elaine Anderson MANAGER [employer] LAB BLOOD ORDERABLES Final Result [facility] [address] [place] [address], [place] [phone] * Lipid panel with reflex to direct LDL (01/15/2025 9:46 AM EST) Pathologist [facility] Cholesterol 135 0 - 200 mg/dL LAB CHEMISTRY METHOD 01/15/2025 12:49 PM [facility] Triglycerides 109 0 - 150 mg/dL LAB CHEMISTRY METHOD 01/15/2025 12:49 PM [facility] HDL 68 >=40 mg/dL LAB CHEMISTRY METHOD 01/15/2025 12:49 PM [facility] LDL Calculated 45 0 - 100 mg/dL LAB CHEMISTRY METHOD 01/15/2025 12:49 PM [facility] VLDL Cholesterol Christopher 21.8 mg/dL LAB CHEMISTRY METHOD 01/15/2025 12:49 PM [facility] Non HDL Chol. (LDL+VLDL) 67 <145 mg/dL LAB CHEMISTRY METHOD 01/15/2025 12:49 PM [facility] Chol/HDL Ratio 2.0 0.0 - 4.4 LAB CHEMISTRY METHOD 01/15/2025 12:49 PM [facility] Blood Venous blood specimen / Unknown Venipuncture / Unknown 01/15/2025 9:46 AM EST 01/15/2025 9:49 AM EST Elaine Anderson MANAGER [employer] LAB BLOOD ORDERABLES Final Result [facility] [address] [place] [address], [place] [phone] * (ABNORMAL) Complete blood count (01/15/2025 9:46 AM EST) Pathologist [facility] WBC 7.3 4.8 - 10.8 K/mcL LAB HEMETOLOGY METHOD 01/15/2025 2:00 PM [facility] RBC 3.80 3.80 - 4.80 M/mcL LAB HEMETOLOGY METHOD 01/15/2025 2:00 PM [facility] Hemoglobin 12.8 11.5 - 16.0 g/dL LAB HEMETOLOGY METHOD 01/15/2025 2:00 PM [facility] Hematocrit 40.7 35.0 - 47.0 % LAB HEMETOLOGY METHOD 01/15/2025 2:00 PM [facility] MCV 107.1(H) 79.0 - 98.0 FL LAB HEMETOLOGY METHOD 01/15/2025 2:00 PM [facility] MCH 33.7(H) 27.0 - 32.0 pcg LAB HEMETOLOGY METHOD 01/15/2025 2:00 PM [facility] MCHC 31.4(L) 32.0 - 37.0 g/dL LAB HEMETOLOGY METHOD 01/15/2025 2:00 PM [facility] RDW 14.3 11.0 - 15.0 % LAB HEMETOLOGY METHOD 01/15/2025 2:00 PM [facility] Platelets 208 130 - 400 K/mcL LAB HEMETOLOGY METHOD 01/15/2025 2:00 PM [facility] MPV 11.8(H) 7.0 - 11.0 FL LAB HEMETOLOGY METHOD 01/15/2025 2:00 PM [facility] NRBC 0.0 <1.0 % LAB HEMETOLOGY METHOD 01/15/2025 2:00 PM [facility] NRBC Absolute 0.00 <0.10 K/mcL LAB HEMETOLOGY METHOD 01/15/2025 2:00 PM [facility] Blood Venous blood specimen / Unknown Venipuncture / Unknown 01/15/2025 9:46 AM EST 01/15/2025 9:49 AM EST Elaine Anderson MANAGER [employer] LAB BLOOD ORDERABLES Final Result [facility] [address] [place] [address], [place] [phone] * Triiodothyronine free (01/15/2025 9:46 AM EST) T3, Free 251 230 - 420 pcg/dL LAB CHEMISTRY METHOD 01/15/2025 1:21 PM [facility] Blood Venous blood specimen / Unknown Venipuncture / Unknown 01/15/2025 9:46 AM EST 01/15/2025 9:49 AM EST Elaine Anderson MANAGER [employer] LAB BLOOD ORDERABLES Final Result Performing Organization Address City/[facility]/ZIP Co de Phone Number [facility] [address] [place] [address], [place] [phone] * (ABNORMAL) Comprehensive metabolic panel (01/15/2025 9:46 AM EST) Sodium 145 133 - 145 mmol/L LAB CHEMISTRY METHOD 01/15/2025 12:49 PM [facility] Potassium 4.2 3.5 - 5.5 mmol/L LAB CHEMISTRY METHOD 01/15/2025 12:49 PM [facility] Chloride 115(H) 96 - 110 mmol/L LAB CHEMISTRY METHOD 01/15/2025 12:49 PM [facility] CO2 19(L) 21 - 32 mmol/L LAB CHEMISTRY METHOD 01/15/2025 12:49 PM [facility] Anion Gap 11 3 - 11 LAB CHEMISTRY METHOD 01/15/2025 12:49 PM [facility] Glucose 99 70 - 100 mg/dL LAB CHEMISTRY METHOD 01/15/2025 12:49 PM [facility] BUN 21 5 - 25 mg/dL LAB CHEMISTRY METHOD 01/15/2025 12:49 PM [facility] Creatinine 1.06 0.50 - 1.10 mg/dL LAB CHEMISTRY METHOD 01/15/2025 12:49 PM [facility] eGFR 54(L) >=60 mL/min/1. 73m2 LAB CHEMISTRY METHOD 01/15/2025 12:49 PM [facility] Comment:Calculation based on the??Chronic Kidney Disease Epidemiology Collaboration (CKD-EPI) equation refit??without adjustment for race. BUN/Creatinine Ratio 19.8 LAB CHEMISTRY METHOD 01/15/2025 12:49 PM [facility] Calcium 9.2 8.5 - 10.5 mg/dL LAB CHEMISTRY METHOD 01/15/2025 12:49 PM [facility] AST (SGOT) 19 10 - 42 unit/L LAB CHEMISTRY METHOD 01/15/2025 12:49 PM [facility] ALT (SGPT) 20 10 - 60 unit/L LAB CHEMISTRY METHOD 01/15/2025 12:49 PM [facility] Alkaline Phosphatase 106 42 - 121 unit/L LAB CHEMISTRY METHOD 01/15/2025 12:49 PM [facility] Total Protein 6.6 6.0 - 8.0 g/dL LAB CHEMISTRY METHOD 01/15/2025 12:49 PM [facility] Albumin 3.6 3.2 - 5.0 g/dL LAB CHEMISTRY METHOD 01/15/2025 12:49 PM [facility] Total Bilirubin 0.4 0.0 - 1.4 mg/dL LAB CHEMISTRY METHOD 01/15/2025 12:49 PM [facility] Blood Venous blood specimen / Unknown Venipuncture / Unknown 01/15/2025 9:46 AM EST 01/15/2025 9:49 AM EST Elaine Elanna Peloquin MANAGER [employer] LAB BLOOD ORDERABLES Final Result [facility] ([facility] [address] [place] [address], * ECG 12 lead (01/11/2025 8:59 PM EST) Ventricular Rate ECG 56 BPM GEMUSE Atrial Rate 56 BPM GEMUSE P-R Interval 186 ms GEMUSE QRS Duration 66 ms GEMUSE Q-T Interval 444 ms GEMUSE QTc 428 ms GEMUSE P Wave [place] 77 degrees GEMUSE R [place] -20 degrees GEMUSE T [place] 67 degrees GEMUSE ECG Interpretation Sinus bradycardia [...] PM EST 01/12/2025 8:54 AM EST Elaine Leanna Anderson MANAGER [employer] ECG ORDERABLES Edite d Result - Final GEMUSE * DXA BONE DENSITY STUDY 1+ SITS [...] (World Health Organization Fracture Risk Assessment) The [facility] Department of Internal Medicine recommends using National [...] alternative screening schedule based on marly Diaz., [facility] December 10, 2011 for patients with osteopenia [...] years. (World HealthOrganization Fracture Risk Assessment) The [facility] Department of Internal Medicine recommendsusing National Osteoporosis [...] Recently Relevant to Health Maintenance Insurance MEDICARE [facility] Care Teams Personal Financial Planner Relationship Specialty Start Date End Date Eulalio Raines MD [address] [place] [address] PCP - General Internal Medicine 06/25/20
== END 2025-03-19 16:34 | disposition home or self-care (01) ==
LOC: HO.HPS 15:54
PROVIDERS: PCP Internal Medicine; Visit Provider Nurse Practitioner Family
DX: J45.909 Unspecified asthma, uncomplicated (principal); R94.2 Abnormal results of pulmonary function studies; R06.00 Dyspnea, unspecified; R05.9 Cough, unspecified
CPT/HCPCS: 99214

== ENCOUNTER → 2025-03-19 15:54 | Outpatient (BNVA) | payer MEDICARE, OTHER, SELFPAY | PROVIDERS: PCP Internal Medicine; Visit Provider Nurse Practitioner Family | DX: J45.909 Unspecified asthma, uncomplicated (principal); G47.33 Obstructive sleep apnea (adult) (pediatric); R94.2 Abnormal results of pulmonary function studies; R06.00 Dyspnea, unspecified; R05.9 Cough, unspecified; Z99.89 Dependence on other enabling machines and devices | CPT/HCPCS: 99212 ==

== ENCOUNTER 2025-05-16 13:36 | Outpatient (AMB) | payer MEDICARE, OTHER, SELFPAY ==
[2025-05-16 13:56] VITALS: BP 132/72; PULSE 66; TEMP 36.6; O2SAT 95; BMI 32.3
--- NOTE | 2025-05-16 13:56 | MHC.OFFWIV ---
Intake Vital Signs 05/16/25 13:56 Height 5 ft 3 in Weight 182 lb 2 oz BMI 32.3 BP 132/72 Blood Pressure Location Rt brachial Position Sitting Pulse 66 Pulse Source Pulse Oximeter Temp 97.9 F Temp Source Oral Pulse Oximetry (%) 95 Oxygen Delivery Method Room Air Intake Visit Reasons: EP-lower/mid back pain & top part tooth pain Patient Tobacco Use Status: Never used Tobacco Bleach Tester Required: No Allergies z pack Adverse Reaction (Mild, Uncoded 03/19/25 16:05) Nausea and Vomiting HPI HPI Comments History of Present Illness Details History - The patient is a 79-year-old female presenting with mid back pain extending to the right side. - The back pain began without any known cause, extending from the middle of the back to the right side. - Attempts to relieve the pain with heat and ice have been unsuccessful. - The pain is sharp and shooting, with no fever, urinary changes, blood in urine or history of kidney stones. - The patient is on Eliquis, restricting the use of NSAIDs. - With further discussion, the patient tells me she has been coughing for the last 4 months and her doctor told her she had the ?100 day cough . Her cough is worse at night and she tells me she had a barium swallow when she was in her 20s and that she has peristalsis where everything either opens or closes but does not alternate to move food through normally. She has never been diagnosed with any kind of reflux and does not feel any acid or burning and has never taken any acid reflux medications. Physical Exam General: cooperative, healthy appearing and comfortable, patient oriented x3 Head: Yes normal to inspection and Yes normocephalic General nose exam: Normal external nose present Face and sinus: Yes normal facial exam Effort & Inspection: normal respiratory effort and able to speak in complete sentences Back/spine: tenderness in the middle of the back, negative CVA tenderness bilaterally cervical, thoracic and lumbar spine normal to inspection cervical ROM normal, thoracic ROM normal, lumbar ROM normal no Cervical, thoracic or lumbar spine tenderness TTP on right thoracic/flank area [facility] Social History Patient Tobacco Use Status: Never used Tobacco Review of Systems Const All systems reviewed & are unremarkable except as noted in HPI and below Physical Exam Vital Signs: Last Vital Signs Temp 97.9 F 05/16/25 13:56 Pulse 66 05/16/25 13:56 BP 132/72 05/16/25 13:56 Pulse Ox 95 05/16/25 13:56 Oxygen Delivery Method Room Air 05/16/25 13:56 BMI result Body Mass Index 32.3 Results AMB Urinalysis, Automated UA Leukoctes 0 Jennifer/uL Last Edit by Connie Hernandez MA on 05/16/25 14:54 UA Nitrite Negative Last Edit by Connie Hernandez MA on 05/16/25 14:54 UA Urobilinogen 0.2 mg/dL Last Edit by Connie Hernandez MA on 05/16/25 14:54 UA Protein 0 mg/dL Last Edit by Connie Hernandez MA on 05/16/25 14:54 UA pH 6.0 Last Edit by oCnnie Hernandez MA on 05/16/25 14:54 UA Blood 0 Thomas/uL Last Edit by Connie Hernandez MA on 05/16/25 14:54 UA Specific [place] 1.025 Last Edit by Connie Hernandez MA on 05/16/25 14:54 UA Ketone Negative Last Edit by Connie Hernandez MA on 05/16/25 14:54 UA Bilirubin 0 mg/dL Last Edit by Connie Hernandez MA on 05/16/25 14:54 UA Glucose 0 mg/dL Last Edit by Connie Hernandez MA on 05/16/25 14:54 Assessment & Plan Assessment & Plan (1) Acute right-sided thoracic back pain: Code(s): M54.6 - Pain in thoracic spine Plan: Urinalysis is negative for blood, less likely kidney stones. With further discussion, patient did reveal she has been coughing for the past 4 months so we will get a chest x-ray to rule out an acute pulmonary issue. She could have very likely strained an intercostal muscle with all the coughing she has been doing. We did discuss that if the chest x-ray and the rib x-ray is all normal, it could be GERD. In that case, she should trial omeprazole twice a day for 7 days and then go down to once a day for 7 days and if this works, she should follow up with her PCP for further follow-up, upper endoscopy, etc... If anything acute does show up on the chest x-ray, we will treat as needed. (2) Chronic cough: Code(s): R05.3 - Chronic cough Plan: as above Orders: Orders XR chest 2V Today R05.9 - Cough, unspecified AMB Urinalysis Automated Today Z13.9 - Encounter for screening, unspecified XR ribs RT 2V Today R05.3 - Chronic cough Coding Level of Care Code New Pt Level 4 (26231) Diagnoses Acute right-sided thoracic back pain M54.6 Chronic cough R05.3
--- OUTSIDE RECORDS SUMMARY | 2025-05-16 16:02 | XMS_ITS | Patient Health Record ---
Author Organization [facility] Address [address] [place] [address] Care Team Providers Care Plate Hanger Name Role Phone Ren Bourne MD Primary Care Provider Unavail able Josh Rey Unavailable [phone] Reason For Referral No Information Medications Medication SIG (Take, Route, Frequency, Duration) Notes Start Date End Date Status Omeprazole 20 MG Orally Act breann Calcium 600 MG 1 tablet with meals Orally Twice a day for 30 day(s) Active Potassium Chloride A ctive Melatonin 10mg Activ e Acitretin 10 MG Orally Acti ve Fish Oil 1200 MG 1 capsule Orally Onc e a day for 30 day(s) Active Allopurinol 100 MG Orally A ctive Turmeric Active Dicyclomine HCl Acti ve Aleve 220 MG Orally Active hydroCHLOROthiazide 12.5 MG Orally Active Glucosamine Active Loratadine 10 MG Orally Act breann Aspirin 81 Active Losartan Potassium 25 MG Orally Active Montelukast Sodium 10 MG Orally Active Potassium 20mg Activ e Social History Tobacco Use: Social History Observation Description Date Details (start date - stop date) Never Smoker NA - NA Tobacco Use/Smoking Question Answer Notes Are you a: nonsmoker Additional Findings: Tobacco Non-User Current no n-smoker Alcohol Screen Question Answer Notes Did you have a drink containing alcohol in the p ast year? Yes Points 0 Interpretation Negative Problems Problem Type SNOMED Code ICD Code Onset Dates Problem Status W/U Status Risk Notes Problem Acquired hammer toe of right foot (8954511000599 105) Other hammer toe(s) (acquired), right foot (M20.41) Active confirmed Problem Acquired hammer toe of left foot (1096661895540 103) Other hammer toe(s) (acquired), left foot (M20.42) Active confirmed Plan Of Treatment No Information Insurance Providers Payer Name Payer Address Payer Phone Subscriber Number Group Number Insured Name Patient Relationship to Insured Coverage Start Date Coverage End Date Medicare National [employer] [address] [place] [address] [id number] Jessica Tran Self - patient is the insured [employer] ([employer]) [address] [place] [address] [id number] Jessica Tran Self - patient is the insured Medical (General) History Medical History History ICD Code asthma Cancer skin High blood pressure Measles Mumps Chicken pox Surgical History Surgery Date(Month/Year) section 1969
== END 2025-05-16 15:14 | disposition home or self-care (01) ==
PROVIDERS: PCP Internal Medicine; Visit Provider Physician Assistant
DX: M54.6 Pain in thoracic spine (principal); R05.3 Chronic cough; Z13.9 Encounter for screening, unspecified

== ENCOUNTER 2025-05-16 13:36 | Outpatient (REF) | payer MEDICARE, OTHER, SELFPAY ==
--- NOTE | ~2025-05-16 | XR_ITS ---
EXAMINATION: XR CHEST CLINICAL INFORMATION: R05.9 - Cough, unspecified COMPARISON: 08/26/2022. TECHNIQUE: 2 views of the chest were obtained. FINDINGS: The cardiac, hilar, and mediastinal contours are normal. Aortic mural calcification. The aorta is tortuous. The lungs are clear bilaterally. There is no pneumothorax or pleural effusion. There is no focal osseous or soft tissue abnormality. XR/XR chest 2V IMPRESSION: No active pulmonary disease. Electronically signed by: Collins Varela MD 05/16/2025 03:24 PM EDT RP
--- NOTE | ~2025-05-16 | XR_ITS ---
EXAMINATION: XR RIBS, RIGHT CLINICAL INFORMATION: R05.3 - Chronic cough COMPARISON: None available. TECHNIQUE: 3 views of the right ribs were obtained. FINDINGS: No visible fracture line, step-off, or deformity is evident. There is no pneumothorax. XR/XR ribs RT 2V IMPRESSION: Unremarkable examination. Electronically signed by: Joe Marquez MD 05/16/2025 03:27 PM EDT
== END 2025-05-16 13:37 | disposition home or self-care (01) ==
LOC: HO.HMGCX 13:36
PROVIDERS: PCP Internal Medicine; Visit Provider Physician Assistant
DX: M54.6 Pain in thoracic spine (principal); R05.3 Chronic cough
CPT/HCPCS: 71046; 71100; 81003; 99202

== ENCOUNTER → 2025-05-16 15:07 | Outpatient (BNV) | payer MEDICARE, OTHER, SELFPAY | PROVIDERS: PCP Internal Medicine; Visit Provider Radiology Diagnostic Radiology | DX: R05.3 Chronic cough (principal) | CPT/HCPCS: 71046 ==

== ENCOUNTER 2025-06-18 14:27 | Outpatient (AMB) | payer MEDICARE, OTHER, SELFPAY ==
[2025-06-18 14:29] VITALS: BP 118/64; PULSE 62; O2SAT 96; BMI 33.5
--- NOTE | 2025-06-18 14:29 | A.OFFVIS_ITS ---
Vital Signs 06/18/25 14:29 Height 5 ft 2 in Weight 182 lb 15.739 oz BMI 33.5 BP 118/64 Blood Pressure Location Lt brachial Position Sitting Pulse 62 Pulse Source Pulse Oximeter Pulse Oximetry (%) 96 Oxygen Delivery Method Room Air Intake Visit Reasons: Dyspnea Allergies z pack Adverse Reaction (Mild, Uncoded 06/18/25 14:32) Nausea and Vomiting HPI HPI Dyspnea: Details: Jessica is a pleasant 80 year old female, never smoker, with underlying asthma, severe GERMAN on CPAP, HTN, GERD, Atrial fibrillation on amiodarone, h/o DVT on eliquis, STEMI s/p stent LAD 2021, diastolic dysfunction and h/o basal cell carcinoma/melanoma. She has been using Breo 200 mcg and Spiriva, with good effect, rarely requiring albuterol MDI. She does continue to report dyspnea on moderate exertion, previously on lasix per records however unclear if this was to be continued. No records to review from cardiology. She denies increased BLE edema or orthopnea. Prior PFT 2023 revealed isolated decreased diffusion capacity. She reports dry cough at nighttime possibly related to postnasal drip, trialed on ipratropium with minimal effect. She continues to report intermittent dysphagia and noted prior GI evaluation stating esophageal dysmotility issues. She has not been under the care of GI in 10+ years. She denies any symptoms suggestive of reflux. At the last visit, she requested this office to manage CPAP therapy and [facility] placed to [facility]. She states she received CPAP however has had issues recording usage. She states that she will be receiving a new SD card in the next week. [facility] Social History Patient Tobacco Use Status: Never used Tobacco Review of Systems Const Denies chills, Denies excessive sweating, Denies fever(s), Denies headache(s) and Denies night sweats Eyes Denies dry eyes, Denies irritation and Denies itchy eyes ENT Reports Normal hearing present, Denies headache(s), Reports nasal congestion, Reports post nasal drip and Denies sore throat Card Denies chest pain, Denies chest pain at rest, Denies chest pain with activity, Denies claudication, Denies leg edema, Reports dyspnea on exertion and Denies orthopnea Resp Denies chest congestion, Reports cough, Denies excessive phlegm production, Denies pain on inspiration, Denies pain with cough, Reports dyspnea on exertion and Denies stridor Musc Denies myalgias Neuro Reports Normal hearing present and Denies headache(s) Endo Denies excessive sweating Prashant/Lymph Denies lymphadenopathy Aller/Immun Denies itchy eyes and Denies seasonal rhinorrhea Physical Exam Vital Signs: Last Vital Signs Pulse 62 06/18/25 14:29 BP 118/64 06/18/25 14:29 Pulse Ox 96 06/18/25 14:29 Oxygen Delivery Method Room Air 06/18/25 14:29 BMI result Body Mass Index 33.5 Const General: cooperative, healthy appearing, comfortable, no acute distress, well developed and alert Nutritional Appearance: obese Orientation/consciousness: patient oriented x3 Limitations: no limitations HEENT Head: Yes normal to inspection, Yes normocephalic and Yes atraumatic Ears: hearing grossly normal bilaterally and external ears normal Eyes General: appearance normal, both eyes and all related structures Eyelids: Yes eyelids normal Sclerae: sclerae normal EOM: EOMs intact bilaterally Neck Neck: Yes normal visual inspection and Yes no lymphadenopathy Lymphatic: no lymphadenopathy noted Chest Chest palpation & inspection: normal inspection of the chest Resp Effort & Inspection: normal respiratory effort, able to speak in complete sentences, no audible wheezes, no cough, no stridor, not tachypneic, no tripod positioning and no use of accessory muscles Auscultation: clear to auscultation bilaterally Cardio Jugular venous distension: no JVD Rate: regular rate Rhythm: regular rhythm Skin Other: warm, dry General skin exam: no rashes or lesions noted Neuro General: patient oriented x3 Cranial nerves: Yes Normal hearing present Cognition (Neuro): normal cognition Gait exam (Neuro): Normal gait present Extrem General: Yes normal to inspection, Yes capillary refill normal, Yes no clubbing, cyanosis or edema and Yes no pedal edema Psych Appearance: grossly normal and well kempt Speech and movement: Normal speech and movement present and Clear speech present Affect: normal affect Attitude: cooperative Thought process: Normal thought process present Thought content: Normal thought content present Insight: Good insight present (Psych) Judgement: Good judgement present (Psych) Assessment & Plan Assessment & Plan (1) Asthma: Code(s): J45.909 - Unspecified asthma, uncomplicated Category: Medical (2) Decreased diffusion capacity: Code(s): R94.2 - Abnormal results of pulmonary function studies Category: Medical (3) Paroxysmal nocturnal dyspnea: Code(s): R06.00 - Dyspnea, unspecified Category: Medical (4) Cough: Code(s): R05.9 - Cough, unspecified Category: Medical Plan At this time surely reports good effect with Breo 200 mcg, Spiriva and albuterol MDI, advised to continue. Will consider repeating diffusion capacity as there was an isolated finding of decreased DLCO on prior PFT as well as 6MWT at next visit. Will obtain records from cardiology to assess for any cardiac contribution to dyspnea. She received CPAP therapy however has had issues with recording usage and is awaiting new SD card. Will review compliance report at the next visit as patient is motivated to use. All questions were answered and patient is in agreement of plan. Will follow up in 8-10 weeks or sooner if needed. Coding Level of Care Code Est Pt Level 4 (83172) Diagnoses Asthma J45.909 Decreased diffusion capacity R94.2 Paroxysmal nocturnal dyspnea R06.00 Cough R05.9
--- OUTSIDE RECORDS SUMMARY | 2025-06-18 15:10 | XMS_ITS | Clinical Summary ---
Author Organization [facility] Address [address] [place] [address] Phone Care Team Providers Care Sofa Back Upholsterer Name Role Phone Eulalio Raines MD Primary Care Provider + Siobhan Khan Unavailable [phone] Encounters Date Type Department Care Team Description 05/03/2025 Telephone [facility] [address] [address] Rosendo Walker from Last 3 Months Social History Tobacco Use Types Packs/Day Years Used Date Smoking Tobacco: Never Assessed Education Answer Date Recorded Are you interested in more education? Not on berny e 05/18/2024 Are you concerned about learning? Not on file 05/18/2024 No 05/18/2024 No 05/18/2024 Digital Access Answer Date Recorded No 05/18/2024 No 05/18/2024 Reliable internet access at home? Not on file 05/18/2024 Device with a working camera? Not on file Comments Unknown Sex and Gender Information Value Date Recorded Sex Assigned at Female 05/12/2024 12:45 PM EDT Legal Sex Female 12:42 PM EDT Gender Identity Female 05/12/2024 12:45 PM EDT Sexual Orientation Straight 05/12/2024 12 :45 PM EDT Plan of Treatment Upcoming Encounters Date Type Department Care Team (Late st Contact Info) Description 09/10/2025 2:00 PM EDT Office Visit [facility] [address] [id number] Lopez Joshi MD,MPH,ANAIS [address] [place] [address] [email or web address] Maintenance Due Date Last Done Comments LIPID PANEL 1945 DEPRESSION SCREENING 1957 SMOKING Hx and SMOKELESS TOBACCO SCREENING 1958 HEPATITIS C SCREENING 1963 OSTEOPOROSIS SCREENING INITI AL (ONE-TIME) 2010 RSV VACCINE (1 - 1-dose 75+ series) 2020 COVID-19 VACCINE (4 - 2023-2 5 season) 2024 08/16/2021, 01/21/2021, 12/31/2020 Adult Td,Tdap Booster 01/04/2028 01/04/2018 , 10/18/2007 ZOSTER VACCINES Completed 10/14/2020, 08/13/2020, 11/10/2011 PNEUMOCOCCAL VACCINES (50+ years) Completed 09/10/2023, 01/01/2016, 12/08/2010 HEPATITIS A VACCINES Aged Out No long er eligible based on patient's age to complete this topic HIB VACCINES Aged Out No longer eligi ble based on patient's age to complete this topic MENINGOCOCCAL VACCINES (ACWY) Aged Out No longer eligible based on patient's age to complete this topic MENINGOCOCCAL VACCINES (B) Aged Out N o longer eligible based on patient's age to complete this topic Medical Devices Not on file Insurance MEDICARE PART A & B [facility] EXTENSION MEDICARE SUPPLEMENT MEDICARE PART A & B [facility] EXTENSION MEDICARE SUPPLEMENT MEDICARE PART A & B Member Subscriber Plan / Payer (Ef fective 2010-Present) Name:Jessica Tran Member ID:[id number] Relation to Subscriber:Self Name:Jessica Tran Subscriber ID:[id number] Payer ID:[id number] Group ID:Not on file Type:Medicare Address: [employer] [address] [place] [id number] [place] [address] EXTENSION MEDICARE SUPPLEMENT MEDICARE PART A & B [facility] EXTENSION MEDICARE SUPPLEMENT MEDICARE PART A & B [employer] MEDICARE SUPPLEMENT MEDICARE PART A & B [employer] MEDICARE SUPPLEMENT Care Teams Sofa Back Upholsterer Relationship Specialty Start Date End Date Eulalio Raines MD [address] [place] [id number] PCP - General Internal Medicine 05/12/24 Siobhan Khan PA [address] [place] [address] [email or web address] Physician Marine Service Operator 05/12/24 Additional Source Comments The information contained in this document represents components of the legal health record. It is not the complete legal health record.[facility]
--- OUTSIDE RECORDS SUMMARY | 2025-06-18 15:10 | XMS_ITS | Encounter Summary ---
Author Organization [facility] Address [address] [place] [address] Care Team Providers Care Bridge Manager Name Role Phone Eulalio Raines MD Primary Care Provider [phone] Adam Kern MD Unavailable Kat Koch HEAD CORRECTION OFFICER Unavailable Unavailab Roopa Quiñones PA-C Unavailable [phone] Elaine Anderson HEAD CORRECTION OFFICER Unavailable [phone] Reason for Visit * Reason Onset Date Comments Prior Authorization 10/21/2022 Encounter Details Date Type Department Care Team Description 10/21/2022 Telephone Adult Medicine [address] [id number] Eulalio Raines MD [address] [place] [address] [phone] Prior Authorization Social History Tobacco Use Types [...] 10/22/23 [email or web address] * Telephone Encounter - Amy Kinsey M.A. - 10/22/2022 9:01 AM EST AUTH SENT TODAY WITH COVER MY MEDS DX:L57.0 [email or web address] * Telephone Encounter - Alba Singleton - 10/21/2022 3:59 PM EST Prior Authorization for Medication-do not complete and send this encounter unless you have the fax from the pharmacy. Is this a Cover My Meds request: Yes -- Bailey Code [id number] Name of Medication acitretin (SORIATANE) Dose of Medication 10 MG capsule What is the RX # from the faxed refill? How does patient take this med? Route: Take 1 Capsule by mouth every morning (before breakfast). - Oral What Pharmacy did the fax come from: [facility] Pharmacy fax #: [phone] [employer] Party Information from fax: What Prescription Plan does the patient have? BIN/PCN if applicable: Cardholder ID: Person Code: Relationship Code: Help desk phone: documented in this encounter Plan of Treatment Not on file documented as of this encounter Visit Diagnoses Not on filedocumented in this encounter Care Teams Bridge Manager Relationship Specialty Start Date End Date Eulalio Raines MD [address] [place] [phone] PCP - General Internal Medicine 06/25/20 Adam Kern MD [address] [place] [phone] Manager Software Cardiovascular Disease 08/01/21 Kat Koch NP [address] [place] [phone] Specialist Cardiology 09/05/21 05/25/23 Roopa Harris PA-C [address] [place] [address] Specialist Cardiology 05/26/23 Elaine Anderson NP [address] [place] [address] Cardiology 05/03/24 documented as of this encounter
--- OUTSIDE RECORDS SUMMARY | 2025-06-18 15:10 | XMS_ITS | Clinical Summary ---
Author Organization [facility] [address] [place] [address] Address [address] [place] [address] Phone Care Team Providers Care Design Analyst Name Role Phone Eulalio Raines MD Primary Care Provider [phone] Allergies Active Allergy Reactions Criticality Noted Date Comments Azithromycin Hallucinations,Nausea And Vomiting 11/18/2005 Medications nystatin (MYCOSTATIN) 100,000 unit/gram powder Apply 1 Application topically 2 (two) times a day. APPLY TO AFFECTED AREA Active LORazepam (ATIVAN) 0.5 mg tablet Take 1 tablet (0.5 mg total) by mouth every 6 (six) hours if needed. 3 Active umeclidinium brm/vilanterol tr (ANORO ELLIPTA INHL) Inhale by mouth. Active albuterol HFA (PROAIR HFA ; PROVENTIL HFA ; VENTOLIN HFA) 90 mcg/actuation inhaler Inhale 2 puffs by mouth every 4 (four) hours if needed for wheezing. 18 g 1 4 Active cholecalcifero l (VITAMIN D-3) 50 mcg (2,000 unit) tablet TAKE 1 TABLET BY MOUTH ONCE DAILY 90 tablet 1 5 Active sacubitriL-cara sartan (Entresto) 49-51 mg per tablet Take 1 [...] AT BEDTIME 90 tablet 1 5 Active Breo Ellipta 100-25 mcg/dose inhaler Inhale 1 puff by mouth 1 (one) time each day. 1 each 2 5 Active allopurinoL (ZYLOPRIM) 100 mg tablet Take 2 tablets (200 mg total) by mouth 1 (one) time each day. 90 tablet 2 5 Active butalbital-christ taminophen-caf feine (FIORICET, ESGIC) 50-325-40 mg per tablet Take 1 tablet by mouth every 4 (four) hours if needed for headaches. Use no more than 5/day, 10/week, 30/month. 30 tablet 5 11/15/20 25 Active carvediloL (COREG) 3.125 mg tablet TAKE 1 TABLET TWICE A DAY WITH MEALS FOR 180 DAYS 60 tablet 5 5 Active acitretin (SORIATANE) 10 mg capsule Take 1 capsule (10 mg total) by mouth 1 (one) time each day with lunch. 90 capsule 1 5 Active Eliquis 5 mg tablet Take 1 tablet (5 mg total) by mouth 2 (two) times a day. 180 tablet 1 5 Active clopidogreL (PLAVIX) 75 mg tablet Take 1 tablet (75 mg total) by mouth 1 (one) time each day. 90 tablet 1 5 Active Eliquis 5 mg tablet Take 1 tablet (5 mg total) by mouth 2 (two) times a day. 05/21/20 25 Discontin ued(Reord er) clopidogreL (PLAVIX) 75 mg tablet Take 1 tablet (75 mg total) by mouth 1 (one) time each day. 05/21/20 25 Discontin ued(Reord er) acitretin (SORIATANE) 10 mg capsule TAKE 1 CAPSULE BY MOUTH EVERY DAY IN THE MORNING BEFORE BREAKFAST 90 capsule 1 5 05/21/20 25 Discontin ued(Reord er) Active Problems Problem Noted Date Diagnosed Date Phlebitis 09/25/2024 Squamous cell skin cancer 09/25/2024 Overview (09/25/2024): right nose, right distal LE, right dorsal foot, right anterior tibia, left distal tibia, left lateral leg, left nose, left neck - mohs, right lateral foot - ED&C, left distal tibia - ED&C Ascending aorta dilatation ([facility] V24) 024 Overview (09/25/2024): Echo 3.9 cm Assessment & Plan (03/25/2025 11:59 AM EDT): We will continue to monitor this with serial echocardiograms. Blood pressure is well-controlled today; she was encouraged to resume CPAP use as soon as possible. Diastolic dysfunction 08/14/2024 Heart failure with improved ejection fraction (HFimpEF) ([facility] V24, CMS/[facility] V28) 05/04/2024 Assessment & Plan (03/25/2025 11:59 AM EDT): Assessment & Plan (01/11/2025 8:59 PM EST): Secondary hypercoagulable state ([facility] V24) Assessment & Plan (03/25/2025 11:59 AM EDT): Assessment & Plan (01/11/2025 8:59 PM EST): Elevated brain natriuretic peptide (BNP) level 0 02/08/2024 ECG abnormal 02/02/2024 Ischemic dilated cardiomyopathy (CMS/HCC V24, CM S/HCC V28) 09/24/2022 Assessment & Plan (03/25/2025 11:59 AM EDT): The patient has an ischemic cardiomyopathy with a history of EF as low as 30 to 40%; improved on cardiac MRI dated 04/2024 which showed an EF of 46%. She appears euvolemic on exam today and does not appear to be in overt heart failure; this currently does not appear to be the cause of her ongoing shortness of breath which she repots is at her typical baseline but the cause of which remains unclear. We will attempt to obtain recent pulmonology notes for review and readdress as needed. She will continue guideline directed medical therapies for heart failure including beta-blockade and Entresto; recent labs are stable. GDMT has historically been somewhat limited by CKD and she does not currently wish to add on any other medications; we will continue to readdress this as [...] one week. CAD (coronary artery disease) 09/23/2022 Assessment & Plan (03/25/2025 11:59 AM EDT): The patient has a history of coronary artery disease with chronic shortness of breath since her infarct in August 2022. Cardiac MRI from 04/2024 revealed an ischemic cardiomyopathy with mildly reduced LV systolic function due to a large nonviable infarct in the LAD territory. She remains active at home on a daily basis and denies any other symptoms to raise concern for underlying ischemia. As above, we will attempt to obtain her most recent pulmonology note for review; should the cause for her shortness of breath remain unclear, we must consider this may be ischemic in origin and repeat workup may be indicated. Given that it is currently stable without other exertional symptoms, we will defer this at present. We will not make any changes to [...] involving left anterio r descending coronary artery ([facility] V24, [facility] V28) 09/18/2022 Overview (09/25/2024): Last Assessment & Plan: Jarrod is doing well approximately 3 weeks status [...] bleeding or excessive bruising. Paroxysmal atrial fibrillation ([facility] V24, [facility] V28) 09/18/2022 Assessment & Plan (03/25/2025 11:59 AM EDT): Rate is well-controlled on beta-blockade; on amiodarone for rhythm control and has not had any recent symptoms to suggest recurrence. Due to significant bradycardia with a heart rate in the 40s, amiodarone was previously decreased to 100 mg daily with subsequent improvement in heart rate. She did not note any improvement in her shortness of breath with this change. The patient's most recent LFTs 01/15/2025 were WNL; TSH 03/20/2025 was very slightly elevated but stable fro previous. Most recent PFTs do show an ongoing but improved reduction in DLCO for which the cause remains uncertain; we will obtain most recent pulmonology notes and I will discuss on going use of this medication with Dr. Kern. We discussed the risks and benefits of continuing amiodarone today, and the patient wishes to continue it pending further discussion with Dr. Kern. She will continue with Eliquis 5 mg [...] infarction (S TRINI) 09/01/2022 Assessment & Plan (03/25/2025 11:59 AM EDT): Assessment & Plan (01/11/2025 8:59 PM EST): COVID-19 08/19/2022 ISLAS (dyspnea on exertion) 08/01/2021 Assessment & Plan (03/25/2025 11:59 AM EDT): As above, likely multifactorial in origin secondary to underlying cardiac disease, pulmonary disease, obesity, and deconditioning; however, concern remains present that amiodarone may be contributory, even at low dose. We we will attempt to obtain her most recent pulmonology note as well as results from her recent CT scan and continue to readdress this as needed; I will also follow-up with Dr. Kern to further discuss her ongoing amiodarone use. We will continue to readdress this as discussed above. Assessment & Plan (01/11/2025 8:59 PM EST): [...] blood, will refer to Urology. No concerning Multiple Sclerosis Nurse findings and sx have resolved, thus no intervention necessary. Obstructive sleep apnea 08/10/2018 Overview (03/25/2025): SMS Home Polysomnogram: Date 08/05/2018; AHI 50, Unclassified [...] 4/4 RLS symptoms. - CPAP 11 corrective. Assessment & Plan (03/25/2025 11:59 AM EDT): Due to issues with her CPAP machine, she has not worn CPAP in over 1 year; she has had a retitration study done and is awaiting a new CPAP machine. She will continue to follow-up with pulmonology regarding this. Assessment & Plan (01/11/2025 8:59 PM EST): [...] rather than intensity . Assessment & Plan (03/25/2025 12:01 PM EDT): The patient is obese. Approaches towards weight loss are discussed, including burning more calories than one takes in by portion control and regular exercise with an emphasis on duration rather than intensity. Assessment & Plan (03/25/2025 11:59 AM EDT): Patient is obese. Approaches towards weight loss are discussed, including burning more calories than one takes in by portion control and regular exercise with an emphasis on duration rather than intensity. Assessment & Plan (01/11/2025 8:59 PM EST): The patient is obese. Approaches towards weight loss are discussed, including burning more calories than one takes in by portion control and regular exercise with an emphasis on duration rather than intensity. Subclinical hypothyroidism 01/28/2017 Overview (09/25/2024): Component Value Date TSH 6.40 01/08/2017 TSH 4.41 11/27/2010 Basal cell carcinoma of skin 12/16/2016 Overview (09/25/2024): right presybeterian - ulcerated - Mohs; left anterior shoulder; [...] she had this checked more recently at [facility]; we will attempt to obtain these results. She will continue with high-dose atorvastatin but this may need to be readdressed if her LDL remains elevated above 70 on most recent check. Assessment & Plan (03/25/2025 11:59 AM EDT): LDL goal for this patient who has a history of coronary artery disease is less than 70; her most recent lipid panel is from 01/15/2025 with and LDL of 45. Continue atorvastatin 80 mg daily. Assessment & Plan (01/11/2025 8:59 PM EST): LDL goal for this patient who has a history of coronary artery disease is less than 70; we will update a lipid panel today and readdress this as needed. Continue atorvastatin 80 mg daily. Orders: Lipid panel with reflex to direct LDL; Future Anxiety disorder 05/08/2015 CKD (chronic kidney disease) stage 3, GFR 30-59 ml/min ([facility] V24, [facility] V28) 03/27/2014 Overview (09/25/2024): GFR 52 on 03/21/14 Assessment & Plan (03/25/2025 11:59 AM EDT): DVT of lower extremity (deep venous thrombosis) ([facility] V24, [facility] V28) 08/11/2011 Gout 12/09/2010 Overview (09/25/2024): Recurrent atacks; hyperuricemia Degenerative arthritis of lumbar spine 0 Essential hypertension 11/18/2005 Overview (09/25/2024): Last Assessment & Plan: Blood pressure is well-controlled on current medical therapy; continue Entresto and carvedilol. Assessment & Plan (03/25/2025 11:59 AM EDT): Blood pressure is well-controlled on current medical therapy; continue Entresto and carvedilol. She will continue to follow with nephrology, Dr. Winter, given her history of CKD. Assessment & Plan (01/11/2025 8:59 PM EST): [...] Encounters Date Type Department Care Team Description 05/16/2025 11:00 AM EDT Office Visit Orthopedic Surgery [address] [phone] Sekou Rye, DPM Cellulitis of great toe, right (Primary Dx); Dermatophytosis of nail 04/27/2025 Telephone Orthopedic Surgery [facility] [address] [phone] Sekou Rey DPM Medication 04/26/2025 2:45 PM EDT Office Visit Orthopedic Surgery [facility] [address] [phone] Sekou Rey, DPM Cellulitis of great toe, right (Primary Dx); Abscess of right foot 03/23/2025 1:40 PM EDT Office Visit [facility] [address] [phone] Elaine Anderson NP Ischemic dilated cardiomyopathy (CMS/HCC V24, CMS/HCC V28) (Primary Dx); Heart failure with improved ejection fraction (HFimpEF) (CMS/HCC V24, CMS/HCC V28); Coronary artery disease involving [place] coronary artery of citizen [place] heart without angina pectoris; History of ST elevation myocardial infarction (STEMI); Essential hypertension; Mixed hyperlipidemia; Paroxysmal atrial fibrillation (CMS/HCC V24, CMS/HCC V28); Secondary hypercoagulable state (CMS/HCC V24); On amiodarone therapy; ISLAS (dyspnea on exertion); Obstructive sleep apnea; Ascending aorta dilatation (CMS/HCC V24); Stage 3a chronic kidney disease (CMS/HCC V24, CMS/HCC V28); Obesity (BMI 30.0-34.9); Hospital discharge follow-up 03/20/2025 10:30 AM EDT Office Visit Adult Medicine [address] [phone] Eulalio Raines MD Pain of left upper extremity (Primary Dx); Tremor; Hypoglycemia; Coronary artery disease involving citizen [place] coronary artery of citizen [place] heart without angina pectoris; History of ST elevation myocardial infarction (STEMI); Paroxysmal atrial fibrillation (CMS/HCC V24, CMS/HCC V28); Nausea from Last 3 Months Immunizations Name Administration [...] Comments HYSTERECTOMY 1979 PROCEDURE: HISTORICAL HYSTERECTOMY; COMMENT: LILA BSO- fibroid uterus and heavy bleeding, in 50's SECTION PROCEDURE: HISTORICAL ESOPHAGOGASTRODUODENOSCOPY 11/26 PROCEDURE: WY ESOPHAGOGASTRODUODENOSCOPY TRANSORAL DIAGNOSTIC; COMMENT: rx: ppi MAMMOGRAM MARKUS 10/25 PROCEDURE: MAMMOGRAM, SCREENING, BOTH BREASTS; COMMENT: abnormal - lt breast OTHER SURGICAL HISTORY 06/24 PROCEDURE: PAP SMEAR (1 SLIDE) OTHER SURGICAL HISTORY 01/22 PROCEDURE: DXA, BONE DENSITY STUDY, 1+ SITES; VERTEBRAL FX ASSESS OTHER SURGICAL HISTORY 06/08/00 PROCEDURE: WY NASAL/SINUS NDSC W/TOTAL ETHOIDECTOMY; COMMENT: Dr. Simpson OTHER SURGICAL HISTORY PROCEDURE: HISTORICAL MELANOMA; COMMENT: L FOOT COLONOSCOPY 02/26/1999 PROCEDURE: WY COLONOSCOPY FLX DX W/COLLJ SPEC WHEN PFRMD; COMMENT: diverticulosis COLONOSCOPY 10/2008 PROCEDURE: WY COLONOSCOPY FLX DX W/COLLJ SPEC WHEN PFRMD; [...] 4.7.99. No colon cancer screening necessary until 2008. [...] DX:Hyperlipidemi a Coronary artery disease invo lving citizen [place] coronary artery of [place] heart without angina pectoris 09/23/2022 DX:Coronary artery disea se involving citizen [place] coronary artery of citizen [place] heart without angina pectoris Gout Family History Medical History Relation Name Comments [...] care for your loved ones. For example, childcare attendant or elderly care for an older adult? [...] Sign Reading Time Taken Comments Blood Pressure 118/65 03/23/2025 1:57 PM EDT Pulse 56 03/23/2025 1:57 PM EDT Temperature 36.3 C (97.4 F) 03/20/2025 10:41 AM EDT Respiratory Rate 16 03/20/2025 10:41 AM EDT Oxygen Saturation 98% 03/23/2025 1:57 PM EDT Inhaled Oxygen Concentration - - Weight 83 kg (183 lb) 03/23/2025 1:57 PM EDT Height 157.5 cm (5' 2 ) 03/23/2025 1:57 PM EDT Body Mass Index 33.47 03/23/2025 1:57 PM EDT Plan of Treatment Upcoming Encounters Date Type Department Care Team (Late st Contact Info) Description 08/08/2025 9:50 AM EDT Office Visit [facility] [address] [phone] Adam Kern MD [address] [phone] 08/16/2025 1:15 PM EDT Office Visit [address] [phone] Eulalio Raines MD [address] [place], [place] 09/13/2025 11:00 AM EDT Appointment Radiology Department - [address] [phone] 09/20/2025 3:30 PM EDT Office Visit Nephrology - [address] [phone] Lenny Winter MD [address] [phone] Health Maintenance Due Date Last Done Comments RSV Immunization Adult Patients (1 - 1-dose 75+ series) 2020 Colorectal Cancer Screening: Colonoscopy 10/31/2022 Medicare Annual Wellness Visit 10/31/2022 COVID-19 Vaccine ( season) 2024 08/16/2021, 01/21/2021, 12/31/2020 Falls Risk Assessment 02/07/2026 02/07/2025 Social Influencers of Health Screening 02/07/2026 02/07/2025 Hypertension/CHF/CAD Annual BMP Blood Test 03/20/2026 03/20/2025, 01/15/2025, 09/25/2024, Additional history exists DTaP,Tdap,and Td Vaccines (3 - Td or Tdap) 01/04/2028 01/04/2018, 10/18/2007 Cholesterol Screening (Lipid Panel) 01/15/2030 01/15/2025 Osteoporosis Screening (Bone Density Screening) 04/07/2031 04/07/2021, 01/20/2018 Zoster Vaccines Completed 10/14/2020, 07/24, 11/10/2011 Influenza Vaccine Discontinued 09/10/2023, , 09/13/2021, Additional history exists Pneumococcal Vaccine: 50+ Years Completed 09/10/2023, 01/01/2016, 12/08/2010 Depression Screening Completed 02/07/2025 HIB Vaccines Aged Out No longer eligi [...] Date/Time Associated Diagnosis Comments TRIIODOTHYRONINE FREE Routine 03/20/2025 11:19 AM EDT Tremor FREE THYROXINE WITH REFLEX TO FREE TRIIODOTHYRONINE Routine 03/20/2025 11:19 AM EDT Tremor THYROID STIMULATING HORMONE WITH REFLEX TO FREE T4 AND FREE T3 Routine 03/20/2025 11:19 AM EDT Tremor BASIC METABOLIC PANEL Routine 03/20/2025 11:19 AM EDT Tremor HEMOGLOBIN A1C Routine 03/20/2025 11:19 AM EDT Hypoglycemia LIPID PANEL WITH REFLEX TO DIRECT LDL Routine 01/15/2025 9:46 AM EST Coronary artery disease involving citizen [place] coronary artery of citizen [place] heart without angina pectoris Mixed hyperlipidemia DXA BONE DENSITY STUDY 1+ SITS AXIAL SKEL Routine 04/07/2021 2:59 PM EDT Other specified disorders of bone density and structure, unspecified site from Last 3 Months or Most Recently Relevant to Health Maintenance Results * (ABNORMAL) Thyroid stimulating hormone with reflex to free t4 and free t3 (03/20/2025 11:19 AM EDT) TSH 4.97(H) 0.40 - 4.00 mcIU/mL LAB CHEMISTRY METHOD 03/20/2025 5:44 PM EDT [facility] Blood Venous blood specimen / Unknown Venipuncture / Unknown 03/20/2025 11:19 AM EDT 03/20/2025 11:19 AM EDT us Eulalio Raines MD LAB BLOOD ORDERABLES Final Resu lt Performing Organization Address [facility] Co de Phone Number [facility] [address] [place] [address], [place] [phone] * Free thyroxine with reflex to free triiodothyronine (03/20/2025 11:19 AM EDT) Free T4 1.36 0.70 - 1.80 ng/dL LAB CHEMISTRY METHOD 03/20/2025 7:30 PM EDT [facility] Blood Venous blood specimen / Unknown Venipuncture / Unknown 03/20/2025 11:19 AM EDT 03/20/2025 11:19 AM EDT us Eulalio Raines MD LAB BLOOD ORDERABLES Final Resu lt Performing Organization Address [facility]/ZIP Co de Phone Number [facility] [address] [place] [address], [place] [phone] * Triiodothyronine free (03/20/2025 11:19 AM EDT) T3, Free 267 230 - 420 pcg/dL LAB CHEMISTRY METHOD 03/20/2025 8:13 PM EDT [facility] Blood Venous blood specimen / Unknown Venipuncture / Unknown 03/20/2025 11:19 AM EDT 03/20/2025 11:19 AM EDT us Eulalio Raines MD LAB BLOOD ORDERABLES Final Resu lt Performing Organization Address [facility]/ZIP Co de Phone Number [facility] [address] [place] [address], [place] [phone] * Hemoglobin A1c (03/20/2025 11:19 AM EDT) [facility] [address] Hemoglobin A1C 5.5 <6.5 % LAB CHEMISTRY METHOD 03/20/2025 9:20 PM EDT [facility] Mean Bld Glu Estim. 111 mg/dL LAB CHEMISTRY METHOD 03/20/2025 9:20 PM EDT [facility] Blood Venous blood specimen / Unknown Venipuncture / Unknown 03/20/2025 11:19 AM EDT 03/20/2025 11:19 AM EDT us Eulalio Raines MD LAB BLOOD ORDERABLES Final Resu lt Performing Organization Address [facility]/ZIP Co de Phone Number [facility] [address] [place] [address], [place] [phone] * (ABNORMAL) Basic metabolic panel (03/20/2025 11:19 AM EDT) [facility] [address] Sodium 142 133 - 145 mmol/L LAB CHEMISTRY METHOD 03/20/2025 3:20 PM EDT [facility] Potassium 4.7 3.5 - 5.5 mmol/L LAB CHEMISTRY METHOD 03/20/2025 3:20 PM EDT [facility] Chloride 111(H) 96 - 110 mmol/L LAB CHEMISTRY METHOD 03/20/2025 3:20 PM EDT [facility] CO2 24 21 - 32 mmol/L LAB CHEMISTRY METHOD 03/20/2025 3:20 PM EDT [facility] Anion Gap 7 3 - 11 LAB CHEMISTRY METHOD 03/20/2025 3:20 PM EDT [facility] Glucose 102(H) 70 - 100 mg/dL LAB CHEMISTRY METHOD 03/20/2025 3:20 PM EDT [facility] BUN 21 5 - 25 mg/dL LAB CHEMISTRY METHOD 03/20/2025 3:20 PM EDT [facility] Creatinine 1.10 0.50 - 1.10 mg/dL LAB CHEMISTRY METHOD 03/20/2025 3:20 PM EDT [facility] eGFR 51(L) >=60 mL/min/1. 73m2 LAB CHEMISTRY METHOD 03/20/2025 3:20 PM EDT [facility] Comment:Calculation based on the Chronic Kidney Disease Epidemiology Collaboration (CKD-EPI) equation refit without adjustment for race. BUN/Creatinine Ratio 19.1 LAB CHEMISTRY METHOD 03/20/2025 3:20 PM EDT [facility] Calcium 9.1 8.5 - 10.5 mg/dL LAB CHEMISTRY METHOD 03/20/2025 3:20 PM EDT [facility] Blood Venous blood specimen / Unknown Venipuncture / Unknown 03/20/2025 11:19 AM EDT 03/20/2025 11:19 AM EDT us Eulalio Raines MD LAB BLOOD ORDERABLES Final Resu lt [facility] [address] [place] [address], * Lipid panel with reflex to direct LDL (01/15/2025 9:46 AM EST) Cholesterol 135 0 - 200 mg/dL LAB CHEMISTRY METHOD 01/15/2025 12:49 PM EST [facility] Triglycerides 109 0 - 150 mg/dL LAB CHEMISTRY METHOD 01/15/2025 12:49 PM EST [facility] HDL 68 >=40 mg/dL LAB CHEMISTRY METHOD 01/15/2025 12:49 PM EST [facility] LDL Calculated 45 0 - 100 mg/dL LAB CHEMISTRY METHOD 01/15/2025 12:49 PM EST [facility] VLDL Cholesterol Christopher 21.8 mg/dL LAB CHEMISTRY METHOD 01/15/2025 12:49 PM EST [facility] Non HDL Chol. (LDL+VLDL) 67 <145 mg/dL LAB CHEMISTRY METHOD 01/15/2025 12:49 PM EST [facility] Chol/HDL Ratio 2.0 0.0 - 4.4 LAB CHEMISTRY METHOD 01/15/2025 12:49 PM EST [facility] Blood Venous blood specimen / Unknown Venipuncture / Unknown 01/15/2025 9:46 AM EST 01/15/2025 9:49 AM EST Elaine Anderson NP LAB BLOOD ORDERABLES Final Result [facility] [address] [place] [address], * DXA BONE DENSITY STUDY 1+ SITS [...] 01/20/2018 and as far back as 02/07/2003. No statistically significant change in bone mineral density compared with previous and baseline exams. Lateral survey view of the thoracolumbar spine shows no significant compression deformities. IMPRESSION: IMPRESSION: Osteopenia by WHO criteria. This patient has a 15% risk of major osteoporotic fracture and a 4.2% risk of hip fracture over the next 10 years. (World Health Organization Fracture Risk Assessment) [facility] Department of Internal Medicine recommends using National [...] alternative screening schedule based on marly Diaz., [facility] December 10, 2011 for patients with osteopenia [...] years. (World HealthOrganization Fracture Risk Assessment) [facility] Department of Internal Medicine recommendsusing National Osteoporosis [...] alternative screening schedule based on marly Diaz., [facility] 2011 for patients with osteopenia (based on hip BMD T-score) is as follows: * advanced osteopenia (T scores -2.00 to -2.49), BMD testing every year * moderate osteopenia (T scores -1.50 to -1.99), BMD testing every 5years mild osteopenia or normal BMD (T scores -1.50 and higher), BMD testingevery 15 years Lillie HERZOG DXA PROCEDURES Final Resu lt from Last 3 Months or Most Recently Relevant to Health Maintenance Insurance MEDICARE [facility] Care Teams Design Analyst Relationship Specialty Start Date End Date Eulalio Raines MD [address] [place] [address] PCP - General Internal Medicine 06/25/20
--- OUTSIDE RECORDS SUMMARY | 2025-06-18 15:10 | XMS_ITS | Data Portability ---
Author Organization [place] - [facility], Allergy Address [address] [address] Care Team Providers Care Social Studies Teacher Name Role Phone DAGOBERTOBRAD AN IMANI Referring Provider Assessment Encounter Date Assessment Date [...] Sensorine ural hearing loss of bilateral ears 482533022 Active 2019 Sensorine ural hearing loss, bilateral ; Note: Date Diagnosed : 03/06/2020 9:48 AM (H90.3) Not Available [facility] 4 02:57:24 Bilateral tinnitus 90032730729 02 Active 2020 Tinnitus, bilateral ; Note: Date Diagnosed : 04/22/2021 10:19 AM (H93.13) Not Available [facility] 4 02:57:22 Dysphagia 36506929 Active 2024 KOFI KELLOGG MD [address] [facility],[place] [address], [facility] [place], [address] , [facility] 15:37:44 Chronic hoarsenes s 89740966146 05 Active 2024 KOFI KELLOGG MD [address] [place] [address],[place] [address], [place], [address] , [facility] 15:37:50 Problem Notes None recorded. Procedures Surgical History Date Name Laterality Status Provider Name and Address Organization Details Recorded Time 12/27/2024 FOL_DP completed KOFI KELLOGG MD [address] [place] [address],[place] [address], [place], [address], [facility] 12/27/2024 15:37:34 Imaging Results None recorded. Procedure Notes None recorded. Medical Equipment None Reported. Allergies Allergen ID Allergen Name Allergen Category Reaction Reaction Severity Criticality Documentation Date Start Date Code Code System Note Provider Name and Address Organization Details Recorded Time 125448 Zithromax medicatio n other Not available Not available 04/04/202419637 4 RxNorm React ion: unkno wn, unspe cifie d;; Not Available [facility] 4 01:09:30 Medications Name Sig Start [...] mg tablet 12/27 completed Medicati on ID: [id number] D uration Value: 30 Brand Name: terbinaf [...] mg tablet 12/27 completed Medicati on ID: [id number] D uration Value: 90 Brand Name: losartan Send Method: E-Prescr ibed Sub s Allowed: subs OK Speci al Instruct ion: TAKE 1 TABLET BY MOUTH EVERY DAY Medi cationGe nericNam e: losartan Not Available Not Available Not Available hydrochlo rothiazid e 12.5 mg capsule 12/27 completed Medicati on ID: [id number] D uration Value: 90 Brand Name: hydrochl orothiaz denny Send Method: E-Prescr ibed Sub s Allowed: subs OK Speci al Instruct ion: TAKE 1 CAPSULE BY MOUTH EVERY DAY Medi cationGe nericNam e: hydrochl orothiaz denny Not Available Not Available Not Available Glucosami ne 500 mg tablet 12/27 completed Medicati on ID: [id number] B rand Name: Glucosam ine Send Method: [...] mg capsule 12/27 completed Medicati on ID: [id number] B rand Name: Fish Oil Send Method: E-Prescr ibed Sub s Allowed: subs OK Medic ationGen ericName : Fish Oil Not Available Not Available Not Available Calcium 600 + D(3) 600 mg-5 mcg (200 unit) capsule 2019 active Medicati on ID: [id number] B rand Name: Calcium 600 + D(3) Sen d Method: E-Prescr ibed Sub s Allowed: subs OK Medic ationGen ericName : Calcium 600 + D(3) Not Available Not Available Not Available Eliquis 5 mg tablet TAKE 1 TABLET BY MOUTH TWICE A DAY active Not Available Not Available No t Available melatonin 10 mg capsule 12/27 completed Medicati on ID: [id number] B rand Name: melatoni n Send Method: [...] mg capsule 12/27 completed Medicati on ID: [id number] B rand Name: turmeric -turmeri c root extract Send Method: E-Prescr ibed Sub s Allowed: subs OK Medic ationGen ericName : turmeric -turmeri c root extract Not Available Not Available Not Available Vitals Date Recorded Body height Body mass index (BMI) Body weight Provider Name and Address Organization Details Last Updated DateTime 12/27/2024 160.02 cm 30.1 kg/m2 74523.7 g Niesha Mcgowan [facility] 12/27/2024 15:15:32 Social History None recorded. Functional Status None recorded. Mental Status None recorded. Family History Nothing Reported. Medical History No medical history recorded. Gynecological HistoryNo gynecological history recorded. Obstetrics History GPAL:G 0 P 0 0 0 0 Past Encounters Encounter ID Performer Location Encounter Start Date Encounter Closed Date Diagnosis/Indication Diagnosis SNOMED-CT Code Diagnosis ICD10 Code Diagnosis Note [id number] KOFI KELLOGG MD [facility] [address] [address] 12/27/2024 15:00:07 12/27/2024 15:38:59 Dysphagia 23434776 R13.10 Chronic hoarseness 19297 03100 105 R49.0 Health Concerns Section Related Observation LastModified by Organization Detai ls LastModified Time None Recorded Concern Status LastModified by Organization Details LastModified Time None Recorded Advance Directives Directive None Recorded Payers Insurance Date Sequence Insurance Name Policy Number Policy Harper Covered Member ID Harper Member ID Guarantor Name 12/27/2024 2 [facility] [employer] PL[employer] F (MEDICARE SUPPLEMENT) [id number] Jessica Tran [id number] Jessica Tran 12/27/2024 1 [place] [employer] Jessica Tran [id number] Jessica Tran OBGyn Episode No OBEpisode recorded.
--- OUTSIDE RECORDS SUMMARY | 2025-06-18 15:10 | XMS_ITS | Patient Health Record ---
Author Organization [facility] Address [address] [place] [address] Care Team Providers Care Ui Developer Name Role Phone Ren Bourne MD Primary Care Provider Unavail able Josh Rey Unavailable [phone] Reason For Referral No Information Medications Medication SIG (Take, Route, Frequency, Duration) Notes Start Date End Date Status Omeprazole 20 MG Orally Act breann Calcium 600 MG 1 tablet with meals Orally Twice a day; Duration: 30 day(s) Active Potassium Chloride A ctive Melatonin 10mg Activ e Acitretin 10 MG Orally Acti ve Fish Oil 1200 MG 1 capsule Orally Onc e a day; Duration: 30 day(s) Active Allopurinol 100 MG Orally [...] Problem Status W/U Status Risk Notes Problem Other hammer toe(s) (acquired), right foot (M20.41) Active confirmed Problem Acquired hammer toe of left foot ([id number] 103) Other hammer toe(s) (acquired), left foot (M20.42) Active confirmed Plan Of Treatment No Information Insurance Providers Payer Name Payer Address Payer Phone Subscriber Number Group Number Insured Name Patient Relationship to Insured Coverage Start Date Coverage End Date Medicare National Govt Svcs Inc [address] [place] [address] [id number] Jessica Tran Self - patient is the insured [employer] ([employer]) [address] [place] [address] [id number] Jessica Tran Self - patient is the insured Medical (General) History Medical History History ICD Code asthma Cancer skin High blood pressure Measles Mumps Chicken pox Surgical History Surgery Date(Month/Year) section 1969
== END 2025-06-18 15:10 | disposition home or self-care (01) ==
LOC: HO.HPS 14:27
PROVIDERS: PCP Internal Medicine; Visit Provider Nurse Practitioner Family
DX: J45.909 Unspecified asthma, uncomplicated (principal); R94.2 Abnormal results of pulmonary function studies; R06.00 Dyspnea, unspecified; R05.9 Cough, unspecified
CPT/HCPCS: 99214

== ENCOUNTER → 2025-06-18 14:27 | Outpatient (BNVA) | payer MEDICARE, OTHER, SELFPAY | PROVIDERS: PCP Internal Medicine; Visit Provider Nurse Practitioner Family | DX: J45.909 Unspecified asthma, uncomplicated (principal); R94.2 Abnormal results of pulmonary function studies; R06.00 Dyspnea, unspecified; R05.9 Cough, unspecified | CPT/HCPCS: 99212 ==

== ENCOUNTER 2025-07-09 14:05 | Outpatient (REF) | payer MEDICARE, OTHER, SELFPAY ==
--- OUTSIDE RECORDS SUMMARY | 2025-07-09 15:50 | XMS_ITS | Patient Health Record ---
Author Organization [facility] Address [address] [place] [address] Care Team Providers Care Animal Trainer Supervisor Name Role Phone Ren Bourne MD Primary Care Provider Unavail able Josh Rey Unavailable [phone] Reason For Referral No Information Medications Medication [...] Problem Acquired hammer toe of right foot ([id number] 105) Other hammer toe(s) (acquired), right foot (M20.41) Active confirmed Problem Acquired hammer toe of left foot ([id number] 103) Other hammer toe(s) (acquired), left foot (M20.42) Active confirmed Plan Of Treatment No Information Insurance Providers Payer Name Payer Address Payer Phone Subscriber Number Group Number Insured Name Patient Relationship to Insured Coverage Start Date Coverage End Date Medicare National Govt Svcs Inc [address] [place] [address] [id number] Jessica Tran Self - patient is the insured [employer] ([employer]) [address] [place] [address] [phone] [id number] Jessica Tran Self - patient is the insured Medical (General) History Medical History History ICD Code asthma Cancer skin High blood pressure Measles Mumps Chicken pox Surgical History Surgery Date(Month/Year) section 1969
== END 2025-07-09 14:06 | disposition home or self-care (01) ==
LOC: HO.HKASLDS 14:05
PROVIDERS: PCP Internal Medicine; Visit Provider Psychiatry & Neurology Neurology
DX: G47.33 Obstructive sleep apnea (adult) (pediatric) (principal); G47.61 Periodic limb movement disorder
CPT/HCPCS: 99202

== ENCOUNTER 2025-07-09 14:05 | Outpatient (AMB) | payer MEDICARE, OTHER, SELFPAY ==
--- NOTE | 2025-07-09 14:25 | A.OFFVIS_ITS ---
Vital Signs 07/09/25 14:27 Height 5 ft 2 in Weight 180 lb 6 oz BMI 33.0 BP 122/80 Blood Pressure Location Rt brachial Position Sitting Pulse 68 Pulse Source Pulse Oximeter Pulse Oximetry (%) 94 Oxygen Delivery Method Room Air Intake Visit Reasons: 4/3LVM+Let INP-Periodic limb movement disorder Intake Note: Periodic limb movement disorder Hydroelectric Plant Technician Required: No Accompanied by: Self / Same As Patient Allergies z pack Adverse Reaction (Mild, Uncoded 06/18/25 14:32) Nausea and Vomiting HPI Comments Details: 80y/o female comes for sleep evaluation she has sleep apnea - her last sleep study in Nov 2024 showed AHI 12/hr REM KAYLEE 16/hr and oxygen amanda 86% PLMS 13.8/hr SHe has a CPAP and is waiting for a new part to restart using it. she denies any restless legs she denies leg spasms that wake her up form sleep. s he stays active and has trouble sleeping when she is not active during daytime she rangel sh/o low back pain and gets cortisone shots . [facility] Medical History (Updated 07/09/25 @ 15:17 by Khalida Cruz MD) Obstructive sleep apnea hypopnea, mild Surgical History H/O heart surgery Family History Mother No problems noted. Father No problems noted. Social History Comment: Sometimes Physical Exam Vital Signs: Last Vital Signs Pulse 68 07/09/25 14:27 BP 122/80 07/09/25 14:27 Pulse Ox 94 07/09/25 14:27 Oxygen Delivery Method Room Air 07/09/25 14:27 BMI result Body Mass Index 33.0 Const General: cooperative, healthy appearing, comfortable and no acute distress Nutritional Appearance: overweight Orientation/consciousness: patient oriented x3 Neuro Other: voice tremors General: patient oriented x3, tone normal, moves all extremities and no focal motor deficits Cranial nerves: Yes Facial sensation intact/muscles of mastication intact, Yes Bilaterally intact EOM present, Yes Nystagmus not present, Yes Normal facial strength present, Yes Midline tongue present, Yes Symmetric palate elevation present and Yes Ability to bilaterally elevate shoulders present Cognition (Neuro): normal cognition Gait exam (Neuro): Antalgic gait present Motor exam (neuro): 5/5 motor strength present throughout and Normal motor muscle tone present throughout Deep tendon reflexes (DTR's): Right triceps reflex intensity grade: 1+, Left triceps reflex intensity grade: 1+, Rt Biceps (C5, C6): 1+, Left biceps reflex intensity grade: 1+, Right brachioradialis reflex intensity grade: 1+, Left brachioradialis reflex intensity grade: 1+, Right patellar reflex intensity grade: 1+ and Left patellar reflex intensity grade: 1+ Coordination: [id number]-[id number] test normal Assessment & Plan Assessment & Plan (1) Obstructive sleep apnea hypopnea, mild: Comment: AHI 12/hr REM AHI 16/hr O 2 amanda 86% Code(s): G47.33 - Obstructive sleep apnea (adult) (pediatric) Category: Medical (2) Periodic limb movement: Comment: PLM arousal index 13/hr PLM index 73/hr Code(s): G47.61 - Periodic limb movement disorder Category: Medical Plan Restart CPAP - compliance stressed Check patients TSH Vit B 12 Ferritin Vit D levels to r/o reversible causes Trial gabapentin 100mg qhs - discussed side effects Orders: Orders Vitamin B12 and Folate Today G47.61 - Periodic limb movement disorder TSH reflex Free T4 Today G47.61 - Periodic limb movement disorder Vitamin D 25-OH (D2 and D3) Today G47.61 - Periodic limb movement disorder Ferritin Today G47.61 - Periodic limb movement disorder Medications: New gabapentin 100 mg PO BEDTIME 30 caps 6RF Coding Level of Care Code New Pt Level 4 (36161) Complex EM visit Add On G2211 Diagnoses Obstructive sleep apnea hypopnea, mild G47.33 Periodic limb movement G47.61
[2025-07-09 14:27] VITALS: BP 122/80; PULSE 68; O2SAT 94; BMI 33.0
--- OUTSIDE RECORDS SUMMARY | 2025-07-09 14:52 | XMS_ITS | Encounter Summary ---
Author Organization [facility] Address [address] [place] [address] Care Team Providers Care Assistant Merchandiser Name Role Phone Eulalio Raines MD Primary Care Provider [phone] Reason for Visit * Reason Onset Date Comments Skin Problem 07/05/2025 Encounter Details Date Type Department Care Team (Late st Contact Info) Description 07/05/2025 Nurse Triage Adult Medicine [address] [address] Eulalio Raines MD [address] [place] [address] Skin Problem Social History Tobacco Use Types Packs/Day [...] care for your loved ones. For example, child guidance counselor or elderly care for an older adult? [...] Orientation Straight 02/22/2025 10 :43 AM EDT documented as of this encounter Progress Notes * Pilar Gomez RN - 07/05/2025 11:46 AM EDT Reason for Disposition ??? [1] MODERATE-SEVERE widespread itching (i.e., interferes with sleep, normal activities or school) AND [2] not improved after 24 hours of itching Care Advice Answer Assessment - Initial Assessment Questions 1. DESCRIPTION: Describe the itching you are having. She has an itch to her entire body apart from her legs. 2. SEVERITY: How bad is it? She rates the itching as 7/10 but states last night it was worse. 3. SCRATCHING: Are there any scratch baldwin? Bleeding? She is scratching herself but not bleeding 4. ONSET: When did this begin? (e.g., minutes, hours, days ago) 1 month 5. CAUSE: What do you think is causing the itching? (ask about swimming pools, pollen, animals, soaps, etc.) Unknown 6. OTHER SYMPTOMS: Do you have any other symptoms? (e.g., fever, rash) No other symptoms 7. : Is there any chance you are ? When was your last menstrual period? No. Pt is 80 Protocols used: Itching - [id number] * Pilar Gomez RN - 07/05/2025 11:45 AM EDT An appointment was made for her to be seen in the office tomorrow at 10:30 am * Niesha Matamoros - 07/05/2025 10:43 AM EDT Patient call requires triage: Symptoms patient is presenting: Patient states she has had itchy skin for the past few days and it is worsening - was unable to sleep more than a few hours last night because of it - states this happened before and she was given a powder to use - she used the powder and it didn't touch it - states there is no rash, it just the skin that is extremely itchy How long has patient had these symptoms?: worsening over past few days For ALL patients calling to schedule any appointment (routine, sick visit, follow up, consult, etc.) in the outpatient setting please ask the following questions: Do you have fever of higher than 101, sore throat with difficulty swallowing or severe shortness ofbreath? no If YES to a ny of these above symptoms, send a message to triage and do not book. Red dot. If no, an audio or video visit should be booked. Have you had close contact with someone with Coronavirus in the last 14 days? no Have you traveled abroad? yes Have you traveled recently to another state outside of [place], [place], [place], [place], [place], [place], [place]? no o If yes, did you quarantine for 14 days or have a negative covid test? no If yes to any of the above, patient is not to be scheduled in office until after 14 day quarantine or negative covid test. If pain or injury related was it due to an accident at work or from a motor vehicle accident? If yes, date of accident/Injury: No If yes, gather 3rd green party insurance information Third Republican Information: not applicable PCP: Eulalio Raines MD Payor: MEDICARE / Plan: MEDICARE PART A & B / Product Type: Medicare / documented in this encounter Plan of Treatment Upcoming Encounters Date Type Department Care Team (Late st Contact Info) Description 08/08/2025 9:50 AM EDT Office Visit [facility] [address] [address] Adam Kern MD [address] [address] 08/16/2025 1:15 PM EDT Office Visit Adult Medicine [facility] - [address] [phone] Eulalio Raines MD [address] [place], [place] 09/13/2025 11:00 AM EDT Appointment Radiology Department - [address] [phone] 09/20/2025 3:30 PM EDT Office Visit Nephrology - [address] [phone] Lenny Winter MD [address] [phone] documented as of this encounter Visit Diagnoses Not on filedocumented in this encounter Additional Health Concerns Assessment Noted Time PHQ-9 Depression Total Score: 0 02/08/20 25 9:57 AM EDT A fall risk assessment has been complete d for the patient 02/07/2025 9:57 AM EDT documented as of this encounter Care Teams Assistant Merchandiser Relationship Specialty Start Date End Date Eulalio Raines MD [address] [place] [address] PCP - General Internal Medicine 06/25/20 documented as of this encounter
--- OUTSIDE RECORDS SUMMARY | 2025-07-09 14:52 | XMS_ITS | Clinical Summary ---
Author Organization [facility] Address [address] [place] [address] Phone Care Team Providers Care Hvac Project Manager Name Role Phone Eulalio Raines MD Primary Care Provider + Siobhan Khan Unavailable [phone] Encounters Date Type Department Care Team Description 05/03/2025 Telephone [facility] [address] [address] Rosendo Walker from Last 3 Months Social [...] 12 :45 PM EDT Plan of Treatment Health Maintenance Due Date Last Done Comments LIPID PANEL 1945 DEPRESSION SCREENING 1957 SMOKING Hx and SMOKELESS TOBACCO SCREENING 1958 OSTEOPOROSIS SCREENING INITI AL (ONE-TIME) 2010 RSV [...] file Insurance MEDICARE PART A & B [facility] MEDIC[facility]PPLEMENT [facility] Address: [address] [address] MEDICARE PART A & B As It Is MEDICARE SUPPLEMENT MEDICARE PART A & B As It Is MEDICARE SUPPLEMENT MEDICARE PART A & B [facility] MEDICARE SUPPLEMENT MEDICARE PART A & B [facility] MEDICARE SUPPLEMENT MEDICARE PART A & B [facility] MEDICARE SUPPLEMENT Care Teams Hvac Project Manager Relationship Specialty Start Date End Date Eulalio Raines MD [address] [place] [address] PCP - General Internal Medicine 05/12/24 Siobhan Khan PA [address] [place] [phone] [email or web address] Physician Well Testing Operator 05/12/24 Additional Source Comments The information contained in this document represents components of the legal health record. It is not the complete legal health record.[facility]
== END 2025-07-09 15:18 | disposition home or self-care (01) ==
LOC: HO.HSMS 14:06
PROVIDERS: PCP Internal Medicine; Visit Provider Psychiatry & Neurology Neurology
DX: G47.33 Obstructive sleep apnea (adult) (pediatric) (principal); G47.61 Periodic limb movement disorder
CPT/HCPCS: 99204; G2211

== ENCOUNTER 2025-07-10 11:12 | Outpatient (REF) | payer MEDICARE, OTHER, SELFPAY ==
--- OUTSIDE RECORDS SUMMARY | 2025-07-10 12:44 | XMS_ITS | Patient Health Record ---
Author Organization [facility] Address [address] [place] [address] Care Team Providers Care Bath Steward Name Role Phone Ren Bourne MD Primary Care Provider Unavail able Josh Rey Unavailable [phone] Reason For Referral No Information Medications Medication [...] Problem Acquired hammer toe of right foot ([id number] 105) Other hammer toe(s) (acquired), right foot (M20.41) Active confirmed Problem Other hammer toe(s) (acquired), left foot (M20.42) Active confirmed Plan Of Treatment No Information Insurance Providers Payer Name Payer Address Payer Phone Subscriber Number Group Number Insured Name Patient Relationship to Insured Coverage Start Date Coverage End Date Medicare National Govt Svcs Inc [address] [place] [address] [id number] Jessica Tran Self - patient is the insured [employer] ([employer]) [address] [place] [address] [id number] Jessica Tran Self - patient is the insured Medical (General) History Medical History History ICD Code asthma Cancer skin High blood pressure Measles Mumps Chicken pox Surgical History Surgery Date(Month/Year) section 1969
--- OUTSIDE RECORDS SUMMARY | 2025-07-10 12:44 | XMS_ITS | Clinical Summary ---
Author Organization [facility] Address [address] [place] [address] Phone Care Team Providers Care Waybill Clerk Name Role Phone Eulalio Raines MD Primary Care Provider + Siobhan Khan Unavailable [phone] Encounters Date Type Department Care Team Description 05/03/2025 Telephone [facility] [address] [address] Rosendo Walker from Last 3 Months Social [...] file Insurance MEDICARE PART A & B [facility] Address: [address] [address] MEDICARE PART A & B [employer] MEDICARE SUPPLEMENT MEDICARE PART A & B [employer] MEDICARE SUPPLEMENT MEDICARE PART A & B [facility] MEDICARE SUPPLEMENT MEDICARE PART A & B [facility] MEDICARE SUPPLEMENT MEDICARE PART A & B [facility] MEDICARE SUPPLEMENT Care Teams Waybill Clerk Relationship Specialty Start Date End Date Eulalio Raines MD [address] [place] [address] PCP - General Internal Medicine 05/12/24 Siobhan Khan PA [address] [place] [phone] [email or web address] Physician Sales Representative Raw Fibers 05/12/24 Additional Source Comments The information contained in this document represents components of the legal health record. It is not the complete legal health record.[facility]
--- OUTSIDE RECORDS SUMMARY | 2025-07-10 12:44 | XMS_ITS | Encounter Summary ---
Author Organization [facility] Address [address] [place] [address] Care Team Providers Care Workers' Compensation Claims Examiner Name Role Phone Eulalio Raines MD Primary Care Provider [phone] Reason for Visit * Reason Onset Date Comments Skin Problem 07/05/2025 Encounter Details Date Type Department Care Team (Late st Contact Info) Description 07/05/2025 Nurse Triage Adult Medicine [address] [phone] Eulalio Raines MD [address] [place] [address] Skin Problem Social History Tobacco Use Types [...] care for your loved ones. For example, children's counselor or elderly care for an older [...] Pt is 80 Protocols used: Itching - Arunfgauyc-I-AD * Pilar Gomez RN - 07/05/2025 11:45 [...] of accident/Injury: No If yes, gather 3rd libertarian insurance information Third Republican Information: not applicable PCP: Eulalio Raines MD Payor: MEDICARE / Plan: MEDICARE PART A & B / Product Type: Medicare / documented in this encounter Plan of Treatment Upcoming Encounters Date Type Department Care Team (Late st Contact Info) Description 08/08/2025 9:50 AM EDT Office Visit [facility] [address] [phone] Adam Kern MD [address] [address] 08/16/2025 1:15 PM EDT Office Visit Adult Medicine [facility] - [address] [phone] Eulalio Raines MD [address] [place], [place] 09/13/2025 11:00 AM EDT Appointment Radiology Department - [address] [phone] 09/20/2025 3:30 PM EDT Office Visit Nephrology - [address] [phone] Lenny Winter MD [address] [phone] documented as of this encounter Visit Diagnoses Not on filedocumented in this encounter Additional Health Concerns Assessment Noted Time PHQ-9 Depression Total Score: 0 02/08/20 25 9:57 AM EDT A fall risk assessment has been complete d for the patient 02/07/2025 9:57 AM EDT documented as of this encounter Care Teams Workers' Compensation Claims Examiner Relationship Specialty Start Date End Date Eulalio Raines MD [address] [place] [id number] PCP - General Internal Medicine 06/25/20 documented as of this encounter
[2025-07-10 14:06] LABS: Ferritin 18 ng/mL (10-250)
[2025-07-10 14:16] LABS: Folate 4.7 ng/mL (> or = 4.0); Vitamin B12 348 pg/mL (200-900)
[2025-07-10 14:38] LABS: Free T4 (Free Thyroxine) 1.23 ng/dL (0.71-1.85)
[2025-07-14 14:27] LABS: Vitamin D 25-OH, D2 <4 ng/mL; Vitamin D 25-OH, D3 46 ng/mL; Vitamin D 25-OH, Total 46 ng/mL (30-100)
== END 2025-07-10 11:13 | disposition home or self-care (01) ==
LOC: HO.HMGCLDS 11:12
PROVIDERS: PCP Internal Medicine; Visit Provider Psychiatry & Neurology Neurology
DX: G47.61 Periodic limb movement disorder (principal)
CPT/HCPCS: 36415; 82306; 82607; 82728; 82746; 84439; 84443

== ENCOUNTER 2025-08-27 12:50 | Outpatient (AMB) | payer MEDICARE, OTHER, SELFPAY ==
--- NOTE | 2025-08-27 12:57 | A.OFFVIS_ITS ---
Vital Signs 08/27/25 13:03 Height 5 ft 2 in Weight 185 lb 3.013 oz BMI 33.9 BP 130/68 Blood Pressure Location Lt brachial Position Sitting Pulse 57 Pulse Source Pulse Oximeter Pulse Oximetry (%) 99 Oxygen Delivery Method Room Air Intake Visit Reasons: Dyspnea Allergies z pack Adverse Reaction (Mild, Uncoded 08/27/25 13:07) Nausea and Vomiting HPI HPI Dyspnea: Details: Jessica is a pleasant 80 year old female, never smoker, with underlying asthma, severe GERMAN on CPAP, HTN, GERD, Atrial fibrillation on amiodarone, h/o DVT on eliquis, STEMI s/p stent LAD 2021, diastolic dysfunction and h/o basal cell carcinoma/melanoma. She has been using Breo 200 mcg and Spiriva, with moderate effect, continues to report dyspnea with hills/stairs, rarely requiring albuterol MDI. However she does question using the inhalers appropriately and feeling as though she is not receiving complete dosage with inhalations. She also reports difficulty using Spiriva Respimat. Prior chest CT 11/2024 revealed multiple subcentimeter pulmonary nodules otherwise no findings related to Amiodarone. Since the last visit she did obtain new CPAP machine set to APAP mode with pressures [id number]. She reports benefit from use and overall decrease in nonrestorative sleep as well as daytime fatigue. She does report over the last few days issues with the mask causing nasal sores as well as notable leaking. 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 Today she presents to review CPAP compliance report. She denies any visits to urgent care or hospitalizations related to respiratory distress since the last visit. reports wheezing at night which she attributes to post nasal drip [facility] Medical History (Updated 07/09/25 @ 15:17 by Khalida Cruz MD) Obstructive sleep apnea hypopnea, mild Surgical History H/O heart surgery Family History Mother No problems noted. Father No problems noted. Social History (Updated 08/27/25 @ 13:07 by Idania Davidson CMA) Comment: Sometimes Patient Tobacco Use Status: Never used Tobacco Review of Systems Const Denies chills, Denies excessive sweating, Denies fever(s), Denies headache(s) and Denies night sweats Eyes Denies dry eyes, Denies irritation and Denies itchy eyes ENT Reports Normal hearing present, Denies headache(s), Reports nasal congestion, Reports post nasal drip and Denies sore throat Card Denies chest pain, Denies chest pain at rest, Denies chest pain with activity, Denies claudication, Denies leg edema, Reports dyspnea on exertion and Denies orthopnea Resp Denies chest congestion, Denies cough, Denies excessive phlegm production, Denies pain on inspiration, Denies pain with cough, Reports dyspnea on exertion, Denies stridor and Reports wheezing Musc Denies myalgias Neuro Reports Normal hearing present and Denies headache(s) Endo Denies excessive sweating Prashant/Lymph Denies lymphadenopathy Aller/Immun Denies itchy eyes, Denies seasonal rhinorrhea and Reports wheezing Physical Exam Vital Signs: Last Vital Signs Pulse 57 08/27/25 13:03 BP 130/68 08/27/25 13:03 Pulse Ox 99 08/27/25 13:03 Oxygen Delivery Method Room Air 08/27/25 13:03 BMI result Body Mass Index 33.9 Const General: cooperative, healthy appearing, comfortable, no acute distress, well developed and alert Nutritional Appearance: obese Orientation/consciousness: patient oriented x3 Limitations: no limitations HEENT Head: Yes normal to inspection, Yes normocephalic and Yes atraumatic Ears: hearing grossly normal bilaterally and external ears normal Eyes General: appearance normal, both eyes and all related structures Eyelids: Yes eyelids normal Sclerae: sclerae normal EOM: EOMs intact bilaterally Neck Neck: Yes normal visual inspection and Yes no lymphadenopathy Lymphatic: no lymphadenopathy noted Chest Chest palpation & inspection: normal inspection of the chest Resp Effort & Inspection: normal respiratory effort, able to speak in complete sentences, no audible wheezes, no cough, no stridor, not tachypneic, no tripod positioning and no use of accessory muscles Auscultation: clear to auscultation bilaterally Cardio Jugular venous distension: no JVD Rate: regular rate Rhythm: regular rhythm Skin Other: warm, dry General skin exam: no rashes or lesions noted Neuro General: patient oriented x3 Cranial nerves: Yes Normal hearing present Cognition (Neuro): normal cognition Gait exam (Neuro): Normal gait present Extrem General: Yes normal to inspection, Yes capillary refill normal, Yes no clubbing, cyanosis or edema and Yes no pedal edema Psych Appearance: grossly normal and well kempt Speech and movement: Normal speech and movement present and Clear speech present Affect: normal affect Attitude: cooperative Thought process: Normal thought process present Thought content: Normal thought content present Insight: Good insight present (Psych) Judgement: Good judgement present (Psych) Assessment & Plan Assessment & Plan (1) Asthma: Code(s): J45.909 - Unspecified asthma, uncomplicated Category: Medical (2) Decreased diffusion capacity: Code(s): R94.2 - Abnormal results of pulmonary function studies Category: Medical (3) Paroxysmal nocturnal dyspnea: Code(s): R06.00 - Dyspnea, unspecified Category: Medical (4) Obstructive sleep apnea hypopnea, mild: Comment: AHI 12/hr REM AHI 16/hr O 2 amanda 86% Code(s): G47.33 - Obstructive sleep apnea (adult) (pediatric) Category: Medical Plan Reviewed compliance report for CPAP therapy which reveals 50% compliance >4 hours, AHI 2.8, with moderate leaking noted. Discussed importance of increasing compliance to >4 hours for 70% of the time as well as ensuring upkeep with supplies as this could be contributing to leaking vs trialing a different mask for improved seal. She currently using nasal pillows and may benefit from a full face mask which she is agreeable to trial. She does report benefit from use of CPAP therapy and is motivated to be more compliant. At this time patient reports moderate control of respiratory symptoms with current regimen, will switch Breo to Advair in addition to spacer to improve medication administration. Will switch Spiriva respimat to handihaler in hopes to improve inhaler usage. Patient has been maintained on Amiodarone, with no evidence of pulmonary involvement on prior chest CT. Will repeat CT (previously orders) as well as PFT to further a ssess. All questions were answered and patient is in agreement of plan. Will follow up in3 months or sooner if needed. Orders: Orders PFT pulmonary function test Today J45.909 - Unspecified asthma, uncomplicated Medications: New fluticasone propion-salmeterol 230-21 mcg/actuation (Advair HFA) 2 puffs inhalation Q12H 12 grams 3RF tiotropium bromide (Spiriva with HandiHaler) puncture 1 cap using device; one dose = 2 inhalations 1 cap inhalation DAILY 1 ea 3RF inhalational spacing device (Aerochamber MV spacer) As directed 1 ea 0RF albuterol sulfate 90 mcg/actuation 2 puffs inhalation Q4-6H PRN 1 ea 3RF shortness of breath or wheezing Discontinued fluticasone furoate-vilanterol 200-25 mcg/dose (Breo Ellipta) Discontinued Reason: More recent result 1 inh inhalation DAILY 60 ea 6RF Coding Level of Care Code Est Pt Level 4 (68231) Diagnoses Asthma J45.909 Decreased diffusion capacity R94.2 Paroxysmal nocturnal dyspnea R06.00 Obstructive sleep apnea hypopnea, mild G47.33
[2025-08-27 13:03] VITALS: BP 130/68; PULSE 57; O2SAT 99; BMI 33.9
--- OUTSIDE RECORDS SUMMARY | 2025-08-27 15:13 | XMS_ITS | Encounter Summary ---
Author Organization [facility] Address [address] [place] [address] Care Team Providers Care Pullman Conductor Name Role Phone Eulalio Raines MD Primary Care Provider [phone] Encounter Details Date Type Department Care Team (Late st Contact Info) Description 08/21/2025 Results Follow-Up Adult Medicine [address] [phone] Eulalio Raines MD [address] [place] [address] Social History Tobacco Use Types Packs/Day Years [...] care for your loved ones. For example, special needs child caregiver or elderly care for an older adult? [...] Date Recorded What is your living situation? Unrecognized valu e 02/07/2025 Comments No Sex and Gender Information Value Date Recorded Sex Assigned at Female 02/22/2025 10:43 AM EDT Legal Sex Female 8:17 PM EST Gender Identity Female 02/22/2025 10:43 AM EDT Sexual Orientation Straight 02/22/2025 10 :43 AM EDT documented as of this encounter Plan of Treatment Upcoming Encounters Date Type Department Care Team (Late st Contact Info) Description 09/13/2025 11:00 AM EDT Appointment Radiology Department - [address] [phone] 09/20/2025 3:30 PM EDT Office Visit Nephrology - [address] [phone] Lenny Winter MD [address] [phone] 02/06/2026 10:00 AM EDT Consult Gastroenterology - [place] [address] [facility] [address] [facility] [address] [place] [address] Linda Leiva, [place] [address] [facility] [address] [place] [address] 02/22/2026 3:30 PM EDT Office Visit Adult Medicine [address] [phone] Eulalio Raines MD [address] [place] [address] documented as of this encounter Visit Diagnoses Not on filedocumented in this encounter Additional Health Concerns Assessment Noted Time PHQ-9 Depression Total Score: 0 02/08/20 25 9:57 AM EDT A fall risk assessment has been complete d for the patient 02/07/2025 9:57 AM EDT documented as of this encounter Care Teams Pullman Conductor Relationship Specialty Start Date End Date Eulalio Raines MD [address] [place] [address] PCP - General Internal Medicine 06/25/20 documented as of this encounter
--- OUTSIDE RECORDS SUMMARY | 2025-08-27 15:13 | XMS_ITS | Clinical Summary ---
Author Organization [facility] Address [address] [place] [id number] Phone Care Team Providers Care Asbestos Brake Lining Finisher Helper Name Role Phone Eulalio Raines MD Primary Care Provider + Siobhan Khan Unavailable [phone] Social History Tobacco Use Types Packs/Day Years [...] and SMOKELESS TOBACCO SCREENING 1958 OSTEOPOROSIS SCREENING INITIAL (ONE-TIME) 2010 RSV VACCINE (1 - 1-dose 75+ series) 2020 INFLUENZA VACCINE (#1) 2025 3, 07/29/2022, 09/13/2021, Additional history exists COVID-19 VACCINE ( season) 2025 08/16/2021, 01/21/2021, 12/31/2020 Adult Td,Tdap Booster 01/04/2028 01/04/2018, 007 ZOSTER VACCINES Completed 10/14/2020, 07/24, 11/10/2011 PNEUMOCOCCAL VACCINES (50+ years) Completed 09/10/2023, [...] file Insurance MEDICARE PART A & B [facility] MEDICARE SUPPLEMENT MEDICARE PART A & B [employer] MEDICARE SUPPLEMENT MEDICARE PART A & B [employer] MEDICARE SUPPLEMENT MEDICARE PART A & B [facility] MEDICARE SUPPLEMENT MEDICARE PART A & B [facility] [employer] MEDICARE SUPPLEMENT MEDICARE PART A & B Member Subscriber Plan / Payer (Ef fective 2010-Present) Name:Jessica Tran Member ID:[id number] Relation to Subscriber:Self Name:Jessica Tran Subscriber ID:[id number] Payer ID:[id number] Group ID:Not on file Type:Medicare Address: [employer] [address] [facility] [employer] MEDICARE SUPPLEMENT Care Teams Asbestos Brake Lining Finisher Helper Relationship Specialty Start Date End Date Eulalio Raines MD [address] [place] [phone] PCP - General Internal Medicine 05/12/24 Siobhan Khan PA [address] [place] [phone] [email or web address] Truck [email or web address] 05/12/24 Additional Source Comments The information contained in this document represents components of the legal health record. It is not the complete legal health record[facility]
--- OUTSIDE RECORDS SUMMARY | 2025-08-27 15:13 | XMS_ITS | Clinical Summary ---
Author Organization [facility] [address] [place] [address] Address [address] [place] [address] Phone Care Team Providers Care Health Sanitarian Name Role Phone Eulalio Raines MD Primary Care Provider [phone] Allergies Active Allergy Reactions Criticality Noted Date Comments Azithromycin Hallucinations,Nausea And Vomiting 11/18/2005 Medications LORazepam (ATIVAN) 0.5 mg tablet Take 1 tablet (0.5 mg total) by mouth every 6 (six) hours if needed. 01/01/20 23 Active umeclidinium brm/vilantero l tr (ANORO ELLIPTA INHL) Inhale by mouth. Active albuterol HFA (PROAIR HFA ; PROVENTIL HFA ; VENTOLIN HFA) 90 mcg/actuation inhaler Inhale 2 puffs by mouth every 4 (four) hours if needed for wheezing. 18 g 1 11/20/20 24 Active sacubitriL-va lsartan (Entresto) 49-51 mg per [...] EVERY DAY AT BEDTIME 90 tablet 1 02/16/20 25 Active Breo Ellipta 100-25 mcg/dose inhaler Inhale 1 puff by mouth 1 (one) time each day. 1 each 2 03/20/20 25 Active allopurinoL (ZYLOPRIM) 100 mg tablet Take 2 tablets (200 mg total) by mouth 1 (one) time each day. 90 tablet 2 03/20/20 25 Active butalbital-ac etaminophen-c affeine (FIORICET, ESGIC) 50-325-40 mg per tablet Take 1 tablet by mouth every 4 (four) hours if needed for headaches. Use no more than 5/day, 10/week, 30/month. 30 tablet 03/20/20 25 11/15/ 025 Active carvediloL (COREG) 3.125 mg tablet TAKE 1 TABLET TWICE A DAY WITH MEALS FOR 180 DAYS 60 tablet 5 05/14/20 25 Active acitretin (SORIATANE) 10 mg capsule Take 1 capsule (10 mg total) by mouth 1 (one) time each day with lunch. 90 capsule 1 05/22/20 25 Active Eliquis 5 mg tablet Take 1 tablet (5 mg total) by mouth 2 (two) times a day. 180 tablet 1 05/22/20 25 Active clopidogreL (PLAVIX) 75 mg tablet Take 1 tablet (75 mg total) by mouth 1 (one) time each day. 90 tablet 1 05/22/20 25 Active nystatin (MYCOSTATIN) 100,000 unit/gram powder Apply 1 Application topically 2 (two) times a day. APPLY TO AFFECTED AREA 60 g 1 07/06/20 25 Active cetirizine (ZyrTEC) 10 mg tablet Take 1 tablet (10 mg total) by mouth 1 (one) time each day. 90 tablet 1 07/06/20 25 Active cholecalcifer ol (VITAMIN D-3) 50 mcg (2,000 unit) tablet Take 1 tablet (2,000 Units total) by mouth 1 (one) time each day. 90 tablet 1 07/10/20 25 Active gabapentin (NEURONTIN) 100 mg capsule Take 1 capsule (100 mg total) by mouth at bedtime. Active amiodarone (Pacerone) 100 mg tablet Take 1 tablet (100 mg total) by mouth 1 (one) time each day. 90 each 3 08/08/20 25 026 Active dicyclomine (BENTYL) 10 mg capsule TAKE 1 CAPSULE TWICE DAILY 180 capsule 1 08/23/20 25 Active dicyclomine (BENTYL) 10 mg capsule Take 1 capsule (10 mg total) by mouth 2 (two) times a day. 180 capsule 1 02/08/20 25 025 Discontinued amiodarone (PACERONE) 200 mg tablet TAKE 1/2 TABLET BY MOUTH DAILY FOR 180 DAYS 45 tablet 1 02/13/20 25 025 Discontinued amiodarone (PACERONE) 200 mg tablet TAKE 1/2 TABLET BY MOUTH DAILY FOR 180 DAYS 45 tablet 1 08/06/20 25 025 Discontinued(Do se adjustment) Active Problems Problem Noted Date Diagnosed Date On amiodarone therapy 08/08/2025 Phlebitis 09/25/2024 Squamous cell skin cancer 09/25/2024 Overview (09/25/2024): right nose, right distal LE, right dorsal foot, right anterior tibia, left distal tibia, left lateral leg, left nose, left neck - mohs, right lateral foot - ED&C, left distal tibia - ED&C Ascending aorta dilatation (CMS/HCC V24) 024 Overview (09/25/2024): Echo 3.9 cm Assessment & Plan (03/25/2025 11:59 AM EDT): We will continue to monitor this with serial echocardiograms. Blood pressure is well-controlled today; she was encouraged to resume CPAP use as soon as possible. Diastolic dysfunction 08/14/2024 Heart failure with improved ejection fraction (HFimpEF) (CMS/HCC V24, CMS/HCC V28) 05/04/2024 Assessment & Plan (03/25/2025 11:59 AM EDT): Assessment & Plan (01/11/2025 8:59 PM EST): Secondary hypercoagulable state (CMS/HCC V24) Assessment & Plan (03/25/2025 11:59 AM EDT): Assessment & Plan (01/11/2025 8:59 PM EST): Elevated brain natriuretic peptide (BNP) level 0 02/08/2024 ECG abnormal 02/02/2024 Ischemic dilated cardiomyopathy (CMS/[facility] V24, CM S/[facility] V28) 09/24/2022 Assessment & Plan (03/25/2025 11:59 [...] involving left anterio r descending coronary artery ([facility] V24, [facility] V28) 09/18/2022 Overview (09/25/2024): Last Assessment & [...] bleeding or excessive bruising. Paroxysmal atrial fibrillation ([facility] V24, [facility] /[facility] V28) 09/18/2022 Assessment & Plan (03/25/2025 11:59 [...] going use of this medication with Dr. Montenegro. We discussed the risks and benefits of continuing amiodarone today, and the patient wishes to continue it pending further discussion with Dr. Montenegro. She will continue with Eliquis 5 mg [...] needed; I will also follow-up with Dr. Montenegro to further discuss her ongoing amiodarone use. [...] blood, will refer to Urology. 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 Obstructive sleep apnea 08/10/2018 Overview (03/25/2025): [facility] Home Polysomnogram: Date 08/05/2018; AHI 50, [...] carcinoma of skin 12/16/2016 Overview (09/25/2024): right episcopalian - ulcerated - Mohs; left anterior shoulder; [...] she had this checked more recently at [facility]; we will attempt to obtain these results. [...] kidney disease) stage 3, GFR 30-59 ml/min ([facility] V24, [facility] V28) 03/27/2014 Overview (09/25/2024): GFR 52 on 03/21/14 Assessment & Plan (03/25/2025 11:59 AM EDT): DVT of lower extremity (deep venous thrombosis) ([facility] V24, [facility] V28) 08/11/2011 Gout 12/09/2010 Overview (09/25/2024): Recurrent [...] Encounters Date Type Department Care Team Description 08/21/2025 Results Follow-Up [address] [phone] Eulalio Raines MD 08/16/2025 1:15 PM EDT Office Visit [address] [phone] Eulalio Raines MD Essential hypertension (Primary Dx); Need for prophylactic vaccination and inoculation against influenza; Pure hypercholesterolemia; Encounter for long-term (current) use of medications; Regurgitation and rechewing; Gastroesophageal reflux disease, unspecified whether esophagitis present; Chronic cough; Paroxysmal atrial fibrillation (CMS/HCC V24, CMS/HCC V28); Coronary artery disease involving [place] coronary artery of [place] heart without angina pectoris; Ischemic dilated cardiomyopathy (CMS/HCC V24, CMS/HCC V28); Heart failure with improved ejection fraction (HFimpEF) (CMS/HCC V24, CMS/HCC V28); Stage 3a chronic kidney disease (CMS/HCC V24, CMS/HCC V28); ISLAS (dyspnea on exertion) 08/08/2025 9:50 AM EDT Office Visit [facility] [address] [facility] [address] [place] [address] Adam Montenegro MD Ischemic dilated cardiomyopathy (CMS/HCC V24, CMS/HCC V28) (Primary Dx); Coronary artery disease involving [place] coronary artery of [place] heart without angina pectoris; Paroxysmal atrial fibrillation (CMS/HCC V24, CMS/HCC V28); On amiodarone therapy 07/06/2025 10:30 AM EDT Office Visit [address] [phone] Vernell Bermudez PA Pruritus (Primary Dx); Intertrigo; History of skin cancer 07/05/2025 Nurse Triage [address] [phone] Eulalio Raines MD 06/19/2025 Telephone [facility] [address] [place] [address] Eulalio Raines MD from Last 3 Months Immunizations Immunization Administration Dates Next Due Influenza Quadravalent, MDCK , 0.5ml, with preservative (Flucelvax) 6mo and older 11/11/2017 Influenza trivalent, 0.5mL ( Fluad) 65yo and older 08/16/2025,09/10/2023 Influenza trivalent, with pr eservative (Fluzone; Afluria) [...] 50's SECTION PROCEDURE: HISTORICAL ESOPHAGOGASTRODUODENOSCOPY 11/26 PROCEDURE: RI ESOPHAGOGASTRODUODENOSCOPY TRANSORAL DIAGNOSTIC; COMMENT: rx: ppi MAMMOGRAM MARKUS 10/25 PROCEDURE: MAMMOGRAM, SCREENING, BOTH BREASTS; COMMENT: abnormal - lt breast OTHER SURGICAL HISTORY 06/24 PROCEDURE: PAP SMEAR (1 SLIDE) OTHER SURGICAL HISTORY 01/22 PROCEDURE: DXA, BONE DENSITY STUDY, 1+ SITES; VERTEBRAL FX ASSESS OTHER SURGICAL HISTORY 06/08/00 PROCEDURE: RI NASAL/SINUS NDSC W/TOTAL ETHOIDECTOMY; COMMENT: Dr. Simpson OTHER SURGICAL HISTORY PROCEDURE: HISTORICAL MELANOMA; COMMENT: L FOOT COLONOSCOPY 02/26/1999 PROCEDURE: RI COLONOSCOPY FLX DX W/COLLJ SPEC WHEN PFRMD; COMMENT: diverticulosis COLONOSCOPY 10/2008 PROCEDURE: RI COLONOSCOPY FLX DX W/COLLJ SPEC WHEN PFRMD; [...] DX:Hyperlipidemi a Coronary artery disease invo lving [place] coronary artery of [place] heart without angina pectoris 09/23/2022 DX:Coronary artery disea se involving [place] coronary artery of [place] heart without angina pectoris Gout Family History [...] care for your loved ones. For example, early childhood assistant or elderly care for an older adult? [...] Sign Reading Time Taken Comments Blood Pressure 116/72 08/16/2025 1:03 PM EDT Pulse 59 08/16/2025 1:03 PM EDT Temperature 36.4 C (97.5 F) 08/16/2025 1:03 PM EDT Respiratory Rate 14 08/16/2025 1:03 PM EDT Oxygen Saturation 99% 08/16/2025 1:03 PM EDT Inhaled Oxygen Concentration - - Weight 84.8 kg (187 lb) 08/16/2025 1:03 PM EDT Height 160 cm (5' 3 ) 08/16/2025 1:03 PM EDT Body Mass Index 33.13 08/16/2025 1:03 PM EDT Plan of Treatment Upcoming Encounters Date Type Department Care Team (Late st Contact Info) Description 09/13/2025 11:00 AM EDT Appointment Radiology Department [address] [phone] 09/20/2025 3:30 PM EDT Office Visit Nephrology - [address] [phone] Lenny Winter MD [address] [facility] [address] [place] [id number] 02/06/2026 10:00 AM EDT Consult Gastroenterology - [place] [address] [place] [address] Linda Leiva, LOUISE [address] [facility] [address] [place] [address] 02/22/2026 3:30 PM EDT Office Visit [facility] - [address] [phone] Eulalio Raines MD [address] [place], [place] Health Maintenance Due Date Last Done Comments Colorectal Cancer Screening: Colonoscopy 1945 RSV Immunization Adult Patients (1 - 1-dose 75+ series) 2020 Medicare Annual Wellness Visit 10/31/2022 COVID-19 Vaccine ( - 2024- season) 2025 08/16/2021, 01/21/2021, 12/31/2020 Falls Risk Assessment 02/07/2026 02/07/2025 Social Influencers of Health Screening 02/07/2026 02/07/2025 Hypertension/CHF/CAD Annual BMP Blood Test 08/16/2026 08/16/2025, 03/20/2025, 01/15/2025, Additional history exists DTaP,Tdap,and Td Vaccines (3 - Td or Tdap) 01/04/2028 01/04/2018, 10/18/2007 Cholesterol Screening (Lipid Panel) 08/16/2030 08/16/2025, 01/15/2025 Osteoporosis Screening (Bone Density Screening) 04/07/2031 04/07/2021, 01/20/2018 Zoster Vaccines Completed 10/14/2020, 07/24, 11/10/2011 Pneumococcal Vaccine: 50+ Years Completed 09/10/2023, 01/01/2016, 12/08/2010 Depression Screening Completed 02/07/2025 Influenza Vaccine Discontinued 08/16/2025, , 07/29/2022, Additional history exists HIB Vaccines Aged Out No longer eligi [...] Procedure Name Priority Date/Time Associated Diagnosis Comments LIPID PANEL WITH REFLEX TO DIRECT LDL Routine 08/16/2025 1:57 PM EDT Pure hypercholesterolemia COMPREHENSIVE METABOLIC PANEL Routine 08/16/2025 1:57 PM EDT Pure hypercholesterolemia Encounter for long-term (current) use of medications ECG 12-LEAD Routine 08/08/2025 9:57 AM EDT Ischemic dilated cardiomyopathy (CMS/HCC V24, CMS/HCC V28) CBC WITH AUTO DIFFERENTIAL Routine 07/06/2025 11:40 AM EDT Pruritus CBC AND DIFFERENTIAL Routine 07/06/2025 11:40 AM EDT Pruritus DXA BONE DENSITY STUDY 1+ SITS AXIAL SKEL Routine 04/07/2021 2:59 PM EDT Other specified disorders of bone density and structure, unspecified site from Last 3 Months or Most Recently Relevant to Health Maintenance Results * Lipid panel with reflex to direct LDL (08/16/2025 1:57 PM EDT) Cholesterol 144 0 - 200 mg/dL LAB CHEMISTRY METHOD 08/16/2025 10:16 PM EDT [facility] Triglycerides 116 0 - 150 mg/dL LAB CHEMISTRY METHOD 08/16/2025 10:16 PM EDT [facility] HDL 69 >=40 mg/dL LAB CHEMISTRY METHOD 08/16/2025 10:16 PM EDT [facility] LDL Calculated 52 0 - 100 mg/dL LAB CHEMISTRY METHOD 08/16/2025 10:16 PM EDT [facility] Comment:Estimated LDL Calcul ated using equation: Total cholesterol - HDL cholesterol - (Triglycerides/5) VLDL Cholesterol Christopher 23.2 mg/dL LAB CHEMISTRY METHOD 08/16/2025 10:16 PM EDT [facility] Non HDL Chol. (LDL+VLDL) 75 <145 mg/dL LAB CHEMISTRY METHOD 08/16/2025 10:16 PM EDT [facility] Chol/HDL Ratio 2.1 0.0 - 4.4 LAB CHEMISTRY METHOD 08/16/2025 10:16 PM EDT [facility] Blood Venous blood specimen / Unknown Venipuncture / Unknown 08/16/2025 1:57 PM EDT 08/16/2025 1:57 PM EDT us Eulalio Raines MD LAB BLOOD ORDERABLES Final Resu lt [facility] [address] [place] [address], * (ABNORMAL) Comprehensive metabolic panel (08/16/2025 1:57 PM EDT) Sodium 142 133 - 145 mmol/L LAB CHEMISTRY METHOD 08/16/2025 10:15 PM [facility] Potassium 4.6 3.5 - 5.5 mmol/L LAB CHEMISTRY METHOD 08/16/2025 10:15 PM [facility] Chloride 112(H) 96 - 110 mmol/L LAB CHEMISTRY METHOD 08/16/2025 10:15 PM [facility] CO2 24 21 - 32 mmol/L LAB CHEMISTRY METHOD 08/16/2025 10:15 PM [facility] Anion Gap 6 3 - 11 LAB CHEMISTRY METHOD 08/16/2025 10:15 PM [facility] Glucose 82 70 - 100 mg/dL LAB CHEMISTRY METHOD 08/16/2025 10:15 PM [facility] BUN 17 5 - 25 mg/dL LAB CHEMISTRY METHOD 08/16/2025 10:15 PM [facility] Creatinine 1.07 0.50 - 1.10 mg/dL LAB CHEMISTRY METHOD 08/16/2025 10:15 PM [facility] eGFR 53(L) >=60 mL/min/1. 73m2 LAB CHEMISTRY METHOD 08/16/2025 10:15 PM [facility] Comment:Calculation based on the Chronic Kidney Disease Epidemiology Collaboration (CKD-EPI) equation refit without adjustment for race. BUN/Creatinine Ratio 15.9 LAB CHEMISTRY METHOD 08/16/2025 10:15 PM [facility] Calcium 8.9 8.5 - 10.5 mg/dL LAB CHEMISTRY METHOD 08/16/2025 10:15 PM [facility] AST (SGOT) 28 10 - 42 unit/L LAB CHEMISTRY METHOD 08/16/2025 10:15 PM [facility] ALT (SGPT) 23 10 - 60 unit/L LAB CHEMISTRY METHOD 08/16/2025 10:15 PM [facility] Alkaline Phosphatase 101 42 - 121 unit/L LAB CHEMISTRY METHOD 08/16/2025 10:15 PM EDT [facility] Total Protein 6.5 6.0 - 8.0 g/dL LAB CHEMISTRY METHOD 08/16/2025 10:15 PM EDT [facility] Albumin 3.7 3.2 - 5.0 g/dL LAB CHEMISTRY METHOD 08/16/2025 10:15 PM EDT [facility] Total Bilirubin 0.4 0.0 - 1.4 mg/dL LAB CHEMISTRY METHOD 08/16/2025 10:15 PM EDT [facility] Blood Venous blood specimen / Unknown Venipuncture / Unknown 08/16/2025 1:57 PM EDT 08/16/2025 1:57 PM EDT us Eulalio Raines MD LAB BLOOD ORDERABLES Final Resu lt [facility] [address] [place] [address], * ECG 12 lead (08/08/2025 9:57 AM EDT) Ventricular Rate ECG 51 BPM GEMUSE Atrial Rate 51 BPM GEMUSE P-R Interval 182 ms GEMUSE QRS Duration 72 ms GEMUSE Q-T Interval 438 ms GEMUSE QTc 403 ms GEMUSE P Wave [place] 68 degrees GEMUSE R [place] -27 degrees GEMUSE T [place] 57 degrees GEMUSE ECG Interpretation Sinus bradycardia Low voltage QRS Cannot rule out Anterior infarct (cited on or before 11-JAN-2025) Abnormal ECG When compared with ECG of 11-JAN-2025 15:09, No significant change was found Confirmed by Liu MONTENEGRO JAY ([id number]) on 08/08/2025 10:16:29 AM GEMUSE 08/08/2025 9:57 AM EDT 08/08/2025 10:16 AM EDT us Adam Montenegro MD ECG ORDERABLES Final Result GEMUSE * (ABNORMAL) CBC auto differential (07/06/2025 11:40 AM EDT) [facility] Signature WBC 9.4 4.8 - 10.8 K/mcL LAB HEMETOLOGY METHOD 07/06/2025 2:19 PM EDT [facility] RBC 4.00 3.80 - 4.80 M/mcL LAB HEMETOLOGY METHOD 07/06/2025 2:19 PM EDT [facility] Hemoglobin 13.7 11.5 - 16.0 g/dL LAB HEMETOLOGY METHOD 07/06/2025 2:19 PM EDT [facility] Hematocrit 41.2 35.0 - 47.0 % LAB HEMETOLOGY [facility]06[facility]2025 [facility] MCV 103.0(H) 79.0 - 98.0 FL LAB HEMETOLOGY METHOD 07/06/2025 2:19 PM EDT [facility] MCH 34.3(H) 27.0 - 32.0 pcg LAB HEMETOLOGY METHOD 07/06/2025 2:19 PM EDT [facility] MCHC 33.3 32.0 - 37.0 g/dL LAB HEMETOLOGY METHOD 07/06/2025 2:19 PM EDT [facility] RDW 13.4 11.0 - 15.0 % LAB HEMETOLOGY METHOD 07/06/2025 2:19 PM EDT [facility] Platelets 230 130 - 400 K/mcL LAB HEMETOLOGY METHOD 07/06/2025 2:19 PM EDT [facility] MPV 11.6(H) 7.0 - 11.0 FL LAB HEMETOLOGY METHOD 07/06/2025 2:19 PM EDT [facility] NRBC 0.0 <1.0 % LAB HEMETOLOGY METHOD 07/06/2025 2:19 PM EDT [facility] NRBC Absolute 0.00 <0.10 K/mcL LAB HEMETOLOGY METHOD 07/06/2025 2:19 PM EDT [facility] Neutrophils Relative 63.9 % LAB HEMETOLOGY METHOD 07/06/2025 2:[facility] Lymphocytes Relative 26.1 % LAB HEMETOLOGY METHOD 07/06/2025 2:19 PM EDT [facility] Monocytes Relative 8.1 % LAB HEMETOLOGY METHOD 07/06/2025 2:19 PM EDT [facility] Eosinophils Relative 1.2 % LAB HEMETOLOGY METHOD 07/06[facility]2025 2:[facility] Basophils Relative 0.4 % LAB HEMETOLOGY METHOD 07/06/2025 2:19 PM [facility] Immature Granulocytes Relative 0.3 % LAB HEMETOLOGY METHOD 07/06/2025 2:19 PM [facility] Neutrophils Absolute 5.98 1.50 - 7.00 K/mcL LAB HEMETOLOGY METHOD 07/06/2025 2:19 PM T [facility] Lymphocytes Absolute 2.44 1.00 - 5.00 K/mcL LAB HEMETOLOGY METHOD 07/06/2025 2:19 PM [facility] Monocytes Absolute 0.76 0.20 - 1.00 K/mcL LAB HEMETOLOGY METHOD 07/06/2025 2:19 PM EDT [facility] Eosinophils Absolute 0.11 0.00 - 0.50 K/mcL LAB HEMETOLOGY METHOD 07/06/2025 2:19 PM EDT [facility] Basophils Absolute 0.04 0.00 - 0.20 K/mcL LAB HEMETOLOGY METHOD 07/06/2025 2:19 PM [facility] Immature Granulocytes Absolute 0.03 0.00 - 0.03 K/mcL LAB HEMETOLOGY METHOD 07/06/2025 2:19 PM EDT [email or web address] Blood Venous blood specimen / Unknown Venipuncture / Unknown 07/06/2025 11:40 AM EDT 07/06/2025 11:40 AM EDT Vernell [facility]SI[facility] LAB BLOOD ORDERABLES Fi nal Result [facility]) [facility] [address] [place] [address], * DXA BONE DENSITY STUDY 1+ SITS [...] Organization Fracture Risk Assessment) The [facility] Department of Internal Medicine recommends using National [...] alternative screening schedule based on marly Diaz., [facility] December 10, 2011 for patients with osteopenia (based on hip BMD T-score) is as follows: * advanced osteopenia (T scores -2.00 to -2.49), BMD testing every year * moderate osteopenia (T scores -1.50 to -1.99), BMD testing every 5 years mild osteopenia or normal BMD (T scores -1.50 and higher), BMD testing every 15 years Procedure Note Jemam Ray MD - 11/10/2022 BONE DENSITY SCAN [...] HealthOrganization Fracture Risk Assessment) [facility] Department of Internal Medicine recommendsusing National Osteoporosis [...] alternative screening schedule based on marly Diaz., [facility] for patients with osteopenia (based on hip BMD T-score) is as follows: * advanced osteopenia (T scores -2.00 to -2.49), BMD testing every year * moderate osteopenia (T scores -1.50 to -1.99), BMD testing every 5years mild osteopenia or normal BMD (T scores -1.50 and higher), BMD testingevery 15 years Lillie [facility] DXA PROCEDURES Final Resu lt from Last 3 Months or Most Recently Relevant to Health Maintenance Insurance MEDICARE [employer]LL[employer] Care Teams Health Sanitarian Relationship Specialty Start Date End Date Eulalio Raines MD [address] [place] [phone] PCP - General Internal Medicine 06/25/20
--- OUTSIDE RECORDS SUMMARY | 2025-08-27 15:13 | XMS_ITS | Patient Health Record ---
Author Organization [facility] Address [address] [place] [address] Care Team Providers Care Client Manager Large Law Name Role Phone Ren Bourne MD Primary Care Provider Unavail able Josh De Anda Unavailable [phone] Reason For Referral No Information Medications Medication [...] Problem Acquired hammer toe of right foot ([id number] 105) Other hammer toe(s) (acquired), right foot (M20.41) Active confirmed Problem Acquired hammer toe of left foot ([id number] 103) Other hammer toe(s) (acquired), left foot (M20.42) Active confirmed Plan Of Treatment No Information Insurance Providers Payer Name Payer Address Payer Phone Subscriber Number Group Number Insured Name Patient Relationship to Insured Coverage Start Date Coverage End Date Medicare National [employer] [address] [place] [address] [id number] Jessica Trna Self - patient is the insured [employer] ([facility]) [address] [place] [address] [id number] Jessica Tran Self - patient is the insured Medical (General) History Medical History History ICD Code asthma Cancer skin High blood pressure Measles Mumps Chicken pox Surgical History Surgery Date(Month/Year) section 1969
--- OUTSIDE RECORDS SUMMARY | 2025-08-27 15:14 | XMS_ITS | Data Portability ---
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 Role Phone DAGOBERTOBRAD AN IMANI Referring [...] Sensorine ural hearing loss of bilateral ears 856823628 Active 2019 Sensorine ural hearing loss, bilateral ; Note: Date Diagnosed : 03/06/2020 9:48 AM (H90.3) Not Available [facility] 4 02:57:24 Bilateral tinnitus 29143255400 02 Active 2020 Tinnitus, bilateral ; Note: Date Diagnosed : 04/22/2021 10:19 AM (H93.13) Not Available [facility] 4 02:57:22 Dysphagia 67961122 Active 2024 KOFI KELLOGG MD [address] [facility],[place] [address], [facility], [address] , [facility] 15:37:44 Chronic hoarsenes s 91342295548 05 Active 2024 KOFI KELLOGG MD [address] [place] [address],[place] [address], [place], [address] , [facility] 15:37:50 Problem Notes None recorded. Procedures Surgical History Date Name Laterality Status Provider Name and Address Organization Details Recorded Time 12/27/2024 FOL_DP completed KOFI KELLOGG MD [address] [place] [address],[place] [address], [place], [address], [facility] 12/27/2024 15:37:34 Imaging Results None recorded. Procedure Notes None recorded. Medical Equipment None Reported. Allergies Allergen ID Allergen Name Allergen Category Reaction Reaction Severity Criticality Documentation Date Start Date Code Code System Note Provider Name and Address Organization Details Recorded Time 432395 Zithromax medicatio n other Not available Not available 04/04/202419637 4 RxNorm React ion: unkno wn, unspe cifie d;; Not Available [facility] 4 01:09:30 Medications Name Sig Start Date [...] mg tablet 12/27 completed Medicati on ID: [id number] D uration Value: 30 Brand Name: terbinaf [...] mg tablet 12/27 completed Medicati on ID: [id number] D uration Value: 90 Brand Name: losartan Send Method: E-Prescr ibed Sub s Allowed: subs OK Speci al Instruct ion: TAKE 1 TABLET BY MOUTH EVERY DAY Medi cationGe nericNam e: losartan Not Available Not Available Not Available hydrochlo rothiazid e 12.5 mg capsule 12/27 completed Medicati on ID: [id number] D uration Value: 90 Brand Name: hydrochl orothiaz denny Send Method: E-Prescr ibed Sub s Allowed: subs OK Speci al Instruct ion: TAKE 1 CAPSULE BY MOUTH EVERY DAY Medi cationGe nericNam e: hydrochl orothiaz denny Not Available Not Available Not Available Glucosami ne 500 mg tablet 12/27 completed Medicati on ID: [id number] B rand Name: Glucosam ine Send Method: [...] mg capsule 12/27 completed Medicati on ID: [id number] B rand Name: Fish Oil Send Method: E-Prescr ibed Sub s Allowed: subs OK Medic ationGen ericName : Fish Oil Not Available Not Available Not Available Calcium 600 + D(3) 600 mg-5 mcg (200 unit) capsule 2019 active Medicati on ID: [id number] B rand Name: Calcium 600 + D(3) Sen d Method: E-Prescr ibed Sub s Allowed: subs OK Medic ationGen ericName : Calcium 600 + D(3) Not Available Not Available Not Available Eliquis 5 mg tablet TAKE 1 TABLET BY MOUTH TWICE A DAY active Not Available Not Available No t Available melatonin 10 mg capsule 12/27 completed Medicati on ID: [id number] B rand Name: melatoni n Send Method: [...] mg capsule 12/27 completed Medicati on ID: [id number] B rand Name: turmeric -turmeri c root extract Send Method: E-Prescr ibed Sub s Allowed: subs OK Medic ationGen ericName : turmeric -turmeri c root extract Not Available Not Available Not Available Vitals Date Recorded Body height Body mass index (BMI) Body weight Provider Name and Address Organization Details Last Updated DateTime 12/27/2024 160.02 cm 30.1 kg/m2 23440.7 g Niesha Mcgowan [facility] 12/27/2024 15:15:32 Social History None recorded. Functional Status None recorded. Mental Status None recorded. Family History Nothing Reported. Medical History No medical history recorded. Gynecological HistoryNo gynecological history recorded. Obstetrics History GPAL:G 0 P 0 0 0 0 Past Encounters Encounter ID Performer Location Encounter Start Date Encounter Closed Date Diagnosis/Indication Diagnosis SNOMED-CT Code Diagnosis ICD10 Code Diagnosis IMO Codes Diagnosis Note [id number] KOFI KELLOGG MD [facility] [address] [place] [address] 12/27/2024 15:00:07 12/27/2024 15:38:59 Dysphagia 85456129 R13.10 Chronic hoarseness 79259 10488 105 R49.0 Health Concerns Section Related Observation LastModified by Organization Detai ls LastModified Time None Recorded Concern Status LastModified by Organization Details LastModified Time None Recorded Advance Directives Directive None Recorded Payers Insurance Date Sequence Insurance Name Policy Number Policy Harper Covered Member ID Harper Member ID Guarantor Name 12/27/2024 2 [facility] F (MEDICARE SUPPLEMENT) [id number] Jessica Tran [id number] Jessica Tran 12/27/2024 1 [place] [employer] Jessica Tran [id number] Jessica Tran Notes Date Note Type Note Provider Name and Address Organization Details Recorded Time 12/27/2024 text/html ROS as noted in the HPI throat clearing x 6 monthshoarse voicerx augmentin, flonase, prednisone - no reliefpulm consult dx bronchial asthmaomeprazole x 10 yrshx of ba swallow with esophageal dysmotility years ago PV 04/22/21 [facility] KOFI KELLOGG MD [address] [facility],[place] [address], [place], [address], [place] - [facility] 12/27/2024 15:39:58 OBGyn Episode No OBEpisode recorded.
== END 2025-08-27 13:43 | disposition home or self-care (01) ==
LOC: HO.HPS 12:51
PROVIDERS: PCP Internal Medicine; Visit Provider Nurse Practitioner Family
DX: J45.909 Unspecified asthma, uncomplicated (principal); R94.2 Abnormal results of pulmonary function studies; R06.00 Dyspnea, unspecified; G47.33 Obstructive sleep apnea (adult) (pediatric)
CPT/HCPCS: 99214

== ENCOUNTER → 2025-08-27 12:50 | Outpatient (BNVA) | payer MEDICARE, OTHER, SELFPAY | PROVIDERS: PCP Internal Medicine; Visit Provider Nurse Practitioner Family | DX: G47.33 Obstructive sleep apnea (adult) (pediatric) (principal); R94.2 Abnormal results of pulmonary function studies; R06.00 Dyspnea, unspecified; J45.909 Unspecified asthma, uncomplicated | CPT/HCPCS: 99212 ==

== ENCOUNTER 2025-11-01 10:47 | Outpatient (REF) | payer MEDICARE, OTHER, SELFPAY ==
--- NOTE | 2025-11-01 10:50 | PFT_ITS ---
Spirometry [] Lung Volumes [] Diffusion Capacity [] Methacholine Challenge [] Flow Volume Loops [] MVV [] MIP/MEP(Max inspiratory pressure/Max expiratory pressure) [] 6 Minute Walk Test [] ABG [] Interpretation [] MTDD
[2025-11-01 11:28] VITALS: PULSE 63
== END 2025-11-01 10:48 | disposition home or self-care (01) ==
LOC: HO.RESP 10:47
PROVIDERS: PCP Internal Medicine; Visit Provider Nurse Practitioner Family
DX: J45.909 Unspecified asthma, uncomplicated (principal)
CPT/HCPCS: 94060; 94640; 94727; 94729

== ENCOUNTER → 2025-11-01 10:50 | Outpatient (BNV) | payer MEDICARE, OTHER, SELFPAY | PROVIDERS: PCP Internal Medicine; Visit Provider Internal Medicine Pulmonary Disease | DX: J45.909 Unspecified asthma, uncomplicated (principal) | CPT/HCPCS: 94060; 94727; 94729 ==